=== PATIENT | male | born 1955 ===

== ENCOUNTER 2018-10-05 18:33 | Inpatient (IN) ==
[2018-10-05] MEDS ORDERED: Propofol 1000 mg/100 ml Inj 1,000 MG/100 ML BOTTLE ONE (18:39)
[2018-10-05] MEDS ORDERED: ceFAZolin 2 GM Premix Inj 2 GM/50 ML PIGGYBACK IV.SIG ONE (18:41)
[2018-10-05] MEDS ORDERED: Diphtheria/Tetanus/Pertussis Vaccine Inj 0.5 ML Syringe IM ONE (18:41)
[2018-10-05] MEDS ORDERED: Gentamicin/NS 80 mg Premix 100 ML IV.SIG ONE (18:41)
[2018-10-05 18:59] LABS: Baso # (Auto) 0.1 th/mm3 (0.0-0.2); Eos # (Auto) 0.3 th/mm3 (0.0-0.4); Eos % (Auto) 3.2 % (0.0-4.0); Hematocrit 34.2 % (39.0-51.0); Hemoglobin 11.5 gm/dL (13.0-17.0); Lymph % (Auto) 23.6 % (9.0-44.0); Mean Corpuscular HGB Conc 33.6 % (32.0-36.0); Mean Corpuscular Hemoglobin 32.2 pg (27.0-34.0); Mean Corpuscular Volume 95.8 fL (80.0-100.0); Mono # (Auto) 0.8 th/mm3 (0.0-0.9); Mono % (Auto) 9.6 % (0.0-8.0); Neut # (Auto) 5.4 th/mm3 (1.8-7.7); Neut % (Auto) 62.6 % (16.0-70.0); Platelet Count 298 th/mm3 (150-450); Red Blood Count 3.57 mil/mm3 (4.50-5.90); Red Cell Distribution Width 15.2 % (11.6-17.2); White Blood Count 8.7 th/mm3 (4.0-11.0)
[2018-10-05 19:09] LABS: Activated Partial Thrombo Time 28.7 sec (23.4-31.7); Prothrombin Time 9.8 sec (9.8-11.6)
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
[2018-10-05] MEDS ORDERED: Naloxone Inj 0.4 MG/ML Vial IV.PUSH PRN (19:39)
[2018-10-05] MEDS ORDERED: Bisacodyl 10 MG Supp RECTAL PRN (19:39)
[2018-10-05] MEDS ORDERED: Post-op Orders (for Pharmacy) OTHER ONE (19:39)
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
[2018-10-05] MEDS ORDERED: Propofol 1000 mg/100 ml Inj 1,000 MG/100 ML BOTTLE IV.CONT PRN (19:41)
[2018-10-05] MEDS ORDERED: fentaNYL 10 mcg/mL Premix Drip 2,500 MCG/250 ML BAG IV.SIG PRN (19:41)
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
[2018-10-05] MEDS: Senna/Docusate Sodium 8.6/50 MG Tablet PO SCH (20:11)
[2018-10-05] MEDS: Sod Chloride 0.9% Inj 1,000 ML IV.CONT SCH (20:11)
[2018-10-05] MEDS: Propofol 1000 mg/100 ml Inj 1,000 MG/100 ML BOTTLE IV.CONT PRN (21:04)
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
[2018-10-05 22:09] LABS: ABG Base Excess -9.7 mmol/L (-2-2); ABG PCO2 42 mmHg (38-42); ABG PO2 153 mmHg (61-120)
--- NOTE | 2018-10-05 22:31 | XR ---
EXAM DATE: 10/05/2018 10:13 PM EST AGE/SEX: 89 years / Male INDICATIONS: Confirm ET tube placement. CLINICAL DATA: This is the patient's subsequent encounter. Patient reports that signs and symptoms h ave been present for 1 day and indicates a pain score of Nonresponsive. MEDICAL/SURGICAL HISTORY: Non-responsive. Non-responsive. COMPARISON: C, CHEST 1V SINGLE AP, 10/05/2018. . FINDINGS: Endotracheal tube tip in proximal right mainstem bronchus. NG coiled in stomach. Left basilar airspac e disease with small left effusion. No pneumothorax. Right lung relatively clear. CONCLUSION: Endotracheal tube tip in right mainstem bronchus. This should be withdrawn about 4 cm Electronically signed by: Grzegorz Ring MD 10/05/2018 10:30 PM EST
[2018-10-05] MEDS ORDERED: Potassium Chlor 20 mEq Premix 20 MEQ/100 ML PIGGYBACK IV.SIG PRN ×2 (23:17)
[2018-10-05] MEDS ORDERED: Potassium Chlor 40 mEq Premix 40 MEQ/100 ML PIGGYBACK IV.SIG PRN ×2 (23:17)
[2018-10-05] MEDS ORDERED: Potassium Phosphate 500 MG Soluble Tablet PO PRN ×2 (23:17)
[2018-10-05] MEDS ORDERED: Potassium Chloride 25 MEQ Effervescent Tablet PO PRN (23:17)
[2018-10-05] MEDS ORDERED: Magnesium Sulfate Inj 4 GM in Sodium Chlor 0.9% Inj 92 ML IV.SIG PRN (23:17)
[2018-10-05] MEDS ORDERED: Magnesium Oxide 400 MG Tablet PO PRN (23:17)
[2018-10-05] MEDS ORDERED: Sodium Phosphate Inj 30 MMOL in Sodium Chlor 0.9% Inj 250 ML IV.SIG PRN (23:17)
[2018-10-05] MEDS ORDERED: Magnesium Sulfate Inj 2 GM in Sodium Chlor 0.9% Inj 96 ML IV.SIG PRN (23:17)
[2018-10-05] MEDS ORDERED: Potassium Phosphate Inj 30 MMOL in Sodium Chlor 0.9% Inj 250 ML IV.SIG PRN (23:17)
--- NOTE | 2018-10-05 23:19 | CT ---
EXAM DATE: 10/05/2018 10:51 PM EST AGE/SEX: 89 years / Male INDICATIONS: Evaluate popliteal artery occulsion. CLINICAL DATA: This is the patient's initial encounter. Patient reports that signs and symptoms have been present for 1 day and indicates a pain score of Nonresponsive. MEDICAL/SURGICAL HISTORY: Non-responsive. Non-responsive. RADIATION DOSE: 21.67 CTDI (mGy) COMPARISON: No prior exams available for comparison. TECHNIQUE: Multiple contiguous axial images were acquired using a multirow detector CT scanner after the intravenous administration of 60 ml Omnipaque 350 (iohexol) nonionic water-soluble contrast as a single exam dose. Multiplanar reconstruction was performed in the sagittal and coronal planes. Usi ng automated exposure control and adjustment of the mA and/or kV according to patient size, radiation dose was kept as low as reasonably achievable to obtain optimal diagnostic quality images. DICOM fo rmat image data is available electronically for review and comparison. FINDINGS: There is a markedly comminuted fracture of the tibial plateau involving the medial and lateral condyl es as well as the intercondylar region. The fracture extends into the proximal metaphysis. 2 mm step in the lateral condyle articular cortex. There is mild impaction at the level of the proximal metaphy sis. Markedly comminuted fracture of the distal femur is noted involving the metaphysis as well as the lat eral condyle and intercondylar notch. Approximately 4 cm posterior displacement of the distal fractur e fragments. Fracture involves the articular cortex of the lateral condyle. The patella is interposed between the proximal and distal femoral fracture fragments. Nondisplaced proximal fibular shaft fracture also noted. Diffuse atherosclerotic disease there is prominent calcified plaque and moderate grade stenosis of th e distal superficial femoral artery approximately 15 cm proximal to the knee. There is very high-grad e stenosis of the popliteal artery with a narrow string of contrast over a 1.4 cm long segment. The r emaining popliteal artery is attenuated but patent. The proximal anterior tibial artery is patent. Se kim diffuse atherosclerotic disease of the PT trunk is noted with high-grade stenosis distally over an 8 mm segment at its bifurcation. The proximal posterior tibial artery and peroneal artery are pat ent. CONCLUSION: 1. Comminuted fractures of the distal femur and proximal tibia. Fracture of the proximal fibular sha ft also noted. 2. Prominent atherosclerotic disease disease of the distal femoral artery, popliteal artery, and pro ximal calf arteries. There is focal very high-grade stenosis of the popliteal artery at the level of the knee. This finding is age-indeterminate and could be related to chronic atherosclerotic disease o r recent trauma. Age-indeterminate moderate grade stenosis of the distal superficial femoral artery a nd high-grade stenosis of the PT trunk at its bifurcation also noted. Electronically signed by: Ti Villa MD 10/05/2018 11:18 PM EST
[2018-10-05] MEDS: Pantoprazole Inj 40 MG Vial IV.PUSH SCH (23:57)
[2018-10-05] MEDS: ceFAZolin 1 GM Premix Inj 1 GM/50 ML FROZ.PIGGY IV.SIG SCH (23:57)
[2018-10-06] MEDS: Oral Hygiene Kit OROPHARYNG SCH ×4 (00:17→17:15)
--- NOTE | 2018-10-06 00:33 | XR ---
EXAM DATE: 10/06/2018 12:14 AM EST AGE/SEX: 89 years / Male INDICATIONS: Retraction of the E-T tube from 27 cm to 24 cm. CLINICAL DATA: This is the patient's subsequent encounter. Patient reports that signs and symptoms h ave been present for 1 day and indicates a pain score of Nonresponsive. MEDICAL/SURGICAL HISTORY: None. None. [place] [facility] [place]/05/2018. . FINDINGS: Single AP view the chest. Endotracheal tube remains in place. The tip is now 2 cm above the yael. N asogastric tube is unchanged. Patchy opacity in the left lung base is decreased. CONCLUSION: 1. Endotracheal tube tip now 2 cm above the yael. 2. Patchy atelectasis at the left lung base is decreased. Electronically signed by: Ti Villa MD 10/06/2018 12:32 AM EST
[2018-10-06] MEDS: Sod Chloride 0.9% Inj 1,000 ML IV.CONT SCH ×5 (01:30→20:56)
[2018-10-06] MEDS: Propofol 1000 mg/100 ml Inj 1,000 MG/100 ML BOTTLE IV.CONT PRN ×4 (01:59→20:55)
[2018-10-06] MEDS ORDERED: ceFAZolin 1 GM Premix Inj 1 GM/50 ML FROZ.PIGGY IV.SIG SCH (02:00)
[2018-10-06 03:42] LABS: Baso % (Auto) 0.3 % (0.0-2.0); Eos # (Auto) 0.1 th/mm3 (0.0-0.4); Eos % (Auto) 0.7 % (0.0-4.0); Hematocrit 23.2 % (39.0-51.0); Hemoglobin 8.1 gm/dL (13.0-17.0); Lymph % (Auto) 13.2 % (9.0-44.0); Mean Corpuscular HGB Conc 34.7 % (32.0-36.0); Mean Corpuscular Hemoglobin 33.1 pg (27.0-34.0); Mean Corpuscular Volume 95.3 fL (80.0-100.0); Mono # (Auto) 1.1 th/mm3 (0.0-0.9); Neut # (Auto) 5.4 th/mm3 (1.8-7.7); Neut % (Auto) 70.8 % (16.0-70.0); Platelet Count 222 th/mm3 (150-450); Red Blood Count 2.44 mil/mm3 (4.50-5.90); Red Cell Distribution Width 14.9 % (11.6-17.2); White Blood Count 7.6 th/mm3 (4.0-11.0)
[2018-10-06 04:03] LABS: Calcium 6.8 mg/dL (8.5-10.1); Carbon Dioxide 18.3 meq/L (21.0-32.0); Potassium 4.7 meq/L (3.5-5.1)
--- NOTE | 2018-10-06 04:10 | XR ---
EXAM DATE: 10/06/2018 4:04 AM EST AGE/SEX: 89 years / Male INDICATIONS: Respiratory distress. CLINICAL DATA: This is the patient's subsequent encounter. Patient reports that signs and symptoms h ave been present for 2 days and indicates a pain score of Nonresponsive. MEDICAL/SURGICAL HISTORY: . Unobtainable. . Unobtainable. COMPARISON: C, CHEST 1V SINGLE AP, 10/05/2018. . FINDINGS: Single AP view the chest. Endotracheal tube and nasogastric tube remain in place. Patchy bilateral pu lmonary opacity unchanged. No evidence of pleural effusion or pneumothorax. CONCLUSION: No significant interval change. Electronically signed by: Ti Villa MD 10/06/2018 4:09 AM EST
[2018-10-06] MEDS: ceFAZolin 1 GM Premix Inj 1 GM/50 ML FROZ.PIGGY IV.SIG SCH ×2 (04:17→14:00)
[2018-10-06 05:04] LABS: Calcium-Albumin Corrected 7.6 mg/dL (8.5-10.1); Total Protein 5.6 g/dL (6.4-8.2)
[2018-10-06 06:55] LABS: ABG Base Excess -5.8 mmol/L (-2-2); ABG PCO2 35 mmHg (38-42); ABG PO2 168 mmHg (61-120)
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
[2018-10-06] MEDS ORDERED: ceFAZolin 2 GM Premix Inj 2 GM/50 ML PIGGYBACK IV.SIG ONE (08:02)
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
[2018-10-06] MEDS: Chlorhexidine 0.12% Oral Kit 15 ML UDC OROPHARYNG SCH ×2 (08:39→20:45)
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
[2018-10-06] MEDS ORDERED: Gentamicin/NS 80 mg Premix 100 ML IV.SIG SCH (10:30)
--- NOTE | 2018-10-06 10:54 | CT ---
EXAM DATE: 10/06/2018 10:48 AM EST AGE/SEX: 62 years / Male INDICATIONS: Follow up subdural hematoma. CLINICAL DATA: This is the patient's subsequent encounter. Patient reports that signs and symptoms h ave been present for 2 days and indicates a pain score of Nonresponsive. MEDICAL/SURGICAL HISTORY: Non-responsive. Non-responsive. RADIATION DOSE: 64.63 CTDI (mGy) COMPARISON: [facility] – [place], [place] HEAD W/O CONTRAST, 10/05/2018. . TECHNIQUE: CT of the head without contrast. Using automated exposure control and adjustment of the mA and/or kV according to patient size, radiation dose was kept as low as reasonably achievable to ob tain optimal diagnostic quality images. DICOM format image data is available electronically for revi ew and comparison. FINDINGS: Small amount of parafalcine blood remains, slowly decreasing in size. Trace subarachnoid blood is obs cured by persistent intravascular contrast. There is no significant parenchymal hemorrhage. Ventricular size is appropriate Posterior fossa appears normal Marked generalized superficial swelling is evident. Sinus disease is present in both maxillary sinuse s. I don't see a definite skull fracture. CONCLUSION: 1. Stable to slightly improved. Significant intravascular contrast remains from previous contrasted exam. . Electronically signed by: Eligio Miller MD 10/06/2018 10:53 AM EST
[2018-10-06] MEDS: fentaNYL 10 mcg/mL Premix Drip 2,500 MCG/250 ML BAG IV.SIG PRN (11:20)
--- NOTE | 2018-10-06 11:25 | CT ---
EXAM DATE: 10/06/2018 11:03 AM EST AGE/SEX: 62 years / Male INDICATIONS: Post op knee surgery. CLINICAL DATA: This is the patient's subsequent encounter. Patient reports that signs and symptoms h ave been present for 2 days and indicates a pain score of Nonresponsive. MEDICAL/SURGICAL HISTORY: Non-responsive. Non-responsive. RADIATION DOSE: 18.31 CTDI (mGy) [place] [facility] [place]05/[place]. . TECHNIQUE: Multiple contiguous axial images were acquired using a multirow detector CT scanner witho ut contrast. Multiplanar reconstruction was performed in the sagittal and coronal planes. Using aut omated exposure control and adjustment of the mA and/or kV according to patient size, radiation dose was kept as low as reasonably achievable to obtain optimal diagnostic quality images. DICOM format i mage data is available electronically for review and comparison. FINDINGS: Again seen is the markedly comminuted fractures of the tibial plateau involves both the medial and la teral articular surfaces of the plateau as well as the lateral femoral condyle. Significant comminution is present about the distal femur. Alignment across the femoral articular surfaces reasonably anatomic. Alignment across the medial plateau is reasonably anatomic. In spite of the severe comminution across the lateral plateau alignment is reasonably anatomic. There are several small apparent intra-articular bone fragments evident in the intercondylar notch. The patella is intact Moderate intra-articular air and fluid remain. CONCLUSION: 1. Severely comminuted fracture about the knee as described above, Electronically signed by: Eligio Miller MD 10/06/2018 11:23 AM EST
--- NOTE | 2018-10-06 12:08 | MR ---
EXAM DATE: 10/06/2018 11:55 AM EST AGE/SEX: 62 years / Male INDICATIONS: . T10-T11 fracture CLINICAL DATA: This is the patient's initial encounter. Patient reports that signs and symptoms have been present for 2 days and indicates a pain score of Nonresponsive. MEDICAL/SURGICAL HISTORY: Hypertension. Renal insufficiency. . Right hip surgery. COMPARISON: [facility] – [place], [place] CHEST W & W/O CONTRAST, 10/05/2018. . TECHNIQUE: Multiplanar, multisequence MRI of the thoracic spine was performed. FINDINGS: Vertebrae: Normal vertebral body height. Homogeneous marrow signal. There is widening of the disc s pace at T11-T12 with some fluid in the disc space. In spite of this there is no increased signal in t he interspinous ligament. Signal intensity in the thoracic cord at this level is normal. This is susp icious for a chance type fracture without the other components. Alignment: Normal. Cord: Normal position and configuration. T1-T2: The thecal sac has a normal diameter. No evidence of disc bulge or protrusion. T2-T3: The thecal sac has a normal diameter. No evidence of disc bulge or protrusion. T3-T4: The thecal sac has a normal diameter. No evidence of disc bulge or protrusion. T4-T5: The thecal sac has a normal diameter. No evidence of disc bulge or protrusion. T5-T6: The thecal sac has a normal diameter. No evidence of disc bulge or protrusion. T6-T7: The thecal sac has a normal diameter. No evidence of disc bulge or protrusion. T7-T8: The thecal sac has a normal diameter. No evidence of disc bulge or protrusion. T8-T9: The thecal sac has a normal diameter. No evidence of disc bulge or protrusion. T9-T10: The thecal sac has a normal diameter. No evidence of disc bulge or protrusion. T10-T11: The thecal sac has a normal diameter. No evidence of disc bulge or protrusion. T11-T12: Abnormal T11-T12 disc space without evidence for ligamentous disruption cord hematoma or im pingement. This is suspicious for a Chance type injury T12-L1: The thecal sac has a normal diameter. No evidence of disc bulge or protrusion. CONCLUSION: 1. Abnormal T11-T12 as described above. 2. Thoracic cord is intact. There is no evidence for hematoma or contusion. There is no evidence of posterior ligamentous disruption. Electronically signed by: Eligio Miller MD 10/06/2018 12:06 PM EST
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
--- NOTE | 2018-10-06 12:16 | ECG ---
Date Performed: 10/06/2018 Time Performed: 05:48:12 PTAGE: 89 years EKG: Sinus rhythm . Normal ECG NO PREVIOUS TRACING DOCTOR: Mumtaz Curtis Interpretating Date/Time 10/06/2018 12:10:51
[2018-10-06 13:21] LABS: ABG Base Excess -6.3 mmol/L (-2-2); ABG PCO2 40 mmHg (38-42); ABG PO2 154 mmHg (61-120)
[2018-10-06] MEDS: Senna/Docusate Sodium 8.6/50 MG Tablet PO SCH ×2 (13:27→23:15)
--- NOTE | 2018-10-06 14:22 | XR ---
EXAM DATE: 10/06/2018 2:06 PM EST AGE/SEX: 62 years / Male INDICATIONS: Closed reduction external fixation left knee. CLINICAL DATA: This is the patient's initial encounter. Patient reports that signs and symptoms have been present for 1 day and indicates a pain score of Nonresponsive. MEDICAL/SURGICAL HISTORY: Non-responsive. Non-responsive. COMPARISON: [facility], TIBIA FIBULA LEFT 2V, 10/05/2018. . FINDINGS: Reasonable alignment across the femoral condyle and tibial plateau on the AP and lateral fluoroscopic spot films. Significant comminution is evident both the distal femur and proximal tibia. CONCLUSION: Reasonable alignment as above Electronically signed by: Eligio Miller MD 10/06/2018 2:21 PM EST
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
--- NOTE | 2018-10-06 18:44 | P.PNNS ---
Subjective Interval history: Pt intubated and sedated on Fentanyl and Diprivan drips. When sedation held by RN he striker out hands and moves toes on the right. LLE is in an external fixator and no movement in left foot seen but his sedation was lightened by RN. He has facial edema and not able to open eyes as they are swollen shut. <Juancarlos Stanford - Last Filed: 10/06/18 18:29> Physical Exam Vital signs: Vital Signs 10/05/18 19:08 10/05/18 19:09 10/05/18 19:33 Temperature Pulse Rate Respiratory Rate Blood Pressure 147/87 H Pulse Oximetry 99 99 63 L 10/05/18 19:34 10/05/18 19:46 10/05/18 20:00 Temperature 98.2 F 96.4 F L Pulse Rate 79 76 Respiratory Rate 30 H 28 H Blood Pressure 155/82 H 149/92 H Pulse Oximetry 94 L 100 10/05/18 20:01 10/05/18 20:31 10/05/18 20:46 Temperature 96.3 F L 96.1 F L Pulse Rate 77 74 73 Respiratory Rate 28 H 16 16 Blood Pressure 149/74 H 113/61 111/65 Pulse Oximetry 100 100 100 10/05/18 21:00 10/05/18 21:01 10/05/18 21:16 Temperature 96.4 F L 96.4 F L 96.3 F L Pulse Rate 72 72 74 Respiratory Rate 16 16 16 Blood Pressure 114/67 114/69 Pulse Oximetry 100 100 100 10/05/18 21:26 10/05/18 21:31 10/05/18 21:46 Temperature 96.3 F L 96.3 F L Pulse Rate 72 70 Respiratory Rate 16 16 16 Blood Pressure 103/63 103/60 Pulse Oximetry 100 100 10/05/18 22:00 10/05/18 22:01 10/05/18 22:16 Temperature 96.3 F L 96.3 F L Pulse Rate 73 73 72 Respiratory Rate 16 16 16 Blood Pressure 108/57 L 95/57 L Pulse Oximetry 100 99 99 10/05/18 22:31 10/05/18 23:00 10/05/18 23:16 Temperature 96.3 F L 96.3 F L Pulse Rate 72 75 73 Respiratory Rate 16 15 Blood Pressure 102/56 L 116/66 99/57 L Pulse Oximetry 100 100 100 10/05/18 23:30 10/05/18 23:46 10/06/18 00:00 Temperature 96.3 F L 96.4 F L 96.4 F L Pulse Rate 73 72 73 Respiratory Rate 23 16 17 Blood Pressure 103/61 107/64 Pulse Oximetry 100 100 100 10/06/18 00:01 10/06/18 00:10 10/06/18 00:16 Temperature 96.4 F L 96.6 F L Pulse Rate 72 74 Respiratory Rate 21 16 16 Blood Pressure 112/69 112/67 Pulse Oximetry 100 100 100 10/06/18 00:30 10/06/18 00:46 10/06/18 01:00 Temperature 96.8 F L 97.0 F L 97.2 F L Pulse Rate 75 76 77 Respiratory Rate 16 17 Blood Pressure 110/68 110/70 120/68 Pulse Oximetry 100 100 100 10/06/18 01:01 10/06/18 01:16 10/06/18 01:30 Temperature 97.2 F L 97.3 F L 97.5 F L Pulse Rate 77 77 77 Respiratory Rate 48 H 61 H 64 H Blood Pressure 108/68 115/70 120/68 Pulse Oximetry 100 100 100 10/06/18 01:46 10/06/18 02:00 10/06/18 02:01 Temperature 97.5 F L 97.5 F L 97.5 F L Pulse Rate 78 79 79 Respiratory Rate 56 H 65 H 57 H Blood Pressure 121/73 121/77 Pulse Oximetry 100 100 100 10/06/18 02:30 10/06/18 03:00 10/06/18 03:17 Temperature 97.7 F 97.9 F Pulse Rate 79 80 80 Respiratory Rate 62 H 76 H 16 Blood Pressure 119/72 124/81 Pulse Oximetry 100 100 100 10/06/18 03:30 10/06/18 04:00 10/06/18 08:00 Temperature 98.1 F 98.1 F 99.1 F Pulse Rate 79 79 82 Respiratory Rate 72 H 56 H 66 H Blood Pressure 128/80 142/84 H 153/79 H Pulse Oximetry 100 100 100 10/06/18 08:30 10/06/18 08:55 10/06/18 08:58 Temperature 99.1 F Pulse Rate 83 82 Respiratory Rate 67 H 16 16 Blood Pressure 146/78 H Pulse Oximetry 100 100 10/06/18 09:00 10/06/18 09:45 10/06/18 10:09 Temperature 99.3 F 98.8 F Pulse Rate 81 81 Respiratory Rate 57 H 16 Blood Pressure 148/72 H 146/67 H Pulse Oximetry 100 100 10/06/18 11:55 10/06/18 12:00 10/06/18 12:27 Temperature 98.1 F Pulse Rate 82 Respiratory Rate 16 16 Blood Pressure 147/71 H Pulse Oximetry 100 99 100 10/06/18 14:06 10/06/18 14:24 10/06/18 14:58 Temperature 98.8 F 98.8 F Pulse Rate 79 79 Respiratory Rate 16 16 16 Blood Pressure 143/64 H 143/64 H Pulse Oximetry 100 10/06/18 14:59 10/06/18 16:00 10/06/18 17:00 Temperature 99.0 F 99.3 F Pulse Rate 80 80 85 Respiratory Rate 16 16 16 Blood Pressure 147/69 H 168/77 H Pulse Oximetry 100 100 Intake & Output 10/05/18 10/06/18 10/06/18 18:59 06:59 18:59 Intake Total 2575 / 2575 2004 Output Total 875 / 875 30 / 30 Balance 1700 / 1700 1974 Weight 98.1 kg Intake: IV 2555 / 2555 1205 / 1205 Diprivan 1000 mg/100 ml Inj 1, 200 / 200 100 / 100 000 mg In 100 ml @ 5 MCG/KG/MIN 2.805 mls/hr IV.CONT TITRATE PRN Rx#:[id number] NS Inj 1,000 ML @ 200 mls/hr IV 1999 / 1999 1000 / 1000 .CONT .Q5H [facility] Rx#:[id number] Gentamicin/NS 80 mg Premix 100 100 / 100 ML @ 0 mls/hr IV.SIG .STK-MED ONE Rx#:[id number] Ancef 1 GM Premix Inj 1 gm In 100 / 100 50 ml @ 100 mls/hr IV.SIG Q8H [facility] Rx#:[id number] Ancef 2 GM Premix Inj 2 gm In 50 / 50 50 ml @ 0 mls/hr IV.SIG .STK- MED ONE Rx#:[id number] Keppra Inj 500 MG In NS Inj 100 105 / 105 105 / 105 ML @ 400 mls/hr IV.SIG Q12H [facility] Rx#:[id number] Water Bolus Amount 20 / 20 Anesthesia Amount 800 / 800 Intake (Blood Product) Amt 0 / 0 Rbc As-3 Leukoreduced Unit 0 / 0 [id number] Rbc As-3 Leukoreduced Unit 0 / 0 [id number] Output: Estimated Blood Loss 30 / 30 Urine Amount (Catheter) 550 / 550 Indwelling Temp Sensing 550 / 550 Catheter Gastric Drainage 325 / 325 Orogastric Tube 325 / 325 Other: # Bowel Movements 0 Weight On Admission 93.5 kg - Constitutional Comments: Pt is sedated and intubated. - Routine HEENT Exam Head: Absent: atraumatic (Pt with facial trauma and forehead is bandaged. He has bilateral periorbital edema.) Eye: Present: PERRL (Pupils 2mm bilaterally, reactive bilaterally.), periorbital swelling (bilaterally.). Absent: conjunctival icterus ENT: Absent: oropharynx clear (Intubated.) - Routine Neck Exam Present: trachea midline - Routine Respiratory Exam Present: patient mechanically ventilated (PRVC A/C rate 16. Peep 8. FiO2 45%.) , CTA bilaterally. Absent: respiratory distress, rhonchi, wheezes - Routine Cardiovascular Exam Present: RRR, S1, S2. Absent: murmur - Routine Abdominal Exam Present: soft, normoactive bowel sounds. Absent: distended, firm - Routine Extremities Exam Comments: External fixator to LLE. - Routine Skin Exam Absent: cyanosis, erythema Comments: Laceration forehead with bandage in place. LLE external fixator in place with oozing at pin sites. - Routine Neurological Exam Absent: alert (Sedated on Diprivan and Fentanyl drips.), moving all extremities (When sedation held pt striker out bilateral hands and moves right foot. LLE with external fixator in place and not seen moving per RN. ) Pupils 2mm bilaterally reactive bilaterally. Pt follows simple commands when sedation held for RN. - Detailed Neurological Exam: Coma Scale Eye Opening: None Verbal Response: None Motor Response: Obey commands Storm Coma Scale Total: 8 - Routine Psychiatric Exam Present: unable to assess - Urinary Catheter Management Indwelling Temp Sensing Catheter Cath placed during this visit: yes Reason for continuing: Hourly intake/output Insertion date: 10/05/18 Insertion time: 20:00 <Juancarlos Stanford - Last Filed: 10/06/18 18:29> Vital signs: Vital Signs 10/05/18 20:31 10/05/18 20:46 10/05/18 21:00 Temperature 96.1 F L 96.4 F L Pulse Rate 74 73 72 Respiratory Rate 16 16 16 Blood Pressure 113/61 111/65 Pulse Oximetry 100 100 100 10/05/18 21:01 10/05/18 21:16 10/05/18 21:26 Temperature 96.4 F L 96.3 F L Pulse Rate 72 74 Respiratory Rate 16 16 16 Blood Pressure 114/67 114/69 Pulse Oximetry 100 100 10/05/18 21:31 10/05/18 21:46 10/05/18 22:00 Temperature 96.3 F L 96.3 F L 96.3 F L Pulse Rate 72 70 73 Respiratory Rate 16 16 16 Blood Pressure 103/63 103/60 Pulse Oximetry 100 100 100 10/05/18 22:01 10/05/18 22:16 10/05/18 22:31 Temperature 96.3 F L Pulse Rate 73 72 72 Respiratory Rate 16 16 Blood Pressure 108/57 L 95/57 L 102/56 L Pulse Oximetry 99 99 100 10/05/18 23:00 10/05/18 23:16 10/05/18 23:30 Temperature 96.3 F L 96.3 F L 96.3 F L Pulse Rate 75 73 73 Respiratory Rate 16 15 23 Blood Pressure 116/66 99/57 L 103/61 Pulse Oximetry 100 100 100 10/05/18 23:46 10/06/18 00:00 10/06/18 00:01 Temperature 96.4 F L 96.4 F L 96.4 F L Pulse Rate 72 73 72 Respiratory Rate 16 17 21 Blood Pressure 107/64 112/69 Pulse Oximetry 100 100 100 10/06/18 00:10 10/06/18 00:16 10/06/18 00:30 Temperature 96.6 F L 96.8 F L Pulse Rate 74 75 Respiratory Rate 16 16 16 Blood Pressure 112/67 110/68 Pulse Oximetry 100 100 100 10/06/18 00:46 10/06/18 01:00 10/06/18 01:01 Temperature 97.0 F L 97.2 F L 97.2 F L Pulse Rate 76 77 77 Respiratory Rate 17 48 H Blood Pressure 110/70 120/68 108/68 Pulse Oximetry 100 100 100 10/06/18 01:16 10/06/18 01:30 10/06/18 01:46 Temperature 97.3 F L 97.5 F L 97.5 F L Pulse Rate 77 77 78 Respiratory Rate 61 H 64 H 56 H Blood Pressure 115/70 120/68 121/73 Pulse Oximetry 100 100 100 10/06/18 02:00 10/06/18 02:01 10/06/18 02:30 Temperature 97.5 F L 97.5 F L 97.7 F Pulse Rate 79 79 79 Respiratory Rate 65 H 57 H 62 H Blood Pressure 121/77 119/72 Pulse Oximetry 100 100 100 10/06/18 03:00 10/06/18 03:17 10/06/18 03:30 Temperature 97.9 F 98.1 F Pulse Rate 80 80 79 Respiratory Rate 76 H 16 72 H Blood Pressure 124/81 128/80 Pulse Oximetry 100 100 100 10/06/18 04:00 10/06/18 08:00 10/06/18 08:30 Temperature 98.1 F 99.1 F 99.1 F Pulse Rate 79 82 83 Respiratory Rate 56 H 66 H 67 H Blood Pressure 142/84 H 153/79 H 146/78 H Pulse Oximetry 100 100 100 10/06/18 08:55 10/06/18 08:58 10/06/18 09:00 Temperature 99.3 F Pulse Rate 82 81 Respiratory Rate 16 16 57 H Blood Pressure 148/72 H Pulse Oximetry 100 100 10/06/18 09:45 10/06/18 10:09 10/06/18 11:55 Temperature 98.8 F Pulse Rate 81 Respiratory Rate 16 Blood Pressure 146/67 H Pulse Oximetry 100 100 10/06/18 12:00 10/06/18 12:27 10/06/18 14:06 Temperature 98.1 F 98.8 F Pulse Rate 82 79 Respiratory Rate 16 16 16 Blood Pressure 147/71 H 143/64 H Pulse Oximetry 99 100 10/06/18 14:24 10/06/18 14:58 10/06/18 14:59 Temperature 98.8 F Pulse Rate 79 80 Respiratory Rate 16 16 16 Blood Pressure 143/64 H Pulse Oximetry 100 10/06/18 16:00 10/06/18 17:00 Temperature 99.0 F 99.3 F Pulse Rate 80 85 Respiratory Rate 16 16 Blood Pressure 147/69 H 168/77 H Pulse Oximetry 100 100 Intake & Output 10/06/18 10/06/18 10/07/18 06:59 18:59 06:59 Intake Total 2575 / 2575 2004 Output Total 875 / 875 855 / 855 Balance 1700 / 1700 1150 / 1150 Weight 98.1 kg Intake: IV 2555 / 2555 1205 / 1205 Diprivan 1000 mg/100 ml Inj 1, 200 / 200 100 / 100 000 mg In 100 ml @ 5 MCG/KG/MIN 2.805 mls/hr IV.CONT TITRATE PRN Rx#:[id number] NS Inj 1,000 ML @ 200 mls/hr IV 2000 / 1999 1000 / 1000 .CONT .Q5H [facility] Rx#:[id number] Gentamicin/NS 80 mg Premix 100 100 / 100 ML @ 0 mls/hr IV.SIG .STK-MED ONE Rx#:[id number] Ancef 1 GM Premix Inj 1 gm In 100 / 100 50 ml @ 100 mls/hr IV.SIG Q8H [facility] Rx#:[id number] Ancef 2 GM Premix Inj 2 gm In 50 / 50 50 ml @ 0 mls/hr IV.SIG .STK- [facility] Rx#:[id number] Keppra Inj 500 MG In NS Inj 100 105 / 105 105 / 105 ML @ 400 mls/hr IV.SIG Q12H [facility] Rx#:[id number] Water Bolus Amount 20 / 20 Anesthesia Amount 800 / 800 Intake (Blood Product) Amt 0 / 0 Rbc As-3 Leukoreduced Unit 0 / 0 [id number] Rbc As-3 Leukoreduced Unit 0 / 0 [id number] Output: Estimated Blood Loss 30 / 30 Urine Amount (Catheter) 550 / 550 775 / 775 Indwelling Temp Sensing 550 / 550 775 / 775 Catheter Gastric Drainage 325 / 325 50 / 50 Orogastric Tube 325 / 325 50 / 50 Other: # Bowel Movements 0 Weight On Admission 93.5 kg - Urinary Catheter Management Indwelling Temp Sensing Catheter Cath placed during this visit: no <Janes Arceo - Last Filed: 10/07/18 11:55> Assessment and Plan - Assessment (1) CHI (closed head injury) Code(s): S09.90XA - Unspecified injury of head, initial encounter Status: Acute Qualifiers: Encounter type: initial encounter Qualified Code(s): S09.90XA - Unspecified injury of head, initial encounter (2) Acute subdural hematoma Code(s): S06.5X9A - Traumatic subdural hemorrhage with loss of consciousness of unspecified duration, initial encounter Status: Acute (3) Open fracture Code(s): T14.8XXA - Other injury of unspecified body region, initial encounter Status: Acute (4) Respiratory failure after trauma Code(s): J96.90 - Respiratory failure, unspecified, unspecified whether with hypoxia or hypercapnia Status: Acute (5) Mild major neurocognitive disorder as late effect of traumatic brain injury without behavioral disturbance Code(s): S06.9X9S - Unspecified intracranial injury with loss of consciousness of unspecified duration, sequela; F02.80 - Dementia in other diseases classified elsewhere without behavioral disturbance Status: Acute - Plan Small parafalcine SDH improving on Follow up CT. Avulsion fracture of superior endplates of T10 and T11 with disruption of the anterior annulus and widening of the anterior disc space between T10 and T11. This is an unstable fracture. plan formulated with Dr. Arceo: Pts thoracic fracture is unstable and will need stabilization later this week if medically stable. Continue to keep hob less than 15 degrees. Log roll precautions. Custom TLSO brace. Continue with critical care. <Juancarlos Stanford - Last Filed: 10/06/18 18:29> - Attending Attestation The exam, history, and the medical decision-making described in the above note were completed with the assistance of the mid-level provider. I reviewed and agree with the findings presented. I attest that I had a [id number] encounter with the patient on the same day, and personally performed and documented my assessment and findings in the medical record. Discussed with nursing staff. <Janes Arceo - Last Filed: 10/07/18 11:55>
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
[2018-10-06] MEDS ORDERED: Lidocaine 1%/Epinephrine 1:100,000 Inj 30 ML Vial ONE (18:51)
[2018-10-06 20:42] LABS: Calcium 6.5 mg/dL (8.5-10.1); Carbon Dioxide 16.3 meq/L (21.0-32.0); Potassium 4.8 meq/L (3.5-5.1); Total Protein 5.3 g/dL (6.4-8.2)
--- NOTE | 2018-10-06 20:48 | MG ---
cc: Delmar Gutierrez MD EEG NUMBER: [id number] DESCRIPTION: Sharply contoured frontal theta occurring ____ low amplitude theta with delta activity 20-50 microvolts. Limited driving with photic stimulation. EEG variability reactivity noted. INTERPRETATION: [id number] encephalopathy. Clinical correlation. MD MARGO Arauz/bree/gertrude , 08:00 PM , 08:05 PM
[2018-10-06 21:01] LABS: Activated Partial Thrombo Time 28.1 sec (23.4-31.7); Prothrombin Time 10.3 sec (9.8-11.6)
[2018-10-06 21:23] LABS: Hematocrit 26.8 % (39.0-51.0); Hemoglobin 9.3 gm/dL (13.0-17.0); Mean Corpuscular HGB Conc 34.8 % (32.0-36.0); Mean Corpuscular Hemoglobin 31.2 pg (27.0-34.0); Mean Corpuscular Volume 89.8 fL (80.0-100.0); Mean Platelet Volume 7.3 fL (7.0-11.0); Platelet Count 179 th/mm3 (150-450); Red Blood Count 2.98 mil/mm3 (4.50-5.90); Red Cell Distribution Width 19.8 % (11.6-17.2); White Blood Count 8.1 th/mm3 (4.0-11.0)
[2018-10-07] MEDS: Pantoprazole Inj 40 MG Vial IV.PUSH SCH ×2 (00:10→23:09)
[2018-10-07] MEDS: Oral Hygiene Kit OROPHARYNG SCH ×5 (00:11→23:10)
[2018-10-07] MEDS: Sod Chloride 0.9% Inj 1,000 ML IV.CONT SCH ×3 (02:07→15:38)
--- NOTE | 2018-10-07 04:15 | XR ---
EXAM DATE: 10/07/2018 4:05 AM EST AGE/SEX: 62 years / Male INDICATIONS: Respiratory distress. CLINICAL DATA: This is the patient's subsequent encounter. Patient reports that signs and symptoms h ave been present for 2 days and indicates a pain score of Nonresponsive. MEDICAL/SURGICAL HISTORY: Hypertension. None. COMPARISON: [facility] [place], CHEST 1V SINGLE AP, 10/06/2018. . FINDINGS: A single AP supine portable view the chest was obtained and again demonstrates an endotracheal tube i n place with the tip approximately 1 cm above the yael. The nasogastric tube remains in place. Hazy opacity is noted at the left lung base which is increased from the prior study with mild air broncho grams. There is slight blunting and opacity in the left costophrenic angle. The right lung is clear. CONCLUSION: 1. Abnormal opacity at the left lung base which appears more consolidative and is of concern for pos sible pneumonia. 2. Apparent mild blunting of left costophrenic angle which could indicate a small effusion. Electronically signed by: Marco Chavez MD 10/07/2018 4:13 AM EST
[2018-10-07] MEDS: ceFAZolin 1 GM Premix Inj 1 GM/50 ML FROZ.PIGGY IV.SIG SCH ×2 (04:39→13:59)
[2018-10-07] MEDS: fentaNYL 10 mcg/mL Premix Drip 2,500 MCG/250 ML BAG IV.SIG PRN ×2 (04:46→23:08)
[2018-10-07 06:10] LABS: ABG Base Excess -9.3 mmol/L (-2-2); ABG PCO2 34 mmHg (38-42); ABG PO2 125 mmHg (61-120)
[2018-10-07] MEDS: Propofol 1000 mg/100 ml Inj 1,000 MG/100 ML BOTTLE IV.CONT PRN (06:44)
--- NOTE | 2018-10-07 07:09 | P.PNOP ---
Subjective Interval history: POD 1 s/p exfix left knee intubated/sedated Physical Exam Vital signs: Vital Signs 10/06/18 08:00 10/06/18 08:30 10/06/18 08:55 Temperature 99.1 F 99.1 F Pulse Rate 82 83 Respiratory Rate 66 H 67 H 16 Blood Pressure 153/79 H 146/78 H Pulse Oximetry 100 100 100 10/06/18 08:58 10/06/18 09:00 10/06/18 09:45 Temperature 99.3 F Pulse Rate 82 81 Respiratory Rate 16 57 H Blood Pressure 148/72 H Pulse Oximetry 100 100 10/06/18 10:09 10/06/18 11:55 10/06/18 12:00 Temperature 98.8 F 98.1 F Pulse Rate 81 82 Respiratory Rate 16 16 Blood Pressure 146/67 H 147/71 H Pulse Oximetry 100 99 10/06/18 12:27 10/06/18 14:06 10/06/18 14:24 Temperature 98.8 F 98.8 F Pulse Rate 79 79 Respiratory Rate 16 16 16 Blood Pressure 143/64 H 143/64 H Pulse Oximetry 100 10/06/18 14:58 10/06/18 14:59 10/06/18 16:00 Temperature 99.0 F Pulse Rate 80 80 Respiratory Rate 16 16 16 Blood Pressure 147/69 H Pulse Oximetry 100 100 10/06/18 17:00 10/06/18 18:00 10/06/18 19:00 Temperature 99.3 F 99.3 F 99.5 F Pulse Rate 85 83 86 Respiratory Rate 16 16 16 Blood Pressure 168/77 H 164/77 H 173/81 H Pulse Oximetry 100 100 100 10/06/18 20:00 10/06/18 21:00 10/06/18 21:33 Temperature 99.5 F 99.3 F Pulse Rate 86 88 Respiratory Rate 16 16 16 Blood Pressure 166/75 H Pulse Oximetry 100 100 100 10/06/18 21:35 10/06/18 22:00 10/06/18 23:00 Temperature 99.1 F 99.0 F Pulse Rate 87 85 85 Respiratory Rate 16 16 16 Blood Pressure 153/71 H 149/72 H Pulse Oximetry 100 100 10/07/18 00:00 10/07/18 01:00 10/07/18 02:00 Temperature 99.0 F 98.8 F 98.6 F Pulse Rate 84 84 85 Respiratory Rate 16 16 13 Blood Pressure 151/72 H 169/74 H 170/74 H Pulse Oximetry 100 100 100 10/07/18 03:00 10/07/18 04:00 10/07/18 04:11 Temperature 98.4 F 98.4 F Pulse Rate 84 90 Respiratory Rate 11 L 16 16 Blood Pressure 163/70 H 166/81 H Pulse Oximetry 100 100 100 10/07/18 04:12 10/07/18 05:00 10/07/18 05:16 Temperature 98.4 F Pulse Rate 89 88 Respiratory Rate 16 16 16 Blood Pressure 185/83 H Pulse Oximetry 100 10/07/18 05:23 10/07/18 06:00 Temperature 98.2 F 98.1 F Pulse Rate 92 H 88 Respiratory Rate 16 16 Blood Pressure 176/82 H 162/79 H Pulse Oximetry 100 100 Intake & Output 10/06/18 10/07/18 10/07/18 18:59 06:59 18:59 Intake Total 2004 3605 / 3605 Output Total 855 / 855 1200 / 1200 Balance 1150 / 1150 2405 / 2405 Weight 98.6 kg Intake: IV 1205 / 1205 3605 / 3605 Diprivan 1000 mg/100 ml Inj 1, 100 / 100 200 / 200 000 mg In 100 ml @ 5 MCG/KG/MIN 2.805 mls/hr IV.CONT TITRATE PRN Rx#:[id number] NS Inj 1,000 ML @ 200 mls/hr IV 1000 / 1000 3000 / 3000 .CONT .Q5H [facility] Rx#:[id number] Ancef 1 GM Premix Inj 1 gm In 50 / 50 50 ml @ 100 mls/hr IV.SIG Q12H [facility] Rx#:[id number] fentaNYL 10 mcg/mL Premix Drip 250 / 250 2,500 mcg In 250 ml @ 50 MCG/HR 5 mls/hr IV.SIG TITRATE PRN Rx #:[id number] Keppra Inj 500 MG In NS Inj 100 105 / 105 105 / 105 ML @ 400 mls/hr IV.SIG Q12H [facility] Rx#:[id number] Anesthesia Amount 800 / 800 Intake (Blood Product) Amt 0 / 0 Rbc As-3 Leukoreduced Unit 0 / 0 [id number] Rbc As-3 Leukoreduced Unit 0 / 0 [id number] Output: Estimated Blood Loss 30 / 30 Urine Amount (Catheter) 775 / 775 1100 / 1100 Indwelling Temp Sensing 775 / 775 1100 / 1100 Catheter Gastric Drainage 50 / 50 100 / 100 Orogastric Tube 50 / 50 100 / 100 Other: # Bowel Movements 0 Narrative: LLE: dressings clean and dry. intact. pin sites clean. +pulses distally - Urinary Catheter Management Indwelling Temp Sensing Catheter Cath placed during this visit: yes Reason for continuing: Hourly intake/output Insertion date: 10/05/18 Insertion time: 20:00 Results - Labs CBC & Chem 7: 10/06/18 21:14 10/06/18 19:45 Laboratory Results - last 24 hr 10/06/18 10/06/18 10/06/18 09:08 13:09 13:38 WBC RBC Hgb Hct MCV MCH MCHC RDW Plt Count MPV PT INR APTT Puncture Site Right radial Patient Temperature 98.6 O2 Saturation 96 ABG pH 7.30 L ABG pCO2 40 ABG pO2 154 H ABG HCO3 19 L ABG O2 Content 11.4 L ABG Base Excess -6.3 L ABG Methemoglobin 1.5 [place] Test Present Hemoglobin 8.2 L Carboxyhemoglobin 1.4 O2 Delivery Device Ventilator Vent Setting See comments Inspired O2 Critical Value No Sodium Potassium Chloride Carbon Dioxide Anion Gap BUN Creatinine Estimated GFR POC Glucose Random Glucose Calcium Prot Corrected Calcium Total Bilirubin AST ALT Alkaline Phosphatase Total Protein Albumin MTS Gel Crossmatch See Detail See Detail 10/06/18 10/06/18 10/06/18 19:45 19:45 21:14 WBC 8.1 RBC 2.98 L Hgb 9.3 L Hct 26.8 L MCV 89.8 D MCH 31.2 MCHC 34.8 RDW 19.8 H D Plt Count 179 MPV 7.3 PT 10.3 INR 1.0 APTT 28.1 Puncture Site Patient Temperature O2 Saturation ABG pH ABG pCO2 ABG pO2 ABG HCO3 ABG O2 Content ABG Base Excess ABG Methemoglobin Austin Test Hemoglobin Carboxyhemoglobin O2 Delivery Device Vent Setting Inspired O2 Critical Value Sodium 141 Potassium 4.8 Chloride 111 H Carbon Dioxide 16.3 L Anion Gap 14 BUN 46 H Creatinine 3.50 H Estimated GFR 18 L POC Glucose Random Glucose 96 Calcium 6.5 L* Prot Corrected Calcium 7.4 L* Total Bilirubin 0.4 AST 76 H ALT 25 Alkaline Phosphatase 63 Total Protein 5.3 L Albumin 2.0 L MTS Gel Crossmatch 10/06/18 10/07/18 22:03 06:03 WBC RBC Hgb Hct MCV MCH MCHC RDW Plt Count MPV PT INR APTT Puncture Site Right radial Patient Temperature 98.6 O2 Saturation 96 ABG pH 7.29 L* ABG pCO2 34 L ABG pO2 125 H ABG HCO3 16 L* ABG O2 Content 11.1 L ABG Base Excess -9.3 L ABG Methemoglobin 1.4 [place] Test + Hemoglobin 8.0 L Carboxyhemoglobin 1.2 O2 Delivery Device Ventilator Vent Setting Prvc/ac 16 vt 650 Inspired O2 45 Critical Value Yes Sodium Potassium Chloride Carbon Dioxide Anion Gap BUN Creatinine Estimated GFR POC Glucose 176 H Random Glucose Calcium Prot Corrected Calcium Total Bilirubin AST ALT Alkaline Phosphatase Total Protein Albumin MTS Gel Crossmatch - Imaging Impressions Knee CT 10/06/18 00:00 CONCLUSION: 1. Severely comminuted fracture about the knee as described above, Knee X-Ray 10/06/18 00:00 CONCLUSION: Reasonable alignment as above Thoracic Spine MRI 10/06/18 00:00 CONCLUSION: 1. Abnormal T11-T12 as described above. 2. Thoracic cord is intact. There is no evidence for hematoma or contusion. There is no evidence of posterior ligamentous disruption. Head CT 10/06/18 08:00 CONCLUSION: 1. Stable to slightly improved. Significant intravascular contrast remains from previous contrasted exam. . Chest X-Ray 10/07/18 06:00 CONCLUSION: 1. Abnormal opacity at the left lung base which appears more consolidative and is of concern for possible pneumonia. 2. Apparent mild blunting of left costophrenic angle which could indicate a small effusion. Assessment and Plan - Assessment and Plan 1) Left Open Distal Femur and Proximal Tibia Fxs s/p Exfix - POD 1 -NWB -pin care BID -will need definitive treatment once patient stabilized. -fractures are well aligned currently in exfix and are stable. ok to wait til next week if need be. -would suggest neurosurg manage unstable spine fxs prior to fixation of knee. -will re-eval for ORIF once spine is stable
[2018-10-07] MEDS: Chlorhexidine 0.12% Oral Kit 15 ML UDC OROPHARYNG SCH ×2 (08:00→20:03)
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
[2018-10-07 08:30] LABS: Baso # (Auto) 0.1 th/mm3 (0.0-0.2); Baso % (Auto) 0.7 % (0.0-2.0); Eos # (Auto) 0.1 th/mm3 (0.0-0.4); Eos % (Auto) 1.9 % (0.0-4.0); Hematocrit 23.4 % (39.0-51.0); Lymph # (Auto) 0.9 th/mm3 (1.0-4.8); Lymph % (Auto) 10.7 % (9.0-44.0); Mean Corpuscular HGB Conc 34.2 % (32.0-36.0); Mean Corpuscular Hemoglobin 31.3 pg (27.0-34.0); Mean Corpuscular Volume 91.6 fL (80.0-100.0); Mean Platelet Volume 7.6 fL (7.0-11.0); Mono # (Auto) 1.3 th/mm3 (0.0-0.9); Neut # (Auto) 5.5 th/mm3 (1.8-7.7); Neut % (Auto) 69.7 % (16.0-70.0); Platelet Count 161 th/mm3 (150-450); Red Blood Count 2.55 mil/mm3 (4.50-5.90); Red Cell Distribution Width 19.5 % (11.6-17.2); White Blood Count 7.9 th/mm3 (4.0-11.0)
[2018-10-07 08:40] LABS: Albumin 1.8 g/dL (3.4-5.0); Calcium 6.5 mg/dL (8.5-10.1); Carbon Dioxide 16.6 meq/L (21.0-32.0); Potassium 4.3 meq/L (3.5-5.1); Total Protein 5.1 g/dL (6.4-8.2)
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
[2018-10-07] MEDS: Enoxaparin Inj 30 MG/0.3 ML Syringe SQ SCH ×2 (10:08→20:00)
[2018-10-07] MEDS: Senna/Docusate Sodium 8.6/50 MG Tablet PO SCH ×2 (10:09→23:07)
--- NOTE | 2018-10-07 10:28 | P.PNNS ---
Subjective Interval history: Pt sedation held for exam. He opens left eye, both are swollen but he cannot open right and even difficult to manually open. Pupils were dilated this am by ophthalmology. He moves all 4 extremities including some movement in left foot. Left external fixator remains in place. <Juancarlos Stanford - Last Filed: 10/08/18 08:54> Physical Exam Vital signs: Vital Signs 10/06/18 11:55 10/06/18 12:00 10/06/18 12:27 Temperature 98.1 F Pulse Rate 82 Respiratory Rate 16 16 Blood Pressure 147/71 H Pulse Oximetry 100 99 100 10/06/18 14:06 10/06/18 14:24 10/06/18 14:58 Temperature 98.8 F 98.8 F Pulse Rate 79 79 Respiratory Rate 16 16 16 Blood Pressure 143/64 H 143/64 H Pulse Oximetry 100 10/06/18 14:59 10/06/18 16:00 10/06/18 17:00 Temperature 99.0 F 99.3 F Pulse Rate 80 80 85 Respiratory Rate 16 16 16 Blood Pressure 147/69 H 168/77 H Pulse Oximetry 100 100 10/06/18 18:00 10/06/18 19:00 10/06/18 20:00 Temperature 99.3 F 99.5 F 99.5 F Pulse Rate 83 86 86 Respiratory Rate 16 16 16 Blood Pressure 164/77 H 173/81 H Pulse Oximetry 100 100 100 10/06/18 21:00 10/06/18 21:33 10/06/18 21:35 Temperature 99.3 F Pulse Rate 88 87 Respiratory Rate 16 16 16 Blood Pressure 166/75 H Pulse Oximetry 100 100 10/06/18 22:00 10/06/18 23:00 10/07/18 00:00 Temperature 99.1 F 99.0 F 99.0 F Pulse Rate 85 85 84 Respiratory Rate 16 16 16 Blood Pressure 153/71 H 149/72 H 151/72 H Pulse Oximetry 100 100 100 10/07/18 01:00 10/07/18 02:00 10/07/18 03:00 Temperature 98.8 F 98.6 F 98.4 F Pulse Rate 84 85 84 Respiratory Rate 16 13 11 L Blood Pressure 169/74 H 170/74 H 163/70 H Pulse Oximetry 100 100 100 10/07/18 04:00 10/07/18 04:11 10/07/18 04:12 Temperature 98.4 F Pulse Rate 90 89 Respiratory Rate 16 16 16 Blood Pressure 166/81 H Pulse Oximetry 100 100 10/07/18 05:00 10/07/18 05:16 10/07/18 05:23 Temperature 98.4 F 98.2 F Pulse Rate 88 92 H Respiratory Rate 16 16 16 Blood Pressure 185/83 H 176/82 H Pulse Oximetry 100 100 10/07/18 06:00 10/07/18 07:00 10/07/18 08:00 Temperature 98.1 F 98.1 F 97.9 F Pulse Rate 88 88 95 H Respiratory Rate 16 9 L 16 Blood Pressure 162/79 H 172/79 H 191/89 H Pulse Oximetry 100 100 100 10/07/18 08:02 10/07/18 08:28 10/07/18 08:39 Temperature 97.9 F Pulse Rate 95 H 89 Respiratory Rate 16 16 16 Blood Pressure 172/84 H Pulse Oximetry 100 100 10/07/18 09:00 10/07/18 10:00 10/07/18 10:34 Temperature 98.1 F 97.9 F Pulse Rate 90 90 Respiratory Rate 16 16 Blood Pressure 162/78 H 170/82 H Pulse Oximetry 100 100 100 Intake & Output 10/06/18 10/07/18 10/07/18 18:59 06:59 18:59 Intake Total 2004 3605 / 3605 155 / 155 Output Total 855 / 855 1200 / 1200 Balance 1150 / 1150 2405 / 2405 155 / 155 Weight 98.6 kg Intake: IV 1205 / 1205 3605 / 3605 155 / 155 Diprivan 1000 mg/100 ml Inj 1, 100 / 100 200 / 200 000 mg In 100 ml @ 5 MCG/KG/MIN 2.805 mls/hr IV.CONT TITRATE PRN Rx#:[id number] NS Inj 1,000 ML @ 200 mls/hr IV 1000 / 1000 3000 / 3000 .CONT .Q5H [facility] Rx#:[id number] Ancef 1 GM Premix Inj 1 gm In 50 / 50 50 ml @ 100 mls/hr IV.SIG Q12H [facility] Rx#:[id number] fentaNYL 10 mcg/mL Premix Drip 250 / 250 2,500 mcg In 250 ml @ 50 MCG/HR 5 mls/hr IV.SIG TITRATE PRN Rx #:[id number] Keppra Inj 500 MG In NS Inj 100 105 / 105 105 / 105 105 / 105 ML @ 400 mls/hr IV.SIG Q12H [facility] Rx#:[id number] Anesthesia Amount 800 / 800 Intake (Blood Product) Amt 0 / 0 Rbc As-3 Leukoreduced Unit 0 / 0 [id number] Rbc As-3 Leukoreduced Unit 0 / 0 [id number] Output: Estimated Blood Loss 30 / 30 Urine Amount (Catheter) 775 / 775 1100 / 1100 Indwelling Temp Sensing 775 / 775 1100 / 1100 Catheter Gastric Drainage 50 / 50 100 / 100 Orogastric Tube 50 / 50 100 / 100 Other: # Bowel Movements 0 - Urinary Catheter Management Indwelling Temp Sensing Catheter Cath placed during this visit: no <Janes Arceo - Last Filed: 10/07/18 12:31> Vital signs: Vital Signs 10/06/18 11:55 10/06/18 12:00 10/06/18 12:27 Temperature 98.1 F Pulse Rate 82 Respiratory Rate 16 16 Blood Pressure 147/71 H Pulse Oximetry 100 99 100 10/06/18 14:06 10/06/18 14:24 10/06/18 14:58 Temperature 98.8 F 98.8 F Pulse Rate 79 79 Respiratory Rate 16 16 16 Blood Pressure 143/64 H 143/64 H Pulse Oximetry 100 10/06/18 14:59 10/06/18 16:00 10/06/18 17:00 Temperature 99.0 F 99.3 F Pulse Rate 80 80 85 Respiratory Rate 16 16 16 Blood Pressure 147/69 H 168/77 H Pulse Oximetry 100 100 10/06/18 18:00 10/06/18 19:00 10/06/18 20:00 Temperature 99.3 F 99.5 F 99.5 F Pulse Rate 83 86 86 Respiratory Rate 16 16 16 Blood Pressure 164/77 H 173/81 H Pulse Oximetry 100 100 100 10/06/18 21:00 10/06/18 21:33 10/06/18 21:35 Temperature 99.3 F Pulse Rate 88 87 Respiratory Rate 16 16 16 Blood Pressure 166/75 H Pulse Oximetry 100 100 10/06/18 22:00 10/06/18 23:00 10/07/18 00:00 Temperature 99.1 F 99.0 F 99.0 F Pulse Rate 85 85 84 Respiratory Rate 16 16 16 Blood Pressure 153/71 H 149/72 H 151/72 H Pulse Oximetry 100 100 100 10/07/18 01:00 10/07/18 02:00 10/07/18 03:00 Temperature 98.8 F 98.6 F 98.4 F Pulse Rate 84 85 84 Respiratory Rate 16 13 11 L Blood Pressure 169/74 H 170/74 H 163/70 H Pulse Oximetry 100 100 100 10/07/18 04:00 10/07/18 04:11 10/07/18 04:12 Temperature 98.4 F Pulse Rate 90 89 Respiratory Rate 16 16 16 Blood Pressure 166/81 H Pulse Oximetry 100 100 10/07/18 05:00 10/07/18 05:16 10/07/18 05:23 Temperature 98.4 F 98.2 F Pulse Rate 88 92 H Respiratory Rate 16 16 16 Blood Pressure 185/83 H 176/82 H Pulse Oximetry 100 100 10/07/18 06:00 10/07/18 07:00 10/07/18 08:00 Temperature 98.1 F 98.1 F 97.9 F Pulse Rate 88 88 95 H Respiratory Rate 16 9 L 16 Blood Pressure 162/79 H 172/79 H 191/89 H Pulse Oximetry 100 100 100 10/07/18 08:02 10/07/18 08:28 10/07/18 08:39 Temperature 97.9 F Pulse Rate 95 H 89 Respiratory Rate 16 16 16 Blood Pressure 172/84 H Pulse Oximetry 100 100 10/07/18 09:00 10/07/18 10:00 Temperature 98.1 F 97.9 F Pulse Rate 90 90 Respiratory Rate 16 16 Blood Pressure 162/78 H 170/82 H Pulse Oximetry 100 100 Intake & Output 10/06/18 10/07/18 10/07/18 18:59 06:59 18:59 Intake Total 2004 3605 / 3605 155 / 155 Output Total 855 / 855 1200 / 1200 Balance 1150 / 1150 2405 / 2405 155 / 155 Weight 98.6 kg Intake: IV 1205 / 1205 3605 / 3605 155 / 155 Diprivan 1000 mg/100 ml Inj 1, 100 / 100 200 / 200 000 mg In 100 ml @ 5 MCG/KG/MIN 2.805 mls/hr IV.CONT TITRATE PRN Rx#:[id number] NS Inj 1,000 ML @ 200 mls/hr IV 1000 / 1000 3000 / 3000 .CONT .Q5H [facility] Rx#:[id number] Ancef 1 GM Premix Inj 1 gm In 50 / 50 50 ml @ 100 mls/hr IV.SIG Q12H [facility] Rx#:[id number] fentaNYL 10 mcg/mL Premix Drip 250 / 250 2,500 mcg In 250 ml @ 50 MCG/HR 5 mls/hr IV.SIG TITRATE PRN Rx #:[id number] Keppra Inj 500 MG In NS Inj 100 105 / 105 105 / 105 105 / 105 ML @ 400 mls/hr IV.SIG Q12H [facility] Rx#:[id number] Anesthesia Amount 800 / 800 Intake (Blood Product) Amt 0 / 0 Rbc As-3 Leukoreduced Unit 0 / 0 [id number] Rbc As-3 Leukoreduced Unit 0 / 0 [id number] Output: Estimated Blood Loss 30 / 30 Urine Amount (Catheter) 775 / 775 1100 / 1100 Indwelling Temp Sensing 775 / 775 1100 / 1100 Catheter Gastric Drainage 50 / 50 100 / 100 Orogastric Tube 50 / 50 100 / 100 Other: # Bowel Movements 0 - Constitutional no acute distress, obese - Routine HEENT Exam Head: Absent: atraumatic (head bandaged from his forehead injury.) Eye: Present: PERRL (Pupils currently dilated 7mm bilaterally by ophthalmology.) , periorbital swelling - Routine Respiratory Exam Present: CTA bilaterally. Absent: respiratory distress, rhonchi, wheezes - Routine Cardiovascular Exam Present: RRR, S1, S2. Absent: murmur - Routine Abdominal Exam Present: soft. Absent: normoactive bowel sounds (Diminished bs.), distended - Routine Extremities Exam Comments: LLE external fixator in place. - Routine Skin Exam Absent: cyanosis, erythema Comments: Head bandaged. LLE external fixator in place with some oozing at pin sites. - Routine Neurological Exam Present: moving all extremities (He is moving all extremities and I saw some movement in his left leg although is less than right given his injury and external fixator is in palce.). Absent: alert (Pt sedated but when held he opens his left eye, right eye swollen shut. His eyes were dilated this morning by ophthalmology.) - Detailed Neurological Exam: Coma Scale Eye Opening: To sound Verbal Response: None Motor Response: Obey commands (some limited command following.) Storm Coma Scale Total: 10 - Routine Psychiatric Exam Present: unable to assess (Pt sedated and intubated.) - Urinary Catheter Management Indwelling Temp Sensing Catheter Cath placed during this visit: yes Reason for continuing: Hourly intake/output Insertion date: 10/05/18 Insertion time: 20:00 <Juancarlos Stanford - Last Filed: 10/08/18 08:54> Assessment and Plan - Attending Attestation The exam, history, and the medical decision-making described in the above note were completed with the assistance of the mid-level provider. I reviewed and agree with the findings presented. I attest that I had a [id number] encounter with the patient on the same day, and personally performed and documented my assessment and findings in the medical record. Improving from the traumatic brain injury with stable follow-up CT scan of the head. On CPAP trial and tolerating well so far. Hypertension regulation keep systolic blood pressure less than 160. Will plan thoracic spine stabilization for distraction injury later this week. Discussed with nursing staff. <Janes Arceo - Last Filed: 10/07/18 12:31> - Assessment (1) CHI (closed head injury) Code(s): S09.90XA - Unspecified injury of head, initial encounter Status: Acute Qualifiers: Encounter type: initial encounter Qualified Code(s): S09.90XA - Unspecified injury of head, initial encounter (2) Acute subdural hematoma Code(s): S06.5X9A - Traumatic subdural hemorrhage with loss of consciousness of unspecified duration, initial encounter Status: Acute (3) Open fracture Code(s): T14.8XXA - Other injury of unspecified body region, initial encounter Status: Acute (4) Respiratory failure after trauma Code(s): J96.90 - Respiratory failure, unspecified, unspecified whether with hypoxia or hypercapnia Status: Acute (5) Mild major neurocognitive disorder as late effect of traumatic brain injury without behavioral disturbance Code(s): S06.9X9S - Unspecified intracranial injury with loss of consciousness of unspecified duration, sequela; F02.80 - Dementia in other diseases classified elsewhere without behavioral disturbance Status: Acute - Plan Chest X-Ray 10/05/18 00:00 CONCLUSION: Endotracheal tube tip in right mainstem bronchus. This should be withdrawn about 4 cm Tibia/Fibula X-Ray 10/05/18 00:00 CONCLUSION: Comminuted fractures proximal tibia and fibula. Distal tibia and fibula. Intact. Chest X-Ray 10/05/18 18:34 CONCLUSION: Endotracheal tube and nasogastric tube in good position. Bilateral rib fractures without pneumothorax. Basilar atelectasis. There is some widening of the superior mediastinum. See chest CT report. Pelvis X-Ray 10/05/18 18:34 CONCLUSION: No acute fracture. Abdomen/Pelvis CT 10/05/18 18:42 CONCLUSION: 1. Avulsion endplate fractures of T10 and T11 as above with widening of the anterior interspace likely from disruption of the annulus fibrosis. Consider MRI for further evaluation of disc injury. 2. No solid visceral injury identified. 3. Left eighth and right seventh rib fractures laterally with several healing lower right anterior rib fractures. Cervical Spine CT 10/05/18 18:42 CONCLUSION: 1. Moderate degenerative disc disease. No acute fracture or spondylolisthesis. Chest CT 10/05/18 18:42 CONCLUSION: 1. Avulsion fracture superior endplates of T10 and T11 as above with disruption of the anterior annulus fibrosis and widening of the anterior disc space between T10 and T11. 2. Fractures of the lower left and right ribs as above without pneumothorax. Dependent atelectasis in both lungs. 3. No evidence for aortic transection or dissection. 4. Mild coronary calcifications. Face CT 10/05/18 18:42 CONCLUSION: 1. Nondisplaced fracture of the right superior orbital wall, left medial orbital wall and left maxillary sinus with hemorrhage in the left maxillary sinus and ethmoids. Globes intact. Also nasal bone fracture. Patient intubated. Head CT 10/05/18 18:42 CONCLUSION: 1. Small anterior interhemispheric subdural hematoma without mass effect or shift. Trace subarachnoid hemorrhage anteriorly. No calvarial fracture identified. Femur X-Ray 10/05/18 18:43 CONCLUSION: Comminuted distal femur fracture with displacement. Knee CT 10/05/18 21:26 CONCLUSION: 1. Comminuted fractures of the distal femur and proximal tibia. Fracture of the proximal fibular shaft also noted. 2. Prominent atherosclerotic disease disease of the distal femoral artery, popliteal artery, and proximal calf arteries. There is focal very high-grade stenosis of the popliteal artery at the level of the knee. This finding is age- indeterminate and could be related to chronic atherosclerotic disease or recent trauma. Age-indeterminate moderate grade stenosis of the distal superficial femoral artery and high-grade stenosis of the PT trunk at its bifurcation also noted. Chest X-Ray 10/05/18 23:31 CONCLUSION: 1. Endotracheal tube tip now 2 cm above the yael. 2. Patchy atelectasis at the left lung base is decreased. Knee CT 10/06/18 00:00 CONCLUSION: 1. Severely comminuted fracture about the knee as described above, Knee X-Ray 10/06/18 00:00 CONCLUSION: Reasonable alignment as above Thoracic Spine MRI 10/06/18 00:00 CONCLUSION: 1. Abnormal T11-T12 as described above. 2. Thoracic cord is intact. There is no evidence for hematoma or contusion. There is no evidence of posterior ligamentous disruption. Chest X-Ray 10/06/18 06:00 CONCLUSION: No significant interval change. Head CT 10/06/18 08:00 CONCLUSION: 1. Stable to slightly improved. Significant intravascular contrast remains from previous contrasted exam. Head CT as above; small parafalcine SDH. Neurologically patient is unchanged he is intubated ventilated and sedated on propofol and fentanyl Facial lacerations repaired by Dr. Allen Patient underwent last night left leg runoff to assess popliteal artery and distal flow considering the proximal comminuted tibial fracture which is essentially behaves like a knee dislocation. He underwent successful ex-fix placement to the left femur and tibia with reduction of the comminuted segments MRI of the thoracic spine shows distraction of the T10-11 level however no disruption of the ligaments. Dr. Arceo has recommended spinal log roll precautions and hob not higher than 15 degrees. He states he will need stabilization procedure given his injury. <Juancarlos Stanford - Last Filed: 10/08/18 08:54>
[2018-10-07 10:32] LABS: CKMB Percent 0.3 % (0.0-4.0); Creatine Kinase MB 6.5 ng/mL (0.5-3.6)
[2018-10-07] MEDS ORDERED: Labetalol HCl Inj 20 MG/4 ML Vial IV.PUSH PRN (12:30)
[2018-10-07] MEDS: Labetalol HCl Inj 100 MG/20 ML Vial IV.PUSH PRN ×3 (12:43→17:56)
--- NOTE | 2018-10-07 12:50 | ECG ---
Date Performed: 10/06/2018 Time Performed: 08:50:16 PTAGE: 62 years EKG: Sinus rhythm . Poor R wave progression - probable normal variant Since the previous tracing, no significant change noted Borderline ECG PREVIOUS TRACING : 10/06/2018 05.48 DOCTOR: Marilu Blue Interpretating Date/Time 10/07/2018 12:47:33
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
[2018-10-08] MEDS: ceFAZolin 1 GM Premix Inj 1 GM/50 ML FROZ.PIGGY IV.SIG SCH ×2 (01:22→14:24)
[2018-10-08] MEDS: Labetalol HCl Inj 100 MG/20 ML Vial IV.PUSH PRN ×3 (01:43→20:17)
[2018-10-08] MEDS: Oral Hygiene Kit OROPHARYNG SCH ×3 (04:26→17:13)
[2018-10-08 04:29] LABS: Baso % (Auto) 0.5 % (0.0-2.0); Eos # (Auto) 0.1 th/mm3 (0.0-0.4); Eos % (Auto) 0.8 % (0.0-4.0); Hematocrit 21.4 % (39.0-51.0); Hemoglobin 7.5 gm/dL (13.0-17.0); Lymph # (Auto) 0.7 th/mm3 (1.0-4.8); Lymph % (Auto) 8.5 % (9.0-44.0); Mean Corpuscular HGB Conc 34.8 % (32.0-36.0); Mean Corpuscular Hemoglobin 31.3 pg (27.0-34.0); Mean Corpuscular Volume 90.1 fL (80.0-100.0); Mean Platelet Volume 7.6 fL (7.0-11.0); Mono # (Auto) 1.3 th/mm3 (0.0-0.9); Mono % (Auto) 16.2 % (0.0-8.0); Neut # (Auto) 5.7 th/mm3 (1.8-7.7); Platelet Count 162 th/mm3 (150-450); Red Blood Count 2.38 mil/mm3 (4.50-5.90); Red Cell Distribution Width 18.8 % (11.6-17.2); White Blood Count 7.7 th/mm3 (4.0-11.0)
--- NOTE | 2018-10-08 04:43 | XR ---
EXAM DATE: 10/08/2018 3:59 AM EST AGE/SEX: 62 years / Male INDICATIONS: Shortness of breath. CLINICAL DATA: This is the patient's subsequent encounter. Patient reports that signs and symptoms h ave been present for 3 days and indicates a pain score of Nonresponsive. MEDICAL/SURGICAL HISTORY: Hypertension. None. COMPAR[place]: [facility] [place] 1V SINGLE AP[place] 10/07/2018. . FINDINGS: A single AP portable supine view of the chest was obtained and again demonstrates the endotracheal tu be in place with tip just above the level of the yael. The nasogastric tube remains in place. The h eart size is at the upper limits of normal. The previously noted abnormal opacity left lung base is n ot significantly changed. There is mild patchy opacity now noted at the right lung base. Left costoph renic angle appears mildly blunted. There are multiple overlying electrocardiogram leads now noted. T he bony thorax is intact. CONCLUSION: 1. Abnormal opacity remains at the left lung base without significant change. 2. Mild patchy opacity is now noted at the right lung base which may represent atelectasis. Electronically signed by: Marco Chavez MD 10/08/2018 4:41 AM EST
[2018-10-08 05:05] LABS: Albumin 1.8 g/dL (3.4-5.0); Calcium 6.9 mg/dL (8.5-10.1); Carbon Dioxide 18.6 meq/L (21.0-32.0); Potassium 4.1 meq/L (3.5-5.1); Total Protein 5.6 g/dL (6.4-8.2)
[2018-10-08 05:56] LABS: ABG Base Excess -7.7 mmol/L (-2-2); ABG PCO2 40 mmHg (38-42); ABG PO2 90 mmHg (61-120)
[2018-10-08] MEDS: Sod Chloride 0.9% Inj 1,000 ML IV.CONT SCH ×4 (06:33→17:13)
[2018-10-08] MEDS: Enoxaparin Inj 30 MG/0.3 ML Syringe SQ SCH ×2 (08:43→20:18)
[2018-10-08] MEDS: Chlorhexidine 0.12% Oral Kit 15 ML UDC OROPHARYNG SCH ×2 (08:44→20:18)
[2018-10-08] MEDS: Senna/Docusate Sodium 8.6/50 MG Tablet PO SCH (08:45)
[2018-10-08] MEDS ORDERED: Sodium Chlor 0.9% Inj 250 ML IV.SIG SCH (10:00)
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
[2018-10-08] MEDS: fentaNYL 10 mcg/mL Premix Drip 2,500 MCG/250 ML BAG IV.SIG PRN (17:14)
--- NOTE | 2018-10-08 17:24 | P.PNNS ---
Subjective Interval history: Pt seen and examined this morning. He is sedated on Fentanyl drip but opens eyes to voice. When sedation held for too long he gets agitated and tries to pull out lines. He is intubated. He moves all 4 extremities but LLE less given his injury and external fixator is in place. He follows some simple commands but not consistently. <Juancarlos Stanford - Last Filed: 10/08/18 17:10> Physical Exam Vital signs: Vital Signs 10/07/18 18:00 10/07/18 19:00 10/07/18 19:21 Temperature 97.9 F 98.1 F Pulse Rate 95 H 89 Respiratory Rate 9 L 17 16 Blood Pressure 131/65 154/74 H Pulse Oximetry 98 100 100 10/07/18 20:00 10/07/18 21:00 10/07/18 21:57 Temperature 98.2 F 98.2 F Pulse Rate 90 91 H 94 H Respiratory Rate 16 18 16 Blood Pressure 162/78 H 163/74 H Pulse Oximetry 100 100 10/07/18 22:00 10/07/18 23:00 10/08/18 00:00 Temperature 98.2 F 98.1 F 98.1 F Pulse Rate 93 H 93 H 91 H Respiratory Rate 16 17 18 Blood Pressure 155/71 H 160/70 H 174/77 H Pulse Oximetry 100 100 100 10/08/18 00:49 10/08/18 01:00 10/08/18 01:40 Temperature 97.9 F Pulse Rate 93 H Respiratory Rate 18 16 Blood Pressure 172/78 H 185/80 H Pulse Oximetry 98 99 10/08/18 01:50 10/08/18 02:00 10/08/18 03:00 Temperature 98.2 F 98.4 F Pulse Rate 87 88 Respiratory Rate 16 16 Blood Pressure 148/91 H 136/69 168/72 H Pulse Oximetry 98 98 10/08/18 03:08 10/08/18 04:00 10/08/18 04:06 Temperature 98.2 F 99.1 F Pulse Rate 88 88 Respiratory Rate 16 16 16 Blood Pressure 149/72 H 162/70 H Pulse Oximetry 99 98 98 10/08/18 05:00 10/08/18 06:00 10/08/18 06:02 Temperature 99.1 F 98.2 F Pulse Rate 87 105 H Respiratory Rate 16 26 H Blood Pressure 142/65 H 143/64 H 172/77 H Pulse Oximetry 99 97 10/08/18 07:00 10/08/18 08:00 10/08/18 08:52 Temperature 98.1 F 97.9 F 97.7 F Pulse Rate 86 85 96 H Respiratory Rate 16 16 16 Blood Pressure 168/77 H 162/94 H 177/87 H Pulse Oximetry 100 100 99 10/08/18 09:00 10/08/18 09:17 10/08/18 10:00 Temperature 97.7 F 97.7 F Pulse Rate 94 H 88 Respiratory Rate 16 8 L 8 L Blood Pressure 177/87 H 164/76 H Pulse Oximetry 98 97 98 10/08/18 11:00 10/08/18 11:50 10/08/18 12:00 Temperature 97.2 F L 97.0 F L Pulse Rate 89 94 H Respiratory Rate 8 L 8 L Blood Pressure 163/75 H 172/80 H Pulse Oximetry 96 96 94 L 10/08/18 13:00 10/08/18 13:08 10/08/18 14:00 Temperature 97.3 F L 97.3 F L 97.5 F L Pulse Rate 97 H 96 H 98 H Respiratory Rate 8 L 9 L 10 L Blood Pressure 131/63 136/63 Pulse Oximetry 94 L 95 97 10/08/18 14:01 10/08/18 14:03 10/08/18 15:00 Temperature 97.5 F L 97.5 F L 97.7 F Pulse Rate 98 H 98 H 110 H Respiratory Rate 10 L 8 L 14 Blood Pressure 136/63 136/63 139/65 Pulse Oximetry 96 97 93 L 10/08/18 16:00 10/08/18 16:26 Temperature 98.1 F Pulse Rate 100 H 103 H Respiratory Rate 9 L 9 L Blood Pressure 140/65 Pulse Oximetry 96 98 Intake & Output 10/07/18 10/08/18 10/08/18 18:59 06:59 18:59 Intake Total 1230 / 1230 1405 / 1405 1355 / 1355 Output Total 2450 / 2450 1575 / 1575 Balance -1220 / -1220 -170 / -170 1355 / 1355 Weight 96.5 kg Intake: IV 1230 / 1230 1405 / 1405 1105 / 1105 Diprivan 1000 mg/100 ml Inj 1, 25 / 25 0 / 0 000 mg In 100 ml @ 5 MCG/KG/MIN 2.805 mls/hr IV.CONT TITRATE PRN Rx#:[id number] NS Inj 1,000 ML @ 40 mls/hr IV. 1000 / 1000 1000 / 1000 1000 / 1000 CONT .Q24H [facility] Rx#:[id number] Ancef 1 GM Premix Inj 1 gm In 50 / 50 50 / 50 50 ml @ 100 mls/hr IV.SIG Q12H [facility] Rx#:[id number] fentaNYL 10 mcg/mL Premix Drip 250 / 250 2,500 mcg In 250 ml @ 50 MCG/HR 5 mls/hr IV.SIG TITRATE PRN Rx #:[id number] Keppra Inj 500 MG In NS Inj 100 105 / 105 105 / 105 105 / 105 ML @ 400 mls/hr IV.SIG Q12H [facility] Rx#:[id number] Other 250 / 250 Rbc As-3 Leukoreduced Unit 250 / 250 [id number] Intake (Blood Product) Amt 0 / 0 Rbc As-3 Leukoreduced Unit 0 / 0 [id number] Rbc As-3 Leukoreduced Unit 0 / 0 [id number] Output: Urine Amount (Catheter) 2350 / 2350 1375 / 1375 Indwelling Temp Sensing 2350 / 2350 1375 / 1375 Catheter Gastric Drainage 100 / 100 200 / 200 Orogastric Tube 100 / 100 200 / 200 Other: # Bowel Movements 0 - Constitutional no acute distress (Pt sedated and intubated. When sedation held he gets agitated.), obese - Routine HEENT Exam Head: Absent: atraumatic (Pts head bandaged.) Eye: Present: PERRL (Pupils 3mm bilaterally. ), periorbital swelling (Some improvement today. He is now able to open right eye on his own but bilateral periorbital edema remains.) ENT: Absent: oropharynx clear (ET intubated.) - Routine Respiratory Exam Present: patient mechanically ventilated, CTA bilaterally. Absent: respiratory distress, rhonchi, wheezes - Routine Cardiovascular Exam Present: RRR, S1, S2. Absent: murmur - Routine Abdominal Exam Present: soft, normoactive bowel sounds. Absent: distended, firm - Routine Extremities Exam Comments: LLE with external fixator and bandaged. - Routine Skin Exam Absent: cyanosis, erythema Comments: LLE in external fixator and bandaged. - Routine Neurological Exam Present: moving all extremities (Moves all 4 extremities, left lower extremity less movement given his injury and external fixator in place.). Absent: alert ( Pt sedated on Fentanyl drip.) Pt follows commands intermittently. He opens both eyes to voice. Pupils 3mm bilaterally reactive bilaterally. - Routine Psychiatric Exam Present: unable to assess - Urinary Catheter Management Indwelling Temp Sensing Catheter Cath placed during this visit: yes Reason for continuing: Hourly intake/output Insertion date: 10/05/18 Insertion time: 20:00 <Juancarlos Stanford - Last Filed: 10/08/18 17:10> Vital signs: Vital Signs 10/08/18 08:52 10/08/18 09:00 10/08/18 09:17 Temperature 97.7 F 97.7 F Pulse Rate 96 H 94 H Respiratory Rate 16 16 8 L Blood Pressure 177/87 H 177/87 H Pulse Oximetry 99 98 97 10/08/18 10:00 10/08/18 11:00 10/08/18 11:50 Temperature 97.7 F 97.2 F L Pulse Rate 88 89 Respiratory Rate 8 L 8 L Blood Pressure 164/76 H 163/75 H Pulse Oximetry 98 96 96 10/08/18 12:00 10/08/18 13:00 10/08/18 13:08 Temperature 97.0 F L 97.3 F L 97.3 F L Pulse Rate 94 H 97 H 96 H Respiratory Rate 8 L 8 L 9 L Blood Pressure 172/80 H 131/63 Pulse Oximetry 94 L 94 L 95 10/08/18 14:00 10/08/18 14:01 10/08/18 14:03 Temperature 97.5 F L 97.5 F L 97.5 F L Pulse Rate 98 H 98 H 98 H Respiratory Rate 10 L 10 L 8 L Blood Pressure 136/63 136/63 136/63 Pulse Oximetry 97 96 97 10/08/18 15:00 10/08/18 16:00 10/08/18 16:26 Temperature 97.7 F 98.1 F Pulse Rate 110 H 100 H 103 H Respiratory Rate 14 9 L 9 L Blood Pressure 139/65 140/65 Pulse Oximetry 93 L 96 98 11/14/18 17:00 10/08/18 18:00 10/08/18 19:00 Temperature 98.2 F 98.1 F 98.2 F Pulse Rate 103 H 104 H 103 H Respiratory Rate 11 L 12 11 L Blood Pressure 126/60 Pulse Oximetry 93 L 93 L 93 L 10/08/18 19:07 10/08/18 19:55 10/08/18 20:00 Temperature 98.4 F 98.6 F Pulse Rate 103 H 116 H 108 H Respiratory Rate 12 23 16 Blood Pressure 186/91 H 215/98 H Pulse Oximetry 92 L 96 94 L 10/08/18 20:03 10/08/18 20:10 10/08/18 20:22 Temperature 98.4 F Pulse Rate 101 H 91 H Respiratory Rate 16 17 17 Blood Pressure 159/79 H Pulse Oximetry 94 L 95 10/08/18 20:30 10/08/18 21:00 10/08/18 21:30 Temperature 98.4 F 98.6 F 98.6 F Pulse Rate 84 85 81 Respiratory Rate 16 17 16 Blood Pressure 153/80 H 169/76 H 146/70 H Pulse Oximetry 92 L 93 L 93 L 10/08/18 22:00 10/08/18 22:30 10/08/18 23:00 Temperature 98.6 F 98.6 F Pulse Rate 82 82 82 Respiratory Rate 16 16 16 Blood Pressure 144/70 H 146/73 H 161/72 H Pulse Oximetry 96 95 95 10/08/18 23:30 10/09/18 00:00 10/09/18 00:30 Temperature 98.4 F 98.2 F Pulse Rate 82 87 81 Respiratory Rate 16 16 16 Blood Pressure 160/76 H 157/74 H 144/64 H Pulse Oximetry 97 94 L 97 10/09/18 01:00 10/09/18 01:07 10/09/18 01:30 Temperature 98.2 F Pulse Rate 87 85 Respiratory Rate 16 16 16 Blood Pressure 162/69 H 150/68 H Pulse Oximetry 95 96 98 10/09/18 02:00 10/09/18 02:30 10/09/18 03:00 Temperature 98.1 F 98.1 F Pulse Rate 69 84 99 H Respiratory Rate 16 16 28 H Blood Pressure 156/69 H 163/72 H 179/80 H Pulse Oximetry 98 97 94 L 10/09/18 03:10 10/09/18 03:30 10/09/18 03:46 Temperature 98.2 F Pulse Rate 93 H Respiratory Rate 16 16 16 Blood Pressure 177/81 H Pulse Oximetry 95 97 10/09/18 03:48 10/09/18 04:00 10/09/18 04:23 Temperature 98.1 F Pulse Rate 85 83 85 Respiratory Rate 17 16 16 Blood Pressure 160/78 H Pulse Oximetry 97 96 10/09/18 04:30 10/09/18 05:00 10/09/18 05:24 Temperature 97.7 F 97.7 F Pulse Rate 81 82 82 Respiratory Rate 16 16 16 Blood Pressure 161/82 H 171/84 H 176/85 H Pulse Oximetry 97 97 97 10/09/18 05:30 10/09/18 06:00 10/09/18 06:30 Temperature 97.9 F 98.1 F Pulse Rate 81 68 81 Respiratory Rate 16 16 16 Blood Pressure 153/72 H 167/80 H 174/81 H Pulse Oximetry 96 94 L 95 10/09/18 07:58 10/09/18 08:04 Temperature Pulse Rate 91 H Respiratory Rate 17 13 Blood Pressure Pulse Oximetry 97 Intake & Output 10/08/18 10/09/18 10/09/18 18:59 06:59 18:59 Intake Total 2705 / 2705 405 / 405 Output Total 900 / 900 700 / 700 Balance 1805 / 1805 -295 / -295 Weight 97.1 kg Intake: IV 2405 / 2405 405 / 405 NS Inj 1,000 ML @ 40 mls/hr IV. 1999 CONT .Q24H [facility] Rx#:[id number] Ancef 1 GM Premix Inj 1 gm In 50 / 50 50 / 50 50 ml @ 100 mls/hr IV.SIG Q12H [facility] Rx#:[id number] fentaNYL 10 mcg/mL Premix Drip 250 / 250 250 / 250 2,500 mcg In 250 ml @ 50 MCG/HR 5 mls/hr IV.SIG TITRATE PRN Rx #:[id number] Keppra Inj 500 MG In NS Inj 100 105 / 105 105 / 105 ML @ 400 mls/hr IV.SIG Q12H [facility] Rx#:[id number] Other 300 / 300 Rbc As-3 Leukoreduced Unit 250 / 250 [id number] Rbc As-3 Leukoreduced Unit 50 / 50 [id number] Intake (Blood Product) Amt 0 / 0 Rbc As-3 Leukoreduced Unit 0 / 0 [id number] Rbc As-3 Leukoreduced Unit 0 / 0 [id number] Output: Urine Amount (Catheter) 750 / 750 600 / 600 Indwelling Temp Sensing 750 / 750 600 / 600 Catheter Gastric Drainage 150 / 150 100 / 100 Orogastric Tube 150 / 150 100 / 100 Other: # Bowel Movements 0 - Urinary Catheter Management Indwelling Temp Sensing Catheter Cath placed during this visit: no <Janes Arceo - Last Filed: 10/09/18 08:41> Assessment and Plan - Assessment (1) CHI (closed head injury) Code(s): S09.90XA - Unspecified injury of head, initial encounter Status: Acute Qualifiers: Encounter type: initial encounter Qualified Code(s): S09.90XA - Unspecified injury of head, initial encounter (2) Acute subdural hematoma Code(s): S06.5X9A - Traumatic subdural hemorrhage with loss of consciousness of unspecified duration, initial encounter Status: Acute (3) Open fracture Code(s): T14.8XXA - Other injury of unspecified body region, initial encounter Status: Acute (4) Respiratory failure after trauma Code(s): J96.90 - Respiratory failure, unspecified, unspecified whether with hypoxia or hypercapnia Status: Acute (5) Mild major neurocognitive disorder as late effect of traumatic brain injury without behavioral disturbance Code(s): S06.9X9S - Unspecified intracranial injury with loss of consciousness of unspecified duration, sequela; F02.80 - Dementia in other diseases classified elsewhere without behavioral disturbance Status: Acute - Plan Chest X-Ray 10/05/18 00:00 CONCLUSION: Endotracheal tube tip in right mainstem bronchus. This should be withdrawn about 4 cm Tibia/Fibula X-Ray 10/05/18 00:00 CONCLUSION: Comminuted fractures proximal tibia and fibula. Distal tibia and fibula. Intact. Chest X-Ray 10/05/18 18:34 CONCLUSION: Endotracheal tube and nasogastric tube in good position. Bilateral rib fractures without pneumothorax. Basilar atelectasis. There is some widening of the superior mediastinum. See chest CT report. Pelvis X-Ray 10/05/18 18:34 CONCLUSION: No acute fracture. Abdomen/Pelvis CT 10/05/18 18:42 CONCLUSION: 1. Avulsion endplate fractures of T10 and T11 as above with widening of the anterior interspace likely from disruption of the annulus fibrosis. Consider MRI for further evaluation of disc injury. 2. No solid visceral injury identified. 3. Left eighth and right seventh rib fractures laterally with several healing lower right anterior rib fractures. Cervical Spine CT 10/05/18 18:42 CONCLUSION: 1. Moderate degenerative disc disease. No acute fracture or spondylolisthesis. Chest CT 10/05/18 18:42 CONCLUSION: 1. Avulsion fracture superior endplates of T10 and T11 as above with disruption of the anterior annulus fibrosis and widening of the anterior disc space between T10 and T11. 2. Fractures of the lower left and right ribs as above without pneumothorax. Dependent atelectasis in both lungs. 3. No evidence for aortic transection or dissection. 4. Mild coronary calcifications. Face CT 10/05/18 18:42 CONCLUSION: 1. Nondisplaced fracture of the right superior orbital wall, left medial orbital wall and left maxillary sinus with hemorrhage in the left maxillary sinus and ethmoids. Globes intact. Also nasal bone fracture. Patient intubated. Head CT 10/05/18 18:42 CONCLUSION: 1. Small anterior interhemispheric subdural hematoma without mass effect or shift. Trace subarachnoid hemorrhage anteriorly. No calvarial fracture identified. Femur X-Ray 10/05/18 18:43 CONCLUSION: Comminuted distal femur fracture with displacement. Knee CT 10/05/18 21:26 CONCLUSION: 1. Comminuted fractures of the distal femur and proximal tibia. Fracture of the proximal fibular shaft also noted. 2. Prominent atherosclerotic disease disease of the distal femoral artery, popliteal artery, and proximal calf arteries. There is focal very high-grade stenosis of the popliteal artery at the level of the knee. This finding is age- indeterminate and could be related to chronic atherosclerotic disease or recent trauma. Age-indeterminate moderate grade stenosis of the distal superficial femoral artery and high-grade stenosis of the PT trunk at its bifurcation also noted. Chest X-Ray 10/05/18 23:31 CONCLUSION: 1. Endotracheal tube tip now 2 cm above the yael. 2. Patchy atelectasis at the left lung base is decreased. Knee CT 10/06/18 00:00 CONCLUSION: 1. Severely comminuted fracture about the knee as described above, Knee X-Ray 10/06/18 00:00 CONCLUSION: Reasonable alignment as above Thoracic Spine MRI 10/06/18 00:00 CONCLUSION: 1. Abnormal T11-T12 as described above. 2. Thoracic cord is intact. There is no evidence for hematoma or contusion. There is no evidence of posterior ligamentous disruption. Chest X-Ray 10/06/18 06:00 CONCLUSION: No significant interval change. Head CT 10/06/18 08:00 CONCLUSION: 1. Stable to slightly improved. Significant intravascular contrast remains from previous contrasted exam. 62 y/o M Head CT as above; small parafalcine SDH. Neurologically patient is unchanged he is intubated ventilated and sedated on fentanyl drip. Facial lacerations repaired by Dr. Allen Patient underwent left leg runoff to assess popliteal artery and distal flow considering the proximal comminuted tibial fracture which is essentially behaves like a knee dislocation. He underwent successful ex-fix placement to the left femur and tibia with reduction of the comminuted segments MRI of the thoracic spine shows distraction of the T10-11 level however no disruption of the ligaments. Dr. Arceo has recommended spinal log roll precautions and hob not higher than 15 degrees. He states he will need stabilization procedure given his injury, he is tentatively scheduled for Saturday. <Juancarlos Stanford - Last Filed: 10/08/18 17:10> - Attending Attestation The exam, history, and the medical decision-making described in the above note were completed with the assistance of the mid-level provider. I reviewed and agree with the findings presented. I attest that I had a trxy-cy-sved encounter with the patient on the same day, and personally performed and documented my assessment and findings in the medical record. PRBC transfusion for anemia. Plan thoracic spine ORIF saturday. Discussed with nursing staff. <Janes Arceo - Last Filed: 10/09/18 08:41>
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
[2018-10-09] MEDS: Senna/Docusate Sodium 8.6/50 MG Tablet PO SCH ×3 (00:15→20:47)
[2018-10-09] MEDS: Pantoprazole Inj 40 MG Vial IV.PUSH SCH (00:35)
[2018-10-09] MEDS: Oral Hygiene Kit OROPHARYNG SCH ×4 (00:36→16:32)
[2018-10-09] MEDS: ceFAZolin 1 GM Premix Inj 1 GM/50 ML FROZ.PIGGY IV.SIG SCH ×3 (02:18→20:49)
[2018-10-09] MEDS: fentaNYL 10 mcg/mL Premix Drip 2,500 MCG/250 ML BAG IV.SIG PRN ×2 (02:37→13:29)
[2018-10-09 04:32] LABS: Baso # (Auto) 0.1 th/mm3 (0.0-0.2); Baso % (Auto) 0.6 % (0.0-2.0); Eos # (Auto) 0.1 th/mm3 (0.0-0.4); Eos % (Auto) 0.8 % (0.0-4.0); Hematocrit 29.6 % (39.0-51.0); Hemoglobin 10.2 gm/dL (13.0-17.0); Lymph # (Auto) 0.8 th/mm3 (1.0-4.8); Lymph % (Auto) 7.8 % (9.0-44.0); Mean Corpuscular HGB Conc 34.3 % (32.0-36.0); Mean Corpuscular Volume 90.4 fL (80.0-100.0); Mean Platelet Volume 7.7 fL (7.0-11.0); Mono # (Auto) 1.4 th/mm3 (0.0-0.9); Mono % (Auto) 12.4 % (0.0-8.0); Neut # (Auto) 8.6 th/mm3 (1.8-7.7); Neut % (Auto) 78.4 % (16.0-70.0); Platelet Count 211 th/mm3 (150-450); Red Blood Count 3.28 mil/mm3 (4.50-5.90); Red Cell Distribution Width 18.1 % (11.6-17.2); White Blood Count 10.9 th/mm3 (4.0-11.0)
[2018-10-09 05:21] LABS: Calcium 7.9 mg/dL (8.5-10.1); Carbon Dioxide 21.2 meq/L (21.0-32.0); Potassium 4.4 meq/L (3.5-5.1)
[2018-10-09] MEDS: Labetalol HCl Inj 100 MG/20 ML Vial IV.PUSH PRN ×3 (05:27→20:50)
[2018-10-09 05:40] LABS: CKMB Percent 0.7 % (0.0-4.0); Creatine Kinase MB 7.7 ng/mL (0.5-3.6)
--- NOTE | 2018-10-09 07:34 | P.PNOP ---
Subjective Interval history: s/p reduction with external fixator left distal femur and proximal tibia fxs intubated. patient agitated and moving around bed. scheduled for back surgery saturday Physical Exam Vital signs: Vital Signs 10/08/18 08:00 10/08/18 08:52 10/08/18 09:00 Temperature 97.9 F 97.7 F 97.7 F Pulse Rate 85 96 H 94 H Respiratory Rate 16 16 16 Blood Pressure 162/94 H 177/87 H 177/87 H Pulse Oximetry 100 99 98 10/08/18 09:17 10/08/18 10:00 10/08/18 11:00 Temperature 97.7 F 97.2 F L Pulse Rate 88 89 Respiratory Rate 8 L 8 L 8 L Blood Pressure 164/76 H 163/75 H Pulse Oximetry 97 98 96 10/08/18 11:50 10/08/18 12:00 10/08/18 13:00 Temperature 97.0 F L 97.3 F L Pulse Rate 94 H 97 H Respiratory Rate 8 L 8 L Blood Pressure 172/80 H Pulse Oximetry 96 94 L 94 L 10/08/18 13:08 10/08/18 14:00 10/08/18 14:01 Temperature 97.3 F L 97.5 F L 97.5 F L Pulse Rate 96 H 98 H 98 H Respiratory Rate 9 L 10 L 10 L Blood Pressure 131/63 136/63 136/63 Pulse Oximetry 95 97 96 10/08/18 14:03 10/08/18 15:00 10/08/18 16:00 Temperature 97.5 F L 97.7 F 98.1 F Pulse Rate 98 H 110 H 100 H Respiratory Rate 8 L 14 9 L Blood Pressure 136/63 139/65 140/65 Pulse Oximetry 97 93 L 96 10/08/18 16:26 10/08/18 17:00 10/08/18 18:00 Temperature 98.2 F 98.1 F Pulse Rate 103 H 103 H 104 H Respiratory Rate 9 L 11 L 12 Blood Pressure 126/60 Pulse Oximetry 98 93 L 93 L 10/08/18 19:00 10/08/18 19:07 10/08/18 19:55 Temperature 98.2 F 98.4 F Pulse Rate 103 H 103 H 116 H Respiratory Rate 11 L 12 23 Blood Pressure 186/91 H 215/98 H Pulse Oximetry 93 L 92 L 96 10/08/18 20:00 10/08/18 20:03 10/08/18 20:10 Temperature 98.6 F Pulse Rate 108 H 101 H Respiratory Rate 16 16 17 Blood Pressure Pulse Oximetry 94 L 94 L 10/08/18 20:22 10/08/18 20:30 10/08/18 21:00 Temperature 98.4 F 98.4 F 98.6 F Pulse Rate 91 H 84 85 Respiratory Rate 17 16 17 Blood Pressure 159/79 H 153/80 H 169/76 H Pulse Oximetry 95 92 L 93 L 10/08/18 21:30 10/08/18 22:00 10/08/18 22:30 Temperature 98.6 F 98.6 F 98.6 F Pulse Rate 81 82 82 Respiratory Rate 16 16 16 Blood Pressure 146/70 H 144/70 H 146/73 H Pulse Oximetry 93 L 96 95 10/08/18 23:00 10/08/18 23:30 10/09/18 00:00 Temperature 98.4 F Pulse Rate 82 82 87 Respiratory Rate 16 16 16 Blood Pressure 161/72 H 160/76 H 157/74 H Pulse Oximetry 95 97 94 L 10/09/18 00:30 10/09/18 01:00 10/09/18 01:07 Temperature 98.2 F 98.2 F Pulse Rate 81 87 Respiratory Rate 16 16 16 Blood Pressure 144/64 H 162/69 H Pulse Oximetry 97 95 96 10/09/18 01:30 10/09/18 02:00 10/09/18 02:30 Temperature 98.1 F Pulse Rate 85 69 84 Respiratory Rate 16 16 16 Blood Pressure 150/68 H 156/69 H 163/72 H Pulse Oximetry 98 98 97 10/09/18 03:00 10/09/18 03:10 10/09/18 03:30 Temperature 98.1 F 98.2 F Pulse Rate 99 H 93 H Respiratory Rate 28 H 16 16 Blood Pressure 179/80 H 177/81 H Pulse Oximetry 94 L 95 10/09/18 03:46 10/09/18 03:48 10/09/18 04:00 Temperature 98.1 F Pulse Rate 85 83 Respiratory Rate 16 17 16 Blood Pressure Pulse Oximetry 97 97 10/09/18 04:23 10/09/18 04:30 10/09/18 05:00 Temperature 97.7 F Pulse Rate 85 81 82 Respiratory Rate 16 16 16 Blood Pressure 160/78 H 161/82 H 171/84 H Pulse Oximetry 96 97 97 10/09/18 05:24 10/09/18 05:30 10/09/18 06:00 Temperature 97.7 F 97.9 F Pulse Rate 82 81 68 Respiratory Rate 16 16 16 Blood Pressure 176/85 H 153/72 H 167/80 H Pulse Oximetry 97 96 94 L 10/09/18 06:30 Temperature 98.1 F Pulse Rate 81 Respiratory Rate 16 Blood Pressure 174/81 H Pulse Oximetry 95 Intake & Output 10/08/18 10/09/18 10/09/18 18:59 06:59 18:59 Intake Total 2705 / 2705 405 / 405 Output Total 900 / 900 700 / 700 Balance 1805 / 1805 -295 / -295 Weight 97.1 kg Intake: IV 2405 / 2405 405 / 405 NS Inj 1,000 ML @ 40 mls/hr IV. 1999 CONT .Q24H [facility] Rx#:[id number] Ancef 1 GM Premix Inj 1 gm In 50 / 50 50 / 50 50 ml @ 100 mls/hr IV.SIG Q12H [facility] Rx#:[id number] fentaNYL 10 mcg/mL Premix Drip 250 / 250 250 / 250 2,500 mcg In 250 ml @ 50 MCG/HR 5 mls/hr IV.SIG TITRATE PRN Rx #:[id number] Keppra Inj 500 MG In NS Inj 100 105 / 105 105 / 105 ML @ 400 mls/hr IV.SIG Q12H [facility] Rx#:[id number] Other 300 / 300 Rbc As-3 Leukoreduced Unit 250 / 250 [id number] Rbc As-3 Leukoreduced Unit 50 / 50 [id number] Intake (Blood Product) Amt 0 / 0 Rbc As-3 Leukoreduced Unit 0 / 0 [id number] Rbc As-3 Leukoreduced Unit 0 / 0 [id number] Output: Urine Amount (Catheter) 750 / 750 600 / 600 Indwelling Temp Sensing 750 / 750 600 / 600 Catheter Gastric Drainage 150 / 150 100 / 100 Orogastric Tube 150 / 150 100 / 100 Other: # Bowel Movements 0 Narrative: LLE: +exfix. pin sites clean .compartments soft. exfix bar resting against anterior knee - Urinary Catheter Management Indwelling Temp Sensing Catheter Cath placed during this visit: yes Reason for continuing: Hourly intake/output Insertion date: 10/05/18 Insertion time: 20:00 Results - Labs CBC & Chem 7: 10/09/18 03:36 10/09/18 03:36 Laboratory Results - last 24 hr 10/06/18 10/06/18 10/08/18 09:08 13:38 09:15 WBC RBC Hgb Hct MCV MCH MCHC RDW Plt Count MPV Neut % (Auto) Lymph % (Auto) [place] % (Auto) Eos % (Auto) Baso % (Auto) Neut # (Auto) Lymph # (Auto) [place] # (Auto) Eos # (Auto) Baso # (Auto) WBC Differential Differential Comment Sodium Potassium Chloride Carbon Dioxide Anion Gap BUN Creatinine Estimated GFR Random Glucose Calcium Total Creatine Kinase CK-MB (CK-2) CK-MB (CK-2) % Blood Type A Positive Antibody Screen Negative MTS Gel Crossmatch See Detail See Detail See Detail 10/09/18 10/09/18 03:36 03:36 WBC 10.9 RBC 3.28 L Hgb 10.2 L D Hct 29.6 L MCV 90.4 MCH 31.0 MCHC 34.3 RDW 18.1 H Plt Count 211 D MPV 7.7 Neut % (Auto) 78.4 H Lymph % (Auto) 7.8 L [place] % (Auto) 12.4 H Eos % (Auto) 0.8 Baso % (Auto) 0.6 Neut # (Auto) 8.6 H Lymph # (Auto) 0.8 L [place] # (Auto) 1.4 H Eos # (Auto) 0.1 Baso # (Auto) 0.1 WBC Differential . Differential Comment Auto diff final Sodium 148 H Potassium 4.4 Chloride 118 H Carbon Dioxide 21.2 Anion Gap 9 BUN 31 H Creatinine 3.20 H Estimated GFR 20 L Random Glucose 102 Calcium 7.9 L D Total Creatine Kinase 1112 H CK-MB (CK-2) 7.7 H CK-MB (CK-2) % 0.7 Blood Type Antibody Screen MTS Gel Crossmatch Assessment and Plan - Assessment and Plan 1) Left Open Distal Femur and Proximal Tibia Fxs s/p Exfix -NWB -pin care BID -will need definitive treatment once patient stabilized. -exfix adjusted at bedside to raise bar off of knee -will plan for definitive surgery next week once spine is stabilized.
[2018-10-09] MEDS: Enoxaparin Inj 30 MG/0.3 ML Syringe SQ SCH (08:30)
[2018-10-09] MEDS: Chlorhexidine 0.12% Oral Kit 15 ML UDC OROPHARYNG SCH ×2 (08:30→20:48)
--- NOTE | 2018-10-09 08:57 | P.PNNS ---
Subjective Interval history: Pt sedated on Fentanyl drip. His Fentanyl drip has been increased to 250mcg for agitation since yesterday. Less alert than yesterday given the increase in Fentanyl. He opens his eyes to voice. <Juancarlos Stanford - Last Filed: 10/09/18 08:48> Physical Exam Vital signs: Vital Signs 10/08/18 08:52 10/08/18 09:00 10/08/18 09:17 Temperature 97.7 F 97.7 F Pulse Rate 96 H 94 H Respiratory Rate 16 16 8 L Blood Pressure 177/87 H 177/87 H Pulse Oximetry 99 98 97 10/08/18 10:00 10/08/18 11:00 10/08/18 11:50 Temperature 97.7 F 97.2 F L Pulse Rate 88 89 Respiratory Rate 8 L 8 L Blood Pressure 164/76 H 163/75 H Pulse Oximetry 98 96 96 10/08/18 12:00 10/08/18 13:00 10/08/18 13:08 Temperature 97.0 F L 97.3 F L 97.3 F L Pulse Rate 94 H 97 H 96 H Respiratory Rate 8 L 8 L 9 L Blood Pressure 172/80 H 131/63 Pulse Oximetry 94 L 94 L 95 10/08/18 14:00 10/08/18 14:01 10/08/18 14:03 Temperature 97.5 F L 97.5 F L 97.5 F L Pulse Rate 98 H 98 H 98 H Respiratory Rate 10 L 10 L 8 L Blood Pressure 136/63 136/63 136/63 Pulse Oximetry 97 96 97 10/08/18 15:00 10/08/18 16:00 10/08/18 16:26 Temperature 97.7 F 98.1 F Pulse Rate 110 H 100 H 103 H Respiratory Rate 14 9 L 9 L Blood Pressure 139/65 140/65 Pulse Oximetry 93 L 96 98 10/08/18 17:00 10/08/18 18:00 10/08/18 19:00 Temperature 98.2 F 98.1 F 98.2 F Pulse Rate 103 H 104 H 103 H Respiratory Rate 11 L 12 11 L Blood Pressure 126/60 Pulse Oximetry 93 L 93 L 93 L 10/08/18 19:07 10/08/18 19:55 10/08/18 20:00 Temperature 98.4 F 98.6 F Pulse Rate 103 H 116 H 108 H Respiratory Rate 12 23 16 Blood Pressure 186/91 H 215/98 H Pulse Oximetry 92 L 96 94 L 10/08/18 20:03 10/08/18 20:10 10/08/18 20:22 Temperature 98.4 F Pulse Rate 101 H 91 H Respiratory Rate 16 17 17 Blood Pressure 159/79 H Pulse Oximetry 94 L 95 10/08/18 20:30 10/08/18 21:00 10/08/18 21:30 Temperature 98.4 F 98.6 F 98.6 F Pulse Rate 84 85 81 Respiratory Rate 16 17 16 Blood Pressure 153/80 H 169/76 H 146/70 H Pulse Oximetry 92 L 93 L 93 L 10/08/18 22:00 10/08/18 22:30 10/08/18 23:00 Temperature 98.6 F 98.6 F Pulse Rate 82 82 82 Respiratory Rate 16 16 16 Blood Pressure 144/70 H 146/73 H 161/72 H Pulse Oximetry 96 95 95 10/08/18 23:30 10/09/18 00:00 10/09/18 00:30 Temperature 98.4 F 98.2 F Pulse Rate 82 87 81 Respiratory Rate 16 16 16 Blood Pressure 160/76 H 157/74 H 144/64 H Pulse Oximetry 97 94 L 97 10/09/18 01:00 10/09/18 01:07 10/09/18 01:30 Temperature 98.2 F Pulse Rate 87 85 Respiratory Rate 16 16 16 Blood Pressure 162/69 H 150/68 H Pulse Oximetry 95 96 98 10/09/18 02:00 10/09/18 02:30 10/09/18 03:00 Temperature 98.1 F 98.1 F Pulse Rate 69 84 99 H Respiratory Rate 16 16 28 H Blood Pressure 156/69 H 163/72 H 179/80 H Pulse Oximetry 98 97 94 L 10/09/18 03:10 10/09/18 03:30 10/09/18 03:46 Temperature 98.2 F Pulse Rate 93 H Respiratory Rate 16 16 16 Blood Pressure 177/81 H Pulse Oximetry 95 97 10/09/18 03:48 10/09/18 04:00 10/09/18 04:23 Temperature 98.1 F Pulse Rate 85 83 85 Respiratory Rate 17 16 16 Blood Pressure 160/78 H Pulse Oximetry 97 96 10/09/18 04:30 10/09/18 05:00 10/09/18 05:24 Temperature 97.7 F 97.7 F Pulse Rate 81 82 82 Respiratory Rate 16 16 16 Blood Pressure 161/82 H 171/84 H 176/85 H Pulse Oximetry 97 97 97 10/09/18 05:30 10/09/18 06:00 10/09/18 06:30 Temperature 97.9 F 98.1 F Pulse Rate 81 68 81 Respiratory Rate 16 16 16 Blood Pressure 153/72 H 167/80 H 174/81 H Pulse Oximetry 96 94 L 95 10/09/18 07:58 10/09/18 08:04 Temperature Pulse Rate 91 H Respiratory Rate 17 13 Blood Pressure Pulse Oximetry 97 Intake & Output 10/08/18 10/09/18 10/09/18 18:59 06:59 18:59 Intake Total 2705 / 2705 405 / 405 Output Total 900 / 900 700 / 700 Balance 1805 / 1805 -295 / -295 Weight 97.1 kg Intake: IV 2405 / 2405 405 / 405 NS Inj 1,000 ML @ 40 mls/hr IV. 1999 CONT .Q24H [facility] Rx#:[id number] Ancef 1 GM Premix Inj 1 gm In 50 / 50 50 / 50 50 ml @ 100 mls/hr IV.SIG Q12H [facility] Rx#:[id number] fentaNYL 10 mcg/mL Premix Drip 250 / 250 250 / 250 2,500 mcg In 250 ml @ 50 MCG/HR 5 mls/hr IV.SIG TITRATE PRN Rx #:[id number] Keppra Inj 500 MG In NS Inj 100 105 / 105 105 / 105 ML @ 400 mls/hr IV.SIG Q12H [facility] Rx#:[id number] Other 300 / 300 Rbc As-3 Leukoreduced Unit 250 / 250 [id number] Rbc As-3 Leukoreduced Unit 50 / 50 [id number] Intake (Blood Product) Amt 0 / 0 Rbc As-3 Leukoreduced Unit 0 / 0 [id number] Rbc As-3 Leukoreduced Unit 0 / 0 [id number] Output: Urine Amount (Catheter) 750 / 750 600 / 600 Indwelling Temp Sensing 750 / 750 600 / 600 Catheter Gastric Drainage 150 / 150 100 / 100 Orogastric Tube 150 / 150 100 / 100 Other: # Bowel Movements 0 - Constitutional no acute distress Comments: Sedated on Fentanyl drip. - Routine HEENT Exam Head: Absent: atraumatic (Forehead abrasion and laceration with suture in place. ) Eye: Present: PERRL (Pupils 3mm bilaterally reactive bilaterally.), periorbital swelling ENT: Absent: oropharynx clear (ET intubated.) - Routine Respiratory Exam Present: patient mechanically ventilated (PRVC A/C rate 16. Peep 5. FiO2 35%.) , CTA bilaterally. Absent: respiratory distress, rhonchi, wheezes - Routine Cardiovascular Exam Present: RRR, S1, S2. Absent: murmur - Routine Abdominal Exam Present: soft, normoactive bowel sounds. Absent: tenderness, distended - Routine Skin Exam Absent: cyanosis, erythema Comments: Left lower extremity with external fixator in place. Bandage in place. - Routine Neurological Exam Present: altered mental status (Sedated on Fentanyl drip.). Absent: alert ( Sedated on Fentanyl drip.) Pt sedated on Fentanyl drip but opens eyes to voice. Pupils 3mm bilaterally reactive bilaterally. - Detailed Neurological Exam: Coma Scale Eye Opening: Spontaneous - Routine Psychiatric Exam Present: unable to assess. Absent: normal affect - Urinary Catheter Management Indwelling Temp Sensing Catheter Cath placed during this visit: yes Reason for continuing: Hourly intake/output Insertion date: 10/05/18 Insertion time: 20:00 <Juancarlos Stanford - Last Filed: 10/09/18 08:48> Vital signs: Vital Signs 10/08/18 17:00 10/08/18 18:00 10/08/18 19:00 Temperature 98.2 F 98.1 F 98.2 F Pulse Rate 103 H 104 H 103 H Respiratory Rate 11 L 12 11 L Blood Pressure 126/60 Pulse Oximetry 93 L 93 L 93 L 10/08/18 19:07 10/08/18 19:55 10/08/18 20:00 Temperature 98.4 F 98.6 F Pulse Rate 103 H 116 H 108 H Respiratory Rate 12 23 16 Blood Pressure 186/91 H 215/98 H Pulse Oximetry 92 L 96 94 L 10/08/18 20:03 10/08/18 20:10 10/08/18 20:22 Temperature 98.4 F Pulse Rate 101 H 91 H Respiratory Rate 16 17 17 Blood Pressure 159/79 H Pulse Oximetry 94 L 95 10/08/18 20:30 10/08/18 21:00 10/08/18 21:30 Temperature 98.4 F 98.6 F 98.6 F Pulse Rate 84 85 81 Respiratory Rate 16 17 16 Blood Pressure 153/80 H 169/76 H 146/70 H Pulse Oximetry 92 L 93 L 93 L 10/08/18 22:00 10/08/18 22:30 10/08/18 23:00 Temperature 98.6 F 98.6 F Pulse Rate 82 82 82 Respiratory Rate 16 16 16 Blood Pressure 144/70 H 146/73 H 161/72 H Pulse Oximetry 96 95 95 10/08/18 23:30 10/09/18 00:00 10/09/18 00:30 Temperature 98.4 F 98.2 F Pulse Rate 82 87 81 Respiratory Rate 16 16 16 Blood Pressure 160/76 H 157/74 H 144/64 H Pulse Oximetry 97 94 L 97 10/09/18 01:00 10/09/18 01:07 10/09/18 01:30 Temperature 98.2 F Pulse Rate 87 85 Respiratory Rate 16 16 16 Blood Pressure 162/69 H 150/68 H Pulse Oximetry 95 96 98 10/09/18 02:00 10/09/18 02:30 10/09/18 03:00 Temperature 98.1 F 98.1 F Pulse Rate 69 84 99 H Respiratory Rate 16 16 28 H Blood Pressure 156/69 H 163/72 H 179/80 H Pulse Oximetry 98 97 94 L 10/09/18 03:10 10/09/18 03:30 10/09/18 03:46 Temperature 98.2 F Pulse Rate 93 H Respiratory Rate 16 16 16 Blood Pressure 177/81 H Pulse Oximetry 95 97 10/09/18 03:48 10/09/18 04:00 10/09/18 04:23 Temperature 98.1 F Pulse Rate 85 83 85 Respiratory Rate 17 16 16 Blood Pressure 160/78 H Pulse Oximetry 97 96 10/09/18 04:30 10/09/18 05:00 10/09/18 05:24 Temperature 97.7 F 97.7 F Pulse Rate 81 82 82 Respiratory Rate 16 16 16 Blood Pressure 161/82 H 171/84 H 176/85 H Pulse Oximetry 97 97 97 10/09/18 05:30 10/09/18 06:00 10/09/18 06:30 Temperature 97.9 F 98.1 F Pulse Rate 81 68 81 Respiratory Rate 16 16 16 Blood Pressure 153/72 H 167/80 H 174/81 H Pulse Oximetry 96 94 L 95 10/09/18 07:58 10/09/18 08:04 10/09/18 11:45 Temperature Pulse Rate 91 H Respiratory Rate 17 13 16 Blood Pressure Pulse Oximetry 97 98 10/09/18 15:54 Temperature Pulse Rate 67 Respiratory Rate 16 Blood Pressure Pulse Oximetry 100 Intake & Output 10/08/18 10/09/18 10/09/18 18:59 06:59 18:59 Intake Total 2705 / 2705 405 / 405 450 / 450 Output Total 900 / 900 700 / 700 Balance 1805 / 1805 -295 / -295 450 / 450 Weight 97.1 kg Intake: IV 2405 / 2405 405 / 405 450 / 450 Diprivan 1000 mg/100 ml Inj 1, 200 / 200 000 mg In 100 ml @ 5 MCG/KG/MIN 2.805 mls/hr IV.CONT TITRATE PRN Rx#:[id number] NS Inj 1,000 ML @ 40 mls/hr IV. 1999 CONT .Q24H [facility] Rx#:[id number] Ancef 1 GM Premix Inj 1 gm In 50 / 50 50 / 50 50 ml @ 100 mls/hr IV.SIG Q12H [facility] Rx#:[id number] fentaNYL 10 mcg/mL Premix Drip 250 / 250 250 / 250 250 / 250 2,500 mcg In 250 ml @ 50 MCG/HR 5 mls/hr IV.SIG TITRATE PRN Rx #:[id number] Keppra Inj 500 MG In NS Inj 100 105 / 105 105 / 105 ML @ 400 mls/hr IV.SIG Q12H [facility] Rx#:[id number] Other 300 / 300 Rbc As-3 Leukoreduced Unit 250 / 250 [id number] Rbc As-3 Leukoreduced Unit 50 / 50 [id number] Intake (Blood Product) Amt 0 / 0 Rbc As-3 Leukoreduced Unit 0 / 0 [id number] Rbc As-3 Leukoreduced Unit 0 / 0 [id number] Output: Urine Amount (Catheter) 750 / 750 600 / 600 Indwelling Temp Sensing 750 / 750 600 / 600 Catheter Gastric Drainage 150 / 150 100 / 100 Orogastric Tube 150 / 150 100 / 100 Other: # Bowel Movements 0 - Urinary Catheter Management Indwelling Temp Sensing Catheter Cath placed during this visit: no <Janes Arceo - Last Filed: 10/09/18 16:38> Assessment and Plan - Assessment (1) CHI (closed head injury) Code(s): S09.90XA - Unspecified injury of head, initial encounter Status: Acute Qualifiers: Encounter type: initial encounter Qualified Code(s): S09.90XA - Unspecified injury of head, initial encounter (2) Acute subdural hematoma Code(s): S06.5X9A - Traumatic subdural hemorrhage with loss of consciousness of unspecified duration, initial encounter Status: Acute (3) Open fracture Code(s): T14.8XXA - Other injury of unspecified body region, initial encounter Status: Acute (4) Respiratory failure after trauma Code(s): J96.90 - Respiratory failure, unspecified, unspecified whether with hypoxia or hypercapnia Status: Acute (5) Mild major neurocognitive disorder as late effect of traumatic brain injury without behavioral disturbance Code(s): S06.9X9S - Unspecified intracranial injury with loss of consciousness of unspecified duration, sequela; F02.80 - Dementia in other diseases classified elsewhere without behavioral disturbance Status: Acute - Plan Chest X-Ray 10/05/18 00:00 CONCLUSION: Endotracheal tube tip in right mainstem bronchus. This should be withdrawn about 4 cm Tibia/Fibula X-Ray 10/05/18 00:00 CONCLUSION: Comminuted fractures proximal tibia and fibula. Distal tibia and fibula. Intact. Chest X-Ray 10/05/18 18:34 CONCLUSION: Endotracheal tube and nasogastric tube in good position. Bilateral rib fractures without pneumothorax. Basilar atelectasis. There is some widening of the superior mediastinum. See chest CT report. Pelvis X-Ray 10/05/18 18:34 CONCLUSION: No acute fracture. Abdomen/Pelvis CT 10/05/18 18:42 CONCLUSION: 1. Avulsion endplate fractures of T10 and T11 as above with widening of the anterior interspace likely from disruption of the annulus fibrosis. Consider MRI for further evaluation of disc injury. 2. No solid visceral injury identified. 3. Left eighth and right seventh rib fractures laterally with several healing lower right anterior rib fractures. Cervical Spine CT 10/05/18 18:42 CONCLUSION: 1. Moderate degenerative disc disease. No acute fracture or spondylolisthesis. Chest CT 10/05/18 18:42 CONCLUSION: 1. Avulsion fracture superior endplates of T10 and T11 as above with disruption of the anterior annulus fibrosis and widening of the anterior disc space between T10 and T11. 2. Fractures of the lower left and right ribs as above without pneumothorax. Dependent atelectasis in both lungs. 3. No evidence for aortic transection or dissection. 4. Mild coronary calcifications. Face CT 10/05/18 18:42 CONCLUSION: 1. Nondisplaced fracture of the right superior orbital wall, left medial orbital wall and left maxillary sinus with hemorrhage in the left maxillary sinus and ethmoids. Globes intact. Also nasal bone fracture. Patient intubated. Head CT 10/05/18 18:42 CONCLUSION: 1. Small anterior interhemispheric subdural hematoma without mass effect or shift. Trace subarachnoid hemorrhage anteriorly. No calvarial fracture identified. Femur X-Ray 10/05/18 18:43 CONCLUSION: Comminuted distal femur fracture with displacement. Knee CT 10/05/18 21:26 CONCLUSION: 1. Comminuted fractures of the distal femur and proximal tibia. Fracture of the proximal fibular shaft also noted. 2. Prominent atherosclerotic disease disease of the distal femoral artery, popliteal artery, and proximal calf arteries. There is focal very high-grade stenosis of the popliteal artery at the level of the knee. This finding is age- indeterminate and could be related to chronic atherosclerotic disease or recent trauma. Age-indeterminate moderate grade stenosis of the distal superficial femoral artery and high-grade stenosis of the PT trunk at its bifurcation also noted. Chest X-Ray 10/05/18 23:31 CONCLUSION: 1. Endotracheal tube tip now 2 cm above the yael. 2. Patchy atelectasis at the left lung base is decreased. Knee CT 10/06/18 00:00 CONCLUSION: 1. Severely comminuted fracture about the knee as described above, Knee X-Ray 10/06/18 00:00 CONCLUSION: Reasonable alignment as above Thoracic Spine MRI 10/06/18 00:00 CONCLUSION: 1. Abnormal T11-T12 as described above. 2. Thoracic cord is intact. There is no evidence for hematoma or contusion. There is no evidence of posterior ligamentous disruption. Chest X-Ray 10/06/18 06:00 CONCLUSION: No significant interval change. Head CT 10/06/18 08:00 CONCLUSION: 1. Stable to slightly improved. Significant intravascular contrast remains from previous contrasted exam. 62 y/o M Head CT as above; small parafalcine SDH. Neurologically patient is unchanged he is intubated ventilated and sedated on fentanyl drip. Facial lacerations repaired by Dr. Allen Patient underwent left leg runoff to assess popliteal artery and distal flow considering the proximal comminuted tibial fracture which is essentially behaves like a knee dislocation. He underwent successful ex-fix placement to the left femur and tibia with reduction of the comminuted segments MRI of the thoracic spine shows distraction of the T10-11 level however no disruption of the ligaments. Dr. Arceo has recommended spinal log roll precautions and hob not higher than 15 degrees. He states he will need stabilization procedure given his injury, he is tentatively scheduled for Saturday. <Juancarlos Stanford - Last Filed: 10/09/18 08:48> - Attending Attestation The exam, history, and the medical decision-making described in the above note were completed with the assistance of the mid-level provider. I reviewed and agree with the findings presented. I attest that I had a [id number] encounter with the patient on the same day, and personally performed and documented my assessment and findings in the medical record. Discussed at length with the patient's daughter and updated her on his condition. He has an unstable T10-11 vertebral distraction injury and he recommended T9-12 posterolateral fusion with pedicle screw fixation. The procedure along the risks and benefits involved discussed as well as the option of nonsurgical management. She has discussed this with her mother and is requesting that we proceed with surgery and gives verbal informed consent. Plan on thoracic spine stabilization surgery tomorrow. Discussed with nursing staff. <Janes Arceo - Last Filed: 10/09/18 16:38>
[2018-10-09] MEDS: Propofol 1000 mg/100 ml Inj 1,000 MG/100 ML BOTTLE IV.CONT PRN ×4 (09:31→19:00)
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
[2018-10-09] MEDS ORDERED: Sodium Chloride 0.9% 2 ML Flush PRN IV.FLUSH (13:32)
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
[2018-10-09] MEDS ORDERED: ceFAZolin Inj 2,000 MG in Sodium Chlor 0.9% Inj 80 ML IV.SIG SCH (17:00)
[2018-10-09] MEDS: Sod Chloride 0.9% Inj 1,000 ML IV.CONT SCH (19:01)
[2018-10-10] MEDS: Pantoprazole Inj 40 MG Vial IV.PUSH SCH ×2 (01:45→23:41)
[2018-10-10] MEDS: Oral Hygiene Kit OROPHARYNG SCH (01:45)
[2018-10-10] MEDS: Propofol 1000 mg/100 ml Inj 1,000 MG/100 ML BOTTLE IV.CONT PRN ×5 (01:45→21:23)
[2018-10-10] MEDS: fentaNYL 10 mcg/mL Premix Drip 2,500 MCG/250 ML BAG IV.SIG PRN ×2 (02:25→15:55)
[2018-10-10 04:31] LABS: Baso # (Auto) 0.1 th/mm3 (0.0-0.2); Baso % (Auto) 0.9 % (0.0-2.0); Eos # (Auto) 0.3 th/mm3 (0.0-0.4); Hematocrit 23.9 % (39.0-51.0); Hemoglobin 8.2 gm/dL (13.0-17.0); Lymph # (Auto) 0.9 th/mm3 (1.0-4.8); Lymph % (Auto) 13.5 % (9.0-44.0); Mean Corpuscular HGB Conc 34.5 % (32.0-36.0); Mean Corpuscular Hemoglobin 31.5 pg (27.0-34.0); Mean Corpuscular Volume 91.2 fL (80.0-100.0); Mean Platelet Volume 7.3 fL (7.0-11.0); Mono # (Auto) 0.8 th/mm3 (0.0-0.9); Mono % (Auto) 12.5 % (0.0-8.0); Neut # (Auto) 4.5 th/mm3 (1.8-7.7); Neut % (Auto) 69.1 % (16.0-70.0); Platelet Count 190 th/mm3 (150-450); Red Blood Count 2.62 mil/mm3 (4.50-5.90); Red Cell Distribution Width 18.5 % (11.6-17.2); White Blood Count 6.6 th/mm3 (4.0-11.0)
[2018-10-10 04:53] LABS: Calcium 7.5 mg/dL (8.5-10.1); Carbon Dioxide 17.4 meq/L (21.0-32.0); Potassium 3.7 meq/L (3.5-5.1)
[2018-10-10 05:23] LABS: ABG Base Excess -5.5 mmol/L (-2-2); ABG PCO2 27 mmHg (38-42); ABG PO2 68 mmHg (61-120)
[2018-10-10] MEDS ORDERED: Propofol Inj 500 MG/50 ML Vial ONE ×2 (06:50→12:01)
[2018-10-10] MEDS ORDERED: Gelatin Size 100 Topical Foam ONE (06:51)
[2018-10-10] MEDS ORDERED: Thrombin Topical Soln 5,000 UNIT Vial TOPICAL ONE (06:51)
[2018-10-10] MEDS ORDERED: Bupivacaine/Epinephrine PF Inj 0.5% 30 ML Vial ONE (06:51)
[2018-10-10] MEDS ORDERED: Artificial Tears Opth Oint 3.5 GM Tube ONE (07:19)
[2018-10-10 08:04] LABS: Calcium-Albumin Corrected 8.3 mg/dL (8.5-10.1); Total Protein 5.6 g/dL (6.4-8.2)
[2018-10-10] MEDS: ceFAZolin 1 GM Premix Inj 1 GM/50 ML FROZ.PIGGY IV.SIG SCH ×2 (09:00→21:23)
[2018-10-10] MEDS ORDERED: Clindamycin Inj 600 MG/4 ML Vial ONE (09:08)
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
[2018-10-10 10:28] LABS: ABG Base Excess -7.9 mmol/L (-2-2); ABG PCO2 38 mmHg (38-42); ABG PO2 123 mmHG (61-120)
[2018-10-10 10:37] LABS: Hematocrit 27.4 % (39.0-51.0); Hemoglobin 9.8 gm/dL (13.0-17.0); Mean Corpuscular HGB Conc 35.7 % (32.0-36.0); Mean Corpuscular Hemoglobin 31.9 pg (27.0-34.0); Mean Corpuscular Volume 89.4 fL (80.0-100.0); Mean Platelet Volume 7.3 fL (7.0-11.0); Platelet Count 168 th/mm3 (150-450); Red Blood Count 3.07 mil/mm3 (4.50-5.90); Red Cell Distribution Width 17.2 % (11.6-17.2); White Blood Count 6.5 th/mm3 (4.0-11.0)
[2018-10-10 11:43] LABS: ABG Base Excess -4.6 mmol/L (-2-2); ABG PCO2 32 mmHg (38-42); ABG PO2 106 mmHG (61-120)
[2018-10-10 12:27] LABS: Baso # (Auto) 0.1 th/mm3 (0.0-0.2); Baso % (Auto) 0.9 % (0.0-2.0); Eos # (Auto) 0.3 th/mm3 (0.0-0.4); Eos % (Auto) 5.3 % (0.0-4.0); Hematocrit 26.4 % (39.0-51.0); Hemoglobin 9.8 gm/dL (13.0-17.0); Lymph # (Auto) 0.7 th/mm3 (1.0-4.8); Lymph % (Auto) 11.1 % (9.0-44.0); Mean Corpuscular Hemoglobin 32.8 pg (27.0-34.0); Mean Corpuscular Volume 88.2 fL (80.0-100.0); Mono # (Auto) 0.9 th/mm3 (0.0-0.9); Mono % (Auto) 13.6 % (0.0-8.0); Neut # (Auto) 4.4 th/mm3 (1.8-7.7); Neut % (Auto) 69.1 % (16.0-70.0); Platelet Count 187 th/mm3 (150-450); Red Blood Count 2.99 mil/mm3 (4.50-5.90); Red Cell Distribution Width 17.6 % (11.6-17.2); White Blood Count 6.4 th/mm3 (4.0-11.0)
[2018-10-10 12:35] LABS: Mean Corpuscular HGB Conc 37.2 % (32.0-36.0)
--- NOTE | 2018-10-10 13:28 | P.OP ---
- Preoperative Diagnosis (1) Dislocation of T10-T11 thoracic vertebra Comment: Trauma Alert [id number] (2) Thoracic spine instability Date of procedure: 10/10/18 Procedure: Posterior T9, T10, T11, and T12 autograft fusion; T9-12 pedicle screw fixation; left iliac crest autograft harvest Anesthesia: LANDYA Surgeon: Janes Arceo MD [employer]ender Warm Up: Yolie Lau Estimated blood loss (mL): 200 Operation and Findings: The procedure along with the risks and benefits involved were discussed with the patients and daughter including the option of nonsurgical management. They requested that we proceed with surgery and informed consent was obtained. Following initiation of a general endotracheal anesthesia patient a Mehta catheter placed on the sequential compression devices and was log rolled on a Robbie table on chest rolls in the prone position and all pressure points adequately padded. The posterior thoracic lumbar and left iliac crest area was then shaved and prepped with alcohol along with ChloraPrep and sterilely draped with Ioban along with the usual sterile draping. Intraoperative fluoroscopy was used for level confirmation an incision in the midline made extending from that T9 to the T12 levels after infiltrating the skin with 0.5% Marcaine with epinephrine solution. The incision was extended down through the fascia and then using the subperiosteal plane the muscle attachments spinous processes and lamina along with the facets were detached from the T19 to T12 levels bilaterally. Self-retaining retractor was used for exposure and the facet displaying and ligamentous disruption at the T10-11 level was noted. Subsequently pedicle screw fixation was undertaken using [place] spine screws with the entry point ejection of the transverse process and facet at the T9, T10 , T11 and T12 levels bilaterally. AP and lateral fluoroscopy guidance was used to and subsequently tap and screw placement bilaterally extending from T9 to the T12 levels which were then connected with the rods and locked in place with caps. I then decorticated the posterior lateral remnants of the laminae and facet lumbar transverse processes on the left side extending from T9-12 levels with a drill bit for posterolateral fusion. Incision overlying the left iliac crest was then and made after infiltrating the skin with 0.5% Marcaine with epinephrine physician extending down through the fascia and the musculature of the crest were detached. Cortical and cancellous bone harvested using gouges and hemostasis achieved with Gelfoam and thrombin. The fascia was then closed with 2-0 Vicryl interrupted sutures and then 3-0 Vicryl subcuticular sutures also placed in an interrupted fashion and final skin closure was with mrakus. The iliac crest autograft bone along with the local autograft bone from the laminectomy and partial corpectomy as well as demineralized bone matrix was then packed overlying the decorticated the posterior lateral elements extending from the T9-12 levels. The area was copiously irrigated with vancomycin solution. AP and lateral fluoroscopy confirmed good placement of the construct as well as catholic of the spinal alignment. The muscle and fascia was then approximated using 2-0 Vicryl interrupted stitches and 3-0 Vicryl subcuticular interrupted stitches were also placed with final skin closure using markus. Sterile dressings were then applied and he was then log roll supine position and extubated and taken recovery room. There were no intraoperative complications and all sponge and needle count was correct at the end the procedure. Estimated blood loss about 200 cc. Intraoperative neurologic monitoring was also undertaken which remained stable throughout the surgery.
--- NOTE | 2018-10-10 14:38 | ECG ---
Date Performed: 10/10/2018 Time Performed: 00:59:22 PTAGE: 62 years EKG: Sinus rhythm Normal ECG Since the PREVIOUS TRACING , no significant change noted PREVIOUS TRACING DOCTOR: Michaelle Sánchez Interpretating Date/Time 10/10/2018 14:29:59
[2018-10-10] MEDS: Labetalol HCl Inj 100 MG/20 ML Vial IV.PUSH PRN ×3 (15:49→21:47)
[2018-10-10 16:14] LABS: Hematocrit 27.7 % (39.0-51.0); Mean Corpuscular Hemoglobin 32.1 pg (27.0-34.0); Mean Corpuscular Volume 88.7 fL (80.0-100.0); Mean Platelet Volume 7.3 fL (7.0-11.0); Platelet Count 180 th/mm3 (150-450); Red Blood Count 3.13 mil/mm3 (4.50-5.90); White Blood Count 7.4 th/mm3 (4.0-11.0)
[2018-10-10 16:18] LABS: Mean Corpuscular HGB Conc 36.2 % (32.0-36.0)
--- NOTE | 2018-10-10 16:23 | XR ---
EXAM DATE: 10/10/2018 3:39 PM EST AGE/SEX: 62 years / Male INDICATIONS: Fusion T9 to T12 with screws and rods placement. CLINICAL DATA: This is the patient's subsequent encounter. Patient reports that signs and symptoms h ave been present for 1 week and indicates a pain score of Nonresponsive. MEDICAL/SURGICAL HISTORY: Non-responsive. Non-responsive. COMPARISON: No prior exams available for comparison. FINDINGS: Transpedicular fixation from treatment T9-T12 anatomic alignment. CONCLUSION: Anatomic alignment. Electronically signed by: Eligio Miller MD 10/10/2018 4:22 PM EST
--- NOTE | 2018-10-10 16:24 | XR ---
EXAM DATE: 10/10/2018 4:15 PM EST AGE/SEX: 62 years / Male INDICATIONS: Central line placement. CLINICAL DATA: This is the patient's initial encounter. Patient reports that signs and symptoms have been present for 1 day and indicates a pain score of Nonresponsive. MEDICAL/SURGICAL HISTORY: Hypertension. None. COMPARISON: [facility] [place], CHEST 1V SINGLE AP, 10/08/2018. . FINDINGS: A single AP view of the chest demonstrates interval placement of a right IJ central venous catheter w ith distal tip projecting over the right atrium. No appreciable pneumothorax. Endotracheal tube remai ns in place with distal tip approximately 3.5 cm above the yael. Nasoenteric tube remains in place. Persistent hazy opacification of the right lung. Interval increased opacification of both lung bases , likely a combination of pleural fluid and airspace disease, left greater than right. Grossly stable cardiomediastinal silhouette. Postoperative hardware of the thoracolumbar spine. CONCLUSION: 1. New right IJ central venous catheter with distal tip projecting over the right atrium. No appreci able pneumothorax. 2. Increased bibasilar opacification, likely a combination of pleural fluid and airspace disease, le ft greater than right. 3. Endotracheal tube and nasoenteric tube remain in place. Electronically signed by: Bria Nichole MD 10/10/2018 4:23 PM EST
[2018-10-10 16:45] LABS: Calcium 7.1 mg/dL (8.5-10.1); Carbon Dioxide 22.7 meq/L (21.0-32.0); Magnesium 1.9 mg/dL (1.5-2.5); Potassium 4.2 meq/L (3.5-5.1)
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
[2018-10-10 17:00] LABS: Calcium-Albumin Corrected 8.1 mg/dL (8.5-10.1); Total Protein 5.3 g/dL (6.4-8.2)
[2018-10-10] MEDS: Senna/Docusate Sodium 8.6/50 MG Tablet PO SCH (21:22)
[2018-10-10] MEDS: Sodium Chloride 0.9% 2 ML Flush BID IV.FLUSH SCH ×2 (21:24→22:21)
[2018-10-10] MEDS: Chlorhexidine 0.12% Oral Kit 15 ML UDC OROPHARYNG SCH (22:21)
[2018-10-11] MEDS: Oral Hygiene Kit OROPHARYNG SCH ×4 (00:53→17:56)
[2018-10-11] MEDS: fentaNYL 10 mcg/mL Premix Drip 2,500 MCG/250 ML BAG IV.SIG PRN ×2 (01:18→14:22)
[2018-10-11] MEDS: Labetalol HCl Inj 100 MG/20 ML Vial IV.PUSH PRN ×4 (02:26→20:52)
--- NOTE | 2018-10-11 03:58 | XR ---
EXAM DATE: 10/11/2018 3:30 AM EST AGE/SEX: 62 years / Male INDICATIONS: Respiratory disease. CLINICAL DATA: This is the patient's subsequent encounter. Patient reports that signs and symptoms h ave been present for 4 - 6 days and indicates a pain score of Nonresponsive. MEDICAL/SURGICAL HISTORY: Hypertension. None. COMPARISON: [facility], CHEST 1V SINGLE AP, 10/10/2018. . FINDINGS: Single AP view the chest demonstrates the endotracheal tube and nasogastric are both in good position . The right IJ Vas-Cath in good position. Mild perihilar vascular congestion. Small left pleural effu brian CONCLUSION: Tubes and catheters in good position. Mild atelectasis in the lung bases Electronically signed by: Vinicio King MD 10/11/2018 3:56 AM EST
[2018-10-11 04:27] LABS: Baso % (Auto) 0.7 % (0.0-2.0); Eos # (Auto) 0.3 th/mm3 (0.0-0.4); Eos % (Auto) 4.1 % (0.0-4.0); Hematocrit 26.8 % (39.0-51.0); Hemoglobin 9.1 gm/dL (13.0-17.0); Lymph # (Auto) 0.6 th/mm3 (1.0-4.8); Lymph % (Auto) 8.7 % (9.0-44.0); Mean Corpuscular Hemoglobin 30.4 pg (27.0-34.0); Mean Corpuscular Volume 89.1 fL (80.0-100.0); Mono # (Auto) 1.1 th/mm3 (0.0-0.9); Mono % (Auto) 14.6 % (0.0-8.0); Neut # (Auto) 5.3 th/mm3 (1.8-7.7); Neut % (Auto) 71.9 % (16.0-70.0); Platelet Count 180 th/mm3 (150-450); Red Blood Count 3.01 mil/mm3 (4.50-5.90); Red Cell Distribution Width 18.4 % (11.6-17.2); White Blood Count 7.3 th/mm3 (4.0-11.0)
[2018-10-11 05:07] LABS: Potassium 3.9 meq/L (3.5-5.1)
[2018-10-11 05:20] LABS: Calcium-Albumin Corrected 7.9 mg/dL (8.5-10.1); Total Protein 5.3 g/dL (6.4-8.2)
[2018-10-11 05:25] LABS: CKMB Percent 0.8 % (0.0-4.0); Creatine Kinase MB 3.6 ng/mL (0.5-3.6)
[2018-10-11 05:47] LABS: ABG Base Excess -9.2 mmol/L (-2-2); ABG PCO2 26 mmHg (38-42); ABG PO2 117 mmHg (61-120)
[2018-10-11] MEDS: Propofol 1000 mg/100 ml Inj 1,000 MG/100 ML BOTTLE IV.CONT PRN ×2 (06:04→19:09)
[2018-10-11] MEDS: Chlorhexidine 0.12% Oral Kit 15 ML UDC OROPHARYNG SCH ×3 (08:00→20:30)
[2018-10-11] MEDS: Senna/Docusate Sodium 8.6/50 MG Tablet PO SCH ×2 (08:37→20:29)
[2018-10-11] MEDS: ceFAZolin 1 GM Premix Inj 1 GM/50 ML FROZ.PIGGY IV.SIG SCH ×2 (08:41→20:30)
[2018-10-11] MEDS: Sodium Chloride 0.9% 2 ML Flush BID IV.FLUSH SCH ×2 (08:42→20:29)
[2018-10-11 12:02] LABS: ABG PCO2 35 mmHg (38-42); ABG PO2 76 mmHg (61-120)
[2018-10-11] MEDS: Enoxaparin Inj 30 MG/0.3 ML Syringe SQ SCH (20:28)
[2018-10-11] MEDS: Artificial Tears Opth Drops 15 ML Bottle EACH EYE SCH ×2 (20:30→22:16)
[2018-10-12] MEDS: Pantoprazole Inj 40 MG Vial IV.PUSH SCH ×2 (00:07→22:52)
[2018-10-12] MEDS: Oral Hygiene Kit OROPHARYNG SCH ×6 (00:07→19:52)
[2018-10-12] MEDS: Propofol 1000 mg/100 ml Inj 1,000 MG/100 ML BOTTLE IV.CONT PRN ×4 (00:46→17:25)
[2018-10-12] MEDS: fentaNYL 10 mcg/mL Premix Drip 2,500 MCG/250 ML BAG IV.SIG PRN ×2 (00:47→15:22)
[2018-10-12] MEDS: Labetalol HCl Inj 100 MG/20 ML Vial IV.PUSH PRN ×2 (01:53→05:06)
[2018-10-12 03:55] LABS: Baso % (Auto) 0.5 % (0.0-2.0); Eos # (Auto) 0.2 th/mm3 (0.0-0.4); Eos % (Auto) 2.8 % (0.0-4.0); Hematocrit 27.7 % (39.0-51.0); Hemoglobin 9.4 gm/dL (13.0-17.0); Lymph # (Auto) 0.6 th/mm3 (1.0-4.8); Lymph % (Auto) 6.9 % (9.0-44.0); Mean Corpuscular HGB Conc 33.8 % (32.0-36.0); Mean Corpuscular Hemoglobin 30.6 pg (27.0-34.0); Mean Corpuscular Volume 90.5 fL (80.0-100.0); Mean Platelet Volume 7.1 fL (7.0-11.0); Mono # (Auto) 1.3 th/mm3 (0.0-0.9); Mono % (Auto) 14.3 % (0.0-8.0); Neut # (Auto) 6.7 th/mm3 (1.8-7.7); Neut % (Auto) 75.5 % (16.0-70.0); Platelet Count 187 th/mm3 (150-450); Red Blood Count 3.06 mil/mm3 (4.50-5.90); Red Cell Distribution Width 18.5 % (11.6-17.2); White Blood Count 8.9 th/mm3 (4.0-11.0)
[2018-10-12 04:35] LABS: Albumin 1.4 g/dL (3.4-5.0); Anion Gap 10 meq/L (5-15); Aspartate Aminotransferase 29 U/L (15-37); Blood Urea Nitrogen 28 mg/dL (7-18); Calcium 7.5 mg/dL (8.5-10.1); Carbon Dioxide 21.7 meq/L (21.0-32.0); Chloride 117 meq/L (98-107); Glomerular Filtration Rate 22 mL/min (>89); Glucose,Random 147 mg/dL (74-106); Potassium 4.3 meq/L (3.5-5.1); Sodium 149 meq/L (136-145)
[2018-10-12 04:38] LABS: Alkaline Phosphatase 122 U/L (45-117); Total Protein 5.9 g/dL (6.4-8.2)
[2018-10-12 06:13] LABS: ABG Base Excess -5.1 mmol/L (-2-2); ABG PCO2 32 mmHg (38-42); ABG PO2 94 mmHg (61-120)
--- NOTE | 2018-10-12 06:34 | XR ---
EXAM DATE: 10/12/2018 5:57 AM EST AGE/SEX: 62 years / Male INDICATIONS: Shortness of breath, follow up trauma. CLINICAL DATA: This is the patient's subsequent encounter. Patient reports that signs and symptoms h ave been present for 1 week and indicates a pain score of Nonresponsive. MEDICAL/SURGICAL HISTORY: None. Fusion, thoracic. Ex fix left femur/tibia. COMPARISON: [facility] [place], CHEST 1V SINGLE AP, 10/11/2018. . FINDINGS: Single view the chest demonstrates the ET tube, nasogastric tube are both in good position. There is persistent perihilar vascular congestion with moderate-sized bilateral pleural effusions. I don't see any defined pneumothorax. Aorta remains quite tortuous. There is been previous lumbar thoracic fixat ion. CONCLUSION: Persistent pulmonary vascular consolidation with pleural effusions. Small lung volumes. ET tube in ex cellent position Electronically signed by: Vinicio King MD 10/12/2018 6:33 AM EST
[2018-10-12] MEDS: Artificial Tears Opth Drops 15 ML Bottle EACH EYE SCH ×5 (07:10→21:46)
[2018-10-12] MEDS: Sodium Chloride 0.9% 2 ML Flush BID IV.FLUSH SCH ×3 (08:51→20:28)
[2018-10-12] MEDS: Enoxaparin Inj 30 MG/0.3 ML Syringe SQ SCH ×2 (08:51→20:27)
[2018-10-12] MEDS: Senna/Docusate Sodium 8.6/50 MG Tablet PO SCH ×3 (08:51→20:28)
[2018-10-12] MEDS: Chlorhexidine 0.12% Oral Kit 15 ML UDC OROPHARYNG SCH ×2 (08:53→20:28)
--- NOTE | 2018-10-12 10:54 | P.PNNS ---
Subjective Interval history: Not as alert. Opens eyes, but has not followed commands since ORIF. Moves upper extremities weakly. Gets very agitated when sedation lightened. Physical Exam Vital signs: Vital Signs 10/11/18 11:00 10/11/18 12:00 10/11/18 13:00 Temperature 99.1 F 99.1 F 99.0 F Pulse Rate 80 89 82 Respiratory Rate 16 16 16 Blood Pressure 154/78 H 140/73 145/70 H Pulse Oximetry 97 96 95 10/11/18 14:00 10/11/18 15:00 10/11/18 15:58 Temperature 98.8 F 98.8 F Pulse Rate 79 77 Respiratory Rate 16 16 16 Blood Pressure 156/73 H 144/71 H Pulse Oximetry 97 96 97 10/11/18 16:00 10/11/18 17:00 10/11/18 18:00 Temperature 99.0 F 99.0 F 99.0 F Pulse Rate 80 88 80 Respiratory Rate 16 16 15 Blood Pressure 174/81 H 173/80 H 175/77 H Pulse Oximetry 97 93 L 96 10/11/18 18:30 10/11/18 19:00 10/11/18 19:25 Temperature 99.0 F 98.8 F 99.0 F Pulse Rate 80 85 103 H Respiratory Rate 16 18 22 Blood Pressure 161/78 H 191/86 H Pulse Oximetry 96 95 97 10/11/18 19:30 18 19:32 10/11/18 20:00 Temperature 99.1 F 99.1 F 99.3 F Pulse Rate 83 82 82 Respiratory Rate 16 16 16 Blood Pressure 157/72 H 174/77 H Pulse Oximetry 95 95 96 10/11/18 20:30 10/11/18 21:00 10/11/18 21:30 Temperature 99.1 F 99.1 F 99.1 F Pulse Rate 79 80 84 Respiratory Rate 16 17 16 Blood Pressure 166/74 H Pulse Oximetry 96 96 95 10/11/18 22:00 10/11/18 22:30 10/11/18 23:00 Temperature 99.1 F 99.0 F 99.0 F Pulse Rate 89 84 90 Respiratory Rate 16 16 16 Blood Pressure 177/82 H 179/81 H Pulse Oximetry 94 L 95 93 L 10/11/18 23:30 10/12/18 00:00 10/12/18 00:30 Temperature 99.1 F 99.0 F 98.8 F Pulse Rate 79 77 82 Respiratory Rate 16 16 16 Blood Pressure 156/73 H Pulse Oximetry 97 97 97 10/12/18 01:00 10/12/18 01:24 10/12/18 01:30 Temperature 99.0 F 99.1 F Pulse Rate 84 82 Respiratory Rate 16 16 16 Blood Pressure 151/72 H Pulse Oximetry 96 99 97 10/12/18 02:00 10/12/18 02:30 10/12/18 03:00 Temperature 99.0 F 98.8 F 98.6 F Pulse Rate 81 79 78 Respiratory Rate 16 16 16 Blood Pressure 146/87 H 157/75 H Pulse Oximetry 98 98 98 10/12/18 03:30 10/12/18 04:00 10/12/18 04:30 Temperature 98.6 F 98.8 F 99.3 F Pulse Rate 85 79 76 Respiratory Rate 16 16 16 Blood Pressure 182/79 H Pulse Oximetry 97 97 96 10/12/18 04:34 10/12/18 05:00 10/12/18 05:30 Temperature 99.0 F 98.8 F Pulse Rate 74 75 Respiratory Rate 16 16 16 Blood Pressure 135/63 Pulse Oximetry 97 97 97 10/12/18 05:37 10/12/18 06:00 10/12/18 06:55 Temperature 98.6 F 98.6 F 98.8 F Pulse Rate 75 77 78 Respiratory Rate 16 16 16 Blood Pressure 134/60 Pulse Oximetry 97 97 98 10/12/18 07:00 10/12/18 07:37 10/12/18 07:58 Temperature 99.0 F 99.3 F Pulse Rate 77 77 Respiratory Rate 16 16 17 Blood Pressure 164/70 H Pulse Oximetry 98 97 98 10/12/18 08:00 10/12/18 08:37 10/12/18 09:00 Temperature 99.3 F 99.5 F 99.5 F Pulse Rate 77 78 79 Respiratory Rate 16 16 16 Blood Pressure 144/66 H 144/66 H 153/72 H Pulse Oximetry 98 97 97 10/12/18 09:37 Temperature 99.5 F Pulse Rate 77 Respiratory Rate 16 Blood Pressure 153/72 H Pulse Oximetry 97 Intake & Output 10/11/18 10/12/18 10/12/18 18:59 06:59 18:59 Intake Total 565 / 565 978 / 978 105 / 105 Output Total 550 / 550 525 / 525 Balance 15 / 15 453 / 453 105 / 105 Weight 105.9 kg Intake: IV 505 / 505 605 / 605 105 / 105 Diprivan 1000 mg/100 ml Inj 1, 100 / 100 200 / 200 000 mg In 100 ml @ 5 MCG/KG/MIN 2.913 mls/hr IV.CONT TITRATE PRN Rx#:[id number] Ancef 1 GM Premix Inj 1 gm In 50 / 50 50 / 50 50 ml @ 100 mls/hr IV.SIG Q12H [facility] Rx#:[id number] fentaNYL 10 mcg/mL Premix Drip 250 / 250 250 / 250 2,500 mcg In 250 ml @ 50 MCG/HR 5 mls/hr IV.SIG TITRATE PRN Rx #:[id number] Keppra Inj 500 MG In NS Inj 100 105 / 105 105 / 105 105 / 105 ML @ 400 mls/hr IV.SIG Q12H [facility] Rx#:[id number] Oral 60 / 60 Tube Feeding 313 / 313 Tube Irrigant 60 / 60 Output: Urine Amount (Catheter) 550 / 550 525 / 525 Indwelling Temp Sensing 550 / 550 525 / 525 Catheter Other: # Bowel Movements 0 Narrative: Intubated, Sedated Perrl, opens eyes, seems agitated when sedation lightened Dressing c/d/i thoracic and iliac crest harvest left exfix in place lower extremity Moves uppers slightly, not lowers, hard to hold sedation long enough - Urinary Catheter Management Indwelling Temp Sensing Catheter Cath placed during this visit: yes Reason for continuing: Hourly intake/output Insertion date: 10/05/18 Insertion time: 20:00 Assessment and Plan - Plan Chest X-Ray 10/05/18 00:00 CONCLUSION: Endotracheal tube tip in right mainstem bronchus. This should be withdrawn about 4 cm Tibia/Fibula X-Ray 10/05/18 00:00 CONCLUSION: Comminuted fractures proximal tibia and fibula. Distal tibia and fibula. Intact. Chest X-Ray 10/05/18 18:34 CONCLUSION: Endotracheal tube and nasogastric tube in good position. Bilateral rib fractures without pneumothorax. Basilar atelectasis. There is some widening of the superior mediastinum. See chest CT report. Pelvis X-Ray 10/05/18 18:34 CONCLUSION: No acute fracture. Abdomen/Pelvis CT 10/05/18 18:42 CONCLUSION: 1. Avulsion endplate fractures of T10 and T11 as above with widening of the anterior interspace likely from disruption of the annulus fibrosis. Consider MRI for further evaluation of disc injury. 2. No solid visceral injury identified. 3. Left eighth and right seventh rib fractures laterally with several healing lower right anterior rib fractures. Cervical Spine CT 10/05/18 18:42 CONCLUSION: 1. Moderate degenerative disc disease. No acute fracture or spondylolisthesis. Chest CT 10/05/18 18:42 CONCLUSION: 1. Avulsion fracture superior endplates of T10 and T11 as above with disruption of the anterior annulus fibrosis and widening of the anterior disc space between T10 and T11. 2. Fractures of the lower left and right ribs as above without pneumothorax. Dependent atelectasis in both lungs. 3. No evidence for aortic transection or dissection. 4. Mild coronary calcifications. Face CT 10/05/18 18:42 CONCLUSION: 1. Nondisplaced fracture of the right superior orbital wall, left medial orbital wall and left maxillary sinus with hemorrhage in the left maxillary sinus and ethmoids. Globes intact. Also nasal bone fracture. Patient intubated. Head CT 10/05/18 18:42 CONCLUSION: 1. Small anterior interhemispheric subdural hematoma without mass effect or shift. Trace subarachnoid hemorrhage anteriorly. No calvarial fracture identified. Femur X-Ray 10/05/18 18:43 CONCLUSION: Comminuted distal femur fracture with displacement. Knee CT 10/05/18 21:26 CONCLUSION: 1. Comminuted fractures of the distal femur and proximal tibia. Fracture of the proximal fibular shaft also noted. 2. Prominent atherosclerotic disease disease of the distal femoral artery, popliteal artery, and proximal calf arteries. There is focal very high-grade stenosis of the popliteal artery at the level of the knee. This finding is age- indeterminate and could be related to chronic atherosclerotic disease or recent trauma. Age-indeterminate moderate grade stenosis of the distal superficial femoral artery and high-grade stenosis of the PT trunk at its bifurcation also noted. Chest X-Ray 10/05/18 23:31 CONCLUSION: 1. Endotracheal tube tip now 2 cm above the yael. 2. Patchy atelectasis at the left lung base is decreased. Knee CT 10/06/18 00:00 CONCLUSION: 1. Severely comminuted fracture about the knee as described above, Knee X-Ray 10/06/18 00:00 CONCLUSION: Reasonable alignment as above Thoracic Spine MRI 10/06/18 00:00 CONCLUSION: 1. Abnormal T11-T12 as described above. 2. Thoracic cord is intact. There is no evidence for hematoma or contusion. There is no evidence of posterior ligamentous disruption. Chest X-Ray 10/06/18 06:00 CONCLUSION: No significant interval change. Head CT 10/06/18 08:00 CONCLUSION: 1. Stable to slightly improved. Significant intravascular contrast remains from previous contrasted exam. 62 y/o M Head CT as above; small parafalcine SDH. Neurologically patient is unchanged he is intubated ventilated and sedated on fentanyl drip. Facial lacerations repaired by Dr. Allen Patient underwent left leg runoff to assess popliteal artery and distal flow considering the proximal comminuted tibial fracture which is essentially behaves like a knee dislocation. He underwent successful ex-fix placement to the left femur and tibia with reduction of the comminuted segments MRI of the thoracic spine shows distraction of the T10-11 level however no disruption of the ligaments. Dr. Arceo has recommended spinal log roll precautions and hob not higher than 15 degrees. He states he will need stabilization procedure given his injury, he is tentatively scheduled for Saturday. 10/12/[address] and chest to evaluate slow progression in neuro exam. Dressing c/d/i--- march d/c spinal precautions given the fusion
[2018-10-12] MEDS: Metoprolol Inj 5 MG/5 ML Vial IV.PUSH SCH ×3 (10:57→21:46)
--- NOTE | 2018-10-12 18:45 | CT ---
EXAM DATE: 10/12/2018 6:37 PM EST AGE/SEX: 62 years / Male INDICATIONS: Follow up hemorrhage. CLINICAL DATA: This is the patient's subsequent encounter. Patient reports that signs and symptoms h ave been present for 4 - 6 days and indicates a pain score of Nonresponsive. MEDICAL/SURGICAL HISTORY: Non-responsive. Non-responsive. RADIATION DOSE: 64.12 CTDI (mGy) COMPARISON: [facility] – [place], [place], CT HEAD W/O CONTRAST, 10/06/2018. [facility] – [place], [place], CT HEAD W/O CONTRAST, 10/05/2018. . TECHNIQUE: CT of the head without contrast. Using automated exposure control and adjustment of the mA and/or kV according to patient size, radiation dose was kept as low as reasonably achievable to ob tain optimal diagnostic quality images. DICOM format image data is available electronically for revi ew and comparison. FINDINGS: Cerebrum: The ventricles are normal for age. There is some mild layering hyperdensity in the left o ccipital horn, similar to 10/06/2018.. No evidence of midline shift, mass lesion, hemorrhage or acute infarction. Mild prominence of hygromas fluid about the right frontal and parietal region. No eviden ce of acute blood products. Previously noted parafalcine blood has resolved.. Posterior Fossa: The cerebellum and brainstem are intact. The 4th ventricle is midline. The cerebe llopontine angle is unremarkable. Extracranial: Opacified ethmoid, sphenoid, left maxillary sinuses and fluid layering in the frontal sinuses. Previously noted scalp swelling has resolved. Skull: The calvaria is intact. No evidence of skull fracture. CONCLUSION: 1. There is residual intraventricular blood layering in the occipital horn. 2. Interval resolution of parafalcine blood. 3. No new areas of hemorrhage seen. 4. Pansinus disease. . Electronically signed by: Yan Quijano MD 10/12/2018 6:44 PM EST
--- NOTE | 2018-10-12 19:00 | CT ---
EXAM DATE: 10/12/2018 6:50 PM EST AGE/SEX: 62 years / Male INDICATIONS: Evaluate pleural effusions. CLINICAL DATA: This is the patient's initial encounter. Patient reports that signs and symptoms have been present for 1 day and indicates a pain score of Nonresponsive. MEDICAL/SURGICAL HISTORY: Non-responsive. Non-responsive. RADIATION DOSE: 20.01 CTDI (mGy) COMPARISON: [facility] – [place] CHEST W/WO IV CON, 10/05/2018. . TECHNIQUE: Multiple contiguous axial images were obtained through the chest without contrast. Image s were obtained in suspended respiration using multiple row detector helical technique. Using automa martita exposure control and adjustment of the mA and/or kV according to patient size, radiation dose was kept as low as reasonably achievable to obtain optimal diagnostic quality images. DICOM format imag e data is available electronically for review and comparison. FINDINGS: Lungs: Bibasilar alveolar consolidations are also noted consistent with atelectasis and/or pneumonia . Clinical correlation is recommended. Minimal focal patchiness is noted within the anterior medial a spect of the right upper lobe also. No pulmonary nodule or mass is noted. No pulmonary edema is noted . Mediastinum: There is good visualization of the great vessels of the middle mediastinum. No evidenc e of mediastinal or hilar adenopathy/mass. The heart is enlarged. Coronary artery calcifications are noted. Endotracheal tube is noted in good position above the yael. Nasogastric tube has its tip in the expected region of the distal stomach. Pleurae: There are small to moderate-sized bilateral pleural effusions. Axillae: Unremarkable. Bony Structures: Degenerative changes are noted throughout the thoracolumbar spine. Bilateral rib fr actures are stable. Miscellaneous: The examination was extended to include the upper abdomen, and both adrenal glands ar e normal in size and configuration. High density material is noted within the gallbladder. CONCLUSION: 1. Small to moderate-sized bilateral pleural effusions. 2. Bibasilar alveolar consolidations are also noted consistent with atelectasis and/or pneumonia. Cl inical correlation is recommended. Minimal focal patchiness is noted within the anterior medial aspec t of the right upper lobe also. 3. Cardiomegaly and coronary artery calcifications. 4. Degenerative changes throughout the thoracolumbar spine. 5. High density material is noted within the gallbladder consistent with probable vicarious excretio n of contrast. Electronically signed by: Teodoro Khan MD 10/12/2018 6:58 PM EST
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
[2018-10-12] MEDS: Sod Chloride 0.9% Inj 1,000 ML IV.CONT SCH ×3 (19:51→19:52)
[2018-10-13] MEDS: Propofol 1000 mg/100 ml Inj 1,000 MG/100 ML BOTTLE IV.CONT PRN ×5 (00:18→18:27)
[2018-10-13] MEDS: Oral Hygiene Kit OROPHARYNG SCH ×4 (00:48→15:49)
[2018-10-13] MEDS: Artificial Tears Opth Drops 15 ML Bottle EACH EYE SCH ×5 (03:07→18:02)
[2018-10-13] MEDS: Metoprolol Inj 5 MG/5 ML Vial IV.PUSH SCH ×4 (03:08→21:03)
[2018-10-13 04:02] LABS: Baso # (Auto) 0.1 th/mm3 (0.0-0.2); Baso % (Auto) 0.8 % (0.0-2.0); Eos # (Auto) 0.2 th/mm3 (0.0-0.4); Eos % (Auto) 2.3 % (0.0-4.0); Hemoglobin 8.8 gm/dL (13.0-17.0); Lymph # (Auto) 0.4 th/mm3 (1.0-4.8); Lymph % (Auto) 4.1 % (9.0-44.0); Mean Corpuscular HGB Conc 35.2 % (32.0-36.0); Mean Corpuscular Hemoglobin 31.8 pg (27.0-34.0); Mean Corpuscular Volume 90.3 fL (80.0-100.0); Mean Platelet Volume 7.5 fL (7.0-11.0); Mono # (Auto) 0.9 th/mm3 (0.0-0.9); Mono % (Auto) 9.2 % (0.0-8.0); Neut # (Auto) 8.2 th/mm3 (1.8-7.7); Neut % (Auto) 83.6 % (16.0-70.0); Platelet Count 199 th/mm3 (150-450); Red Blood Count 2.77 mil/mm3 (4.50-5.90); Red Cell Distribution Width 18.3 % (11.6-17.2); White Blood Count 9.8 th/mm3 (4.0-11.0)
[2018-10-13 04:39] LABS: Albumin 1.4 g/dL (3.4-5.0); Alkaline Phosphatase 101 U/L (45-117); Anion Gap 10 meq/L (5-15); Aspartate Aminotransferase 22 U/L (15-37); Blood Urea Nitrogen 34 mg/dL (7-18); Calcium 7.3 mg/dL (8.5-10.1); Carbon Dioxide 20.7 meq/L (21.0-32.0); Chloride 119 meq/L (98-107); Glomerular Filtration Rate 22 mL/min (>89); Glucose,Random 148 mg/dL (74-106); Potassium 4.3 meq/L (3.5-5.1); Sodium 150 meq/L (136-145); Total Protein 5.8 g/dL (6.4-8.2)
--- NOTE | 2018-10-13 04:50 | XR ---
EXAM DATE: 10/13/2018 4:30 AM EST AGE/SEX: 62 years / Male INDICATIONS: Respiratory distress. CLINICAL DATA: This is the patient's subsequent encounter. Patient reports that signs and symptoms h ave been present for 1 week and indicates a pain score of Nonresponsive. MEDICAL/SURGICAL HISTORY: None. Fusion, thoracic. Ex fix femur/tibia. Vas Cath. COMPARISON: [facility], CHEST 1V SINGLE AP, 10/12/2018. . FINDINGS: Single AP view the chest. Endotracheal tube and nasogastric tube remain in place. Surgical hardware i s again seen in the lower thoracic region. There is persistent mild pulmonary vascular congestion. Ca rdiomediastinal silhouette unchanged. Possible small bilateral pleural effusions. CONCLUSION: Persistent bilateral pulmonary vascular congestion and likely small bilateral pleural effusions. Electronically signed by: Ti Villa MD 10/13/2018 4:49 AM EST
[2018-10-13 06:20] LABS: ABG Base Excess -4.6 mmol/L (-2-2); ABG PCO2 33 mmHg (38-42); ABG PO2 117 mmHg (61-120)
--- NOTE | 2018-10-13 07:06 | P.PNOP ---
Subjective Interval history: Intubated. Stable Physical Exam Vital signs: Vital Signs 10/12/18 07:37 10/12/18 07:58 10/12/18 08:00 Temperature 99.3 F 99.3 F Pulse Rate 77 77 Respiratory Rate 16 17 16 Blood Pressure 164/70 H 144/66 H Pulse Oximetry 97 98 98 10/12/18 08:37 10/12/18 09:00 10/12/18 09:37 Temperature 99.5 F 99.5 F 99.5 F Pulse Rate 78 79 77 Respiratory Rate 16 16 16 Blood Pressure 144/66 H 153/72 H 153/72 H Pulse Oximetry 97 97 97 10/12/18 10:00 10/12/18 10:37 10/12/18 10:55 Temperature 99.5 F 99.7 F H 99.7 F H Pulse Rate 77 79 78 Respiratory Rate 16 16 16 Blood Pressure 145/66 H 145/66 H Pulse Oximetry 97 98 98 10/12/18 11:00 10/12/18 11:26 10/12/18 11:30 Temperature 99.7 F H 99.9 F H Pulse Rate 87 80 Respiratory Rate 15 16 16 Blood Pressure Pulse Oximetry 98 97 97 10/12/18 11:37 10/12/18 12:00 10/12/18 12:37 Temperature 99.9 F H 100.0 F H 99.9 F H Pulse Rate 80 79 77 Respiratory Rate 16 6 L 12 Blood Pressure 135/64 135/64 164/74 H Pulse Oximetry 97 97 98 10/12/18 13:00 10/12/18 13:37 10/12/18 14:00 Temperature 99.9 F H 100.0 F H 100.0 F H Pulse Rate 78 81 80 Respiratory Rate 16 9 L 5 L Blood Pressure 164/74 H 145/68 H 145/68 H Pulse Oximetry 98 98 97 10/12/18 14:37 10/12/18 15:00 10/12/18 15:37 Temperature 100.0 F H 100.2 F H 100.2 F H Pulse Rate 80 80 80 Respiratory Rate 16 16 16 Blood Pressure 175/84 H 175/84 H 153/72 H Pulse Oximetry 96 97 97 10/12/18 16:00 10/12/18 16:37 10/12/18 17:00 Temperature 100.2 F H 100.2 F H 100.4 F H Pulse Rate 83 83 83 Respiratory Rate 16 16 16 Blood Pressure 153/72 H 153/72 H 153/72 H Pulse Oximetry 98 95 96 10/12/18 17:37 10/12/18 18:00 10/12/18 18:33 Temperature 100.4 F H 100.4 F H Pulse Rate 82 81 93 H Respiratory Rate 16 16 13 Blood Pressure 168/74 H 168/74 H 200/92 H Pulse Oximetry 97 96 10/12/18 18:37 10/12/18 19:00 10/12/18 19:06 Temperature Pulse Rate 85 89 Respiratory Rate 16 16 Blood Pressure 166/74 H Pulse Oximetry 100 100 10/12/18 20:00 10/12/18 20:16 10/12/18 20:37 Temperature 101.4 F H Pulse Rate 86 92 H Respiratory Rate 32 H 16 16 Blood Pressure 163/76 H Pulse Oximetry 98 98 97 10/12/18 21:00 10/12/18 22:00 10/12/18 22:37 Temperature Pulse Rate 90 85 85 Respiratory Rate 16 16 16 Blood Pressure 161/73 H Pulse Oximetry 98 98 99 10/12/18 23:00 10/12/18 23:38 10/13/18 00:00 Temperature 101.3 F H Pulse Rate 85 92 H Respiratory Rate 16 16 16 Blood Pressure Pulse Oximetry 100 100 100 10/13/18 01:00 10/13/18 02:00 10/13/18 02:37 Temperature Pulse Rate 88 96 H 93 H Respiratory Rate 16 15 16 Blood Pressure 135/63 Pulse Oximetry 100 97 99 10/13/18 03:00 10/13/18 03:28 10/13/18 03:59 Temperature 101.4 F H Pulse Rate 91 H Respiratory Rate 16 25 H Blood Pressure Pulse Oximetry 99 96 10/13/18 04:00 10/13/18 05:00 10/13/18 06:00 Temperature Pulse Rate 90 86 89 Respiratory Rate 16 16 16 Blood Pressure Pulse Oximetry 100 100 100 Intake & Output 10/12/18 10/13/18 10/13/18 18:59 06:59 18:59 Intake Total 555 / 555 1464 / 1464 Output Total 450 / 450 550 / 550 Balance 105 / 105 914 / 914 Weight 106.3 kg Intake: IV 555 / 555 305 / 305 Diprivan 1000 mg/100 ml Inj 1, 200 / 200 200 / 200 000 mg In 100 ml @ 5 MCG/KG/MIN 2.913 mls/hr IV.CONT TITRATE PRN Rx#:[id number] fentaNYL 10 mcg/mL Premix Drip 250 / 250 2,500 mcg In 250 ml @ 50 MCG/HR 5 mls/hr IV.SIG TITRATE PRN Rx #:[id number] Keppra Inj 500 MG In NS Inj 100 105 / 105 105 / 105 ML @ 400 mls/hr IV.SIG Q12H [facility] Rx#:[id number] Tube Feeding 1099 / 1099 Tube Irrigant 60 / 60 Output: Stool 0 / 0 Urine Amount (Catheter) 450 / 450 550 / 550 Indwelling Temp Sensing 450 / 450 550 / 550 Catheter Narrative: Left lower extremity: External fixation in place spanning distal femur and tibial plateau fractures. Open laceration is continuing to heal with mild darkening along the apex of the laceration. Intact distal pulses and good capillary refill - Urinary Catheter Management Indwelling Temp Sensing Catheter Cath placed during this visit: yes Reason for continuing: Hourly intake/output Insertion date: 10/05/18 Insertion time: 20:00 Results - Labs CBC & Chem 7: 10/13/18 03:20 10/13/18 03:20 Laboratory Results - last 24 hr 10/13/18 10/13/18 10/13/18 03:20 03:20 06:12 WBC 9.8 RBC 2.77 L Hgb 8.8 L Hct 25.0 L MCV 90.3 MCH 31.8 MCHC 35.2 RDW 18.3 H Plt Count 199 MPV 7.5 Neut % (Auto) 83.6 H Lymph % (Auto) 4.1 L [place] % (Auto) 9.2 H Eos % (Auto) 2.3 Baso % (Auto) 0.8 Neut # (Auto) 8.2 H Lymph # (Auto) 0.4 L [place] # (Auto) 0.9 Eos # (Auto) 0.2 Baso # (Auto) 0.1 WBC Differential . Differential Comment Auto diff final Puncture Site Art line Patient Temperature 98.6 O2 Saturation 96 ABG pH 7.39 ABG pCO2 33 L ABG pO2 117 ABG HCO3 20 L ABG O2 Content 12.5 ABG Base Excess -4.6 L ABG Methemoglobin 1.2 Hemoglobin 9.1 L Carboxyhemoglobin 1.3 O2 Delivery Device Vent Vent Setting Prvc/ac Inspired O2 50 Critical Value No Sodium 150 H Potassium 4.3 Chloride 119 H Carbon Dioxide 20.7 L Anion Gap 10 BUN 34 H Creatinine 2.92 H Estimated GFR 22 L Random Glucose 148 H Calcium 7.3 L* Prot Corrected Calcium 8.0 L Total Bilirubin 0.4 AST 22 ALT Less than 6 L Alkaline Phosphatase 101 Total Protein 5.8 L Albumin 1.4 L - Imaging Impressions Head CT 10/12/18 00:00 CONCLUSION: 1. There is residual intraventricular blood layering in the occipital horn. 2. Interval resolution of parafalcine blood. 3. No new areas of hemorrhage seen. 4. Pansinus disease. . Chest CT 10/12/18 09:35 CONCLUSION: 1. Small to moderate-sized bilateral pleural effusions. 2. Bibasilar alveolar consolidations are also noted consistent with atelectasis and/or pneumonia. Clinical correlation is recommended. Minimal focal patchiness is noted within the anterior medial aspect of the right upper lobe also. 3. Cardiomegaly and coronary artery calcifications. 4. Degenerative changes throughout the thoracolumbar spine. 5. High density material is noted within the gallbladder consistent with probable vicarious excretion of contrast. Chest X-Ray 10/13/18 06:00 CONCLUSION: Persistent bilateral pulmonary vascular congestion and likely small bilateral pleural effusions. Assessment and Plan - Assessment and Plan 1) Left Open Distal Femur and Proximal Tibia Fxs s/p Exfix -NWB -pin care BID -N.p.o. after midnight Hold Lovenox Plan for surgery tomorrow with Dr. Navarro appropriate reduction internal fixation of left distal femur and tibial plateau with allograft bone graft
[2018-10-13] MEDS ORDERED: Bisacodyl 10 MG Supp RECTAL ONE (08:00)
[2018-10-13] MEDS ORDERED: Vancomycin Consult Pharmacy 1 EACH OTHER SCH (09:30)
[2018-10-13] MEDS ORDERED: Vancomycin Inj 1,000 MG in Sodium Chlor 0.9% Inj 250 ML IV.SIG SCH (10:00)
--- NOTE | 2018-10-13 10:19 | P.PNNS ---
Subjective Interval history: Pt intubated and sedated on Diprivan and Fentanyl drips. When sedation decreased RN states blood pressure increases. <Juancarlos Stanford - Last Filed: 10/13/18 10:07> Physical Exam Vital signs: Vital Signs 10/12/18 10:37 10/12/18 10:55 10/12/18 11:00 Temperature 99.7 F H 99.7 F H 99.7 F H Pulse Rate 79 78 87 Respiratory Rate 16 16 15 Blood Pressure 145/66 H Pulse Oximetry 98 98 98 10/12/18 11:26 10/12/18 11:30 10/12/18 11:37 Temperature 99.9 F H 99.9 F H Pulse Rate 80 80 Respiratory Rate 16 16 16 Blood Pressure 135/64 Pulse Oximetry 97 97 97 10/12/18 12:00 10/12/18 12:37 10/12/18 13:00 Temperature 100.0 F H 99.9 F H 99.9 F H Pulse Rate 79 77 78 Respiratory Rate 6 L 12 16 Blood Pressure 135/64 164/74 H 164/74 H Pulse Oximetry 97 98 98 10/12/18 13:37 10/12/18 14:00 10/12/18 14:37 Temperature 100.0 F H 100.0 F H 100.0 F H Pulse Rate 81 80 80 Respiratory Rate 9 L 5 L 16 Blood Pressure 145/68 H 145/68 H 175/84 H Pulse Oximetry 98 97 96 10/12/18 15:00 10/12/18 15:37 10/12/18 16:00 Temperature 100.2 F H 100.2 F H 100.2 F H Pulse Rate 80 80 83 Respiratory Rate 16 16 16 Blood Pressure 175/84 H 153/72 H 153/72 H Pulse Oximetry 97 97 98 10/12/18 16:37 10/12/18 17:00 10/12/18 17:37 Temperature 100.2 F H 100.4 F H 100.4 F H Pulse Rate 83 83 82 Respiratory Rate 16 16 16 Blood Pressure 153/72 H 153/72 H 168/74 H Pulse Oximetry 95 96 97 10/12/18 18:00 10/12/18 18:33 10/12/18 18:37 Temperature 100.4 F H Pulse Rate 81 93 H 85 Respiratory Rate 16 13 16 Blood Pressure 168/74 H 200/92 H 166/74 H Pulse Oximetry 96 100 10/12/18 19:00 10/12/18 19:06 10/12/18 20:00 Temperature 101.4 F H Pulse Rate 89 86 Respiratory Rate 16 32 H Blood Pressure Pulse Oximetry 100 98 10/12/18 20:16 10/12/18 20:37 10/12/18 21:00 Temperature Pulse Rate 92 H 90 Respiratory Rate 16 16 16 Blood Pressure 163/76 H Pulse Oximetry 98 97 98 10/12/18 22:00 10/12/18 22:37 10/12/18 23:00 Temperature Pulse Rate 85 85 85 Respiratory Rate 16 16 16 Blood Pressure 161/73 H Pulse Oximetry 98 99 100 10/12/18 23:38 10/13/18 00:00 10/13/18 01:00 Temperature 101.3 F H Pulse Rate 92 H 88 Respiratory Rate 16 16 16 Blood Pressure Pulse Oximetry 100 100 100 10/13/18 02:00 10/13/18 02:37 10/13/18 03:00 Temperature Pulse Rate 96 H 93 H 91 H Respiratory Rate 15 16 16 Blood Pressure 135/63 Pulse Oximetry 97 99 99 10/13/18 03:28 10/13/18 03:59 10/13/18 04:00 Temperature 101.4 F H Pulse Rate 90 Respiratory Rate 25 H 16 Blood Pressure Pulse Oximetry 96 100 10/13/18 05:00 10/13/18 06:00 10/13/18 06:37 Temperature Pulse Rate 86 89 87 Respiratory Rate 16 16 16 Blood Pressure 119/61 Pulse Oximetry 100 100 100 10/13/18 07:00 10/13/18 08:00 Temperature 100.7 F H Pulse Rate 90 93 H Respiratory Rate 16 16 Blood Pressure Pulse Oximetry 100 99 Intake & Output 10/12/18 10/13/18 10/13/18 18:59 06:59 18:59 Intake Total 555 / 555 1464 / 1464 Output Total 450 / 450 550 / 550 Balance 105 / 105 914 / 914 Weight 106.3 kg Intake: IV 555 / 555 305 / 305 Diprivan 1000 mg/100 ml Inj 1, 200 / 200 200 / 200 000 mg In 100 ml @ 5 MCG/KG/MIN 2.913 mls/hr IV.CONT TITRATE PRN Rx#:[id number] fentaNYL 10 mcg/mL Premix Drip 250 / 250 2,500 mcg In 250 ml @ 50 MCG/HR 5 mls/hr IV.SIG TITRATE PRN Rx #:[id number] Keppra Inj 500 MG In NS Inj 100 105 / 105 105 / 105 ML @ 400 mls/hr IV.SIG Q12H [facility] Rx#:[id number] Tube Feeding 1099 / 1099 Tube Irrigant 60 / 60 Output: Stool 0 / 0 Urine Amount (Catheter) 450 / 450 550 / 550 Indwelling Temp Sensing 450 / 450 550 / 550 Catheter - Constitutional no acute distress (Pt sedated and intubated. When sedation decreased or held pts blood pressure increases.), average body habitus - Routine HEENT Exam Head: Absent: atraumatic (Laceration right superior eyebrow and left medial eyebrow laceration.) Eye: Present: PERRL (Pupils 3mm bilaterally reactive bilaterally.). Absent: conjunctival icterus ENT: Absent: oropharynx clear (ET tube in place.) - Routine Neck Exam Present: trachea midline - Routine Respiratory Exam Present: patient mechanically ventilated (PRVC A/C rate 16. RR 8.), CTA bilaterally. Absent: respiratory distress, rhonchi, wheezes - Routine Cardiovascular Exam Present: RRR, S1, S2. Absent: murmur - Routine Abdominal Exam Present: soft, distended (mild distention.). Absent: normoactive bowel sounds, firm Comments: TFs 55 ml/hr. - Routine Extremities Exam Absent: cyanosis Comments: LLE with external fixator in place. - Routine Skin Exam Absent: cyanosis, erythema Comments: RN last night log rolled pt and changed bandage. Reported clean and dry. No signs of infection or complication. Abrasion right side of face. Laceration above right eyebrow clean and dry with sutures in place. Laceration medial to left eyebrow with sutures in place, clean and dry. - Routine Neurological Exam Present: moving all extremities (Limited LLE secondary to left external fixator. ). Absent: alert (Sedated on Diprivan and Fentanyl drips. When sedative drips held or decreased his blood pressure increases. Not opening eyes. Pupils 3mm bialterally reactive bilaterally.) - Routine Psychiatric Exam Present: unable to assess - Urinary Catheter Management Indwelling Temp Sensing Catheter Cath placed during this visit: yes Reason for continuing: Hourly intake/output Insertion date: 10/05/18 Insertion time: 20:00 <Juancarlos Stanford - Last Filed: 10/13/18 10:07> Vital signs: Vital Signs 10/12/18 17:37 10/12/18 18:00 10/12/18 18:33 Temperature 100.4 F H 100.4 F H Pulse Rate 82 81 93 H Respiratory Rate 16 16 13 Blood Pressure 168/74 H 168/74 H 200/92 H Pulse Oximetry 97 96 10/12/18 18:37 10/12/18 19:00 10/12/18 19:06 Temperature Pulse Rate 85 89 Respiratory Rate 16 16 Blood Pressure 166/74 H Pulse Oximetry 100 100 10/12/18 20:00 10/12/18 20:16 10/12/18 20:37 Temperature 101.4 F H Pulse Rate 86 92 H Respiratory Rate 32 H 16 16 Blood Pressure 163/76 H Pulse Oximetry 98 98 97 10/12/18 21:00 10/12/18 22:00 10/12/18 22:37 Temperature Pulse Rate 90 85 85 Respiratory Rate 16 16 16 Blood Pressure 161/73 H Pulse Oximetry 98 98 99 10/12/18 23:00 10/12/18 23:38 10/13/18 00:00 Temperature 101.3 F H Pulse Rate 85 92 H Respiratory Rate 16 16 16 Blood Pressure Pulse Oximetry 100 100 100 10/13/18 01:00 10/13/18 02:00 10/13/18 02:37 Temperature Pulse Rate 88 96 H 93 H Respiratory Rate 16 15 16 Blood Pressure 135/63 Pulse Oximetry 100 97 99 10/13/18 03:00 10/13/18 03:28 10/13/18 03:59 Temperature 101.4 F H Pulse Rate 91 H Respiratory Rate 16 25 H Blood Pressure Pulse Oximetry 99 96 10/13/18 04:00 10/13/18 05:00 10/13/18 06:00 Temperature Pulse Rate 90 86 89 Respiratory Rate 16 16 16 Blood Pressure Pulse Oximetry 100 100 100 10/13/18 06:37 10/13/18 07:00 10/13/18 08:00 Temperature 100.7 F H Pulse Rate 87 90 93 H Respiratory Rate 16 16 16 Blood Pressure 119/61 Pulse Oximetry 100 100 99 10/13/18 09:00 10/13/18 10:00 10/13/18 10:37 Temperature Pulse Rate 90 100 H 98 H Respiratory Rate 23 16 16 Blood Pressure 159/74 H Pulse Oximetry 95 100 100 10/13/18 11:00 10/13/18 12:00 10/13/18 12:15 Temperature 100.0 F H Pulse Rate 104 H 103 H Respiratory Rate 18 16 16 Blood Pressure Pulse Oximetry 98 96 95 10/13/18 13:00 10/13/18 14:00 10/13/18 14:37 Temperature Pulse Rate 100 H 95 H 93 H Respiratory Rate 16 16 16 Blood Pressure 132/62 Pulse Oximetry 96 97 97 10/13/18 15:00 10/13/18 15:22 10/13/18 16:00 Temperature 100.7 F H Pulse Rate 93 H 89 85 Respiratory Rate 16 16 16 Blood Pressure 115/57 L Pulse Oximetry 97 96 98 Intake & Output 10/12/18 10/13/18 10/13/18 18:59 06:59 18:59 Intake Total 555 / 555 1464 / 1464 655 / 655 Output Total 450 / 450 550 / 550 Balance 105 / 105 914 / 914 655 / 655 Weight 106.3 kg Intake: IV 555 / 555 305 / 305 655 / 655 Diprivan 1000 mg/100 ml Inj 1, 200 / 200 200 / 200 200 / 200 000 mg In 100 ml @ 5 MCG/KG/MIN 2.913 mls/hr IV.CONT TITRATE PRN Rx#:[id number] Maxipime Inj 2,000 MG In NS Inj 100 / 100 100 ML @ 200 mls/hr IV.SIG Q8H [facility] Rx#:[id number] fentaNYL 10 mcg/mL Premix Drip 250 / 250 250 / 250 2,500 mcg In 250 ml @ 50 MCG/HR 5 mls/hr IV.SIG TITRATE PRN Rx #:[id number] Keppra Inj 500 MG In NS Inj 100 105 / 105 105 / 105 105 / 105 ML @ 400 mls/hr IV.SIG Q12H [facility] Rx#:[id number] Tube Feeding 1099 / 1099 Tube Irrigant 60 / 60 Output: Stool 0 / 0 Urine Amount (Catheter) 450 / 450 550 / 550 Indwelling Temp Sensing 450 / 450 550 / 550 Catheter - Urinary Catheter Management Indwelling Temp Sensing Catheter Cath placed during this visit: no <Janes Arceo - Last Filed: 10/13/18 17:25> Assessment and Plan - Assessment (1) CHI (closed head injury) Code(s): S09.90XA - Unspecified injury of head, initial encounter Status: Acute Qualifiers: Encounter type: initial encounter Qualified Code(s): S09.90XA - Unspecified injury of head, initial encounter (2) Acute subdural hematoma Code(s): S06.5X9A - Traumatic subdural hemorrhage with loss of consciousness of unspecified duration, initial encounter Status: Acute (3) Open fracture Code(s): T14.8XXA - Other injury of unspecified body region, initial encounter Status: Acute (4) Respiratory failure after trauma Code(s): J96.90 - Respiratory failure, unspecified, unspecified whether with hypoxia or hypercapnia Status: Acute (5) Mild major neurocognitive disorder as late effect of traumatic brain injury without behavioral disturbance Code(s): S06.9X9S - Unspecified intracranial injury with loss of consciousness of unspecified duration, sequela; F02.80 - Dementia in other diseases classified elsewhere without behavioral disturbance Status: Acute - Plan Chest X-Ray 10/05/18 00:00 CONCLUSION: Endotracheal tube tip in right mainstem bronchus. This should be withdrawn about 4 cm Tibia/Fibula X-Ray 10/05/18 00:00 CONCLUSION: Comminuted fractures proximal tibia and fibula. Distal tibia and fibula. Intact. Chest X-Ray 10/05/18 18:34 CONCLUSION: Endotracheal tube and nasogastric tube in good position. Bilateral rib fractures without pneumothorax. Basilar atelectasis. There is some widening of the superior mediastinum. See chest CT report. Pelvis X-Ray 10/05/18 18:34 CONCLUSION: No acute fracture. Abdomen/Pelvis CT 10/05/18 18:42 CONCLUSION: 1. Avulsion endplate fractures of T10 and T11 as above with widening of the anterior interspace likely from disruption of the annulus fibrosis. Consider MRI for further evaluation of disc injury. 2. No solid visceral injury identified. 3. Left eighth and right seventh rib fractures laterally with several healing lower right anterior rib fractures. Cervical Spine CT 10/05/18 18:42 CONCLUSION: 1. Moderate degenerative disc disease. No acute fracture or spondylolisthesis. Chest CT 10/05/18 18:42 CONCLUSION: 1. Avulsion fracture superior endplates of T10 and T11 as above with disruption of the anterior annulus fibrosis and widening of the anterior disc space between T10 and T11. 2. Fractures of the lower left and right ribs as above without pneumothorax. Dependent atelectasis in both lungs. 3. No evidence for aortic transection or dissection. 4. Mild coronary calcifications. Face CT 10/05/18 18:42 CONCLUSION: 1. Nondisplaced fracture of the right superior orbital wall, left medial orbital wall and left maxillary sinus with hemorrhage in the left maxillary sinus and ethmoids. Globes intact. Also nasal bone fracture. Patient intubated. Head CT 10/05/18 18:42 CONCLUSION: 1. Small anterior interhemispheric subdural hematoma without mass effect or shift. Trace subarachnoid hemorrhage anteriorly. No calvarial fracture identified. Femur X-Ray 10/05/18 18:43 CONCLUSION: Comminuted distal femur fracture with displacement. Knee CT 10/05/18 21:26 CONCLUSION: 1. Comminuted fractures of the distal femur and proximal tibia. Fracture of the proximal fibular shaft also noted. 2. Prominent atherosclerotic disease disease of the distal femoral artery, popliteal artery, and proximal calf arteries. There is focal very high-grade stenosis of the popliteal artery at the level of the knee. This finding is age- indeterminate and could be related to chronic atherosclerotic disease or recent trauma. Age-indeterminate moderate grade stenosis of the distal superficial femoral artery and high-grade stenosis of the PT trunk at its bifurcation also noted. Chest X-Ray 10/05/18 23:31 CONCLUSION: 1. Endotracheal tube tip now 2 cm above the yael. 2. Patchy atelectasis at the left lung base is decreased. Knee CT 10/06/18 00:00 CONCLUSION: 1. Severely comminuted fracture about the knee as described above, Knee X-Ray 10/06/18 00:00 CONCLUSION: Reasonable alignment as above Thoracic Spine MRI 10/06/18 00:00 CONCLUSION: 1. Abnormal T11-T12 as described above. 2. Thoracic cord is intact. There is no evidence for hematoma or contusion. There is no evidence of posterior ligamentous disruption. Chest X-Ray 10/06/18 06:00 CONCLUSION: No significant interval change. Head CT 10/06/18 08:00 CONCLUSION: 1. Stable to slightly improved. Significant intravascular contrast remains from previous contrasted exam. 62 y/o M Head CT as above; small parafalcine SDH. Neurologically patient is unchanged he is intubated ventilated and sedated on fentanyl drip. Facial lacerations repaired by Dr. Allen Patient underwent left leg runoff to assess popliteal artery and distal flow considering the proximal comminuted tibial fracture which is essentially behaves like a knee dislocation. He underwent successful ex-fix placement to the left femur and tibia with reduction of the comminuted segments MRI of the thoracic spine shows distraction of the T10-11 level however no disruption of the ligaments. Dr. Arceo has recommended spinal log roll precautions and hob not higher than 15 degrees. He underwent Posterior T9, T10, T11, and T12 autograft fusion; T9-12 pedicle screw fixation; left iliac crest autograft harvest on 10/10/18. Continue with current care. Pain control. log roll with TLSO brace. <Juancarlos Stanford - Last Filed: 10/13/18 10:07> - Attending Attestation The exam, history, and the medical decision-making described in the above note were completed with the assistance of the mid-level provider. I reviewed and agree with the findings presented. I attest that I had a [id number] encounter with the patient on the same day, and personally performed and documented my assessment and findings in the medical record. <Janes Arceo - Last Filed: 10/13/18 17:25>
[2018-10-13] MEDS: Sodium Chloride 0.9% 2 ML Flush BID IV.FLUSH SCH ×2 (10:35→21:04)
[2018-10-13] MEDS: Senna/Docusate Sodium 8.6/50 MG Tablet PO SCH ×2 (10:35→21:04)
[2018-10-13] MEDS: Chlorhexidine 0.12% Oral Kit 15 ML UDC OROPHARYNG SCH ×2 (10:36→21:04)
[2018-10-13] MEDS: fentaNYL 10 mcg/mL Premix Drip 2,500 MCG/250 ML BAG IV.SIG PRN (10:39)
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
[2018-10-13] MEDS ORDERED: Vancomycin Inj 2,000 MG in Sodium Chlor 0.9% Inj 500 ML IV.SIG ONE (12:00)
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
[2018-10-13] MEDS: Sod Chloride 0.9% Inj 1,000 ML IV.CONT SCH (18:01)
[2018-10-14] MEDS: Oral Hygiene Kit OROPHARYNG SCH ×4 (00:23→17:49)
[2018-10-14] MEDS: Artificial Tears Opth Drops 15 ML Bottle EACH EYE SCH ×7 (00:42→21:47)
[2018-10-14] MEDS: Pantoprazole Inj 40 MG Vial IV.PUSH SCH ×2 (00:42→23:22)
[2018-10-14] MEDS: Propofol 1000 mg/100 ml Inj 1,000 MG/100 ML BOTTLE IV.CONT PRN ×4 (00:43→20:05)
[2018-10-14] MEDS: Sod Chloride 0.9% Inj 1,000 ML IV.CONT SCH ×2 (01:04→19:38)
[2018-10-14] MEDS: Metoprolol Inj 5 MG/5 ML Vial IV.PUSH SCH ×3 (04:02→20:15)
[2018-10-14 05:15] LABS: ABG Base Excess -6.4 mmol/L (-2-2); ABG PCO2 38 mmHg (38-42); ABG PO2 95 mmHg (61-120)
--- NOTE | 2018-10-14 05:26 | XR ---
EXAM DATE: 10/14/2018 5:01 AM EST AGE/SEX: 62 years / Male INDICATIONS: Respiratory distress. CLINICAL DATA: This is the patient's subsequent encounter. Patient reports that signs and symptoms h ave been present for 4 - 6 days and indicates a pain score of Nonresponsive. MEDICAL/SURGICAL HISTORY: None. . Fusion, thoracic. Ex fix femur/tibia. Vas Cath. COMPARISON: [facility], CHEST 1V SINGLE AP, 10/13/2018. . FINDINGS: Single AP view the chest. Endotracheal tube, nasogastric tube remain in place. Persistent bilateral p ulmonary vasculature prominence and hazy opacity in the lungs. Likely small bilateral pleural effusio ns. No significant interval change. CONCLUSION: No significant interval change. Electronically signed by: Ti Villa MD 10/14/2018 5:25 AM EST
[2018-10-14 05:32] LABS: Baso % (Auto) 0.4 % (0.0-2.0); Eos # (Auto) 0.3 th/mm3 (0.0-0.4); Eos % (Auto) 3.7 % (0.0-4.0); Hematocrit 25.8 % (39.0-51.0); Hemoglobin 8.7 gm/dL (13.0-17.0); Lymph # (Auto) 0.4 th/mm3 (1.0-4.8); Lymph % (Auto) 5.7 % (9.0-44.0); Mean Corpuscular HGB Conc 33.7 % (32.0-36.0); Mean Corpuscular Hemoglobin 31.1 pg (27.0-34.0); Mean Corpuscular Volume 92.4 fL (80.0-100.0); Mean Platelet Volume 7.2 fL (7.0-11.0); Mono # (Auto) 0.8 th/mm3 (0.0-0.9); Mono % (Auto) 11.3 % (0.0-8.0); Neut # (Auto) 5.5 th/mm3 (1.8-7.7); Neut % (Auto) 78.9 % (16.0-70.0); Platelet Count 210 th/mm3 (150-450); Red Blood Count 2.79 mil/mm3 (4.50-5.90); Red Cell Distribution Width 18.2 % (11.6-17.2)
[2018-10-14] MEDS: fentaNYL 10 mcg/mL Premix Drip 2,500 MCG/250 ML BAG IV.SIG PRN ×2 (05:38→23:10)
[2018-10-14 05:58] LABS: Albumin 1.3 g/dL (3.4-5.0); Anion Gap 9 meq/L (5-15); Aspartate Aminotransferase 22 U/L (15-37); Blood Urea Nitrogen 41 mg/dL (7-18); Calcium 7.7 mg/dL (8.5-10.1); Carbon Dioxide 20.3 meq/L (21.0-32.0); Chloride 119 meq/L (98-107); Glomerular Filtration Rate 20 mL/min (>89); Glucose,Random 120 mg/dL (74-106); Potassium 4.5 meq/L (3.5-5.1); Sodium 148 meq/L (136-145)
[2018-10-14 06:00] LABS: Alkaline Phosphatase 98 U/L (45-117); Total Protein 6.1 g/dL (6.4-8.2); Vancomycin,Random 25.8 Comment
--- NOTE | 2018-10-14 06:47 | P.PNOP ---
Subjective Interval history: s/p left knee exfix intubated. sedated. no changes Physical Exam Vital signs: Vital Signs 10/13/18 07:00 10/13/18 08:00 10/13/18 09:00 Temperature 100.7 F H Pulse Rate 90 93 H 90 Respiratory Rate 16 16 23 Blood Pressure Pulse Oximetry 100 99 95 10/13/18 10:00 10/13/18 10:37 10/13/18 11:00 Temperature Pulse Rate 100 H 98 H 104 H Respiratory Rate 16 16 18 Blood Pressure 159/74 H Pulse Oximetry 100 100 98 10/13/18 12:00 10/13/18 12:15 10/13/18 13:00 Temperature 100.0 F H Pulse Rate 103 H 100 H Respiratory Rate 16 16 16 Blood Pressure Pulse Oximetry 96 95 96 10/13/18 14:00 10/13/18 14:37 10/13/18 15:00 Temperature Pulse Rate 95 H 93 H 93 H Respiratory Rate 16 16 16 Blood Pressure 132/62 Pulse Oximetry 97 97 97 10/13/18 15:22 10/13/18 16:00 10/13/18 16:26 Temperature 100.7 F H Pulse Rate 89 85 86 Respiratory Rate 16 16 16 Blood Pressure 115/57 L 113/56 L Pulse Oximetry 96 98 90 L 10/13/18 17:00 10/13/18 17:34 10/13/18 18:00 Temperature Pulse Rate 87 80 Respiratory Rate 16 16 16 Blood Pressure Pulse Oximetry 98 98 98 10/13/18 18:37 10/13/18 19:00 10/13/18 20:00 Temperature 100 F H Pulse Rate 87 82 82 Respiratory Rate 16 16 16 Blood Pressure 144/68 H Pulse Oximetry 100 100 100 10/13/18 21:00 10/13/18 21:19 10/13/18 22:00 Temperature Pulse Rate 89 91 H Respiratory Rate 17 16 19 Blood Pressure Pulse Oximetry 100 98 100 10/13/18 23:00 10/14/18 00:00 10/14/18 01:00 Temperature 100.2 F H Pulse Rate 91 H 92 H 85 Respiratory Rate 16 16 16 Blood Pressure Pulse Oximetry 100 100 99 10/14/18 01:14 10/14/18 02:00 10/14/18 04:00 Temperature Pulse Rate 82 Respiratory Rate 16 16 18 Blood Pressure Pulse Oximetry 100 100 99 Intake & Output 10/13/18 10/13/18 10/14/18 06:59 18:59 06:59 Intake Total 1464 / 1464 1926 / 1926 1650 / 1650 Output Total 550 / 550 500 / 500 Balance 914 / 914 1426 / 1426 1650 / 1650 Weight 106.3 kg Intake: IV 305 / 305 1275 / 1275 1650 / 1650 Diprivan 1000 mg/100 ml Inj 1, 200 / 200 300 / 300 200 / 200 000 mg In 100 ml @ 5 MCG/KG/MIN 2.913 mls/hr IV.CONT TITRATE PRN Rx#:[id number] NS Inj 1,000 ML @ 40 mls/hr IV. 1000 / 1000 CONT .Q24H [facility] Rx#:[id number] Maxipime Inj 2,000 MG In NS Inj 100 / 100 200 / 200 100 ML @ 200 mls/hr IV.SIG Q8H [facility] Rx#:[id number] Vancomycin Inj 2,000 MG In NS 520 / 520 Inj 500 ML @ 250 mls/hr IV.SIG ONCE ONE Rx#:[id number] fentaNYL 10 mcg/mL Premix Drip 250 / 250 250 / 250 2,500 mcg In 250 ml @ 50 MCG/HR 5 mls/hr IV.SIG TITRATE PRN Rx #:[id number] Keppra Inj 500 MG In NS Inj 100 105 / 105 105 / 105 ML @ 400 mls/hr IV.SIG Q12H [facility] Rx#:[id number] Tube Feeding 1099 / 1099 651 / 651 Tube Irrigant 60 / 60 Output: Stool 0 / 0 Urine Amount (Catheter) 550 / 550 500 / 500 Indwelling Temp Sensing 550 / 550 500 / 500 Catheter Other: Date of Last Bowel Movement 10/13/18 10/14/18 # Bowel Movements 1 Narrative: LLE: +exfix. 1+ swelling. pin sites clean - Urinary Catheter Management Indwelling Temp Sensing Catheter Cath placed during this visit: yes Reason for continuing: Hourly intake/output Insertion date: 10/05/18 Insertion time: 20:00 Results - Labs CBC & Chem 7: 10/14/18 04:30 10/14/18 04:30 Laboratory Results - last 24 hr 10/14/18 10/14/18 10/14/18 04:30 04:30 05:10 WBC 7.0 RBC 2.79 L Hgb 8.7 L Hct 25.8 L MCV 92.4 MCH 31.1 MCHC 33.7 RDW 18.2 H Plt Count 210 MPV 7.2 Neut % (Auto) 78.9 H Lymph % (Auto) 5.7 L [place] % (Auto) 11.3 H Eos % (Auto) 3.7 Baso % (Auto) 0.4 Neut # (Auto) 5.5 Lymph # (Auto) 0.4 L [place] # (Auto) 0.8 Eos # (Auto) 0.3 Baso # (Auto) 0.0 WBC Differential . Differential Comment Auto diff final Puncture Site al Patient Temperature 98.6 O2 Saturation 95 ABG pH 7.31 L ABG pCO2 38 ABG pO2 95 ABG HCO3 19 L ABG O2 Content 12.4 ABG Base Excess -6.4 L ABG Methemoglobin 1.4 [place] Test + Hemoglobin 9.2 L Carboxyhemoglobin 1.2 O2 Delivery Device Ventilator Vent Setting Prvc/ac Inspired O2 55 Critical Value No Sodium 148 H Potassium 4.5 Chloride 119 H Carbon Dioxide 20.3 L Anion Gap 9 BUN 41 H Creatinine 3.16 H Estimated GFR 20 L Random Glucose 120 H Calcium 7.7 L Total Bilirubin 0.6 AST 22 ALT Less than 6 L Alkaline Phosphatase 98 Total Protein 6.1 L Albumin 1.3 L Random Vancomycin 25.8 - Imaging Impressions Chest X-Ray 10/14/18 06:00 CONCLUSION: No significant interval change. Assessment and Plan - Assessment and Plan 1) Left Open Distal Femur and Proximal Tibia Fxs s/p Exfix -NWB -pin care BID -surgery today with DR Navarro
--- NOTE | 2018-10-14 08:21 | P.PNNPSY ---
- Progress Notes/Response to Treatment Contents of Sessions: Adjustment, Level of consciousness Time with Patient: 30 minutes Premorbid Psychological Status: Premorbid Cognitive, Emotional and Behavioral Status: Stable. 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 The patient has no known prior psychiatric difficulties, as described above. Substance abuse history is unknown. Behavioral Reactions of Patient and Family/Support System: Stable. The patient s family is experiencing ongoing issues of adjustment given the nature of the injury, and this aspect of recovery will require ongoing monitoring. Emotional/Behavioral Status of Patient and Family/Support System: Stable. Pertinent issues, if appropriate to this patients clinical care, are described in detail above. Maximizing Acute Care Outcome: It is recommended that the patient be monitored for emergent behavioral impulsivity as the medical condition evolves. This patients neuropathological challenges may limit rehabilitation potential going forward, and these challenges will require specialized therapeutic skills to maximize outcome. Additionally, the patients family is experiencing ongoing issues of adjustment given the traumatic nature of the injury, and they may benefit from ongoing psychological assistance. At this point in the recovery process, the patient does not have cognitive capacity as the patient is unable to understand a situation and its likely consequences, nor is the patient able to manipulate information rationally. He was sedated and intubated, and as such capacity was unable to be determined. Cognitive capacity will be assessed throughout the recovery process. Anticipated Problems: Ongoing areas of concern will include behavioral impulsivity, lack of insight and judgment, which is expected to improve with time and treatment. Treatment Plan: This clinician will continue to follow with you throughout the course of this patients critical care treatment, and I will be available to meet with the patients family/support system to facilitate their understanding and the ongoing care of their family member. The goals of neuropsychological intervention shall be both educational and supportive to the family/support system as is deemed clinically appropriate. [place] COG Scale: Level II Disinhibition Score: 14.00 Aggression Score: 14.00 Lability Score: 14.00 Agitated Behavior Total Score: 14 Impression: 62 year old male s/p complicated mild [place] [facility] [place] Progress Note Narrative: PTD 9. The patient is neurobehaviorally unchanged. He withdraws but does not follow. No agitation/restlessness, with ABS of 14 (14,14,14). He remains Rancho II. I will follow. - Diagnosis (1) Mild major neurocognitive disorder as late effect of traumatic brain injury without behavioral disturbance Status: Acute
[2018-10-14] MEDS: Chlorhexidine 0.12% Oral Kit 15 ML UDC OROPHARYNG SCH ×2 (08:40→20:15)
[2018-10-14] MEDS: Sodium Chloride 0.9% 2 ML Flush BID IV.FLUSH SCH ×2 (08:45→20:44)
[2018-10-14] MEDS: Senna/Docusate Sodium 8.6/50 MG Tablet PO SCH ×2 (08:45→20:44)
--- NOTE | 2018-10-14 09:49 | P.PNNS ---
Subjective Interval history: Pt sedated on Diprivan and Fentanyl drips. Not following commands. Not opening eyes. <SachinmalgorzataiftikharJuancarlos - Last Filed: 10/14/18 09:33> Physical Exam Vital signs: Vital Signs 10/13/18 10:00 10/13/18 10:37 10/13/18 11:00 Temperature Pulse Rate 100 H 98 H 104 H Respiratory Rate 16 16 18 Blood Pressure 159/74 H Pulse Oximetry 100 100 98 10/13/18 12:00 10/13/18 12:15 10/13/18 13:00 Temperature 100.0 F H Pulse Rate 103 H 100 H Respiratory Rate 16 16 16 Blood Pressure Pulse Oximetry 96 95 96 10/13/18 14:00 10/13/18 14:37 10/13/18 15:00 Temperature Pulse Rate 95 H 93 H 93 H Respiratory Rate 16 16 16 Blood Pressure 132/62 Pulse Oximetry 97 97 97 10/13/18 15:22 10/13/18 16:00 10/13/18 16:26 Temperature 100.7 F H Pulse Rate 89 85 86 Respiratory Rate 16 16 16 Blood Pressure 115/57 L 113/56 L Pulse Oximetry 96 98 90 L 10/13/18 17:00 10/13/18 17:34 10/13/18 18:00 Temperature Pulse Rate 87 80 Respiratory Rate 16 16 16 Blood Pressure Pulse Oximetry 98 98 98 10/13/18 18:37 10/13/18 19:00 10/13/18 20:00 Temperature 100 F H Pulse Rate 87 82 82 Respiratory Rate 16 16 16 Blood Pressure 144/68 H Pulse Oximetry 100 100 100 10/13/18 21:00 10/13/18 21:19 10/13/18 22:00 Temperature Pulse Rate 89 91 H Respiratory Rate 17 16 19 Blood Pressure Pulse Oximetry 100 98 100 10/13/18 23:00 10/14/18 00:00 10/14/18 01:00 Temperature 100.2 F H Pulse Rate 91 H 92 H 85 Respiratory Rate 16 16 16 Blood Pressure Pulse Oximetry 100 100 99 10/14/18 01:14 10/14/18 02:00 10/14/18 03:00 Temperature Pulse Rate 82 82 Respiratory Rate 16 16 16 Blood Pressure Pulse Oximetry 100 100 100 10/14/18 04:00 10/14/18 05:00 10/14/18 06:00 Temperature 100.1 F H Pulse Rate 80 99 H 97 H Respiratory Rate 16 22 17 Blood Pressure Pulse Oximetry 100 99 100 10/14/18 08:00 Temperature Pulse Rate Respiratory Rate 17 Blood Pressure Pulse Oximetry 98 Intake & Output 10/13/18 10/14/18 10/14/18 18:59 06:59 18:59 Intake Total 1926 / 1926 2000 / 2000 100 / 100 Output Total 500 / 500 650 / 650 Balance 1426 / 1426 1351 / 1351 100 / 100 Weight 106.7 kg Intake: IV 1275 / 1275 1650 / 1650 100 / 100 Diprivan 1000 mg/100 ml Inj 1, 300 / 300 200 / 200 100 / 100 000 mg In 100 ml @ 5 MCG/KG/MIN 2.913 mls/hr IV.CONT TITRATE PRN Rx#:[id number] NS Inj 1,000 ML @ 40 mls/hr IV. 1000 / 1000 CONT .Q24H [facility] Rx#:[id number] Maxipime Inj 2,000 MG In NS Inj 100 / 100 200 / 200 100 ML @ 200 mls/hr IV.SIG Q8H [facility] Rx#:[id number] Vancomycin Inj 2,000 MG In NS 520 / 520 Inj 500 ML @ 250 mls/hr IV.SIG ONCE ONE Rx#:[id number] fentaNYL 10 mcg/mL Premix Drip 250 / 250 250 / 250 2,500 mcg In 250 ml @ 50 MCG/HR 5 mls/hr IV.SIG TITRATE PRN Rx #:[id number] Keppra Inj 500 MG In NS Inj 100 105 / 105 ML @ 400 mls/hr IV.SIG Q12H [facility] Rx#:[id number] Tube Feeding 651 / 651 251 / 251 Water Bolus Amount 100 / 100 Output: Stool 0 / 0 Urine Amount (Catheter) 500 / 500 650 / 650 Indwelling Temp Sensing 500 / 500 650 / 650 Catheter Other: Date of Last Bowel Movement 10/13/18 10/14/18 # Bowel Movements 1 # Incontinent Bowel Movements 2 - Constitutional no acute distress (Pt sedated on Diprivan and Fentanyl drips.) - Routine HEENT Exam Head: Present: normocephalic Eye: Present: PERRL (Pupils 3mm bilaterally.). Absent: conjunctival icterus ENT: Absent: oropharynx clear (ET intubated) - Routine Neck Exam Present: trachea midline - Routine Respiratory Exam Present: patient mechanically ventilated (PRVC A/C rate 16. RR 8. FiO2 45%.), CTA bilaterally. Absent: respiratory distress, rhonchi, wheezes - Routine Cardiovascular Exam Present: RRR, S1, S2. Absent: murmur - Routine Abdominal Exam Present: soft, normoactive bowel sounds. Absent: distended, firm - Routine Skin Exam Absent: cyanosis, erythema Comments: Laceration right superior eyebrow, left medial eyebrow, abrasions above right eyebrow, right lateral face, and left forehead all clean and dry. LLE external fixator in place. - Routine Neurological Exam Absent: alert (Pt sedated on Diprivan and Fentanyl drips. ) Pt sedated on Fentanyl and Diprivan drips. Pupils 3mm bilaterally. Not following commands. When sedation held reportedly withdraws all 4 extremities. LLE with external fixator in place. - Routine Psychiatric Exam Present: unable to assess - Urinary Catheter Management Indwelling Temp Sensing Catheter Cath placed during this visit: yes Reason for continuing: Hourly intake/output Insertion date: 10/05/18 Insertion time: 20:00 <Juancarlos Stanford - Last Filed: 10/14/18 09:33> Vital signs: Vital Signs 10/13/18 13:00 10/13/18 14:00 10/13/18 14:37 Temperature Pulse Rate 100 H 95 H 93 H Respiratory Rate 16 16 16 Blood Pressure 132/62 Pulse Oximetry 96 97 97 10/13/18 15:00 10/13/18 15:22 10/13/18 16:00 Temperature 100.7 F H Pulse Rate 93 H 89 85 Respiratory Rate 16 16 16 Blood Pressure 115/57 L Pulse Oximetry 97 96 98 10/13/18 16:26 10/13/18 17:00 10/13/18 17:34 Temperature Pulse Rate 86 87 Respiratory Rate 16 16 16 Blood Pressure 113/56 L Pulse Oximetry 90 L 98 98 10/13/18 18:00 10/13/18 18:37 10/13/18 19:00 Temperature Pulse Rate 80 87 82 Respiratory Rate 16 16 16 Blood Pressure 144/68 H Pulse Oximetry 98 100 100 10/13/18 20:00 10/13/18 21:00 10/13/18 21:19 Temperature 100 F H Pulse Rate 82 89 Respiratory Rate 16 17 16 Blood Pressure Pulse Oximetry 100 100 98 10/13/18 22:00 10/13/18 23:00 10/14/18 00:00 Temperature 100.2 F H Pulse Rate 91 H 91 H 92 H Respiratory Rate 19 16 16 Blood Pressure Pulse Oximetry 100 100 100 10/14/18 01:00 10/14/18 01:14 10/14/18 02:00 Temperature Pulse Rate 85 82 Respiratory Rate 16 16 16 Blood Pressure Pulse Oximetry 99 100 100 10/14/18 03:00 10/14/18 04:00 10/14/18 05:00 Temperature 100.1 F H Pulse Rate 82 80 99 H Respiratory Rate 16 16 22 Blood Pressure Pulse Oximetry 100 100 99 10/14/18 06:00 10/14/18 07:00 10/14/18 08:00 Temperature 99.8 F H Pulse Rate 97 H 86 81 Respiratory Rate 17 16 16 Blood Pressure Pulse Oximetry 100 97 98 10/14/18 09:00 10/14/18 10:00 Temperature Pulse Rate 76 72 Respiratory Rate 16 16 Blood Pressure Pulse Oximetry 98 99 Intake & Output 10/13/18 10/14/18 10/14/18 18:59 06:59 18:59 Intake Total 1926 / 1926 2000 / 2000 100 / 100 Output Total 500 / 500 650 / 650 Balance 1426 / 1426 1351 / 1351 100 / 100 Weight 106.7 kg Intake: IV 1275 / 1275 1650 / 1650 100 / 100 Diprivan 1000 mg/100 ml Inj 1, 300 / 300 200 / 200 100 / 100 000 mg In 100 ml @ 5 MCG/KG/MIN 2.913 mls/hr IV.CONT TITRATE PRN Rx#:[id number] NS Inj 1,000 ML @ 40 mls/hr IV. 1000 / 1000 CONT .Q24H [facility] Rx#:[id number] Maxipime Inj 2,000 MG In NS Inj 100 / 100 200 / 200 100 ML @ 200 mls/hr IV.SIG Q8H [facility] Rx#:[id number] Vancomycin Inj 2,000 MG In NS 520 / 520 Inj 500 ML @ 250 mls/hr IV.SIG ONCE ONE Rx#:[id number] fentaNYL 10 mcg/mL Premix Drip 250 / 250 250 / 250 2,500 mcg In 250 ml @ 50 MCG/HR 5 mls/hr IV.SIG TITRATE PRN Rx #:[id number] Keppra Inj 500 MG In NS Inj 100 105 / 105 ML @ 400 mls/hr IV.SIG Q12H [facility] Rx#:[id number] Tube Feeding 651 / 651 251 / 251 Water Bolus Amount 100 / 100 Output: Stool 0 / 0 Urine Amount (Catheter) 500 / 500 650 / 650 Indwelling Temp Sensing 500 / 500 650 / 650 Catheter Other: Date of Last Bowel Movement 10/13/18 10/14/18 10/14/18 # Bowel Movements 1 # Incontinent Bowel Movements 2 - Urinary Catheter Management Indwelling Temp Sensing Catheter Cath placed during this visit: no <Janes Arceo - Last Filed: 10/14/18 12:25> Assessment and Plan - Assessment (1) CHI (closed head injury) Code(s): S09.90XA - Unspecified injury of head, initial encounter Status: Acute Qualifiers: Encounter type: initial encounter Qualified Code(s): S09.90XA - Unspecified injury of head, initial encounter (2) Acute subdural hematoma Code(s): S06.5X9A - Traumatic subdural hemorrhage with loss of consciousness of unspecified duration, initial encounter Status: Acute (3) Open fracture Code(s): T14.8XXA - Other injury of unspecified body region, initial encounter Status: Acute (4) Respiratory failure after trauma Code(s): J96.90 - Respiratory failure, unspecified, unspecified whether with hypoxia or hypercapnia Status: Acute (5) Mild major neurocognitive disorder as late effect of traumatic brain injury without behavioral disturbance Code(s): S06.9X9S - Unspecified intracranial injury with loss of consciousness of unspecified duration, sequela; F02.80 - Dementia in other diseases classified elsewhere without behavioral disturbance Status: Acute - Plan Chest X-Ray 10/05/18 00:00 CONCLUSION: Endotracheal tube tip in right mainstem bronchus. This should be withdrawn about 4 cm Tibia/Fibula X-Ray 10/05/18 00:00 CONCLUSION: Comminuted fractures proximal tibia and fibula. Distal tibia and fibula. Intact. Chest X-Ray 10/05/18 18:34 CONCLUSION: Endotracheal tube and nasogastric tube in good position. Bilateral rib fractures without pneumothorax. Basilar atelectasis. There is some widening of the superior mediastinum. See chest CT report. Pelvis X-Ray 10/05/18 18:34 CONCLUSION: No acute fracture. Abdomen/Pelvis CT 10/05/18 18:42 CONCLUSION: 1. Avulsion endplate fractures of T10 and T11 as above with widening of the anterior interspace likely from disruption of the annulus fibrosis. Consider MRI for further evaluation of disc injury. 2. No solid visceral injury identified. 3. Left eighth and right seventh rib fractures laterally with several healing lower right anterior rib fractures. Cervical Spine CT 10/05/18 18:42 CONCLUSION: 1. Moderate degenerative disc disease. No acute fracture or spondylolisthesis. Chest CT 10/05/18 18:42 CONCLUSION: 1. Avulsion fracture superior endplates of T10 and T11 as above with disruption of the anterior annulus fibrosis and widening of the anterior disc space between T10 and T11. 2. Fractures of the lower left and right ribs as above without pneumothorax. Dependent atelectasis in both lungs. 3. No evidence for aortic transection or dissection. 4. Mild coronary calcifications. Face CT 10/05/18 18:42 CONCLUSION: 1. Nondisplaced fracture of the right superior orbital wall, left medial orbital wall and left maxillary sinus with hemorrhage in the left maxillary sinus and ethmoids. Globes intact. Also nasal bone fracture. Patient intubated. Head CT 10/05/18 18:42 CONCLUSION: 1. Small anterior interhemispheric subdural hematoma without mass effect or shift. Trace subarachnoid hemorrhage anteriorly. No calvarial fracture identified. Femur X-Ray 10/05/18 18:43 CONCLUSION: Comminuted distal femur fracture with displacement. Knee CT 10/05/18 21:26 CONCLUSION: 1. Comminuted fractures of the distal femur and proximal tibia. Fracture of the proximal fibular shaft also noted. 2. Prominent atherosclerotic disease disease of the distal femoral artery, popliteal artery, and proximal calf arteries. There is focal very high-grade stenosis of the popliteal artery at the level of the knee. This finding is age- indeterminate and could be related to chronic atherosclerotic disease or recent trauma. Age-indeterminate moderate grade stenosis of the distal superficial femoral artery and high-grade stenosis of the PT trunk at its bifurcation also noted. Chest X-Ray 10/05/18 23:31 CONCLUSION: 1. Endotracheal tube tip now 2 cm above the yael. 2. Patchy atelectasis at the left lung base is decreased. Knee CT 10/06/18 00:00 CONCLUSION: 1. Severely comminuted fracture about the knee as described above, Knee X-Ray 10/06/18 00:00 CONCLUSION: Reasonable alignment as above Thoracic Spine MRI 10/06/18 00:00 CONCLUSION: 1. Abnormal T11-T12 as described above. 2. Thoracic cord is intact. There is no evidence for hematoma or contusion. There is no evidence of posterior ligamentous disruption. Chest X-Ray 10/06/18 06:00 CONCLUSION: No significant interval change. Head CT 10/06/18 08:00 CONCLUSION: 1. Stable to slightly improved. Significant intravascular contrast remains from previous contrasted exam. 62 y/o M Head CT as above; small parafalcine SDH. Neurologically patient is unchanged he is intubated ventilated and sedated on fentanyl and Diprivan drip. Facial lacerations repaired by Dr. Allen Patient underwent left leg runoff to assess popliteal artery and distal flow considering the proximal comminuted tibial fracture which is essentially behaves like a knee dislocation. He underwent successful ex-fix placement to the left femur and tibia with reduction of the comminuted segments MRI of the thoracic spine shows distraction of the T10-11 level however no disruption of the ligaments. Dr. Arceo has recommended spinal log roll precautions and hob not higher than 15 degrees. He underwent Posterior T9, T10, T11, and T12 autograft fusion; T9-12 pedicle screw fixation; left iliac crest autograft harvest on 10/10/18. Continue with current care. Pain control. log roll with TLSO brace. Wean sedation and vent as tolerated. <Juancarlos Stanford - Last Filed: 10/14/18 09:33> - Attending Attestation The exam, history, and the medical decision-making described in the above note were completed with the assistance of the mid-level provider. I reviewed and agree with the findings presented. I attest that I had a [id number] encounter with the patient on the same day, and personally performed and documented my assessment and findings in the medical record. <Janes Arceo - Last Filed: 10/14/18 12:25>
[2018-10-14] MEDS ORDERED: ceFAZolin 1 GM Premix Inj 2 GM/100 ML FROZ.PIGGY IV.SIG ONE (09:54)
[2018-10-14] MEDS ORDERED: ceFAZolin Inj 500 MG Vial ONE (12:36)
[2018-10-14 12:56] LABS: Hematocrit 22.2 % (39.0-51.0); Hemoglobin 7.2 gm/dL (13.0-17.0)
[2018-10-14] MEDS ORDERED: Post-op Orders (for Pharmacy) OTHER STA (13:05)
[2018-10-14 13:09] LABS: ABG Base Excess -7.8 mmol/L (-2-2); ABG PCO2 39 mmHg (38-42); ABG PO2 75 mmHG (61-120)
--- NOTE | 2018-10-14 13:13 | P.OP ---
- Preoperative Diagnosis (1) Open supracondylar fracture of left femur (2) Closed bicondylar fracture of left tibial plateau Date of procedure: 10/14/18 Anesthesia: GETA Surgeon: Minh Jorgensen MD Policy Loan Calculator: DERICK Singh PA-C The surgical procedure was assisted by my physician assistant center director. My P.A. presence was necessary throughout this case for the manipulation and positioning of the surgical extremity. My P.A. was assisting me throughout the duration of this procedure. The skill set of a physician assistant center director was medically necessary to complete this procedure. During the surgical case the ophthalmic surgical assistant was working at the back table and the physician assistant center director was directly assisting me. Operation and Findings: Implants used: Plan of activity: Nonweightbearing, passive range of motion of knee Implants used ITS distal femur plate, Biomet proximal tibia plate Plan of activity nonweightbearing left leg, passive range of motion 0-45 degrees left knee Details of procedure: Informed consent was obtained, operative site was marked. Patient was brought to the OR, placed on OR table, and given IV sedation with GETA. IV antibiotics were administered. Timeout procedure was performed. Procedure began with a removal of the portion of the external fixator. Clamps and bars were loosened. Clamps and bars were removed. Pins were left in place at this time. The operative leg was prepped with alcohol, followed with Hibiclens, draped in usual sterile fashion. The procedure began with a 8-inch incision over the lateral aspect of the distal femur and knee. Subcutaneous tissue was dissected with Bovie. Iliotibial band was split in line with fibers. At this point the fracture was visualized. Traction was applied. A distractor was placed across the fractures using the external fixator pins. Fracture was manipulated. The fracture reduced into excellent alignment. The medial and lateral femoral condyles were manipulated. They were reduced into excellent alignment. There was a small trochlear piece as well. K wires were used to hold this piece in reduced position. The distal femoral condyles were now reduced to the femoral shaft. There was some bone loss at fracture site from the open nature of the injury. Steinmann pins were used to hold provisional fixation. At this point attention was turned to plate placement. A lateral condylar plate was selected and attached to the insertion handle jig. The plate was placed underneath the vastus lateralis. Steinmann pins were used to hold the plate to bone. Multiplanar fluoroscopy confirmed appropriate placement of plate. Multiple 4.5 cortical screws were now placed in percutaneous fashion through the plate. The plate was compressed to bone. Multiple locking screws were now placed in the distal segment of the distal femur. Additional screws were placed into the femoral shaft. All screws were predrilled and premeasured for appropriate length. 2 Arthrex bioabsorbable pins were used to pin the trochlear articular fragment in place. Final fluoroscopy revealed excellent alignment of fracture with well-placed hardware. Wound was thoroughly irrigated. Next attention was turned towards the tibial plateau. The incision was extended distally. Subcutaneous tissue was treated with Bovie. Iliotibial band was split in line with fibers. A sub-meniscal arthrotomy was created and the lateral articular surface was visualized. There was significant comminution and depression of the articular surface. A window was made in the metaphyseal region and bone tamps used to elevate the articular surface. Articular surface reduced into excellent alignment. The medial and lateral tibial plateau fracture fragments were manipulated and reduced to each other. K -wires were used for provisional fixation. At this point cancellous bone graft was packed under the articular surface using a bone tamp. The tibial shaft was now reduced to the tibial plateau fragments. Fluoroscopy revealed excellent alignment of fracture. A proximal tibial plate was selected. The plate was provisionally held with K-wires. 3.5 cortical screws were used compress plate to bone distally, and a periarticular clamp was used to compress the medial and lateral tibial plateau fracture fragments together. Multiple locking screws were now placed proximally. Additional screws were placed in the shaft. K-wires were removed. Final fluoroscopy showed excellent alignment of fracture with well-placed hardware. The incision was thoroughly irrigated. Arthrotomy and iliotibial band closed with #1 Vicryl,. Subcutaneous tissues closed with 3-0 Vicryl and skin was closed with markus. Sterile dressings were applied. The external fixator pins were now removed. Sterile dressings were applied. Patient was transferred back to intensive care in critical condition.
[2018-10-14] MEDS ORDERED: Vancomycin Inj 1 GM/200 ML PIGGYBACK IV.SIG SCH (14:00)
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
[2018-10-14] MEDS: Calcium/Vitamin D 250/125 MG Tablet PO SCH (17:49)
[2018-10-14] MEDS ORDERED: ceFAZolin 2 GM Premix Inj 2 GM/50 ML PIGGYBACK IV.SIG SCH (19:00)
[2018-10-14] MEDS: Heparin - SQ 10,000 UNITS/ML Vial SQ SCH (20:43)
[2018-10-14] MEDS ORDERED: Enoxaparin Inj 30 MG/0.3 ML Syringe SQ SCH (21:00)
[2018-10-15] MEDS: Oral Hygiene Kit OROPHARYNG SCH ×4 (00:30→16:00)
[2018-10-15] MEDS: Artificial Tears Opth Drops 15 ML Bottle EACH EYE SCH ×6 (01:29→21:09)
[2018-10-15] MEDS: Metoprolol Inj 5 MG/5 ML Vial IV.PUSH SCH ×4 (01:29→19:45)
[2018-10-15] MEDS: Propofol 1000 mg/100 ml Inj 1,000 MG/100 ML BOTTLE IV.CONT PRN ×4 (02:45→18:05)
[2018-10-15 05:10] LABS: Baso # (Auto) 0.1 th/mm3 (0.0-0.2); Baso % (Auto) 0.8 % (0.0-2.0); Eos # (Auto) 0.1 th/mm3 (0.0-0.4); Eos % (Auto) 1.9 % (0.0-4.0); Hematocrit 26.8 % (39.0-51.0); Hemoglobin 9.3 gm/dL (13.0-17.0); Lymph # (Auto) 0.5 th/mm3 (1.0-4.8); Lymph % (Auto) 7.1 % (9.0-44.0); Mean Corpuscular HGB Conc 34.6 % (32.0-36.0); Mean Corpuscular Hemoglobin 31.1 pg (27.0-34.0); Mean Corpuscular Volume 89.8 fL (80.0-100.0); Mean Platelet Volume 7.5 fL (7.0-11.0); Mono # (Auto) 1.2 th/mm3 (0.0-0.9); Neut # (Auto) 5.2 th/mm3 (1.8-7.7); Neut % (Auto) 73.2 % (16.0-70.0); Platelet Count 199 th/mm3 (150-450); Red Blood Count 2.98 mil/mm3 (4.50-5.90); Red Cell Distribution Width 18.3 % (11.6-17.2)
[2018-10-15 05:44] LABS: Calcium 7.3 mg/dL (8.5-10.1); Carbon Dioxide 17.5 meq/L (21.0-32.0); Potassium 4.8 meq/L (3.5-5.1)
[2018-10-15 06:02] LABS: Calcium-Albumin Corrected 8.2 mg/dL (8.5-10.1); Total Protein 5.5 g/dL (6.4-8.2)
--- NOTE | 2018-10-15 06:58 | P.PNOP ---
Subjective Interval history: POD 1 s/p ORIF left distal femur and left tibial plateau intubated/sedated Physical Exam Vital signs: Vital Signs 10/14/18 07:00 10/14/18 08:00 10/14/18 09:00 Temperature 99.8 F H Pulse Rate 86 81 76 Respiratory Rate 16 16 16 Blood Pressure Pulse Oximetry 97 98 98 10/14/18 10:00 10/14/18 10:15 10/14/18 10:30 Temperature Pulse Rate 72 73 74 Respiratory Rate 16 16 Blood Pressure Pulse Oximetry 99 100 100 10/14/18 10:45 10/14/18 11:00 10/14/18 11:15 Temperature Pulse Rate 77 78 73 Respiratory Rate Blood Pressure Pulse Oximetry 98 97 95 10/14/18 11:30 10/14/18 11:45 10/14/18 12:00 Temperature 97.0 F L 97.0 F L 96.8 F L Pulse Rate 74 72 75 Respiratory Rate Blood Pressure Pulse Oximetry 95 95 93 L 10/14/18 12:15 10/14/18 12:30 10/14/18 12:45 Temperature 96.6 F L 96.4 F L 96.3 F L Pulse Rate 73 72 73 Respiratory Rate Blood Pressure Pulse Oximetry 94 L 94 L 94 L 10/14/18 13:00 10/14/18 13:15 10/14/18 13:30 Temperature 96.1 F L Pulse Rate 73 73 68 Respiratory Rate 16 Blood Pressure Pulse Oximetry 94 L 99 95 10/14/18 13:36 10/14/18 13:45 10/14/18 14:00 Temperature Pulse Rate 68 67 66 Respiratory Rate 16 17 16 Blood Pressure 127/64 Pulse Oximetry 94 L 10/14/18 14:11 10/14/18 14:15 10/14/18 14:30 Temperature 97.7 F Pulse Rate 66 66 61 Respiratory Rate 16 16 16 Blood Pressure 174/85 H 172/85 H 155/81 H Pulse Oximetry 96 95 95 10/14/18 14:45 10/14/18 15:00 10/14/18 15:15 Temperature Pulse Rate 62 64 66 Respiratory Rate 16 16 16 Blood Pressure 160/87 H 158/83 H 168/90 H Pulse Oximetry 96 96 96 10/14/18 15:30 10/14/18 15:45 10/14/18 16:00 Temperature 98.8 F Pulse Rate 68 70 73 Respiratory Rate 16 16 16 Blood Pressure 159/83 H 161/86 H 158/83 H Pulse Oximetry 97 97 97 10/14/18 16:15 10/14/18 16:30 10/14/18 16:40 Temperature Pulse Rate 75 79 Respiratory Rate 16 16 16 Blood Pressure 153/77 H 153/80 H Pulse Oximetry 97 97 97 10/14/18 16:45 10/14/18 17:00 10/14/18 17:15 Temperature Pulse Rate 81 86 84 Respiratory Rate 18 19 17 Blood Pressure 160/92 H 167/88 H 166/77 H Pulse Oximetry 97 96 97 10/14/18 17:30 10/14/18 17:45 10/14/18 18:00 Temperature Pulse Rate 87 82 86 Respiratory Rate 19 16 17 Blood Pressure 168/80 H 149/72 H Pulse Oximetry 97 97 98 10/14/18 18:15 10/14/18 18:30 10/14/18 19:00 Temperature Pulse Rate 83 85 85 Respiratory Rate 16 16 16 Blood Pressure 144/71 H 141/77 H Pulse Oximetry 98 98 99 10/14/18 19:20 10/14/18 20:00 10/14/18 20:11 Temperature 99.4 F Pulse Rate 81 86 Respiratory Rate 16 16 16 Blood Pressure 161/80 H Pulse Oximetry 100 100 100 10/14/18 21:00 10/14/18 21:41 10/14/18 22:00 Temperature Pulse Rate 78 78 81 Respiratory Rate 16 16 16 Blood Pressure 146/76 H 158/76 H 159/76 H Pulse Oximetry 100 100 100 10/14/18 22:23 10/14/18 22:25 10/14/18 23:00 Temperature 99.6 F Pulse Rate 83 84 Respiratory Rate 16 16 16 Blood Pressure 176/83 H Pulse Oximetry 100 100 100 10/14/18 23:05 10/14/18 23:32 10/15/18 00:00 Temperature 99.5 F 99.6 F Pulse Rate 81 91 H 91 H Respiratory Rate 16 20 20 Blood Pressure 157/74 H 163/81 H Pulse Oximetry 100 98 96 10/15/18 01:00 10/15/18 01:15 10/15/18 02:00 Temperature Pulse Rate 89 82 Respiratory Rate 16 16 16 Blood Pressure 160/77 H 142/71 H Pulse Oximetry 97 97 96 10/15/18 03:00 10/15/18 03:56 10/15/18 04:00 Temperature 98.8 F Pulse Rate 82 77 Respiratory Rate 16 16 16 Blood Pressure 127/67 120/58 L Pulse Oximetry 97 97 97 10/15/18 05:00 10/15/18 06:00 Temperature Pulse Rate 73 73 Respiratory Rate 16 16 Blood Pressure 115/55 L 119/60 Pulse Oximetry 97 97 Intake & Output 10/14/18 10/14/18 10/15/18 06:59 18:59 06:59 Intake Total 2000 / 2000 900 / 900 2250 / 2250 Output Total 650 / 650 2150 / 2150 750 / 750 Balance 1351 / 1351 -1250 / -1250 1500 / 1500 Weight 106.7 kg 106.2 kg Intake: IV 1650 / 1650 100 / 100 650 / 650 Diprivan 1000 mg/100 ml Inj 1, 200 / 200 100 / 100 300 / 300 000 mg In 100 ml @ 5 MCG/KG/MIN 2.913 mls/hr IV.CONT TITRATE PRN Rx#:[id number] NS Inj 1,000 ML @ 40 mls/hr IV. 1000 / 1000 CONT .Q24H PENDING SALE TO [facility] Rx#:[id number] Maxipime Inj 2,000 MG In NS Inj 200 / 200 100 / 100 100 ML @ 200 mls/hr IV.SIG Q24H PENDING SALE TO [facility] Rx#:[id number] fentaNYL 10 mcg/mL Premix Drip 250 / 250 250 / 250 2,500 mcg In 250 ml @ 50 MCG/HR 5 mls/hr IV.SIG TITRATE PRN Rx #:[id number] Tube Feeding 251 / 251 Water Bolus Amount 100 / 100 Anesthesia Amount 800 / 800 Intake (Blood Product) Amt 800 / 800 Rbc As-3 Leukoreduced Unit 400 / 400 [id number] Rbc As-3 Leukoreduced Unit 400 / 400 [id number] Autotransfusion Amount 800 / 800 Output: Blood Draw 400 / 400 Urine 300 / 300 Stool 0 / 0 Urine Amount (Catheter) 650 / 650 1450 / 1450 750 / 750 Indwelling Temp Sensing 650 / 650 1450 / 1450 750 / 750 Catheter Other: Date of Last Bowel Movement 10/14/18 10/14/18 10/14/18 # Bowel Movements 0 # Incontinent Bowel Movements 2 Narrative: LLE: dressings clean and dry. slight bloody drainage. +CKS. good cap refill. compartments soft - Urinary Catheter Management Indwelling Temp Sensing Catheter Cath placed during this visit: yes Reason for continuing: Hourly intake/output Insertion date: 10/05/18 Insertion time: 20:00 Results - Labs CBC & Chem 7: 10/15/18 04:15 10/15/18 04:15 Laboratory Results - last 24 hr 10/10/18 10/14/18 10/14/18 07:27 12:15 12:35 WBC RBC Hgb 7.2 L Hct 22.2 L MCV MCH MCHC RDW Plt Count MPV Prelim Diff (Auto) Neut % (Auto) Lymph % (Auto) [place] % (Auto) Eos % (Auto) Baso % (Auto) Neut # (Auto) Lymph # (Auto) [place] # (Auto) Eos # (Auto) Baso # (Auto) Differential Comment Puncture Site Drawn in or Patient Temperature 98.6 O2 Saturation 90 ABG pH 7.28 L* ABG pCO2 39 ABG pO2 75 ABG HCO3 18 L ABG O2 Content 16.6 ABG Base Excess -7.8 L ABG Methemoglobin 1.8 Hemoglobin 13.1 Carboxyhemoglobin 1.4 O2 Delivery Device Or Vent Setting Or Critical Value Yes Sodium Potassium Chloride Carbon Dioxide Anion Gap BUN Creatinine Estimated GFR Random Glucose Calcium Prot Corrected Calcium Total Protein Blood Type Antibody Screen MTS Gel Crossmatch See Detail 10/14/18 10/15/18 10/15/18 18:20 04:15 04:15 WBC 7.0 RBC 2.98 L Hgb 9.3 L D Hct 26.8 L MCV 89.8 MCH 31.1 MCHC 34.6 RDW 18.3 H Plt Count 199 MPV 7.5 Prelim Diff (Auto) Slide review pending Neut % (Auto) 73.2 H Lymph % (Auto) 7.1 L [place] % (Auto) 17.0 H Eos % (Auto) 1.9 Baso % (Auto) 0.8 Neut # (Auto) 5.2 Lymph # (Auto) 0.5 L [place] # (Auto) 1.2 H Eos # (Auto) 0.1 Baso # (Auto) 0.1 Differential Comment . Puncture Site Patient Temperature O2 Saturation ABG pH ABG pCO2 ABG pO2 ABG HCO3 ABG O2 Content ABG Base Excess ABG Methemoglobin Hemoglobin Carboxyhemoglobin O2 Delivery Device Vent Setting Critical Value Sodium 149 H Potassium 4.8 Chloride 119 H Carbon Dioxide 17.5 L Anion Gap 13 BUN 49 H Creatinine 3.29 H Estimated GFR 19 L Random Glucose 125 H Calcium 7.3 L* Prot Corrected Calcium 8.2 L Total Protein 5.5 L D Blood Type A Positive Antibody Screen Negative MTS Gel Crossmatch See Detail Assessment and Plan - Assessment and Plan 1) Left Open Distal Femur and Proximal Tibia Fxs s/p removal of exfix with ORIF - POD 1 -NWB -knee brace except for PT -PROM 0-90deg -no active leg lifts or quad sets -daily dressing changes POD 2 -ortho surgeries complete at this time -DVT prophylaxis -f/u with Lu or VIRGILIO in 2 weeks
[2018-10-15 07:02] LABS: Lymphocytes 3 % (9-44); Monocytes 10 % (0-8); Myelocytes 1 % (0-0); Platelet Estimate Normal (Normal); Platelet Morphology Normal (Normal); Tallied Nucleated RBC 2 (0-0)
[2018-10-15] MEDS ORDERED: Dextrose 50% in Water 50 ML Vial IV.PUSH PRN (07:39)
[2018-10-15 08:02] LABS: ABG Base Excess -8.1 mmol/L (-2-2); ABG PCO2 31 mmHg (38-42); ABG PO2 132 mmHg (61-120)
--- NOTE | 2018-10-15 08:13 | P.PNNPSY ---
- Behavior Intact: Impulsive/agitated - Progress Notes/Response to Treatment Contents of Sessions: Adjustment, Level of consciousness Time with Patient: 30 minutes Premorbid Psychological Status: Premorbid Cognitive, Emotional and Behavioral Status: Stable. 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 The patient has no known prior psychiatric difficulties, as described above. Substance abuse history is unknown. Behavioral Reactions of Patient and Family/Support System: Stable. The patient s family is experiencing ongoing issues of adjustment given the nature of the injury, and this aspect of recovery will require ongoing monitoring. Emotional/Behavioral Status of Patient and Family/Support System: Stable. Pertinent issues, if appropriate to this patients clinical care, are described in detail above. Maximizing Acute Care Outcome: It is recommended that the patient be monitored for emergent behavioral impulsivity as the medical condition evolves. This patients neuropathological challenges may limit rehabilitation potential going forward, and these challenges will require specialized therapeutic skills to maximize outcome. Additionally, the patients family is experiencing ongoing issues of adjustment given the traumatic nature of the injury, and they may benefit from ongoing psychological assistance. At this point in the recovery process, the patient does not have cognitive capacity as the patient is unable to understand a situation and its likely consequences, nor is the patient able to manipulate information rationally. He was sedated and intubated, and as such capacity was unable to be determined. Cognitive capacity will be assessed throughout the recovery process. Anticipated Problems: Ongoing areas of concern will include behavioral impulsivity, lack of insight and judgment, which is expected to improve with time and treatment. Treatment Plan: This clinician will continue to follow with you throughout the course of this patients critical care treatment, and I will be available to meet with the patients family/support system to facilitate their understanding and the ongoing care of their family member. The goals of neuropsychological intervention shall be both educational and supportive to the family/support system as is deemed clinically appropriate. [place] COG Scale: Level II Disinhibition Score: 14.00 Aggression Score: 14.00 Lability Score: 14.00 Agitated Behavior Total Score: 14 Impression: 62 year old male s/p complicated mild TBI 2T [facility] [place] on 10/05/2018. Progress Note Narrative: PTD 10. The patient remains unchanged from a neurobehavioral standpoint. No agitation/restlessness. ABS = 14(14,14,14). He remains Ranch[place] II. I will follow. - Diagnosis (1) Mild major neurocognitive disorder as late effect of traumatic brain injury without behavioral disturbance Status: Acute
--- NOTE | 2018-10-15 08:33 | XR ---
EXAM DATE: 10/14/2018 8:21 AM EST AGE/SEX: 62 years / Male INDICATIONS: Open reduction internal fixation left distal femur and tibial plateau. CLINICAL DATA: This is the patient's initial encounter. Patient reports that signs and symptoms have been present for 1 day and indicates a pain score of Nonresponsive. MEDICAL/SURGICAL HISTORY: Non-responsive. Non-responsive. COMPARISON: [facility] [place], [place], [place] LIMITED LEFT 11/26V, 10/06/2018. . FINDINGS: Multiple C-arm spot views are centered over the distal femur and proximal tibia and are labeled left. These images reveal orthopedic plates involving the distal femoral metadiaphysis with multiple ancho ring screws as well as a proximal tibial orthopedic plate extending from the plateaus to the proximal diaphysis. Multiple anchoring screws noted as well. Good alignment seen involving the comminuted fra ctures involving the distal femur and proximal tibia. CONCLUSION: Limited images as detailed above. Electronically signed by: Yan Elizondo MD 10/15/2018 8:31 AM EST
[2018-10-15] MEDS: Senna/Docusate Sodium 8.6/50 MG Tablet PO SCH ×2 (08:43→21:06)
[2018-10-15] MEDS: Calcium/Vitamin D 250/125 MG Tablet PO SCH ×3 (08:43→18:08)
[2018-10-15] MEDS: Chlorhexidine 0.12% Oral Kit 15 ML UDC OROPHARYNG SCH ×2 (08:45→19:45)
[2018-10-15] MEDS: Heparin - SQ 10,000 UNITS/ML Vial SQ SCH ×2 (08:46→21:06)
[2018-10-15] MEDS: Sodium Chloride 0.9% 2 ML Flush BID IV.FLUSH SCH ×2 (08:47→21:05)
--- NOTE | 2018-10-15 09:51 | P.PNNS ---
Subjective Interval history: Pt sedated on Diprivan and Fentanyl drips. Not opening eyes. When sedation held blood pressure increases. <Juancarlos Stanford - Last Filed: 10/15/18 09:45> Physical Exam Vital signs: Vital Signs 10/14/18 10:00 10/14/18 10:15 10/14/18 10:30 Temperature Pulse Rate 72 73 74 Respiratory Rate 16 16 Blood Pressure Pulse Oximetry 99 100 100 10/14/18 10:45 10/14/18 11:00 10/14/18 11:15 Temperature Pulse Rate 77 78 73 Respiratory Rate Blood Pressure Pulse Oximetry 98 97 95 10/14/18 11:30 10/14/18 11:45 10/14/18 12:00 Temperature 97.0 F L 97.0 F L 96.8 F L Pulse Rate 74 72 75 Respiratory Rate Blood Pressure Pulse Oximetry 95 95 93 L 10/14/18 12:15 10/14/18 12:30 10/14/18 12:45 Temperature 96.6 F L 96.4 F L 96.3 F L Pulse Rate 73 72 73 Respiratory Rate Blood Pressure Pulse Oximetry 94 L 94 L 94 L 10/14/18 13:00 10/14/18 13:15 10/14/18 13:30 Temperature 96.1 F L Pulse Rate 73 73 68 Respiratory Rate 16 Blood Pressure Pulse Oximetry 94 L 99 95 10/14/18 13:36 10/14/18 13:45 10/14/18 14:00 Temperature Pulse Rate 68 67 66 Respiratory Rate 16 17 16 Blood Pressure 127/64 Pulse Oximetry 94 L 10/14/18 14:11 10/14/18 14:15 10/14/18 14:30 Temperature 97.7 F Pulse Rate 66 66 61 Respiratory Rate 16 16 16 Blood Pressure 174/85 H 172/85 H 155/81 H Pulse Oximetry 96 95 95 10/14/18 14:45 10/14/18 15:00 10/14/18 15:15 Temperature Pulse Rate 62 64 66 Respiratory Rate 16 16 16 Blood Pressure 160/87 H 158/83 H 168/90 H Pulse Oximetry 96 96 96 10/14/18 15:30 10/14/18 15:45 10/14/18 16:00 Temperature 98.8 F Pulse Rate 68 70 73 Respiratory Rate 16 16 16 Blood Pressure 159/83 H 161/86 H 158/83 H Pulse Oximetry 97 97 97 10/14/18 16:15 10/14/18 16:30 10/14/18 16:40 Temperature Pulse Rate 75 79 Respiratory Rate 16 16 16 Blood Pressure 153/77 H 153/80 H Pulse Oximetry 97 97 97 10/14/18 16:45 10/14/18 17:00 10/14/18 17:15 Temperature Pulse Rate 81 86 84 Respiratory Rate 18 19 17 Blood Pressure 160/92 H 167/88 H 166/77 H Pulse Oximetry 97 96 97 10/14/18 17:30 10/14/18 17:45 10/14/18 18:00 Temperature Pulse Rate 87 82 86 Respiratory Rate 19 16 17 Blood Pressure 168/80 H 149/72 H Pulse Oximetry 97 97 98 10/14/18 18:15 10/14/18 18:30 10/14/18 19:00 Temperature Pulse Rate 83 85 85 Respiratory Rate 16 16 16 Blood Pressure 144/71 H 141/77 H Pulse Oximetry 98 98 99 10/14/18 19:20 10/14/18 20:00 10/14/18 20:11 Temperature 99.4 F Pulse Rate 81 86 Respiratory Rate 16 16 16 Blood Pressure 161/80 H Pulse Oximetry 100 100 100 10/14/18 21:00 10/14/18 21:41 10/14/18 22:00 Temperature Pulse Rate 78 78 81 Respiratory Rate 16 16 16 Blood Pressure 146/76 H 158/76 H 159/76 H Pulse Oximetry 100 100 100 10/14/18 22:23 10/14/18 22:25 10/14/18 23:00 Temperature 99.6 F Pulse Rate 83 84 Respiratory Rate 16 16 16 Blood Pressure 176/83 H Pulse Oximetry 100 100 100 10/14/18 23:05 10/14/18 23:32 10/15/18 00:00 Temperature 99.5 F 99.6 F Pulse Rate 81 91 H 91 H Respiratory Rate 16 20 20 Blood Pressure 157/74 H 163/81 H Pulse Oximetry 100 98 96 10/15/18 01:00 10/15/18 01:15 10/15/18 02:00 Temperature Pulse Rate 89 82 Respiratory Rate 16 16 16 Blood Pressure 160/77 H 142/71 H Pulse Oximetry 97 97 96 10/15/18 03:00 10/15/18 03:56 10/15/18 04:00 Temperature 98.8 F Pulse Rate 82 77 Respiratory Rate 16 16 16 Blood Pressure 127/67 120/58 L Pulse Oximetry 97 97 97 10/15/18 05:00 10/15/18 06:00 Temperature Pulse Rate 73 73 Respiratory Rate 16 16 Blood Pressure 115/55 L 119/60 Pulse Oximetry 97 97 Intake & Output 10/14/18 10/15/18 10/15/18 18:59 06:59 18:59 Intake Total 900 / 900 2250 / 2250 Output Total 2150 / 2150 750 / 750 Balance -1250 / -1250 1500 / 1500 Weight 106.2 kg Intake: IV 100 / 100 650 / 650 Diprivan 1000 mg/100 ml Inj 1, 100 / 100 300 / 300 000 mg In 100 ml @ 5 MCG/KG/MIN 2.913 mls/hr IV.CONT TITRATE PRN Rx#:[id number] Maxipime Inj 2,000 MG In NS Inj 100 / 100 100 ML @ 200 mls/hr IV.SIG Q24H [facility] Rx#:[id number] fentaNYL 10 mcg/mL Premix Drip 250 / 250 2,500 mcg In 250 ml @ 50 MCG/HR 5 mls/hr IV.SIG TITRATE PRN Rx #:[id number] Anesthesia Amount 800 / 800 Intake (Blood Product) Amt 800 / 800 Rbc As-3 Leukoreduced Unit 400 / 400 [id number] Rbc As-3 Leukoreduced Unit 400 / 400 [id number] Autotransfusion Amount 800 / 800 Output: Blood Draw 400 / 400 Urine 300 / 300 Urine Amount (Catheter) 1450 / 1450 750 / 750 Indwelling Temp Sensing 1450 / 1450 750 / 750 Catheter Other: Date of Last Bowel Movement 10/14/18 10/14/18 # Bowel Movements 0 - Constitutional obese Comments: Sedated on Diprivan and Fentanyl drips and intubated. - Routine HEENT Exam Head: Absent: atraumatic (Abrasion above right eyebrow healing laceration. Laceration medial to left eyebrow clean and dry without signs of infection.) Eye: Present: PERRL (Pupils 3mm bilaterally.) ENT: Absent: oropharynx clear (ET intubated.) - Routine Respiratory Exam Present: patient mechanically ventilated, CTA bilaterally. Absent: respiratory distress, rhonchi, wheezes - Routine Cardiovascular Exam Present: RRR, S1, S2. Absent: murmur - Routine Abdominal Exam Present: soft, normoactive bowel sounds. Absent: distended, firm - Routine Extremities Exam Comments: Left lower extremity with external fixator in place. - Routine Skin Exam Absent: cyanosis, erythema - Routine Neurological Exam Absent: alert (Pt sedated on Diprivan and Fentanyl drips. Not opeing eyes. When sedation decreased blood pressure increases.) Pt sedated on Diprivan and Fentanyl drips. Not opening eyes. When sedation decreased or held blood pressure increases. Not following commands. Pupils 3mm bilaterally reactive bilaterally. - Routine Psychiatric Exam Present: unable to assess - Urinary Catheter Management Indwelling Temp Sensing Catheter Cath placed during this visit: yes Reason for continuing: Hourly intake/output Insertion date: 10/05/18 Insertion time: 20:00 <Juancarlos Stanford - Last Filed: 10/15/18 09:45> Vital signs: Vital Signs 10/15/18 12:00 10/15/18 13:00 10/15/18 14:00 Temperature 98.4 F Pulse Rate 73 67 64 Respiratory Rate 16 16 16 Blood Pressure 133/66 138/67 134/65 Pulse Oximetry 99 100 100 10/15/18 15:00 10/15/18 15:33 10/15/18 16:00 Temperature 98.8 F Pulse Rate 69 77 78 Respiratory Rate 16 16 16 Blood Pressure 149/70 H 140/66 134/63 Pulse Oximetry 100 100 98 10/15/18 17:00 10/15/18 18:00 10/15/18 19:00 Temperature Pulse Rate 84 77 80 Respiratory Rate 16 16 16 Blood Pressure 132/65 131/62 146/68 H Pulse Oximetry 100 95 98 10/15/18 20:00 10/15/18 21:00 10/15/18 21:15 Temperature 99.8 F H Pulse Rate 79 80 Respiratory Rate 16 16 23 Blood Pressure 139/65 144/67 H Pulse Oximetry 95 98 100 10/15/18 22:00 10/15/18 23:00 10/16/18 00:00 Temperature 99.2 F Pulse Rate 82 92 H 84 Respiratory Rate 16 38 H 17 Blood Pressure 146/70 H 166/79 H 157/74 H Pulse Oximetry 93 L 93 L 94 L 10/16/18 01:00 10/16/18 02:00 10/16/18 02:09 Temperature Pulse Rate 83 87 Respiratory Rate 16 17 18 Blood Pressure 153/70 H 177/82 H Pulse Oximetry 94 L 93 L 93 L 10/16/18 03:00 10/16/18 03:01 10/16/18 03:18 Temperature Pulse Rate 90 91 H 90 Respiratory Rate 23 17 17 Blood Pressure 163/75 H 195/78 H 190/84 H Pulse Oximetry 93 L 93 L 93 L 10/16/18 03:31 10/16/18 03:46 10/16/18 04:00 Temperature 99.6 F Pulse Rate 91 H 82 83 Respiratory Rate 16 16 16 Blood Pressure 189/83 H 163/75 H 170/77 H Pulse Oximetry 93 L 93 L 95 10/16/18 04:01 10/16/18 04:16 10/16/18 04:31 Temperature Pulse Rate 83 84 81 Respiratory Rate 16 16 16 Blood Pressure 170/77 H 166/77 H 156/70 H Pulse Oximetry 93 L 93 L 93 L 10/16/18 04:32 10/16/18 04:46 10/16/18 05:00 Temperature Pulse Rate 81 76 Respiratory Rate 16 16 16 Blood Pressure 152/71 H Pulse Oximetry 93 L 93 L 93 L 10/16/18 05:01 10/16/18 05:16 10/16/18 05:31 Temperature Pulse Rate 76 78 80 Respiratory Rate 16 16 16 Blood Pressure 146/66 H 169/77 H 175/81 H Pulse Oximetry 93 L 94 L 95 10/16/18 05:46 10/16/18 06:00 10/16/18 06:01 Temperature Pulse Rate 80 80 80 Respiratory Rate 16 16 16 Blood Pressure 177/82 H 171/80 H Pulse Oximetry 95 95 95 10/16/18 06:16 10/16/18 06:31 10/16/18 06:46 Temperature Pulse Rate 79 79 76 Respiratory Rate 16 16 16 Blood Pressure 166/74 H 166/78 H 161/71 H Pulse Oximetry 95 95 94 L 10/16/18 07:00 10/16/18 07:01 10/16/18 07:16 Temperature Pulse Rate 76 75 74 Respiratory Rate 16 16 16 Blood Pressure 160/75 H 160/75 H Pulse Oximetry 95 95 94 L 10/16/18 07:31 10/16/18 07:46 10/16/18 08:00 Temperature 98.8 F Pulse Rate 76 73 75 Respiratory Rate 16 16 16 Blood Pressure 168/79 H 159/73 H 166/78 H Pulse Oximetry 95 94 L 99 10/16/18 08:01 10/16/18 08:16 10/16/18 08:31 Temperature Pulse Rate 73 74 74 Respiratory Rate 16 16 16 Blood Pressure 166/78 H 162/73 H 179/82 H Pulse Oximetry 97 96 97 10/16/18 08:46 10/16/18 08:57 10/16/18 09:00 Temperature Pulse Rate 76 82 79 Respiratory Rate 16 29 H 19 Blood Pressure 185/80 H 191/79 H Pulse Oximetry 97 97 94 L 10/16/18 09:01 10/16/18 09:16 10/16/18 09:22 Temperature Pulse Rate 78 77 Respiratory Rate 20 11 L 18 Blood Pressure 179/80 H 147/69 H Pulse Oximetry 94 L 93 L 94 L 10/16/18 09:31 10/16/18 09:46 10/16/18 10:00 Temperature Pulse Rate 71 71 69 Respiratory Rate 16 16 16 Blood Pressure 135/63 129/65 132/66 Pulse Oximetry 93 L 93 L 94 L 10/16/18 10:01 Temperature Pulse Rate 68 Respiratory Rate 16 Blood Pressure 132/66 Pulse Oximetry 94 L Intake & Output 10/15/18 10/16/18 10/16/18 18:59 06:59 18:59 Intake Total 1489 / 1489 1012 / 1012 100 / 100 Output Total 1775 / 1775 860 / 860 Balance -286 / -286 152 / 152 100 / 100 Weight 108.6 kg Intake: IV 850 / 850 200 / 200 100 / 100 Diprivan 1000 mg/100 ml Inj 1, 200 / 200 100 / 100 100 / 100 000 mg In 100 ml @ 5 MCG/KG/MIN 2.913 mls/hr IV.CONT TITRATE PRN Rx#:[id number] NS Inj 1,000 ML @ 40 mls/hr IV. 400 / 400 CONT .Q24H [facility] Rx#:[id number] Maxipime Inj 2,000 MG In NS Inj 100 / 100 100 ML @ 200 mls/hr IV.SIG Q24H [facility] Rx#:[id number] fentaNYL 10 mcg/mL Premix Drip 250 / 250 2,500 mcg In 250 ml @ 50 MCG/HR 5 mls/hr IV.SIG TITRATE PRN Rx #:[id number] Tube Feeding 199 / 199 352 / 352 Tube Irrigant 40 / 40 Water Bolus Amount 400 / 400 460 / 460 Output: Urine Amount (Catheter) 1775 / 1775 860 / 860 Indwelling Temp Sensing 1775 / 1775 860 / 860 Catheter Other: Date of Last Bowel Movement 10/14/18 10/14/18 10/14/18 - Urinary Catheter Management Indwelling Temp Sensing Catheter Cath placed during this visit: no <Janes Arceo - Last Filed: 10/16/18 11:57> Assessment and Plan - Assessment (1) CHI (closed head injury) Code(s): S09.90XA - Unspecified injury of head, initial encounter Status: Acute Qualifiers: Encounter type: initial encounter Qualified Code(s): S09.90XA - Unspecified injury of head, initial encounter (2) Acute subdural hematoma Code(s): S06.5X9A - Traumatic subdural hemorrhage with loss of consciousness of unspecified duration, initial encounter Status: Acute (3) Open fracture Code(s): T14.8XXA - Other injury of unspecified body region, initial encounter Status: Acute (4) Respiratory failure after trauma Code(s): J96.90 - Respiratory failure, unspecified, unspecified whether with hypoxia or hypercapnia Status: Acute (5) Mild major neurocognitive disorder as late effect of traumatic brain injury without behavioral disturbance Code(s): S06.9X9S - Unspecified intracranial injury with loss of consciousness of unspecified duration, sequela; F02.80 - Dementia in other diseases classified elsewhere without behavioral disturbance Status: Acute - Plan Chest X-Ray 10/05/18 00:00 CONCLUSION: Endotracheal tube tip in right mainstem bronchus. This should be withdrawn about 4 cm Tibia/Fibula X-Ray 10/05/18 00:00 CONCLUSION: Comminuted fractures proximal tibia and fibula. Distal tibia and fibula. Intact. Chest X-Ray 10/05/18 18:34 CONCLUSION: Endotracheal tube and nasogastric tube in good position. Bilateral rib fractures without pneumothorax. Basilar atelectasis. There is some widening of the superior mediastinum. See chest CT report. Pelvis X-Ray 10/05/18 18:34 CONCLUSION: No acute fracture. Abdomen/Pelvis CT 10/05/18 18:42 CONCLUSION: 1. Avulsion endplate fractures of T10 and T11 as above with widening of the anterior interspace likely from disruption of the annulus fibrosis. Consider MRI for further evaluation of disc injury. 2. No solid visceral injury identified. 3. Left eighth and right seventh rib fractures laterally with several healing lower right anterior rib fractures. Cervical Spine CT 10/05/18 18:42 CONCLUSION: 1. Moderate degenerative disc disease. No acute fracture or spondylolisthesis. Chest CT 10/05/18 18:42 CONCLUSION: 1. Avulsion fracture superior endplates of T10 and T11 as above with disruption of the anterior annulus fibrosis and widening of the anterior disc space between T10 and T11. 2. Fractures of the lower left and right ribs as above without pneumothorax. Dependent atelectasis in both lungs. 3. No evidence for aortic transection or dissection. 4. Mild coronary calcifications. Face CT 10/05/18 18:42 CONCLUSION: 1. Nondisplaced fracture of the right superior orbital wall, left medial orbital wall and left maxillary sinus with hemorrhage in the left maxillary sinus and ethmoids. Globes intact. Also nasal bone fracture. Patient intubated. Head CT 10/05/18 18:42 CONCLUSION: 1. Small anterior interhemispheric subdural hematoma without mass effect or shift. Trace subarachnoid hemorrhage anteriorly. No calvarial fracture identified. Femur X-Ray 10/05/18 18:43 CONCLUSION: Comminuted distal femur fracture with displacement. Knee CT 10/05/18 21:26 CONCLUSION: 1. Comminuted fractures of the distal femur and proximal tibia. Fracture of the proximal fibular shaft also noted. 2. Prominent atherosclerotic disease disease of the distal femoral artery, popliteal artery, and proximal calf arteries. There is focal very high-grade stenosis of the popliteal artery at the level of the knee. This finding is age- indeterminate and could be related to chronic atherosclerotic disease or recent trauma. Age-indeterminate moderate grade stenosis of the distal superficial femoral artery and high-grade stenosis of the PT trunk at its bifurcation also noted. Chest X-Ray 10/05/18 23:31 CONCLUSION: 1. Endotracheal tube tip now 2 cm above the yael. 2. Patchy atelectasis at the left lung base is decreased. Knee CT 10/06/18 00:00 CONCLUSION: 1. Severely comminuted fracture about the knee as described above, Knee X-Ray 10/06/18 00:00 CONCLUSION: Reasonable alignment as above Thoracic Spine MRI 10/06/18 00:00 CONCLUSION: 1. Abnormal T11-T12 as described above. 2. Thoracic cord is intact. There is no evidence for hematoma or contusion. There is no evidence of posterior ligamentous disruption. Chest X-Ray 10/06/18 06:00 CONCLUSION: No significant interval change. Head CT 10/06/18 08:00 CONCLUSION: 1. Stable to slightly improved. Significant intravascular contrast remains from previous contrasted exam. 62 y/o M Head CT as above; small parafalcine SDH. Neurologically patient is unchanged he is intubated ventilated and sedated on fentanyl and Diprivan drip. Facial lacerations repaired by Dr. Allen Patient underwent left leg runoff to assess popliteal artery and distal flow considering the proximal comminuted tibial fracture which is essentially behaves like a knee dislocation. He underwent successful ex-fix placement to the left femur and tibia with reduction of the comminuted segments MRI of the thoracic spine shows distraction of the T10-11 level however no disruption of the ligaments. Dr. Arceo has recommended spinal log roll precautions and hob not higher than 15 degrees. He underwent Posterior T9, T10, T11, and T12 autograft fusion; T9-12 pedicle screw fixation; left iliac crest autograft harvest on 10/10/18. Continue with current care. Pain control. log roll with TLSO brace. Wean sedation and vent as tolerated. <Juancarlos Stanford - Last Filed: 10/15/18 09:45> - Attending Attestation The exam, history, and the medical decision-making described in the above note were completed with the assistance of the mid-level provider. I reviewed and agree with the findings presented. I attest that I had a [id number] encounter with the patient on the same day, and personally performed and documented my assessment and findings in the medical record. Does not tolerate sedation weaning with the agitation. Plan trach and PEG per trauma surgery to facilitate weaning of ventilator. Out of bed with TLSO brace. Discussed with nursing staff <Janes Arceo - Last Filed: 10/16/18 11:57>
--- NOTE | 2018-10-15 10:08 | P.CONGI ---
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 10/15/18 14:34>
[2018-10-15] MEDS: Insulin NovoLIN Regular Correctional Sugar Inj SQ SCH ×2 (11:53→18:17)
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
[2018-10-15] MEDS ORDERED: Enoxaparin Inj 30 MG/0.3 ML Syringe SQ SCH (12:00)
[2018-10-15 12:39] LABS: Hemoglobin A1c 5.5 % (4.3-6.0)
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
[2018-10-15] MEDS: Sod Chloride 0.9% Inj 1,000 ML IV.CONT SCH (18:16)
[2018-10-16] MEDS: Pantoprazole Inj 40 MG Vial IV.PUSH SCH ×2 (00:27→23:00)
[2018-10-16] MEDS: Insulin NovoLIN Regular Correctional Sugar Inj SQ SCH ×5 (00:28→23:02)
[2018-10-16] MEDS: Oral Hygiene Kit OROPHARYNG SCH ×5 (00:28→23:01)
[2018-10-16] MEDS: Metoprolol Inj 5 MG/5 ML Vial IV.PUSH SCH ×4 (01:31→20:13)
[2018-10-16] MEDS: Artificial Tears Opth Drops 15 ML Bottle EACH EYE SCH ×6 (01:32→21:07)
[2018-10-16] MEDS: Propofol 1000 mg/100 ml Inj 1,000 MG/100 ML BOTTLE IV.CONT PRN ×4 (03:40→23:53)
[2018-10-16 04:36] LABS: Baso % (Auto) 0.4 % (0.0-2.0); Eos # (Auto) 0.4 th/mm3 (0.0-0.4); Eos % (Auto) 4.8 % (0.0-4.0); Hematocrit 28.3 % (39.0-51.0); Hemoglobin 9.8 gm/dL (13.0-17.0); Lymph # (Auto) 0.6 th/mm3 (1.0-4.8); Lymph % (Auto) 7.5 % (9.0-44.0); Mean Corpuscular HGB Conc 34.6 % (32.0-36.0); Mean Corpuscular Volume 89.5 fL (80.0-100.0); Mean Platelet Volume 7.9 fL (7.0-11.0); Mono # (Auto) 1.5 th/mm3 (0.0-0.9); Mono % (Auto) 18.8 % (0.0-8.0); Neut # (Auto) 5.3 th/mm3 (1.8-7.7); Neut % (Auto) 68.5 % (16.0-70.0); Platelet Count 231 th/mm3 (150-450); Red Blood Count 3.16 mil/mm3 (4.50-5.90); Red Cell Distribution Width 18.3 % (11.6-17.2); White Blood Count 7.8 th/mm3 (4.0-11.0)
[2018-10-16 05:08] LABS: Calcium 7.3 mg/dL (8.5-10.1); Carbon Dioxide 17.2 meq/L (21.0-32.0); Potassium 4.4 meq/L (3.5-5.1)
[2018-10-16 05:24] LABS: Calcium-Albumin Corrected 7.8 mg/dL (8.5-10.1); Total Protein 6.1 g/dL (6.4-8.2)
--- NOTE | 2018-10-16 07:57 | P.PNNPSY ---
- Behavior Intact: Impulsive/agitated - Progress Notes/Response to Treatment Contents of Sessions: Adjustment, Level of consciousness Time with Patient: 30 minutes Premorbid Psychological Status: Premorbid Cognitive, Emotional and Behavioral Status: Stable. 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 The patient has no known prior psychiatric difficulties, as described above. Substance abuse history is unknown. Behavioral Reactions of Patient and Family/Support System: Stable. The patient s family is experiencing ongoing issues of adjustment given the nature of the injury, and this aspect of recovery will require ongoing monitoring. Emotional/Behavioral Status of Patient and Family/Support System: Stable. Pertinent issues, if appropriate to this patients clinical care, are described in detail above. Maximizing Acute Care Outcome: It is recommended that the patient be monitored for emergent behavioral impulsivity as the medical condition evolves. This patients neuropathological challenges may limit rehabilitation potential going forward, and these challenges will require specialized therapeutic skills to maximize outcome. Additionally, the patients family is experiencing ongoing issues of adjustment given the traumatic nature of the injury, and they may benefit from ongoing psychological assistance. At this point in the recovery process, the patient does not have cognitive capacity as the patient is unable to understand a situation and its likely consequences, nor is the patient able to manipulate information rationally. He was sedated and intubated, and as such capacity was unable to be determined. Cognitive capacity will be assessed throughout the recovery process. Anticipated Problems: Ongoing areas of concern will include behavioral impulsivity, lack of insight and judgment, which is expected to improve with time and treatment. Treatment Plan: This clinician will continue to follow with you throughout the course of this patients critical care treatment, and I will be available to meet with the patients family/support system to facilitate their understanding and the ongoing care of their family member. The goals of neuropsychological intervention shall be both educational and supportive to the family/support system as is deemed clinically appropriate. [place] COG Scale: Level II Disinhibition Score: 14.00 Aggression Score: 14.00 Lability Score: 14.00 Agitated Behavior Total Score: 14 Impression: 62 year old male s/p complicated mild TBI 2[place] [facility] [place]. Progress Note Narrative: PTD 11. The patient withdraws to pain, but does not follow. No agitation/ restlessness issues. ABS is 14 (14,14,14). He is Rancho II. He has renal challenges as well. I will follow. - Diagnosis (1) Mild major neurocognitive disorder as late effect of traumatic brain injury without behavioral disturbance Status: Acute
[2018-10-16 08:22] LABS: Dohle Bodies Present; Eosinophils 3 % (0-4); Lymphocytes 5 % (9-44); Metamyelocytes 2 % (0-1); Monocytes 14 % (0-8); Myelocytes 1 % (0-0); Platelet Estimate Normal (Normal); Platelet Morphology Normal (Normal)
[2018-10-16] MEDS: Calcium/Vitamin D 250/125 MG Tablet PO SCH ×4 (08:36→17:46)
[2018-10-16] MEDS: Senna/Docusate Sodium 8.6/50 MG Tablet PO SCH ×2 (08:36→20:12)
[2018-10-16] MEDS: Chlorhexidine 0.12% Oral Kit 15 ML UDC OROPHARYNG SCH ×2 (08:37→20:13)
[2018-10-16] MEDS: Sodium Chloride 0.9% 2 ML Flush BID IV.FLUSH SCH ×2 (08:37→20:14)
--- NOTE | 2018-10-16 08:44 | P.PNOP ---
Subjective Interval history: Patient intubated Physical Exam Vital signs: Vital Signs 10/15/18 09:00 10/15/18 10:00 10/15/18 11:00 Temperature Pulse Rate 68 61 66 Respiratory Rate 16 16 16 Blood Pressure 139/65 136/63 145/70 H Pulse Oximetry 98 99 100 10/15/18 12:00 10/15/18 13:00 10/15/18 14:00 Temperature 98.4 F Pulse Rate 73 67 64 Respiratory Rate 16 16 16 Blood Pressure 133/66 138/67 134/65 Pulse Oximetry 99 100 100 10/15/18 15:00 10/15/18 15:33 10/15/18 16:00 Temperature 98.8 F Pulse Rate 69 77 78 Respiratory Rate 16 16 16 Blood Pressure 149/70 H 140/66 134/63 Pulse Oximetry 100 100 98 10/15/18 17:00 10/15/18 18:00 10/15/18 19:00 Temperature Pulse Rate 84 77 80 Respiratory Rate 16 16 16 Blood Pressure 132/65 131/62 146/68 H Pulse Oximetry 100 95 98 10/15/18 20:00 10/15/18 21:00 10/15/18 21:15 Temperature 99.8 F H Pulse Rate 79 80 Respiratory Rate 16 16 23 Blood Pressure 139/65 144/67 H Pulse Oximetry 95 98 100 10/15/18 22:00 10/15/18 23:00 10/16/18 00:00 Temperature 99.2 F Pulse Rate 82 92 H 84 Respiratory Rate 16 38 H 17 Blood Pressure 146/70 H 166/79 H 157/74 H Pulse Oximetry 93 L 93 L 94 L 10/16/18 01:00 10/16/18 02:00 10/16/18 02:09 Temperature Pulse Rate 83 87 Respiratory Rate 16 17 18 Blood Pressure 153/70 H 177/82 H Pulse Oximetry 94 L 93 L 93 L 10/16/18 03:00 10/16/18 03:01 10/16/18 03:18 Temperature Pulse Rate 90 91 H 90 Respiratory Rate 23 17 17 Blood Pressure 163/75 H 195/78 H 190/84 H Pulse Oximetry 93 L 93 L 93 L 10/16/18 03:31 10/16/18 03:46 10/16/18 04:00 Temperature 99.6 F Pulse Rate 91 H 82 83 Respiratory Rate 16 16 16 Blood Pressure 189/83 H 163/75 H 170/77 H Pulse Oximetry 93 L 93 L 95 10/16/18 04:01 10/16/18 04:16 10/16/18 04:31 Temperature Pulse Rate 83 84 81 Respiratory Rate 16 16 16 Blood Pressure 170/77 H 166/77 H 156/70 H Pulse Oximetry 93 L 93 L 93 L 10/16/18 04:32 10/16/18 04:46 10/16/18 05:00 Temperature Pulse Rate 81 76 Respiratory Rate 16 16 16 Blood Pressure 152/71 H Pulse Oximetry 93 L 93 L 93 L 10/16/18 05:01 10/16/18 05:16 10/16/18 05:31 Temperature Pulse Rate 76 78 80 Respiratory Rate 16 16 16 Blood Pressure 146/66 H 169/77 H 175/81 H Pulse Oximetry 93 L 94 L 95 10/16/18 05:46 10/16/18 06:00 10/16/18 06:01 Temperature Pulse Rate 80 80 80 Respiratory Rate 16 16 16 Blood Pressure 177/82 H 171/80 H Pulse Oximetry 95 95 95 Intake & Output 10/15/18 10/16/18 10/16/18 18:59 06:59 18:59 Intake Total 1239 / 1239 1012 / 1012 100 / 100 Output Total 1775 / 1775 860 / 860 Balance -536 / -536 152 / 152 100 / 100 Weight 108.6 kg Intake: IV 600 / 600 200 / 200 100 / 100 Diprivan 1000 mg/100 ml Inj 1, 200 / 200 100 / 100 100 / 100 000 mg In 100 ml @ 5 MCG/KG/MIN 2.913 mls/hr IV.CONT TITRATE PRN Rx#:[id number] NS Inj 1,000 ML @ 40 mls/hr IV. 400 / 400 CONT .Q24H [facility] Rx#:[id number] Maxipime Inj 2,000 MG In NS Inj 100 / 100 100 ML @ 200 mls/hr IV.SIG Q24H [facility] Rx#:[id number] Tube Feeding 199 / 199 352 / 352 Tube Irrigant 40 / 40 Water Bolus Amount 400 / 400 460 / 460 Output: Urine Amount (Catheter) 1775 / 1775 860 / 860 Indwelling Temp Sensing 1775 / 1775 860 / 860 Catheter Other: Date of Last Bowel Movement 10/14/18 10/14/18 Narrative: Moderate swelling left leg. Unable to detect neuro exam. Patient is intubated. Dressings dry - Urinary Catheter Management Indwelling Temp Sensing Catheter Cath placed during this visit: yes Reason for continuing: Hourly intake/output Insertion date: 10/05/18 Insertion time: 20:00 Results - Labs CBC & Chem 7: 10/16/18 03:19 10/16/18 03:19 Laboratory Results - last 24 hr 10/15/18 10/15/18 10/15/18 04:15 11:26 17:32 WBC RBC Hgb Hct MCV MCH MCHC RDW Plt Count MPV Prelim Diff (Auto) Neut % (Auto) Lymph % (Auto) [place] % (Auto) Eos % (Auto) Baso % (Auto) Neut # (Auto) Lymph # (Auto) [place] # (Auto) Eos # (Auto) Baso # (Auto) WBC Differential Seg Neuts % (Manual) Band Neuts % (Manual) Lymphocytes % (Manual) Monocytes % (Manual) Eosinophils % (Manual) Metamyelocytes % (Man) Myelocytes % (Man) Abs Neuts (Manual) Differential Comment Dohle Bodies Platelet Estimate Platelet Morphology Sodium Potassium Chloride Carbon Dioxide Anion Gap BUN Creatinine Estimated GFR POC Glucose 83 122 H Random Glucose Hemoglobin A1c 5.5 Calcium Prot Corrected Calcium Total Protein Random Vancomycin 10/15/18 10/16/18 10/16/18 23:27 03:19 03:19 WBC 7.8 RBC 3.16 L Hgb 9.8 L Hct 28.3 L MCV 89.5 MCH 31.0 MCHC 34.6 RDW 18.3 H Plt Count 231 MPV 7.9 Prelim Diff (Auto) Slide review pending Neut % (Auto) 68.5 Lymph % (Auto) 7.5 L [place] % (Auto) 18.8 H Eos % (Auto) 4.8 H Baso % (Auto) 0.4 Neut # (Auto) 5.3 Lymph # (Auto) 0.6 L [place] # (Auto) 1.5 H Eos # (Auto) 0.4 Baso # (Auto) 0.0 WBC Differential Manual diff final Seg Neuts % (Manual) 74 H Band Neuts % (Manual) 1 Lymphocytes % (Manual) 5 L Monocytes % (Manual) 14 H Eosinophils % (Manual) 3 Metamyelocytes % (Man) 2 H Myelocytes % (Man) 1 H Abs Neuts (Manual) 6.1 Differential Comment . Dohle Bodies Present H Platelet Estimate Normal Platelet Morphology Normal Sodium 145 Potassium 4.4 Chloride 116 H Carbon Dioxide 17.2 L Anion Gap 12 BUN 57 H Creatinine 3.55 H Estimated GFR 18 L POC Glucose 131 H Random Glucose 124 H Hemoglobin A1c Calcium 7.3 L* Prot Corrected Calcium 7.8 L Total Protein 6.1 L D Random Vancomycin 26.0 10/16/18 06:05 WBC RBC Hgb Hct MCV MCH MCHC RDW Plt Count MPV Prelim Diff (Auto) Neut % (Auto) Lymph % (Auto) [place] % (Auto) Eos % (Auto) Baso % (Auto) Neut # (Auto) Lymph # (Auto) [place] # (Auto) Eos # (Auto) Baso # (Auto) WBC Differential Seg Neuts % (Manual) Band Neuts % (Manual) Lymphocytes % (Manual) Monocytes % (Manual) Eosinophils % (Manual) Metamyelocytes % (Man) Myelocytes % (Man) Abs Neuts (Manual) Differential Comment Dohle Bodies Platelet Estimate Platelet Morphology Sodium Potassium Chloride Carbon Dioxide Anion Gap BUN Creatinine Estimated GFR POC Glucose 105 Random Glucose Hemoglobin A1c Calcium Prot Corrected Calcium Total Protein Random Vancomycin Microbiology 10/14/18 20:50 Sputum - Endotracheal Gram Stain - Final 10/14/18 20:50 Sputum - Endotracheal Sputum Culture - Preliminary Immature growth - reincubate Assessment and Plan - Assessment and Plan 1) Left Open Distal Femur and Proximal Tibia Fxs Surgery: S/p removal of exfix with ORIF - POD 2 PLAN: -NWB -knee brace except for PT -PROM 0-90deg -no active leg lifts or quad sets -daily dressing changes, starting today -ortho surgeries complete at this time -DVT prophylaxis, per trauma team -f/u with Lu or [facility] in 2 weeks
[2018-10-16] MEDS: fentaNYL 10 mcg/mL Premix Drip 2,500 MCG/250 ML BAG IV.SIG PRN (08:51)
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
[2018-10-16] MEDS ORDERED: Midazolam Inj 5 MG/ML 1 ML Vial ONE ×2 (13:26→14:16)
[2018-10-16] MEDS ORDERED: fentaNYL Citrate Inj 100 MCG/2 ML Ampul IV.PUSH ONE (13:30)
[2018-10-16] MEDS ORDERED: Midazolam Inj 5 MG/ML 5 ML Vial IV.PUSH ONE (13:30)
--- NOTE | 2018-10-16 14:12 | P.PNNS ---
Subjective Interval history: Pt sedated on Fentanyl and Diprivan drips. Pupils 3mm bilaterally reactive bilaterally. Pt Not following commands. Physical Exam Vital signs: Vital Signs 10/15/18 15:00 10/15/18 15:33 10/15/18 16:00 Temperature 98.8 F Pulse Rate 69 77 78 Respiratory Rate 16 16 16 Blood Pressure 149/70 H 140/66 134/63 Pulse Oximetry 100 100 98 10/15/18 17:00 10/15/18 18:00 10/15/18 19:00 Temperature Pulse Rate 84 77 80 Respiratory Rate 16 16 16 Blood Pressure 132/65 131/62 146/68 H Pulse Oximetry 100 95 98 10/15/18 20:00 10/15/18 21:00 10/15/18 21:15 Temperature 99.8 F H Pulse Rate 79 80 Respiratory Rate 16 16 23 Blood Pressure 139/65 144/67 H Pulse Oximetry 95 98 100 10/15/18 22:00 10/15/18 23:00 10/16/18 00:00 Temperature 99.2 F Pulse Rate 82 92 H 84 Respiratory Rate 16 38 H 17 Blood Pressure 146/70 H 166/79 H 157/74 H Pulse Oximetry 93 L 93 L 94 L 10/16/18 01:00 10/16/18 02:00 10/16/18 02:09 Temperature Pulse Rate 83 87 Respiratory Rate 16 17 18 Blood Pressure 153/70 H 177/82 H Pulse Oximetry 94 L 93 L 93 L 10/16/18 03:00 10/16/18 03:01 10/16/18 03:18 Temperature Pulse Rate 90 91 H 90 Respiratory Rate 23 17 17 Blood Pressure 163/75 H 195/78 H 190/84 H Pulse Oximetry 93 L 93 L 93 L 10/16/18 03:31 10/16/18 03:46 10/16/18 04:00 Temperature 99.6 F Pulse Rate 91 H 82 83 Respiratory Rate 16 16 16 Blood Pressure 189/83 H 163/75 H 170/77 H Pulse Oximetry 93 L 93 L 95 10/16/18 04:01 10/16/18 04:16 10/16/18 04:31 Temperature Pulse Rate 83 84 81 Respiratory Rate 16 16 16 Blood Pressure 170/77 H 166/77 H 156/70 H Pulse Oximetry 93 L 93 L 93 L 10/16/18 04:32 10/16/18 04:46 10/16/18 05:00 Temperature Pulse Rate 81 76 Respiratory Rate 16 16 16 Blood Pressure 152/71 H Pulse Oximetry 93 L 93 L 93 L 10/16/18 05:01 10/16/18 05:16 10/16/18 05:31 Temperature Pulse Rate 76 78 80 Respiratory Rate 16 16 16 Blood Pressure 146/66 H 169/77 H 175/81 H Pulse Oximetry 93 L 94 L 95 10/16/18 05:46 10/16/18 06:00 10/16/18 06:01 Temperature Pulse Rate 80 80 80 Respiratory Rate 16 16 16 Blood Pressure 177/82 H 171/80 H Pulse Oximetry 95 95 95 10/16/18 06:16 10/16/18 06:31 10/16/18 06:46 Temperature Pulse Rate 79 79 76 Respiratory Rate 16 16 16 Blood Pressure 166/74 H 166/78 H 161/71 H Pulse Oximetry 95 95 94 L 10/16/18 07:00 10/16/18 07:01 10/16/18 07:16 Temperature Pulse Rate 76 75 74 Respiratory Rate 16 16 16 Blood Pressure 160/75 H 160/75 H Pulse Oximetry 95 95 94 L 10/16/18 07:31 10/16/18 07:46 10/16/18 08:00 Temperature 98.8 F Pulse Rate 76 73 75 Respiratory Rate 16 16 16 Blood Pressure 168/79 H 159/73 H 166/78 H Pulse Oximetry 95 94 L 99 10/16/18 08:01 10/16/18 08:16 10/16/18 08:31 Temperature Pulse Rate 73 74 74 Respiratory Rate 16 16 16 Blood Pressure 166/78 H 162/73 H 179/82 H Pulse Oximetry 97 96 97 10/16/18 08:46 10/16/18 08:57 10/16/18 09:00 Temperature Pulse Rate 76 82 79 Respiratory Rate 16 29 H 19 Blood Pressure 185/80 H 191/79 H Pulse Oximetry 97 97 94 L 10/16/18 09:01 10/16/18 09:16 10/16/18 09:22 Temperature Pulse Rate 78 77 Respiratory Rate 20 11 L 18 Blood Pressure 179/80 H 147/69 H Pulse Oximetry 94 L 93 L 94 L 10/16/18 09:31 10/16/18 09:46 10/16/18 10:00 Temperature Pulse Rate 71 71 69 Respiratory Rate 16 16 16 Blood Pressure 135/63 129/65 132/66 Pulse Oximetry 93 L 93 L 94 L 10/16/18 10:01 10/16/18 10:16 10/16/18 10:31 Temperature Pulse Rate 68 75 68 Respiratory Rate 16 23 16 Blood Pressure 132/66 150/90 H 138/65 Pulse Oximetry 94 L 97 10/16/18 10:46 10/16/18 11:00 10/16/18 11:01 Temperature Pulse Rate 67 67 75 Respiratory Rate 16 16 17 Blood Pressure 146/74 H 152/78 H Pulse Oximetry 99 100 99 10/16/18 11:16 10/16/18 11:31 10/16/18 11:46 Temperature Pulse Rate 65 64 62 Respiratory Rate 16 16 16 Blood Pressure 141/70 H 141/73 H 143/77 H Pulse Oximetry 100 100 100 10/16/18 12:00 10/16/18 12:01 10/16/18 12:16 Temperature 98.9 F Pulse Rate 61 61 61 Respiratory Rate 16 16 16 Blood Pressure 141/75 H 141/75 H 150/78 H Pulse Oximetry 100 100 100 Intake & Output 10/15/18 10/16/18 10/16/18 18:59 06:59 18:59 Intake Total 1489 / 1489 1012 / 1012 100 / 100 Output Total 1775 / 1775 860 / 860 Balance -286 / -286 152 / 152 100 / 100 Weight 108.6 kg Intake: IV 850 / 850 200 / 200 100 / 100 Diprivan 1000 mg/100 ml Inj 1, 200 / 200 100 / 100 100 / 100 000 mg In 100 ml @ 5 MCG/KG/MIN 2.913 mls/hr IV.CONT TITRATE PRN Rx#:[id number] NS Inj 1,000 ML @ 40 mls/hr IV. 400 / 400 CONT .Q24H [facility] Rx#:[id number] Maxipime Inj 2,000 MG In NS Inj 100 / 100 100 ML @ 200 mls/hr IV.SIG Q24H [facility] Rx#:[id number] fentaNYL 10 mcg/mL Premix Drip 250 / 250 2,500 mcg In 250 ml @ 50 MCG/HR 5 mls/hr IV.SIG TITRATE PRN Rx #:[id number] Tube Feeding 199 / 199 352 / 352 Tube Irrigant 40 / 40 Water Bolus Amount 400 / 400 460 / 460 Output: Urine Amount (Catheter) 1774 860 / 860 Indwelling Temp Sensing 1774 860 / 860 Catheter Other: Date of Last Bowel Movement 10/14/18 10/14/18 10/14/18 - Constitutional no acute distress (Sedated on Diprivan and Fentanyl drips.) - Routine HEENT Exam Head: Absent: atraumatic (Abrasion and laceration above right eyebrow. laceration left medial eyebrow. Both are clean and dry.) Eye: Present: PERRL (Pupils 3mm bilaterally reactive bilaterally. ). Absent: conjunctival icterus ENT: Absent: oropharynx clear (ET intubated.) - Routine Respiratory Exam Present: patient mechanically ventilated (PRVC A/C rate 16. FiO2 35%. PEEP 8.) , CTA bilaterally. Absent: rhonchi, wheezes - Routine Cardiovascular Exam Present: RRR, S1, S2. Absent: murmur - Routine Abdominal Exam Present: soft, normoactive bowel sounds. Absent: distended, firm - Routine Skin Exam Absent: cyanosis, erythema - Routine Neurological Exam Present: moving all extremities (Withdraws to pain. Pt sedated and sedation was increased last night.). Absent: alert (Pedated on Fentanyl and Diprivan drips.) - Routine Psychiatric Exam Present: unable to assess - Urinary Catheter Management Indwelling Temp Sensing Catheter Cath placed during this visit: yes Reason for continuing: Hourly intake/output Insertion date: 10/05/18 Insertion time: 20:00 Assessment and Plan - Assessment (1) CHI (closed head injury) Code(s): S09.90XA - Unspecified injury of head, initial encounter Status: Acute Qualifiers: Encounter type: initial encounter Qualified Code(s): S09.90XA - Unspecified injury of head, initial encounter (2) Acute subdural hematoma Code(s): S06.5X9A - Traumatic subdural hemorrhage with loss of consciousness of unspecified duration, initial encounter Status: Acute (3) Open fracture Code(s): T14.8XXA - Other injury of unspecified body region, initial encounter Status: Acute (4) Respiratory failure after trauma Code(s): J96.90 - Respiratory failure, unspecified, unspecified whether with hypoxia or hypercapnia Status: Acute (5) Mild major neurocognitive disorder as late effect of traumatic brain injury without behavioral disturbance Code(s): S06.9X9S - Unspecified intracranial injury with loss of consciousness of unspecified duration, sequela; F02.80 - Dementia in other diseases classified elsewhere without behavioral disturbance Status: Acute - Plan Chest X-Ray 10/05/18 00:00 CONCLUSION: Endotracheal tube tip in right mainstem bronchus. This should be withdrawn about 4 cm Tibia/Fibula X-Ray 10/05/18 00:00 CONCLUSION: Comminuted fractures proximal tibia and fibula. Distal tibia and fibula. Intact. Chest X-Ray 10/05/18 18:34 CONCLUSION: Endotracheal tube and nasogastric tube in good position. Bilateral rib fractures without pneumothorax. Basilar atelectasis. There is some widening of the superior mediastinum. See chest CT report. Pelvis X-Ray 10/05/18 18:34 CONCLUSION: No acute fracture. Abdomen/Pelvis CT 10/05/18 18:42 CONCLUSION: 1. Avulsion endplate fractures of T10 and T11 as above with widening of the anterior interspace likely from disruption of the annulus fibrosis. Consider MRI for further evaluation of disc injury. 2. No solid visceral injury identified. 3. Left eighth and right seventh rib fractures laterally with several healing lower right anterior rib fractures. Cervical Spine CT 10/05/18 18:42 CONCLUSION: 1. Moderate degenerative disc disease. No acute fracture or spondylolisthesis. Chest CT 10/05/18 18:42 CONCLUSION: 1. Avulsion fracture superior endplates of T10 and T11 as above with disruption of the anterior annulus fibrosis and widening of the anterior disc space between T10 and T11. 2. Fractures of the lower left and right ribs as above without pneumothorax. Dependent atelectasis in both lungs. 3. No evidence for aortic transection or dissection. 4. Mild coronary calcifications. Face CT 10/05/18 18:42 CONCLUSION: 1. Nondisplaced fracture of the right superior orbital wall, left medial orbital wall and left maxillary sinus with hemorrhage in the left maxillary sinus and ethmoids. Globes intact. Also nasal bone fracture. Patient intubated. Head CT 10/05/18 18:42 CONCLUSION: 1. Small anterior interhemispheric subdural hematoma without mass effect or shift. Trace subarachnoid hemorrhage anteriorly. No calvarial fracture identified. Femur X-Ray 10/05/18 18:43 CONCLUSION: Comminuted distal femur fracture with displacement. Knee CT 10/05/18 21:26 CONCLUSION: 1. Comminuted fractures of the distal femur and proximal tibia. Fracture of the proximal fibular shaft also noted. 2. Prominent atherosclerotic disease disease of the distal femoral artery, popliteal artery, and proximal calf arteries. There is focal very high-grade stenosis of the popliteal artery at the level of the knee. This finding is age- indeterminate and could be related to chronic atherosclerotic disease or recent trauma. Age-indeterminate moderate grade stenosis of the distal superficial femoral artery and high-grade stenosis of the PT trunk at its bifurcation also noted. Chest X-Ray 10/05/18 23:31 CONCLUSION: 1. Endotracheal tube tip now 2 cm above the yael. 2. Patchy atelectasis at the left lung base is decreased. Knee CT 10/06/18 00:00 CONCLUSION: 1. Severely comminuted fracture about the knee as described above, Knee X-Ray 10/06/18 00:00 CONCLUSION: Reasonable alignment as above Thoracic Spine MRI 10/06/18 00:00 CONCLUSION: 1. Abnormal T11-T12 as described above. 2. Thoracic cord is intact. There is no evidence for hematoma or contusion. There is no evidence of posterior ligamentous disruption. Chest X-Ray 10/06/18 06:00 CONCLUSION: No significant interval change. Head CT 10/06/18 08:00 CONCLUSION: 1. Stable to slightly improved. Significant intravascular contrast remains from previous contrasted exam. 62 y/o M Head CT as above; small parafalcine SDH. Neurologically patient is unchanged he is intubated ventilated and sedated on fentanyl and Diprivan drip. Facial lacerations repaired by Dr. Allen Patient underwent left leg runoff to assess popliteal artery and distal flow considering the proximal comminuted tibial fracture which is essentially behaves like a knee dislocation. He underwent successful ex-fix placement to the left femur and tibia with reduction of the comminuted segments MRI of the thoracic spine shows distraction of the T10-11 level however no disruption of the ligaments. Dr. Arceo has recommended spinal log roll precautions and hob not higher than 15 degrees. He underwent Posterior T9, T10, T11, and T12 autograft fusion; T9-12 pedicle screw fixation; left iliac crest autograft harvest on 10/10/18. Continue with current care. Pain control. log roll with TLSO brace. Wean sedation and vent as tolerated.
--- NOTE | 2018-10-16 14:46 | P.PCN ---
Date of procedure: 10/16/18 Pre-op diagnosis: Acute respiratory failure, polytrauma Post-op diagnosis: same Procedure: Procedure fiberoptic bronchoscopy for bronchoscopy guided percutaneous tracheostomy Operators: Dr. Alonso Lopez for fiberoptic bronchoscopy/ Dr. Duran for percutaneous tracheostomy Informed consent obtained from family and documented in chart Anesthesia used Versed/ fentanyl 200 g IV, Rocuronium IV for neuromuscular blockade per Dr. Duran Procedure: Patient was placed on 100% oxygen via ET tube/mechanical ventilator. After ensuring adequate sedation/analgesia/ neuromuscular blockade, fiberoptic bronchoscope was inserted via adapter on ET tube and advanced into the trachea upto the yael. Following this bronchoscope was withdrawn back to the tip of ET tube. After deflating cuff of ET tube it was withdrawn back to the 18 cm darryl. Subsequent steps of percutaneous tracheostomy were directly visualized on videomonitor via bronchoscopy including insertion of introducer catheter followed by guidewire and then insertion of tracheal dilator followed by insertion of tracheostomy tube following which bronchoscope was withdrawn out of the ET tube and was inserted down the percutaneous tracheostomy and correct placement was confirmed by visualizing tracheal rings following which bronchoscope was withdrawn. Inner cannula was placed by Dr. Duran and after inflating cuff, patient was connected to mechanical ventilation via tracheostomy tube. Bronchoscope was reinserted via ET tube and minimal amount of secretions were suctioned out from above cuff of tracheostomy tube following which bronchoscope and ET tube were withdrawn out. Patient tolerated the procedure well with no immediate complications noted.
--- NOTE | 2018-10-16 14:49 | P.OP ---
Preoperative Diagnosis: Multitrauma Postoperative Diagnosis: Multitrauma Date of procedure: 10/16/18 Procedure: Percutaneous dilational tracheostomy Anesthesia: other (Versed, propofol, rocuronium) Surgeon: Alicia Duran MD Operation and Findings: Patient's neck area was sterilely prepped and draped using the usual technique. Bronchoscopy was performed by the oyster picker. A vertical incision was performed at the level of the second and third tracheal ring. Local anesthesia with lidocaine and epinephrine was used. Careful blunt dissection was performed. Under guidance from the bronchoscope the trachea was penetrated and over the guidewire first small then the Blue Rhino was used to dilate the trachea. An 8 size tracheostomy tube was then inserted under direct vision. The intratracheal position was ascertained with bronchoscopy. There is also good end-tidal and good saturations. The tracheostomy was tube was secured with interrupted 2-0 Prolene on each edge. Patient tolerated procedure well
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
[2018-10-16] MEDS ORDERED: Midazolam Inj 5 MG/ML 1 ML Vial IV.PUSH ONE (15:00)
[2018-10-16] MEDS: Sod Chloride 0.9% Inj 1,000 ML IV.CONT SCH (17:46)
--- NOTE | 2018-10-16 20:22 | P.PNNP ---
Subjective Interval history: Patient seen in the afternoon, remain on the vent. and sedated. Physical Exam Vital signs: Vital Signs 10/15/18 21:00 10/15/18 21:15 10/15/18 22:00 Temperature Pulse Rate 80 82 Respiratory Rate 16 23 16 Blood Pressure 144/67 H 146/70 H Pulse Oximetry 98 100 93 L 10/15/18 23:00 10/16/18 00:00 10/16/18 01:00 Temperature 99.2 F Pulse Rate 92 H 84 83 Respiratory Rate 38 H 17 16 Blood Pressure 166/79 H 157/74 H 153/70 H Pulse Oximetry 93 L 94 L 94 L 10/16/18 02:00 10/16/18 02:09 10/16/18 03:00 Temperature Pulse Rate 87 90 Respiratory Rate 17 18 23 Blood Pressure 177/82 H 163/75 H Pulse Oximetry 93 L 93 L 93 L 10/16/18 03:01 10/16/18 03:18 10/16/18 03:31 Temperature Pulse Rate 91 H 90 91 H Respiratory Rate 17 17 16 Blood Pressure 195/78 H 190/84 H 189/83 H Pulse Oximetry 93 L 93 L 93 L 10/16/18 03:46 10/16/18 04:00 10/16/18 04:01 Temperature 99.6 F Pulse Rate 82 83 83 Respiratory Rate 16 16 16 Blood Pressure 163/75 H 170/77 H 170/77 H Pulse Oximetry 93 L 95 93 L 10/16/18 04:16 10/16/18 04:31 10/16/18 04:32 Temperature Pulse Rate 84 81 Respiratory Rate 16 16 16 Blood Pressure 166/77 H 156/70 H Pulse Oximetry 93 L 93 L 93 L 10/16/18 04:46 10/16/18 05:00 10/16/18 05:01 Temperature Pulse Rate 81 76 76 Respiratory Rate 16 16 16 Blood Pressure 152/71 H 146/66 H Pulse Oximetry 93 L 93 L 93 L 10/16/18 05:16 10/16/18 05:31 10/16/18 05:46 Temperature Pulse Rate 78 80 80 Respiratory Rate 16 16 16 Blood Pressure 169/77 H 175/81 H 177/82 H Pulse Oximetry 94 L 95 95 10/16/18 06:00 10/16/18 06:01 10/16/18 06:16 Temperature Pulse Rate 80 80 79 Respiratory Rate 16 16 16 Blood Pressure 171/80 H 166/74 H Pulse Oximetry 95 95 95 10/16/18 06:31 10/16/18 06:46 10/16/18 07:00 Temperature Pulse Rate 79 76 76 Respiratory Rate 16 16 16 Blood Pressure 166/78 H 161/71 H Pulse Oximetry 95 94 L 95 10/16/18 07:01 10/16/18 07:16 10/16/18 07:31 Temperature Pulse Rate 75 74 76 Respiratory Rate 16 16 16 Blood Pressure 160/75 H 160/75 H 168/79 H Pulse Oximetry 95 94 L 95 10/16/18 07:46 10/16/18 08:00 10/16/18 08:01 Temperature 98.8 F Pulse Rate 73 75 73 Respiratory Rate 16 16 16 Blood Pressure 159/73 H 166/78 H 166/78 H Pulse Oximetry 94 L 99 97 10/16/18 08:16 10/16/18 08:31 10/16/18 08:46 Temperature Pulse Rate 74 74 76 Respiratory Rate 16 16 16 Blood Pressure 162/73 H 179/82 H 185/80 H Pulse Oximetry 96 97 97 10/16/18 08:57 10/16/18 09:00 10/16/18 09:01 Temperature Pulse Rate 82 79 78 Respiratory Rate 29 H 19 20 Blood Pressure 191/79 H 179/80 H Pulse Oximetry 97 94 L 94 L 10/16/18 09:16 10/16/18 09:22 10/16/18 09:31 Temperature Pulse Rate 77 71 Respiratory Rate 11 L 18 16 Blood Pressure 147/69 H 135/63 Pulse Oximetry 93 L 94 L 93 L 10/16/18 09:46 10/16/18 10:00 10/16/18 10:01 Temperature Pulse Rate 71 69 68 Respiratory Rate 16 16 16 Blood Pressure 129/65 132/66 132/66 Pulse Oximetry 93 L 94 L 94 L 10/16/18 10:16 10/16/18 10:31 10/16/18 10:46 Temperature Pulse Rate 75 68 67 Respiratory Rate 23 16 16 Blood Pressure 150/90 H 138/65 146/74 H Pulse Oximetry 97 99 10/16/18 11:00 10/16/18 11:01 10/16/18 11:16 Temperature Pulse Rate 67 75 65 Respiratory Rate 16 17 16 Blood Pressure 152/78 H 141/70 H Pulse Oximetry 100 99 100 10/16/18 11:31 10/16/18 11:46 10/16/18 12:00 Temperature 98.9 F Pulse Rate 64 62 61 Respiratory Rate 16 16 16 Blood Pressure 141/73 H 143/77 H 141/75 H Pulse Oximetry 100 100 100 10/16/18 12:01 10/16/18 12:16 10/16/18 13:31 Temperature Pulse Rate 61 61 Respiratory Rate 16 16 Blood Pressure 141/75 H 150/78 H 150/75 H Pulse Oximetry 100 100 10/16/18 13:46 10/16/18 14:00 10/16/18 14:01 Temperature Pulse Rate 67 80 77 Respiratory Rate 16 22 16 Blood Pressure 170/81 H 154/82 H 148/71 H Pulse Oximetry 100 100 100 10/16/18 14:10 10/16/18 14:12 10/16/18 14:15 Temperature Pulse Rate 101 H 96 H 95 H Respiratory Rate 17 8 L 0 L Blood Pressure 199/100 H 184/88 H 173/80 H Pulse Oximetry 100 100 100 10/16/18 14:17 10/16/18 14:20 10/16/18 14:22 Temperature Pulse Rate 101 H 94 H 94 H Respiratory Rate 10 L 17 16 Blood Pressure 173/85 H 172/84 H 149/72 H Pulse Oximetry 99 98 97 10/16/18 14:25 10/16/18 14:27 10/16/18 14:30 Temperature Pulse Rate 97 H 92 H 90 Respiratory Rate 16 16 16 Blood Pressure 148/74 H 135/72 133/68 Pulse Oximetry 97 96 96 10/16/18 14:32 10/16/18 14:35 10/16/18 14:37 Temperature Pulse Rate 88 88 86 Respiratory Rate 16 16 16 Blood Pressure 130/65 128/67 135/73 Pulse Oximetry 96 98 100 10/16/18 14:40 10/16/18 14:42 10/16/18 14:45 Temperature Pulse Rate 84 83 83 Respiratory Rate 16 16 16 Blood Pressure 136/75 139/76 141/77 H Pulse Oximetry 100 100 100 10/16/18 14:47 10/16/18 14:50 10/16/18 14:52 Temperature Pulse Rate 83 81 81 Respiratory Rate 16 16 16 Blood Pressure 144/74 H 151/75 H 150/73 H Pulse Oximetry 100 100 100 10/16/18 14:55 10/16/18 14:57 10/16/18 15:00 Temperature Pulse Rate 80 80 80 Respiratory Rate 16 16 16 Blood Pressure 147/74 H 147/79 H 150/82 H Pulse Oximetry 100 100 100 10/16/18 15:02 10/16/18 15:30 10/16/18 16:00 Temperature 98.6 F Pulse Rate 80 79 79 Respiratory Rate 16 16 16 Blood Pressure 154/82 H 170/82 H 175/84 H Pulse Oximetry 100 97 100 10/16/18 16:30 10/16/18 16:41 10/16/18 16:47 Temperature Pulse Rate 77 77 Respiratory Rate 16 16 16 Blood Pressure 198/88 H 168/80 H Pulse Oximetry 100 100 100 10/16/18 17:00 10/16/18 17:30 10/16/18 18:00 Temperature Pulse Rate 81 77 75 Respiratory Rate 24 7 L 0 L Blood Pressure 183/81 H 170/79 H 186/84 H Pulse Oximetry 100 100 100 Intake & Output 10/16/18 10/16/18 10/17/18 06:59 18:59 06:59 Intake Total 1012 / 1012 1050 / 1050 Output Total 860 / 860 2400 / 2400 Balance 152 / 152 -1350 / -1350 Weight 108.6 kg Intake: IV 200 / 200 800 / 800 Diprivan 1000 mg/100 ml Inj 1, 100 / 100 200 / 200 000 mg In 100 ml @ 5 MCG/KG/MIN 2.913 mls/hr IV.CONT TITRATE PRN Rx#:[id number] NS Inj 1,000 ML @ 40 mls/hr IV. 600 / 600 CONT .Q24H [facility] Rx#:[id number] Maxipime Inj 2,000 MG In NS Inj 100 / 100 100 ML @ 200 mls/hr IV.SIG Q24H [facility] Rx#:[id number] Tube Feeding 352 / 352 Tube Irrigant 50 / 50 Water Bolus Amount 460 / 460 200 / 200 Output: Urine Amount (Catheter) 860 / 860 2400 / 2400 Indwelling Temp Sensing 860 / 860 2400 / 2400 Catheter Other: Date of Last Bowel Movement 10/14/18 10/16/18 # Bowel Movements 2 Narrative: Moderate swelling left leg. Unable to detect neuro exam. Patient is intubated. Dressings dry - Urinary Catheter Management Indwelling Temp Sensing Catheter Cath placed during this visit: yes Reason for continuing: Hourly intake/output Insertion date: 10/05/18 Insertion time: 20:00 Assessment and Plan - Assessment (1) Acute kidney injury Code(s): N17.9 - Acute kidney failure, unspecified Status: Acute Plan: Acute kidney injury with admission creatinine of 3.49 and then had some improvement down to 2.82 but now has gradually increasing at 3.29. Baseline creatinine is not available. May have underlying chronic kidney disease. Worsening renal indices could be related to diuresis Maintain strict I+O, Has indwelling Mehta catheter Has generalized edema continue lasix 40 mg daily Hypernatremia, on free H20 flushes HCO3 at 17.2, will add sodium bicarbonate if continues to decline Will follow urinary output and bmp. Creatinine increase slightly. Continue antibiotics. (2) Hypertension Code(s): I10 - Essential (primary) hypertension Status: Acute Plan: Well controlled will monitor.
[2018-10-17] MEDS: Metoprolol Inj 5 MG/5 ML Vial IV.PUSH SCH ×4 (01:01→19:44)
[2018-10-17] MEDS: Artificial Tears Opth Drops 15 ML Bottle EACH EYE SCH ×6 (01:02→21:51)
[2018-10-17 03:59] LABS: Baso % (Auto) 0.5 % (0.0-2.0); Eos # (Auto) 0.3 th/mm3 (0.0-0.4); Eos % (Auto) 4.4 % (0.0-4.0); Hemoglobin 9.4 gm/dL (13.0-17.0); Lymph # (Auto) 0.8 th/mm3 (1.0-4.8); Lymph % (Auto) 12.4 % (9.0-44.0); Mean Corpuscular Hemoglobin 31.4 pg (27.0-34.0); Mean Corpuscular Volume 89.6 fL (80.0-100.0); Mean Platelet Volume 7.9 fL (7.0-11.0); Mono # (Auto) 1.2 th/mm3 (0.0-0.9); Mono % (Auto) 17.3 % (0.0-8.0); Neut # (Auto) 4.4 th/mm3 (1.8-7.7); Neut % (Auto) 65.4 % (16.0-70.0); Platelet Count 245 th/mm3 (150-450); Red Blood Count 3.01 mil/mm3 (4.50-5.90); Red Cell Distribution Width 17.5 % (11.6-17.2); White Blood Count 6.7 th/mm3 (4.0-11.0)
[2018-10-17 04:25] LABS: Albumin 1.2 g/dL (3.4-5.0); Calcium 7.4 mg/dL (8.5-10.1); Carbon Dioxide 18.5 meq/L (21.0-32.0); Potassium 4.3 meq/L (3.5-5.1); Total Protein 5.8 g/dL (6.4-8.2)
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
[2018-10-17] MEDS: Oral Hygiene Kit OROPHARYNG SCH ×4 (04:58→23:38)
[2018-10-17 05:06] LABS: Platelet Estimate Normal (Normal); Platelet Morphology Normal (Normal)
[2018-10-17 05:21] LABS: ABG Base Excess -5.7 mmol/L (-2-2); ABG PCO2 31 mmHg (38-42); ABG PO2 91 mmHg (61-120)
[2018-10-17] MEDS: Insulin NovoLIN Regular Correctional Sugar Inj SQ SCH ×4 (05:39→23:52)
--- NOTE | 2018-10-17 08:09 | P.PNOP ---
Subjective Interval history: No complaints. Patient with trach. No orthopedic concerns, per nursing staff Physical Exam Vital signs: Vital Signs 10/16/18 08:16 10/16/18 08:31 10/16/18 08:46 Temperature Pulse Rate 74 74 76 Respiratory Rate 16 16 16 Blood Pressure 162/73 H 179/82 H 185/80 H Pulse Oximetry 96 97 97 10/16/18 08:57 10/16/18 09:00 10/16/18 09:01 Temperature Pulse Rate 82 79 78 Respiratory Rate 29 H 19 20 Blood Pressure 191/79 H 179/80 H Pulse Oximetry 97 94 L 94 L 10/16/18 09:16 10/16/18 09:22 10/16/18 09:31 Temperature Pulse Rate 77 71 Respiratory Rate 11 L 18 16 Blood Pressure 147/69 H 135/63 Pulse Oximetry 93 L 94 L 93 L 10/16/18 09:46 10/16/18 10:00 10/16/18 10:01 Temperature Pulse Rate 71 69 68 Respiratory Rate 16 16 16 Blood Pressure 129/65 132/66 132/66 Pulse Oximetry 93 L 94 L 94 L 10/16/18 10:16 10/16/18 10:31 10/16/18 10:46 Temperature Pulse Rate 75 68 67 Respiratory Rate 23 16 16 Blood Pressure 150/90 H 138/65 146/74 H Pulse Oximetry 97 99 10/16/18 11:00 10/16/18 11:01 10/16/18 11:16 Temperature Pulse Rate 67 75 65 Respiratory Rate 16 17 16 Blood Pressure 152/78 H 141/70 H Pulse Oximetry 100 99 100 10/16/18 11:31 10/16/18 11:46 10/16/18 12:00 Temperature 98.9 F Pulse Rate 64 62 61 Respiratory Rate 16 16 16 Blood Pressure 141/73 H 143/77 H 141/75 H Pulse Oximetry 100 100 100 10/16/18 12:01 10/16/18 12:16 10/16/18 13:31 Temperature Pulse Rate 61 61 Respiratory Rate 16 16 Blood Pressure 141/75 H 150/78 H 150/75 H Pulse Oximetry 100 100 10/16/18 13:46 10/16/18 14:00 10/16/18 14:01 Temperature Pulse Rate 67 80 77 Respiratory Rate 16 22 16 Blood Pressure 170/81 H 154/82 H 148/71 H Pulse Oximetry 100 100 100 10/16/18 14:10 10/16/18 14:12 10/16/18 14:15 Temperature Pulse Rate 101 H 96 H 95 H Respiratory Rate 17 8 L 0 L Blood Pressure 199/100 H 184/88 H 173/80 H Pulse Oximetry 100 100 100 10/16/18 14:17 10/16/18 14:20 10/16/18 14:22 Temperature Pulse Rate 101 H 94 H 94 H Respiratory Rate 10 L 17 16 Blood Pressure 173/85 H 172/84 H 149/72 H Pulse Oximetry 99 98 97 10/16/18 14:25 10/16/18 14:27 10/16/18 14:30 Temperature Pulse Rate 97 H 92 H 90 Respiratory Rate 16 16 16 Blood Pressure 148/74 H 135/72 133/68 Pulse Oximetry 97 96 96 10/16/18 14:32 10/16/18 14:35 10/16/18 14:37 Temperature Pulse Rate 88 88 86 Respiratory Rate 16 16 16 Blood Pressure 130/65 128/67 135/73 Pulse Oximetry 96 98 100 10/16/18 14:40 10/16/18 14:42 10/16/18 14:45 Temperature Pulse Rate 84 83 83 Respiratory Rate 16 16 16 Blood Pressure 136/75 139/76 141/77 H Pulse Oximetry 100 100 100 10/16/18 14:47 10/16/18 14:50 10/16/18 14:52 Temperature Pulse Rate 83 81 81 Respiratory Rate 16 16 16 Blood Pressure 144/74 H 151/75 H 150/73 H Pulse Oximetry 100 100 100 10/16/18 14:55 10/16/18 14:57 10/16/18 15:00 Temperature Pulse Rate 80 80 80 Respiratory Rate 16 16 16 Blood Pressure 147/74 H 147/79 H 150/82 H Pulse Oximetry 100 100 100 10/16/18 15:02 10/16/18 15:30 10/16/18 16:00 Temperature 98.6 F Pulse Rate 80 79 79 Respiratory Rate 16 16 16 Blood Pressure 154/82 H 170/82 H 175/84 H Pulse Oximetry 100 97 100 10/16/18 16:30 10/16/18 16:41 10/16/18 16:47 Temperature Pulse Rate 77 77 Respiratory Rate 16 16 16 Blood Pressure 198/88 H 168/80 H Pulse Oximetry 100 100 100 10/16/18 17:00 10/16/18 17:30 10/16/18 18:00 Temperature Pulse Rate 81 77 75 Respiratory Rate 24 7 L 0 L Blood Pressure 183/81 H 170/79 H 186/84 H Pulse Oximetry 100 100 100 10/16/18 18:18 10/16/18 18:30 10/16/18 19:00 Temperature Pulse Rate 73 77 78 Respiratory Rate 7 L 15 0 L Blood Pressure 178/82 H 178/84 H 178/80 H Pulse Oximetry 100 100 100 10/16/18 19:30 10/16/18 20:00 10/16/18 20:12 Temperature 99.4 F Pulse Rate 83 81 Respiratory Rate 5 L 16 16 Blood Pressure 175/82 H 176/77 H Pulse Oximetry 100 100 100 10/16/18 20:30 10/16/18 21:00 10/16/18 21:30 Temperature Pulse Rate 76 74 72 Respiratory Rate 16 16 16 Blood Pressure 171/75 H 175/81 H 162/77 H Pulse Oximetry 100 100 100 10/16/18 22:00 10/16/18 22:30 10/16/18 23:00 Temperature Pulse Rate 76 80 77 Respiratory Rate 16 16 16 Blood Pressure 168/77 H 161/77 H 162/74 H Pulse Oximetry 100 100 100 10/16/18 23:30 10/16/18 23:47 10/17/18 00:00 Temperature 99.6 F Pulse Rate 81 75 Respiratory Rate 16 16 16 Blood Pressure 157/75 H 151/71 H Pulse Oximetry 100 100 100 10/17/18 00:30 10/17/18 01:00 10/17/18 01:30 Temperature Pulse Rate 75 70 77 Respiratory Rate 16 16 16 Blood Pressure 154/75 H 162/77 H 148/74 H Pulse Oximetry 100 100 100 10/17/18 02:00 10/17/18 02:30 10/17/18 03:00 Temperature Pulse Rate 82 80 77 Respiratory Rate 16 16 16 Blood Pressure 154/76 H 155/77 H 160/78 H Pulse Oximetry 100 100 100 10/17/18 03:30 10/17/18 04:00 10/17/18 04:08 Temperature 99.3 F Pulse Rate 78 76 Respiratory Rate 16 16 16 Blood Pressure 160/80 H 168/81 H Pulse Oximetry 100 100 100 10/17/18 04:30 10/17/18 05:00 10/17/18 05:30 Temperature Pulse Rate 78 76 76 Respiratory Rate 16 16 16 Blood Pressure 175/81 H 176/81 H 175/82 H Pulse Oximetry 100 100 100 10/17/18 06:00 10/17/18 06:30 10/17/18 07:00 Temperature 98.9 F Pulse Rate 77 78 78 Respiratory Rate 16 16 16 Blood Pressure 188/84 H 175/82 H 189/86 H Pulse Oximetry 100 100 100 10/17/18 07:30 10/17/18 08:00 Temperature Pulse Rate 78 75 Respiratory Rate 16 16 Blood Pressure 186/84 H 164/79 H Pulse Oximetry 100 100 Intake & Output 10/16/18 10/17/18 10/17/18 18:59 06:59 18:59 Intake Total 1050 / 1050 1041 / 1041 Output Total 2400 / 2400 800 / 800 Balance -1350 / -1350 241 / 241 Weight 105.1 kg Intake: IV 800 / 800 200 / 200 Diprivan 1000 mg/100 ml Inj 1, 200 / 200 100 / 100 000 mg In 100 ml @ 5 MCG/KG/MIN 2.913 mls/hr IV.CONT TITRATE PRN Rx#:[id number] NS Inj 1,000 ML @ 40 mls/hr IV. 600 / 600 CONT .Q24H [facility] Rx#:[id number] Maxipime Inj 2,000 MG In NS Inj 100 / 100 100 ML @ 200 mls/hr IV.SIG Q24H [facility] Rx#:[id number] Tube Feeding 391 / 391 Tube Irrigant 50 / 50 50 / 50 Water Bolus Amount 200 / 200 400 / 400 Output: Urine Amount (Catheter) 2400 / 2400 800 / 800 Indwelling Temp Sensing 2400 / 2400 800 / 800 Catheter Other: Date of Last Bowel Movement 10/16/18 10/16/18 10/16/18 # Bowel Movements 2 0 Narrative: Dressing dry. Mild swelling. No significant drainage - Urinary Catheter Management Indwelling Temp Sensing Catheter Cath placed during this visit: yes Reason for continuing: Hourly intake/output Insertion date: 10/05/18 Insertion time: 20:00 Results - Labs CBC & Chem 7: 10/17/18 03:19 10/17/18 03:19 Laboratory Results - last 24 hr 10/16/18 10/16/18 10/16/18 03:19 10:59 17:38 WBC RBC Hgb Hct MCV MCH MCHC RDW Plt Count MPV Prelim Diff (Auto) Neut % (Auto) Lymph % (Auto) [place] % (Auto) Eos % (Auto) Baso % (Auto) Neut # (Auto) Lymph # (Auto) [place] # (Auto) Eos # (Auto) Baso # (Auto) WBC Differential Manual diff final Diff Scan Seg Neuts % (Manual) 74 H Band Neuts % (Manual) 1 Lymphocytes % (Manual) 5 L Monocytes % (Manual) 14 H Eosinophils % (Manual) 3 Metamyelocytes % (Man) 2 H Myelocytes % (Man) 1 H Abs Neuts (Manual) 6.1 Differential Comment Dohle Bodies Present H Platelet Estimate Normal Platelet Morphology Normal Puncture Site Patient Temperature O2 Saturation ABG pH ABG pCO2 ABG pO2 ABG HCO3 ABG O2 Content ABG Base Excess ABG Methemoglobin [place] Test Hemoglobin Carboxyhemoglobin O2 Delivery Device Vent Setting Inspired O2 Critical Value Sodium Potassium Chloride Carbon Dioxide Anion Gap BUN Creatinine Estimated GFR POC Glucose 107 87 Random Glucose Calcium Prot Corrected Calcium Total Bilirubin AST ALT Alkaline Phosphatase Total Protein Albumin 10/16/18 10/17/18 10/17/18 19:49 03:19 03:19 WBC 6.7 RBC 3.01 L Hgb 9.4 L Hct 27.0 L MCV 89.6 MCH 31.4 MCHC 35.0 RDW 17.5 H Plt Count 245 MPV 7.9 Prelim Diff (Auto) Slide review pending Neut % (Auto) 65.4 Lymph % (Auto) 12.4 [place] % (Auto) 17.3 H Eos % (Auto) 4.4 H Baso % (Auto) 0.5 Neut # (Auto) 4.4 Lymph # (Auto) 0.8 L [place] # (Auto) 1.2 H Eos # (Auto) 0.3 Baso # (Auto) 0.0 WBC Differential . Diff Scan Auto diff confirmed Seg Neuts % (Manual) Band Neuts % (Manual) Lymphocytes % (Manual) Monocytes % (Manual) Eosinophils % (Manual) Metamyelocytes % (Man) Myelocytes % (Man) Abs Neuts (Manual) Differential Comment . Dohle Bodies Platelet Estimate Normal Platelet Morphology Normal Puncture Site Patient Temperature O2 Saturation ABG pH ABG pCO2 ABG pO2 ABG HCO3 ABG O2 Content ABG Base Excess ABG Methemoglobin [place] Test Hemoglobin Carboxyhemoglobin O2 Delivery Device Vent Setting Inspired O2 Critical Value Sodium 147 H Potassium 4.3 Chloride 117 H Carbon Dioxide 18.5 L Anion Gap 12 BUN 67 H Creatinine 3.51 H Estimated GFR 18 L POC Glucose 125 H Random Glucose 132 H Calcium 7.4 L* Prot Corrected Calcium 8.1 L Total Bilirubin 0.6 AST 47 H ALT 10 L Alkaline Phosphatase 97 Total Protein 5.8 L Albumin 1.2 L 10/17/18 05:08 WBC RBC Hgb Hct MCV MCH MCHC RDW Plt Count MPV Prelim Diff (Auto) Neut % (Auto) Lymph % (Auto) [place] % (Auto) Eos % (Auto) Baso % (Auto) Neut # (Auto) Lymph # (Auto) [place] # (Auto) Eos # (Auto) Baso # (Auto) WBC Differential Diff Scan Seg Neuts % (Manual) Band Neuts % (Manual) Lymphocytes % (Manual) Monocytes % (Manual) Eosinophils % (Manual) Metamyelocytes % (Man) Myelocytes % (Man) Abs Neuts (Manual) Differential Comment Dohle Bodies Platelet Estimate Platelet Morphology Puncture Site Left radial Patient Temperature 98.6 O2 Saturation 95 ABG pH 7.38 ABG pCO2 31 L ABG pO2 91 ABG HCO3 18 L ABG O2 Content 12.4 ABG Base Excess -5.7 L ABG Methemoglobin 1.5 [place] Test Present Hemoglobin 9.2 L Carboxyhemoglobin 1.6 O2 Delivery Device Ventilator Vent Setting [id number] Inspired O2 35 Critical Value No Sodium Potassium Chloride Carbon Dioxide Anion Gap BUN Creatinine Estimated GFR POC Glucose Random Glucose Calcium Prot Corrected Calcium Total Bilirubin AST ALT Alkaline Phosphatase Total Protein Albumin Microbiology 10/14/18 20:50 Sputum - Endotracheal Gram Stain - Final 10/14/18 20:50 Sputum - Endotracheal Sputum Culture - Preliminary gram negative rods - Imaging Impressions Chest X-Ray 10/17/18 06:00 CONCLUSION: Tracheostomy placed. Stable to slight increase in basilar airspace disease. Assessment and Plan - Assessment and Plan 1) Left Open Distal Femur and Proximal Tibia Fxs Surgery: S/p removal of exfix with ORIF - POD 3 PLAN: -NWB -knee brace except for PT -PROM 0-90deg -no active leg lifts or quad sets -daily dressing changes -ortho surgeries complete at this time -DVT prophylaxis, per trauma team -f/u with [facility] or [facility] in 2 weeks
[2018-10-17] MEDS: Chlorhexidine 0.12% Oral Kit 15 ML UDC OROPHARYNG SCH ×2 (08:16→19:44)
[2018-10-17] MEDS: Senna/Docusate Sodium 8.6/50 MG Tablet PO SCH ×2 (09:57→20:39)
[2018-10-17] MEDS: Calcium/Vitamin D 250/125 MG Tablet PO SCH ×3 (09:57→17:27)
[2018-10-17] MEDS: Sodium Chloride 0.9% 2 ML Flush BID IV.FLUSH SCH ×2 (09:59→20:39)
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
[2018-10-17] MEDS: Sod Chloride 0.9% Inj 1,000 ML IV.CONT SCH (17:28)
--- NOTE | 2018-10-17 18:14 | GIPROC ---
[facility] [address] [facility]. [facility] [place], [id number] EGD PROCEDURE REPORT EXAM DATE: 10/17/2018 PATIENT NAME: Alok Ling MR #: [id number] BIRTHDATE: 1955 ATTENDING: Sreekanth Carr MD ORDER #: [id number] FIELD ARTILLERY BASIC: Magali Villa and Zion Ramos STATUS: inpatient INDICATIONS: The patient is a 62 yr old male here for an EGD due to PEG Replacement PROCEDURE PERFORMED: EGD w/ percutaneous gastrostomy tube placement MEDICATIONS: None and Per Anesthesia. TOPICAL ANESTHETIC: none CONSENT: The patient understands the risks and benefits of the procedure and understands that these risks include, but are not limited to: sedation, allergic reaction, infection, perforation and/or bleeding. Alternative means of evaluation and treatment include, among others: physical exam, x-rays, and/or surgical intervention. The patient elects to proceed with this endoscopic procedure. medical equipment was checked for proper function. Hand hygiene and appropriate measures for infection prevention was taken. After the risks, benefits and alternatives of the procedure were thoroughly explained, Informed consent was verified, confirmed and timeout was successfully executed by the treatment team. The patient was anesthetized with topical anesthesia and the Pentax EG-[id number] endoscope was introduced through the mouth and advanced to the second portion of the duodenum. Retroflexion was performed and was normal The gastroscope was then slowly withdrawn and removed. The endoscopy was otherwise normal. ADVERSE EVENTS: There were no complications. IMPRESSIONS: 1. Normal endoscopy otherwise 2. Retroflexion was performed and was normal 3. PEG tube placed successfully 22F 4.5CM depth RECOMMENDATIONS: PEG recomendations: 1- NPO for 6 hours except for meds 2- Flush PEG tube every 6 hours with water and after each PEG feeding 3- May resume regular diet in the morning 4- May use Ensure or Boost etc. for PEG tube feeding PATIENT CONDITION: stable DISPOSITION: Observation REPEAT EXAM: NONE Sreekanth Carr MD eSigned: Sreekanth Carr MD 10/17/2018 6:14 PM cc:
--- NOTE | 2018-10-17 19:09 | P.PNNP ---
Subjective Interval history: Patient remain intubated and sedated, BP has been elevated. Physical Exam Vital signs: Vital Signs 10/16/18 19:30 10/16/18 20:00 10/16/18 20:12 Temperature 99.4 F Pulse Rate 83 81 Respiratory Rate 5 L 16 16 Blood Pressure 175/82 H 176/77 H Pulse Oximetry 100 100 100 10/16/18 20:30 10/16/18 21:00 10/16/18 21:30 Temperature Pulse Rate 76 74 72 Respiratory Rate 16 16 16 Blood Pressure 171/75 H 175/81 H 162/77 H Pulse Oximetry 100 100 100 10/16/18 22:00 10/16/18 22:30 10/16/18 23:00 Temperature Pulse Rate 76 80 77 Respiratory Rate 16 16 16 Blood Pressure 168/77 H 161/77 H 162/74 H Pulse Oximetry 100 100 100 10/16/18 23:30 10/16/18 23:47 10/17/18 00:00 Temperature 99.6 F Pulse Rate 81 75 Respiratory Rate 16 16 16 Blood Pressure 157/75 H 151/71 H Pulse Oximetry 100 100 100 10/17/18 00:30 10/17/18 01:00 10/17/18 01:30 Temperature Pulse Rate 75 70 77 Respiratory Rate 16 16 16 Blood Pressure 154/75 H 162/77 H 148/74 H Pulse Oximetry 100 100 100 10/17/18 02:00 10/17/18 02:30 10/17/18 03:00 Temperature Pulse Rate 82 80 77 Respiratory Rate 16 16 16 Blood Pressure 154/76 H 155/77 H 160/78 H Pulse Oximetry 100 100 100 10/17/18 03:30 10/17/18 04:00 10/17/18 04:08 Temperature 99.3 F Pulse Rate 78 76 Respiratory Rate 16 16 16 Blood Pressure 160/80 H 168/81 H Pulse Oximetry 100 100 100 10/17/18 04:30 10/17/18 05:00 10/17/18 05:30 Temperature Pulse Rate 78 76 76 Respiratory Rate 16 16 16 Blood Pressure 175/81 H 176/81 H 175/82 H Pulse Oximetry 100 100 100 10/17/18 06:00 10/17/18 06:30 10/17/18 07:00 Temperature 98.9 F Pulse Rate 77 78 78 Respiratory Rate 16 16 16 Blood Pressure 188/84 H 175/82 H 189/86 H Pulse Oximetry 100 100 100 10/17/18 07:30 10/17/18 08:00 10/17/18 08:17 Temperature Pulse Rate 78 75 Respiratory Rate 16 16 16 Blood Pressure 186/84 H 164/79 H Pulse Oximetry 100 100 100 10/17/18 08:30 10/17/18 09:00 10/17/18 09:30 Temperature Pulse Rate 75 78 71 Respiratory Rate 16 16 16 Blood Pressure 171/80 H 179/83 H 175/83 H Pulse Oximetry 100 100 100 10/17/18 10:00 10/17/18 10:30 10/17/18 10:42 Temperature Pulse Rate 66 76 Respiratory Rate 16 16 16 Blood Pressure 158/76 H 182/86 H Pulse Oximetry 99 99 100 10/17/18 11:00 10/17/18 11:30 10/17/18 12:00 Temperature 98.2 F Pulse Rate 72 70 66 Respiratory Rate 16 16 16 Blood Pressure 169/79 H 183/88 H 190/88 H Pulse Oximetry 100 100 100 10/17/18 12:30 10/17/18 13:00 10/17/18 13:08 Temperature Pulse Rate 67 80 Respiratory Rate 16 16 16 Blood Pressure 179/85 H 192/90 H Pulse Oximetry 100 100 100 10/17/18 13:30 10/17/18 14:00 10/17/18 14:02 Temperature Pulse Rate 71 66 73 Respiratory Rate 16 16 14 Blood Pressure 191/89 H 201/96 H 207/97 H Pulse Oximetry 100 100 100 10/17/18 14:10 10/17/18 14:13 10/17/18 14:30 Temperature Pulse Rate 70 67 67 Respiratory Rate 5 L 14 16 Blood Pressure 200/85 H 194/94 H 191/91 H Pulse Oximetry 100 100 100 10/17/18 15:00 10/17/18 15:30 10/17/18 15:35 Temperature Pulse Rate 70 72 73 Respiratory Rate 16 15 16 Blood Pressure 195/90 H 215/94 H 200/98 H Pulse Oximetry 100 100 100 10/17/18 16:00 10/17/18 16:30 10/17/18 16:39 Temperature 98.2 F Pulse Rate 79 65 Respiratory Rate 20 16 16 Blood Pressure 209/94 H 194/90 H Pulse Oximetry 100 100 100 10/17/18 17:00 10/17/18 17:11 10/17/18 17:30 Temperature Pulse Rate 73 61 85 Respiratory Rate 16 16 18 Blood Pressure 205/95 H 187/80 H 212/102 H Pulse Oximetry 100 100 100 10/17/18 17:36 10/17/18 17:53 10/17/18 17:54 Temperature Pulse Rate 75 73 73 Respiratory Rate 16 16 16 Blood Pressure 195/90 H 191/88 H 183/87 H Pulse Oximetry 100 100 100 10/17/18 17:57 10/17/18 18:00 10/17/18 18:03 Temperature Pulse Rate 79 83 70 Respiratory Rate 16 9 L 26 H Blood Pressure 156/73 H 162/78 H 179/110 H Pulse Oximetry 100 99 98 10/17/18 18:05 10/17/18 18:06 10/17/18 18:08 Temperature Pulse Rate 70 74 76 Respiratory Rate 24 20 22 Blood Pressure 197/114 H 195/91 H 170/81 H Pulse Oximetry 99 96 99 10/17/18 18:09 10/17/18 18:12 10/17/18 18:15 Temperature Pulse Rate 74 69 65 Respiratory Rate 20 16 16 Blood Pressure 165/78 H 155/74 H 153/76 H Pulse Oximetry 98 95 95 10/17/18 18:18 Temperature Pulse Rate 62 Respiratory Rate 16 Blood Pressure 157/77 H Pulse Oximetry 95 Intake & Output 10/17/18 10/17/18 10/18/18 06:59 18:59 06:59 Intake Total 1041 / 1041 1000 / 1000 Output Total 800 / 800 2900 / 2900 Balance 241 / 241 -1900 / -1900 Weight 105.1 kg Intake: IV 200 / 200 1000 / 1000 Diprivan 1000 mg/100 ml Inj 1, 100 / 100 000 mg In 100 ml @ 5 MCG/KG/MIN 2.913 mls/hr IV.CONT TITRATE PRN Rx#:[id number] NS Inj 1,000 ML @ 40 mls/hr IV. 1000 / 1000 CONT .Q24H [facility] Rx#:[id number] Maxipime Inj 2,000 MG In NS Inj 100 / 100 100 ML @ 200 mls/hr IV.SIG Q24H [facility] Rx#:[id number] Tube Feeding 391 / 391 Tube Irrigant 50 / 50 Water Bolus Amount 400 / 400 Output: Urine Amount (Catheter) 800 / 800 2900 / 2900 Indwelling Temp Sensing 800 / 800 2900 / 2900 Catheter Other: Date of Last Bowel Movement 10/16/18 10/16/18 # Bowel Movements 0 Narrative: Patient remain intubated and sedated HEENT: SURI, Non icteric sclera, conjunctiva pale. Neck: Supple. Lungs: Bilateral basal rales and scattered wheezing. Adb: distended, BS present. Ext. Mild leg edema. - Urinary Catheter Management Indwelling Temp Sensing Catheter Cath placed during this visit: yes Reason for continuing: Hourly intake/output Insertion date: 10/05/18 Insertion time: 20:00 Assessment and Plan - Assessment (1) Acute kidney injury Code(s): N17.9 - Acute kidney failure, unspecified Status: Acute Plan: Acute kidney injury with admission creatinine of 3.49 and then had some improvement down to 2.82 but now has gradually increasing at 3.29. Baseline creatinine is not available. May have underlying chronic kidney disease. Worsening renal indices could be related to diuresis Maintain strict I+O, Has indwelling Mehta catheter Has generalized edema continue lasix 40 mg daily Hypernatremia, on free H20 flushes HCO3 at 17.2, will add sodium bicarbonate if continues to decline Will follow urinary output and bmp. Creatinine increase slightly. Continue antibiotics. Creatinine stable at 3.5. (2) Hypertension Code(s): I10 - Essential (primary) hypertension Status: Acute Plan: Well controlled will monitor.
[2018-10-17] MEDS: Heparin - SQ 10,000 UNITS/ML Vial SQ SCH (20:39)
[2018-10-17] MEDS: hydrALAZINE HCl Inj 20 MG/ML Vial IV.PUSH PRN (20:40)
[2018-10-17] MEDS: fentaNYL 10 mcg/mL Premix Drip 2,500 MCG/250 ML BAG IV.SIG PRN (22:32)
[2018-10-17] MEDS: Pantoprazole Inj 40 MG Vial IV.PUSH SCH (23:37)
[2018-10-18] MEDS: Metoprolol Inj 5 MG/5 ML Vial IV.PUSH SCH ×4 (01:06→22:02)
[2018-10-18] MEDS: Artificial Tears Opth Drops 15 ML Bottle EACH EYE SCH ×6 (01:07→22:24)
[2018-10-18] MEDS: Oral Hygiene Kit OROPHARYNG SCH ×3 (04:14→18:36)
[2018-10-18 05:19] LABS: Baso % (Auto) 0.5 % (0.0-2.0); Eos # (Auto) 0.2 th/mm3 (0.0-0.4); Hematocrit 27.4 % (39.0-51.0); Hemoglobin 9.2 gm/dL (13.0-17.0); Lymph # (Auto) 0.9 th/mm3 (1.0-4.8); Lymph % (Auto) 11.7 % (9.0-44.0); Mean Corpuscular HGB Conc 33.4 % (32.0-36.0); Mean Corpuscular Hemoglobin 30.8 pg (27.0-34.0); Mean Corpuscular Volume 92.4 fL (80.0-100.0); Mean Platelet Volume 8.1 fL (7.0-11.0); Mono # (Auto) 1.1 th/mm3 (0.0-0.9); Mono % (Auto) 14.1 % (0.0-8.0); Neut # (Auto) 5.8 th/mm3 (1.8-7.7); Neut % (Auto) 71.7 % (16.0-70.0); Platelet Count 244 th/mm3 (150-450); Red Blood Count 2.97 mil/mm3 (4.50-5.90); Red Cell Distribution Width 17.7 % (11.6-17.2); White Blood Count 8.1 th/mm3 (4.0-11.0)
[2018-10-18 05:26] LABS: Alanine Aminotransferase 9 U/L (12-78); Albumin 1.2 g/dL (3.4-5.0); Anion Gap 11 meq/L (5-15); Aspartate Aminotransferase 34 U/L (15-37); Blood Urea Nitrogen 69 mg/dL (7-18); Calcium 7.7 mg/dL (8.5-10.1); Carbon Dioxide 17.3 meq/L (21.0-32.0); Chloride 117 meq/L (98-107); Glomerular Filtration Rate 17 mL/min (>89); Glucose,Random 104 mg/dL (74-106); Potassium 4.3 meq/L (3.5-5.1); Sodium 145 meq/L (136-145)
[2018-10-18 05:29] LABS: Alkaline Phosphatase 91 U/L (45-117); Total Protein 5.9 g/dL (6.4-8.2)
[2018-10-18] MEDS: Insulin NovoLIN Regular Correctional Sugar Inj SQ SCH (05:37)
[2018-10-18 05:51] LABS: ABG Base Excess -6.1 mmol/L (-2-2); ABG PCO2 28 mmHg (38-42); ABG PO2 112 mmHg (61-120)
--- NOTE | 2018-10-18 06:17 | XR ---
EXAM DATE: 10/18/2018 5:14 AM EST AGE/SEX: 62 years / Male INDICATIONS: Shortness of breath, possible respiratory disease. CLINICAL DATA: This is the patient's subsequent encounter. Patient reports that signs and symptoms h ave been present for 2 weeks and indicates a pain score of Nonresponsive. MEDICAL/SURGICAL HISTORY: None. . Fusion, thoracic. Ex fix femur/tibia. Vas Cath. COMPARISON: [facility], CHEST 1V SINGLE AP, 10/17/2018. . FINDINGS: Tracheostomy in good position. Bilateral mostly basilar airspace disease and pleural effusions, sligh tly improved from October 17. No pneumothorax. Spinal fixation rods noted. CONCLUSION: Slight improvement in basilar airspace disease since October 17. Previous nasogastric tube has been removed. Electronically signed by: Grzegorz Ring MD 10/18/2018 6:15 AM EST
[2018-10-18] MEDS: Calcium/Vitamin D 250/125 MG Tablet PO SCH ×3 (08:12→17:01)
[2018-10-18] MEDS: Heparin - SQ 10,000 UNITS/ML Vial SQ SCH ×2 (08:12→22:04)
[2018-10-18] MEDS: Chlorhexidine 0.12% Oral Kit 15 ML UDC OROPHARYNG SCH ×2 (08:12→22:03)
[2018-10-18] MEDS: Sodium Chloride 0.9% 2 ML Flush BID IV.FLUSH SCH ×2 (08:12→22:06)
[2018-10-18] MEDS: Senna/Docusate Sodium 8.6/50 MG Tablet PO SCH ×2 (08:13→22:05)
[2018-10-18 08:18] LABS: Lymphocytes 10 % (9-44); Metamyelocytes 1 % (0-1); Monocytes 6 % (0-8); Myelocytes 3 % (0-0); Tallied Nucleated RBC 2 (0-0)
[2018-10-18 08:19] LABS: Platelet Estimate Normal (Normal); Platelet Morphology Normal (Normal)
[2018-10-18] MEDS ORDERED: Morphine Inj 4 MG/ML Vial IV.PUSH PRN (09:56)
--- NOTE | 2018-10-18 09:56 | P.PNOP ---
Subjective Interval history: s/p ORIF left distal femur and proximal tibia extubated. trached. stable Physical Exam Vital signs: Vital Signs 10/17/18 10:00 10/17/18 10:30 10/17/18 10:42 Temperature Pulse Rate 66 76 Respiratory Rate 16 16 16 Blood Pressure 158/76 H 182/86 H Pulse Oximetry 99 99 100 10/17/18 11:00 10/17/18 11:30 10/17/18 12:00 Temperature 98.2 F Pulse Rate 72 70 66 Respiratory Rate 16 16 16 Blood Pressure 169/79 H 183/88 H 190/88 H Pulse Oximetry 100 100 100 10/17/18 12:30 10/17/18 13:00 10/17/18 13:08 Temperature Pulse Rate 67 80 Respiratory Rate 16 16 16 Blood Pressure 179/85 H 192/90 H Pulse Oximetry 100 100 100 10/17/18 13:30 10/17/18 14:00 10/17/18 14:02 Temperature Pulse Rate 71 66 73 Respiratory Rate 16 16 14 Blood Pressure 191/89 H 201/96 H 207/97 H Pulse Oximetry 100 100 100 10/17/18 14:10 10/17/18 14:13 10/17/18 14:30 Temperature Pulse Rate 70 67 67 Respiratory Rate 5 L 14 16 Blood Pressure 200/85 H 194/94 H 191/91 H Pulse Oximetry 100 100 100 10/17/18 15:00 10/17/18 15:30 10/17/18 15:35 Temperature Pulse Rate 70 72 73 Respiratory Rate 16 15 16 Blood Pressure 195/90 H 215/94 H 200/98 H Pulse Oximetry 100 100 100 10/17/18 16:00 10/17/18 16:30 10/17/18 16:39 Temperature 98.2 F Pulse Rate 79 65 Respiratory Rate 20 16 16 Blood Pressure 209/94 H 194/90 H Pulse Oximetry 100 100 100 10/17/18 17:00 10/17/18 17:11 10/17/18 17:30 Temperature Pulse Rate 73 61 85 Respiratory Rate 16 16 18 Blood Pressure 205/95 H 187/80 H 212/102 H Pulse Oximetry 100 100 100 10/17/18 17:36 10/17/18 17:53 10/17/18 17:54 Temperature Pulse Rate 75 73 73 Respiratory Rate 16 16 16 Blood Pressure 195/90 H 191/88 H 183/87 H Pulse Oximetry 100 100 100 10/17/18 17:57 10/17/18 18:00 10/17/18 18:03 Temperature Pulse Rate 79 83 70 Respiratory Rate 16 9 L 26 H Blood Pressure 156/73 H 162/78 H 179/110 H Pulse Oximetry 100 99 98 10/17/18 18:05 10/17/18 18:06 10/17/18 18:08 Temperature Pulse Rate 70 74 76 Respiratory Rate 24 20 22 Blood Pressure 197/114 H 195/91 H 170/81 H Pulse Oximetry 99 96 99 10/17/18 18:09 10/17/18 18:12 10/17/18 18:15 Temperature Pulse Rate 74 69 65 Respiratory Rate 20 16 16 Blood Pressure 165/78 H 155/74 H 153/76 H Pulse Oximetry 98 95 95 10/17/18 18:18 10/17/18 19:00 10/17/18 19:15 Temperature Pulse Rate 62 66 74 Respiratory Rate 16 16 16 Blood Pressure 157/77 H 191/91 H 182/88 H Pulse Oximetry 95 98 98 10/17/18 19:30 10/17/18 19:45 10/17/18 20:00 Temperature 98.3 F Pulse Rate 74 79 70 Respiratory Rate 16 16 16 Blood Pressure 179/83 H 180/85 H 178/85 H Pulse Oximetry 98 98 99 10/17/18 20:18 10/17/18 20:31 10/17/18 21:00 Temperature Pulse Rate 75 87 Respiratory Rate 16 16 19 Blood Pressure 199/89 H 174/81 H Pulse Oximetry 98 99 98 10/17/18 21:31 10/17/18 22:00 10/17/18 22:31 Temperature Pulse Rate 93 H 94 H 98 H Respiratory Rate 19 18 17 Blood Pressure 176/82 H 166/79 H 163/82 H Pulse Oximetry 96 96 96 10/17/18 23:00 10/17/18 23:31 10/17/18 23:54 Temperature Pulse Rate 97 H 101 H Respiratory Rate 17 16 16 Blood Pressure 169/76 H 161/77 H Pulse Oximetry 97 95 96 10/18/18 00:00 10/18/18 00:31 10/18/18 01:00 Temperature 99.3 F 99.3 F 99.5 F Pulse Rate 100 H 93 H 95 H Respiratory Rate 15 16 16 Blood Pressure 157/74 H 148/71 H 151/72 H Pulse Oximetry 96 96 97 10/18/18 01:31 10/18/18 02:00 10/18/18 02:08 Temperature 99.5 F 99.5 F Pulse Rate 85 87 Respiratory Rate 16 16 16 Blood Pressure 138/67 144/69 H Pulse Oximetry 97 97 97 10/18/18 02:31 10/18/18 03:00 10/18/18 03:31 Temperature 99.3 F 99.3 F 99.3 F Pulse Rate 81 78 77 Respiratory Rate 16 16 16 Blood Pressure 143/68 H 128/61 130/64 Pulse Oximetry 98 98 98 10/18/18 04:00 10/18/18 04:08 10/18/18 04:31 Temperature 99.3 F 99.5 F Pulse Rate 86 86 Respiratory Rate 16 16 16 Blood Pressure 156/74 H 163/76 H Pulse Oximetry 98 98 98 10/18/18 05:00 10/18/18 05:31 10/18/18 06:00 Temperature 99.5 F 99.3 F 99.1 F Pulse Rate 80 75 81 Respiratory Rate 16 16 16 Blood Pressure 152/72 H 135/64 150/72 H Pulse Oximetry 97 98 98 10/18/18 06:31 10/18/18 09:41 Temperature 99.1 F Pulse Rate 72 Respiratory Rate 16 16 Blood Pressure 140/66 Pulse Oximetry 98 97 Intake & Output 10/17/18 10/18/18 10/18/18 18:59 06:59 18:59 Intake Total 1000 / 1000 850 / 850 Output Total 2900 / 2900 1350 / 1350 Balance -1900 / -1900 -500 / -500 Weight 105.5 kg Intake: IV 1000 / 1000 350 / 350 NS Inj 1,000 ML @ 40 mls/hr IV. 1000 / 1000 CONT .Q24H [facility] Rx#:[id number] Maxipime Inj 2,000 MG In NS Inj 100 / 100 100 ML @ 200 mls/hr IV.SIG Q24H [facility] Rx#:[id number] fentaNYL 10 mcg/mL Premix Drip 250 / 250 2,500 mcg In 250 ml @ 50 MCG/HR 5 mls/hr IV.SIG TITRATE PRN Rx #:[id number] Water Bolus Amount 500 / 500 Output: Urine Amount (Catheter) 2900 / 2900 1350 / 1350 Indwelling Temp Sensing 2900 / 2900 1350 / 1350 Catheter Other: Date of Last Bowel Movement 10/16/18 10/16/18 10/18/18 # Bowel Movements 1 Narrative: LLE: dressings clean and dry. intact. +CKS - Urinary Catheter Management Indwelling Temp Sensing Catheter Cath placed during this visit: yes Reason for continuing: Hourly intake/output Insertion date: 10/05/18 Insertion time: 20:00 Results - Labs CBC & Chem 7: 10/18/18 04:02 10/18/18 04:02 Laboratory Results - last 24 hr 10/17/18 10/17/18 10/18/18 12:44 23:48 04:02 WBC 8.1 RBC 2.97 L Hgb 9.2 L Hct 27.4 L MCV 92.4 MCH 30.8 MCHC 33.4 RDW 17.7 H Plt Count 244 MPV 8.1 Prelim Diff (Auto) Slide review pending Neut % (Auto) 71.7 H Lymph % (Auto) 11.7 Beadle % (Auto) 14.1 H Eos % (Auto) 2.0 Baso % (Auto) 0.5 Neut # (Auto) 5.8 Lymph # (Auto) 0.9 L Beadle # (Auto) 1.1 H Eos # (Auto) 0.2 Baso # (Auto) 0.0 WBC Differential Manual diff final Seg Neuts % (Manual) 80 H Lymphocytes % (Manual) 10 Monocytes % (Manual) 6 Metamyelocytes % (Man) 1 Myelocytes % (Man) 3 H Abs Neuts (Manual) 6.8 Nucleated RBCs/100 WBC 2 H Differential Comment . Platelet Estimate Normal Platelet Morphology Normal Puncture Site Patient Temperature O2 Saturation ABG pH ABG pCO2 ABG pO2 ABG HCO3 ABG O2 Content ABG Base Excess ABG Methemoglobin Austin Test Hemoglobin Carboxyhemoglobin O2 Delivery Device Vent Setting Inspired O2 Critical Value Sodium Potassium Chloride Carbon Dioxide Anion Gap BUN Creatinine Estimated GFR POC Glucose 109 113 H Random Glucose Calcium Total Bilirubin AST ALT Alkaline Phosphatase Total Protein Albumin Random Vancomycin 10/18/18 10/18/18 04:02 05:41 WBC RBC Hgb Hct MCV MCH MCHC RDW Plt Count MPV Prelim Diff (Auto) Neut % (Auto) Lymph % (Auto) Beadle % (Auto) Eos % (Auto) Baso % (Auto) Neut # (Auto) Lymph # (Auto) Beadle # (Auto) Eos # (Auto) Baso # (Auto) WBC Differential Seg Neuts % (Manual) Lymphocytes % (Manual) Monocytes % (Manual) Metamyelocytes % (Man) Myelocytes % (Man) Abs Neuts (Manual) Nucleated RBCs/100 WBC Differential Comment Platelet Estimate Platelet Morphology Puncture Site Left radial Patient Temperature 98.6 O2 Saturation 96 ABG pH 7.41 ABG pCO2 28 L ABG pO2 112 ABG HCO3 18 L ABG O2 Content 12.1 ABG Base Excess -6.1 L ABG Methemoglobin 1.4 Austin Test Present Hemoglobin 8.9 L Carboxyhemoglobin 1.5 O2 Delivery Device Vent Vent Setting Prvc/ac Inspired O2 35 Critical Value No Sodium 145 Potassium 4.3 Chloride 117 H Carbon Dioxide 17.3 L Anion Gap 11 BUN 69 H Creatinine 3.58 H Estimated GFR 17 L POC Glucose Random Glucose 104 Calcium 7.7 L Total Bilirubin 0.7 AST 34 ALT 9 L Alkaline Phosphatase 91 Total Protein 5.9 L Albumin 1.2 L Random Vancomycin 17.0 Microbiology 10/14/18 20:50 Sputum - Endotracheal Gram Stain - Final 10/14/18 20:50 Sputum - Endotracheal Sputum Culture - Preliminary gram negative rods - Imaging Impressions Chest X-Ray 10/18/18 06:00 CONCLUSION: Slight improvement in basilar airspace disease since October 17. Previous nasogastric tube has been removed. Assessment and Plan - Assessment and Plan 1) Left Open Distal Femur and Proximal Tibia Fxs Surgery: S/p removal of exfix with ORIF - POD 4 PLAN: -NWB -knee brace except for PT -PROM 0-90deg -no active leg lifts or quad sets -daily dressing changes -ortho surgeries complete at this time -DVT prophylaxis, per trauma team -f/u with Lu or VIRGILIO in 2 weeks
[2018-10-18] MEDS ORDERED: Sod Chloride 0.9% Inj 1,000 ML IV.CONT SCH (10:00)
[2018-10-18] MEDS: Carvedilol 12.5 MG Tablet PO SCH ×2 (10:48→22:04)
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
[2018-10-18] MEDS: Sodium Bicarbonate 8.4% Inj 50 MEQ in Sod Chloride 0.9% Inj 950 ML IV.CONT SCH (12:47)
[2018-10-18] MEDS: Gabapentin Liq 250 MG/5 ML UDC PO SCH ×2 (12:47→17:01)
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
[2018-10-18] MEDS ORDERED: Vancomycin Inj 1,500 MG in Sodium Chlor 0.9% Inj 500 ML IV.SIG ONE (16:00)
--- NOTE | 2018-10-18 16:48 | P.PNNP ---
Subjective Interval history: Patient opens eyes Physical Exam Vital signs: Vital Signs 10/17/18 17:00 10/17/18 17:11 10/17/18 17:30 Temperature Pulse Rate 73 61 85 Respiratory Rate 16 16 18 Blood Pressure 205/95 H 187/80 H 212/102 H Pulse Oximetry 100 100 100 10/17/18 17:36 10/17/18 17:53 10/17/18 17:54 Temperature Pulse Rate 75 73 73 Respiratory Rate 16 16 16 Blood Pressure 195/90 H 191/88 H 183/87 H Pulse Oximetry 100 100 100 10/17/18 17:57 10/17/18 18:00 10/17/18 18:03 Temperature Pulse Rate 79 83 70 Respiratory Rate 16 9 L 26 H Blood Pressure 156/73 H 162/78 H 179/110 H Pulse Oximetry 100 99 98 10/17/18 18:05 10/17/18 18:06 10/17/18 18:08 Temperature Pulse Rate 70 74 76 Respiratory Rate 24 20 22 Blood Pressure 197/114 H 195/91 H 170/81 H Pulse Oximetry 99 96 99 10/17/18 18:09 10/17/18 18:12 10/17/18 18:15 Temperature Pulse Rate 74 69 65 Respiratory Rate 20 16 16 Blood Pressure 165/78 H 155/74 H 153/76 H Pulse Oximetry 98 95 95 10/17/18 18:18 10/17/18 19:00 10/17/18 19:15 Temperature Pulse Rate 62 66 74 Respiratory Rate 16 16 16 Blood Pressure 157/77 H 191/91 H 182/88 H Pulse Oximetry 95 98 98 10/17/18 19:30 10/17/18 19:45 10/17/18 20:00 Temperature 98.3 F Pulse Rate 74 79 70 Respiratory Rate 16 16 16 Blood Pressure 179/83 H 180/85 H 178/85 H Pulse Oximetry 98 98 99 10/17/18 20:18 10/17/18 20:31 10/17/18 21:00 Temperature Pulse Rate 75 87 Respiratory Rate 16 16 19 Blood Pressure 199/89 H 174/81 H Pulse Oximetry 98 99 98 10/17/18 21:31 10/17/18 22:00 10/17/18 22:31 Temperature Pulse Rate 93 H 94 H 98 H Respiratory Rate 19 18 17 Blood Pressure 176/82 H 166/79 H 163/82 H Pulse Oximetry 96 96 96 10/17/18 23:00 10/17/18 23:31 10/17/18 23:54 Temperature Pulse Rate 97 H 101 H Respiratory Rate 17 16 16 Blood Pressure 169/76 H 161/77 H Pulse Oximetry 97 95 96 10/18/18 00:00 10/18/18 00:31 10/18/18 01:00 Temperature 99.3 F 99.3 F 99.5 F Pulse Rate 100 H 93 H 95 H Respiratory Rate 15 16 16 Blood Pressure 157/74 H 148/71 H 151/72 H Pulse Oximetry 96 96 97 10/18/18 01:31 10/18/18 02:00 10/18/18 02:08 Temperature 99.5 F 99.5 F Pulse Rate 85 87 Respiratory Rate 16 16 16 Blood Pressure 138/67 144/69 H Pulse Oximetry 97 97 97 10/18/18 02:31 10/18/18 03:00 10/18/18 03:31 Temperature 99.3 F 99.3 F 99.3 F Pulse Rate 81 78 77 Respiratory Rate 16 16 16 Blood Pressure 143/68 H 128/61 130/64 Pulse Oximetry 98 98 98 10/18/18 04:00 10/18/18 04:08 10/18/18 04:31 Temperature 99.3 F 99.5 F Pulse Rate 86 86 Respiratory Rate 16 16 16 Blood Pressure 156/74 H 163/76 H Pulse Oximetry 98 98 98 10/18/18 05:00 10/18/18 05:31 10/18/18 06:00 Temperature 99.5 F 99.3 F 99.1 F Pulse Rate 80 75 81 Respiratory Rate 16 16 16 Blood Pressure 152/72 H 135/64 150/72 H Pulse Oximetry 97 98 98 10/18/18 06:31 10/18/18 07:00 10/18/18 07:01 Temperature 99.1 F 99.1 F 99.1 F Pulse Rate 72 80 76 Respiratory Rate 16 16 16 Blood Pressure 140/66 164/75 H Pulse Oximetry 98 98 98 10/18/18 07:31 10/18/18 08:00 10/18/18 08:01 Temperature 99.1 F 99.1 F 99.1 F Pulse Rate 69 82 82 Respiratory Rate 16 16 16 Blood Pressure 147/67 H 179/81 H Pulse Oximetry 98 98 98 10/18/18 08:31 10/18/18 09:00 10/18/18 09:01 Temperature 99.1 F 99.1 F 99.1 F Pulse Rate 82 79 82 Respiratory Rate 16 16 16 Blood Pressure 179/83 H 171/78 H Pulse Oximetry 98 98 98 10/18/18 09:31 10/18/18 09:41 10/18/18 10:00 Temperature 99.3 F 99.3 F Pulse Rate 78 92 H Respiratory Rate 16 16 29 H Blood Pressure 170/78 H Pulse Oximetry 97 97 97 10/18/18 10:01 10/18/18 10:31 10/18/18 11:00 Temperature 99.3 F 99.1 F 99.0 F Pulse Rate 89 91 H 90 Respiratory Rate 29 H 7 L 8 L Blood Pressure 160/75 H 154/71 H Pulse Oximetry 97 93 L 96 10/18/18 11:01 10/18/18 11:31 10/18/18 12:00 Temperature 99.0 F 99.0 F 99.1 F Pulse Rate 89 99 H 102 H Respiratory Rate 8 L 11 L 17 Blood Pressure 164/74 H 173/81 H Pulse Oximetry 96 96 96 10/18/18 12:01 10/18/18 12:31 10/18/18 13:00 Temperature 99.1 F 99.1 F 99.1 F Pulse Rate 102 H 100 H 100 H Respiratory Rate 14 19 10 L Blood Pressure 157/75 H 153/72 H Pulse Oximetry 96 95 95 10/18/18 13:01 10/18/18 13:31 10/18/18 13:38 Temperature 99.1 F 99.1 F Pulse Rate 100 H 95 H Respiratory Rate 17 12 Blood Pressure 167/79 H 130/60 Pulse Oximetry 95 95 95 10/18/18 14:00 10/18/18 14:01 Temperature 99.1 F 99.1 F Pulse Rate 96 H 96 H Respiratory Rate 22 30 H Blood Pressure 144/67 H Pulse Oximetry 95 95 Intake & Output 10/17/18 10/18/18 10/18/18 18:59 06:59 18:59 Intake Total 1000 / 1000 850 / 850 Output Total 2900 / 2900 1350 / 1350 Balance -1900 / -1900 -500 / -500 Weight 105.5 kg Intake: IV 1000 / 1000 350 / 350 NS Inj 1,000 ML @ 40 mls/hr IV. 1000 / 1000 CONT .Q24H [facility] Rx#:[id number] Maxipime Inj 2,000 MG In NS Inj 100 / 100 100 ML @ 200 mls/hr IV.SIG Q24H [facility] Rx#:[id number] fentaNYL 10 mcg/mL Premix Drip 250 / 250 2,500 mcg In 250 ml @ 50 MCG/HR 5 mls/hr IV.SIG TITRATE PRN Rx #:[id number] Water Bolus Amount 500 / 500 Output: Urine Amount (Catheter) 2900 / 2900 1350 / 1350 Indwelling Temp Sensing 2900 / 2900 1350 / 1350 Catheter Other: Date of Last Bowel Movement 10/16/18 10/16/18 10/18/18 # Bowel Movements 1 Narrative: GENERAL: Well-nourished, well-developed patient. SKIN: Warm and dry. HEAD: Normocephalic. EYES: No scleral icterus. No injection or drainage. NECK: Supple, status post trach. CARDIOVASCULAR: Regular rate and rhythm without murmurs, gallops, or rubs. RESPIRATORY: Breath sounds equal bilaterally. No accessory muscle use. GASTROINTESTINAL: Abdomen soft, non-tender, nondistended. EXTREMITIES: As above NEUROLOGICAL: Within the right. - Urinary Catheter Management Indwelling Temp Sensing Catheter Cath placed during this visit: yes Reason for continuing: Hourly intake/output Insertion date: 10/05/18 Insertion time: 20:00 Assessment and Plan - Assessment (1) Acute kidney injury Code(s): N17.9 - Acute kidney failure, unspecified Status: Acute Plan: Acute kidney injury with admission creatinine of 3.49 and then had some improvement down to 2.82 but now has gradually increasing at 3.29. Baseline creatinine is not available. May have underlying chronic kidney disease. Worsening renal indices could be related to diuresis Maintain strict I+O, Has indwelling Mehta catheter Has generalized edema good urine output with water flushes IV fluid with sodium bicarbonate at 42 cc an hour Will follow urinary output and bmp. Creatinine increase slightly. Continue antibiotics. Creatinine stable at 3.58. (2) Hypertension Code(s): I10 - Essential (primary) hypertension Status: Acute Plan: Well controlled will monitor.
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
[2018-10-18] MEDS: levoFLOXacin 250 MG Tablet PO SCH (18:35)
[2018-10-19] MEDS: Pantoprazole Inj 40 MG Vial IV.PUSH SCH ×2 (00:07→23:50)
[2018-10-19] MEDS: Oral Hygiene Kit OROPHARYNG SCH ×5 (00:08→23:50)
[2018-10-19] MEDS: Metoprolol Inj 5 MG/5 ML Vial IV.PUSH SCH ×4 (02:04→20:45)
[2018-10-19] MEDS: Artificial Tears Opth Drops 15 ML Bottle EACH EYE SCH ×6 (02:05→23:47)
[2018-10-19 05:31] LABS: ABG Base Excess -6.1 mmol/L (-2-2); ABG PCO2 33 mmHg (38-42); ABG PO2 117 mmHg (61-120)
[2018-10-19 05:40] LABS: Hematocrit 26.6 % (39.0-51.0); Hemoglobin 9.2 gm/dL (13.0-17.0); Mean Corpuscular HGB Conc 34.4 % (32.0-36.0); Mean Corpuscular Hemoglobin 31.3 pg (27.0-34.0); Mean Platelet Volume 7.6 fL (7.0-11.0); Platelet Count 313 th/mm3 (150-450); Red Blood Count 2.93 mil/mm3 (4.50-5.90); Red Cell Distribution Width 17.4 % (11.6-17.2); White Blood Count 10.1 th/mm3 (4.0-11.0)
[2018-10-19 06:00] LABS: Calcium 7.8 mg/dL (8.5-10.1); Carbon Dioxide 19.1 meq/L (21.0-32.0); Potassium 4.1 meq/L (3.5-5.1)
[2018-10-19 06:02] LABS: Vancomycin,Random 32.2 Comment
[2018-10-19] MEDS: Sodium Bicarbonate 8.4% Inj 50 MEQ in Sod Chloride 0.9% Inj 950 ML IV.CONT SCH ×2 (10:18→13:27)
[2018-10-19] MEDS: Calcium/Vitamin D 250/125 MG Tablet PO SCH ×3 (10:19→17:43)
[2018-10-19] MEDS: Heparin - SQ 10,000 UNITS/ML Vial SQ SCH ×2 (10:19→20:46)
[2018-10-19] MEDS: Carvedilol 12.5 MG Tablet PO SCH ×2 (10:19→20:46)
[2018-10-19] MEDS: Chlorhexidine 0.12% Oral Kit 15 ML UDC OROPHARYNG SCH ×2 (10:20→20:46)
[2018-10-19] MEDS: Sodium Chloride 0.9% 2 ML Flush BID IV.FLUSH SCH ×2 (10:22→20:47)
[2018-10-19] MEDS: Senna/Docusate Sodium 8.6/50 MG Tablet PO SCH ×2 (10:22→20:47)
[2018-10-19] MEDS: Gabapentin Liq 250 MG/5 ML UDC PO SCH ×3 (10:26→17:42)
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
--- NOTE | 2018-10-19 14:10 | P.PNNP ---
Subjective Interval history: Patient is stable status post trach Physical Exam Vital signs: Vital Signs 10/18/18 14:31 10/18/18 15:00 10/18/18 15:01 Temperature 99.1 F 99.1 F 99.1 F Pulse Rate 95 H 94 H 92 H Respiratory Rate 27 H 27 H 27 H Blood Pressure 137/69 136/64 Pulse Oximetry 96 95 95 10/18/18 15:31 10/18/18 16:00 10/18/18 16:01 Temperature 99.0 F 98.8 F 98.8 F Pulse Rate 91 H 89 89 Respiratory Rate 4 L 0 L 0 L Blood Pressure 139/66 142/68 H Pulse Oximetry 96 97 97 10/18/18 16:31 10/18/18 17:00 10/18/18 17:01 Temperature 98.8 F 98.4 F 98.4 F Pulse Rate 89 85 84 Respiratory Rate 1 L 29 H 29 H Blood Pressure 142/78 H 130/62 Pulse Oximetry 97 96 96 10/18/18 17:31 10/18/18 18:00 10/18/18 18:01 Temperature 98.2 F 98.1 F 98.1 F Pulse Rate 86 83 80 Respiratory Rate 29 H 48 H 38 H Blood Pressure 126/63 129/62 Pulse Oximetry 95 97 97 10/18/18 19:00 10/18/18 19:01 10/18/18 19:31 Temperature 97.9 F 97.9 F 97.9 F Pulse Rate 80 76 79 Respiratory Rate 32 H 24 27 H Blood Pressure 127/61 131/64 Pulse Oximetry 97 97 99 10/18/18 19:37 10/18/18 20:00 10/18/18 20:01 Temperature 97.9 F 97.9 F Pulse Rate 72 70 Respiratory Rate 21 30 H 24 Blood Pressure 132/63 Pulse Oximetry 98 97 97 10/18/18 20:31 10/18/18 21:00 10/18/18 21:01 Temperature 97.9 F 97.9 F 97.9 F Pulse Rate 80 78 77 Respiratory Rate 23 26 H 32 H Blood Pressure 159/72 H 145/67 H Pulse Oximetry 99 99 99 10/18/18 21:31 10/18/18 22:00 10/18/18 22:01 Temperature 98.1 F 98.1 F 98.1 F Pulse Rate 81 79 78 Respiratory Rate 26 H 24 31 H Blood Pressure 143/68 H 160/74 H Pulse Oximetry 99 100 100 10/18/18 22:31 10/18/18 23:00 10/18/18 23:01 Temperature 98.1 F 98.2 F 98.2 F Pulse Rate 74 74 72 Respiratory Rate 23 22 21 Blood Pressure 159/72 H 144/68 H Pulse Oximetry 100 100 100 10/18/18 23:23 10/18/18 23:31 10/19/18 00:00 Temperature 98.4 F 98.4 F Pulse Rate 79 69 Respiratory Rate 23 22 20 Blood Pressure 157/70 H Pulse Oximetry 100 100 100 10/19/18 00:01 10/19/18 00:31 10/19/18 01:00 Temperature 99.0 F 98.2 F 98.2 F Pulse Rate 69 83 80 Respiratory Rate 20 21 23 Blood Pressure 133/63 152/71 H Pulse Oximetry 100 100 100 10/19/18 01:01 10/19/18 01:31 10/19/18 02:00 Temperature 98.2 F 98.1 F 98.1 F Pulse Rate 81 82 79 Respiratory Rate 24 28 H 25 H Blood Pressure 163/74 H 156/72 H 164/77 H Pulse Oximetry 99 97 98 10/19/18 02:01 10/19/18 02:31 10/19/18 03:00 Temperature 97.9 F 98.1 F 98.1 F Pulse Rate 80 75 83 Respiratory Rate 26 H 21 20 Blood Pressure 164/77 H 153/72 H 167/80 H Pulse Oximetry 98 98 99 10/19/18 03:01 10/19/18 03:31 10/19/18 03:35 Temperature 98.1 F 98.1 F Pulse Rate 80 81 Respiratory Rate 18 22 27 H Blood Pressure 167/80 H 167/78 H Pulse Oximetry 99 99 99 10/19/18 04:00 10/19/18 04:01 10/19/18 04:31 Temperature 98.1 F 98.1 F 98.1 F Pulse Rate 80 83 79 Respiratory Rate 21 21 22 Blood Pressure 166/79 H 162/76 H Pulse Oximetry 99 99 10/19/18 05:00 10/19/18 05:01 10/19/18 05:31 Temperature 97.9 F 97.9 F 97.9 F Pulse Rate 78 77 78 Respiratory Rate 23 22 21 Blood Pressure 174/79 H 172/81 H Pulse Oximetry 100 100 99 10/19/18 06:00 10/19/18 06:01 10/19/18 06:31 Temperature 97.9 F 97.9 F 97.7 F Pulse Rate 77 78 79 Respiratory Rate 21 22 21 Blood Pressure 177/83 H 168/79 H Pulse Oximetry 99 99 99 10/19/18 07:00 10/19/18 07:01 10/19/18 07:31 Temperature 97.7 F 97.7 F 97.7 F Pulse Rate 77 77 78 Respiratory Rate 22 22 21 Blood Pressure 168/77 H 174/79 H Pulse Oximetry 99 99 100 10/19/18 08:00 10/19/18 08:01 10/19/18 08:27 Temperature 97.5 F L 97.5 F L 97.7 F Pulse Rate 79 78 80 Respiratory Rate 22 25 H 25 H Blood Pressure 197/87 H 177/83 H Pulse Oximetry 100 100 10/19/18 08:31 10/19/18 09:00 10/19/18 09:38 Temperature 97.7 F Pulse Rate 76 80 Respiratory Rate 21 28 H 24 Blood Pressure 172/83 H Pulse Oximetry 100 10/19/18 10:00 10/19/18 10:01 10/19/18 10:31 Temperature Pulse Rate 84 86 83 Respiratory Rate 30 H 30 H 31 H Blood Pressure 188/83 H 190/86 H Pulse Oximetry 98 98 99 10/19/18 11:00 10/19/18 12:42 Temperature Pulse Rate 75 Respiratory Rate 20 22 Blood Pressure Pulse Oximetry 98 99 Intake & Output 10/18/18 10/19/18 10/19/18 18:59 06:59 18:59 Intake Total 866 / 866 1064 / 1064 1000 / 1000 Output Total 900 / 900 1300 / 1300 Balance -34 / -34 -236 / -236 1000 / 1000 Weight 103.5 kg Intake: IV 1000 / 1000 Sodium Bicarbonate 8.4% Inj 50 1000 / 1000 MEQ In NS Inj 950 ML @ 42 mls/ hr IV.CONT .[id number] [facility] Rx#: [id number] Tube Feeding 376 / 376 604 / 604 Tube Irrigant 90 / 90 Water Bolus Amount 400 / 400 460 / 460 Output: Urine Amount (Catheter) 900 / 900 1300 / 1300 Indwelling Temp Sensing 900 / 900 1300 / 1300 Catheter Other: Date of Last Bowel Movement 10/18/18 10/19/18 # Incontinent Bowel Movements 2 2 Narrative: GENERAL: Well-nourished, well-developed status post right patient. SKIN: Warm and dry. HEAD: Normocephalic. EYES: No scleral icterus. No injection or drainage. NECK: Supple, trachea midline. No JVD or lymphadenopathy. CARDIOVASCULAR: Regular rate and rhythm without murmurs, gallops, or rubs. RESPIRATORY: Breath sounds equal bilaterally. No accessory muscle use. GASTROINTESTINAL: Abdomen soft, non-tender, nondistended. EXTREMITIES: Dressed NEUROLOGICAL: Patient being weaned off ventilator - Urinary Catheter Management Indwelling Temp Sensing Catheter Cath placed during this visit: yes Reason for continuing: Hourly intake/output Insertion date: 10/05/18 Insertion time: 20:00 Assessment and Plan - Assessment (1) Acute kidney injury Code(s): N17.9 - Acute kidney failure, unspecified Status: Acute Plan: Acute kidney injury with admission creatinine of 3.49 and then had some improvement down to 2.82 but now has gradually increasing at 3.5. Baseline creatinine is not available. May have underlying chronic kidney disease. Worsening renal indices could be related to diuresis Maintain strict I+O, Has indwelling Mehta catheter Has generalized edema good urine output with water flushes IV fluid with sodium bicarbonate at 42 cc an hour Will follow urinary output and bmp. Creatinine increase slightly. Continue antibiotics. Creatinine stable at 3.5. Continue monitor follow Dr. Welsh to follow-up (2) Hypertension Code(s): I10 - Essential (primary) hypertension Status: Acute Plan: Well controlled will monitor.
[2018-10-20] MEDS: Metoprolol Inj 5 MG/5 ML Vial IV.PUSH SCH ×4 (01:39→20:34)
[2018-10-20] MEDS: Artificial Tears Opth Drops 15 ML Bottle EACH EYE SCH ×6 (01:39→21:37)
[2018-10-20] MEDS: hydrALAZINE HCl Inj 20 MG/ML Vial IV.PUSH PRN ×2 (01:43→21:35)
[2018-10-20 04:55] LABS: Calcium 7.8 mg/dL (8.5-10.1); Carbon Dioxide 16.4 meq/L (21.0-32.0); Potassium 4.6 meq/L (3.5-5.1)
[2018-10-20] MEDS: Oral Hygiene Kit OROPHARYNG SCH ×4 (05:21→23:30)
[2018-10-20 06:01] LABS: Hematocrit 25.7 % (39.0-51.0); Hemoglobin 8.6 gm/dL (13.0-17.0); Mean Corpuscular HGB Conc 33.6 % (32.0-36.0); Mean Corpuscular Hemoglobin 31.1 pg (27.0-34.0); Mean Corpuscular Volume 92.6 fL (80.0-100.0); Mean Platelet Volume 7.5 fL (7.0-11.0); Platelet Count 302 th/mm3 (150-450); Red Blood Count 2.77 mil/mm3 (4.50-5.90); Red Cell Distribution Width 17.1 % (11.6-17.2)
--- NOTE | 2018-10-20 06:56 | P.PNOP ---
Subjective Interval history: Patient is trached. Opens eyes but does not follow commands Physical Exam Vital signs: Vital Signs 10/19/18 07:00 10/19/18 07:01 10/19/18 07:31 Temperature 97.7 F 97.7 F 97.7 F Pulse Rate 77 77 78 Respiratory Rate 22 22 21 Blood Pressure 168/77 H 174/79 H Pulse Oximetry 99 99 100 10/19/18 08:00 10/19/18 08:01 10/19/18 08:27 Temperature 97.5 F L 97.5 F L 97.7 F Pulse Rate 79 78 80 Respiratory Rate 22 25 H 25 H Blood Pressure 197/87 H 177/83 H Pulse Oximetry 100 100 10/19/18 08:31 10/19/18 09:00 10/19/18 09:38 Temperature 97.7 F Pulse Rate 76 80 Respiratory Rate 21 28 H 24 Blood Pressure 172/83 H Pulse Oximetry 100 10/19/18 10:00 10/19/18 10:01 10/19/18 10:31 Temperature Pulse Rate 84 86 83 Respiratory Rate 30 H 30 H 31 H Blood Pressure 188/83 H 190/86 H Pulse Oximetry 98 98 99 10/19/18 11:00 10/19/18 11:01 10/19/18 11:31 Temperature Pulse Rate 75 76 79 Respiratory Rate 20 20 20 Blood Pressure 143/67 H 146/67 H Pulse Oximetry 98 98 98 10/19/18 12:00 10/19/18 12:01 10/19/18 12:31 Temperature Pulse Rate 80 79 73 Respiratory Rate 21 20 20 Blood Pressure 136/65 135/65 Pulse Oximetry 98 99 98 10/19/18 12:42 10/19/18 13:00 10/19/18 13:01 Temperature Pulse Rate 65 66 Respiratory Rate 22 18 19 Blood Pressure 136/64 Pulse Oximetry 99 99 99 10/19/18 13:31 10/19/18 14:00 10/19/18 14:01 Temperature Pulse Rate 65 64 65 Respiratory Rate 20 18 17 Blood Pressure 128/61 136/67 Pulse Oximetry 99 100 100 10/19/18 14:31 10/19/18 15:00 10/19/18 16:00 Temperature 98.9 F Pulse Rate 69 68 66 Respiratory Rate 19 18 16 Blood Pressure 125/66 Pulse Oximetry 98 97 98 10/19/18 17:00 10/19/18 18:00 10/19/18 19:00 Temperature Pulse Rate 79 88 90 Respiratory Rate 33 H 34 H 41 H Blood Pressure Pulse Oximetry 99 96 91 L 10/19/18 20:00 10/19/18 20:38 10/19/18 21:00 Temperature 98.7 F Pulse Rate 92 H 86 77 Respiratory Rate 28 H 30 H 22 Blood Pressure 172/81 H Pulse Oximetry 93 L 98 97 10/19/18 21:04 10/19/18 21:25 10/19/18 22:00 Temperature Pulse Rate 80 85 81 Respiratory Rate 23 Blood Pressure 152/75 H 153/73 H Pulse Oximetry 99 98 100 10/19/18 22:25 10/19/18 22:37 10/19/18 23:00 Temperature Pulse Rate 80 86 Respiratory Rate 20 Blood Pressure 163/74 H Pulse Oximetry 100 100 100 10/19/18 23:15 10/19/18 23:26 10/20/18 00:00 Temperature 98.7 F Pulse Rate 78 80 81 Respiratory Rate 16 22 Blood Pressure 161/77 H Pulse Oximetry 99 99 10/20/18 00:26 10/20/18 01:00 10/20/18 01:20 Temperature Pulse Rate 78 73 Respiratory Rate 35 H 45 H 19 Blood Pressure 161/81 H Pulse Oximetry 100 100 100 10/20/18 01:26 10/20/18 02:00 10/20/18 02:04 Temperature Pulse Rate 75 84 86 Respiratory Rate 49 H 30 H 26 H Blood Pressure 175/84 H 157/72 H Pulse Oximetry 100 100 100 10/20/18 02:25 10/20/18 03:00 10/20/18 03:25 Temperature Pulse Rate 87 92 H 86 Respiratory Rate 31 H 47 H 55 H Blood Pressure 154/71 H 147/70 H Pulse Oximetry 99 99 98 10/20/18 04:00 10/20/18 04:10 10/20/18 04:25 Temperature 100.3 F H Pulse Rate 85 86 Respiratory Rate 62 H 18 68 H Blood Pressure 147/70 H Pulse Oximetry 98 100 99 10/20/18 05:00 10/20/18 05:25 10/20/18 06:00 Temperature Pulse Rate 90 85 76 Respiratory Rate 24 88 H Blood Pressure 156/75 H Pulse Oximetry 99 100 98 10/20/18 06:25 Temperature Pulse Rate 71 Respiratory Rate 82 H Blood Pressure 133/65 Pulse Oximetry 99 Intake & Output 10/19/18 10/19/18 10/20/18 06:59 18:59 06:59 Intake Total 1164 / 1164 2064 / 2064 1214 / 1214 Output Total 1300 / 1300 1300 / 1300 1325 / 1325 Balance -136 / -136 764 / 764 -111 / -111 Weight 103.5 kg 100.9 kg Intake: IV 100 / 100 1000 / 1000 100 / 100 Sodium Bicarbonate 8.4% Inj 50 1000 / 1000 MEQ In NS Inj 950 ML @ 42 mls/ hr IV.CONT .[id number] [facility] Rx#: [id number] Maxipime Inj 2,000 MG In NS Inj 100 / 100 100 / 100 100 ML @ 200 mls/hr IV.SIG Q24H [facility] Rx#:[id number] Tube Feeding 604 / 604 604 / 604 534 / 534 Water Bolus Amount 460 / 460 460 / 460 580 / 580 Output: Urine Amount (Catheter) 1300 / 1300 1300 / 1300 1325 / 1325 Indwelling Temp Sensing 1300 / 1300 1300 / 1300 1325 / 1325 Catheter Other: Date of Last Bowel Movement 10/19/18 10/19/18 10/20/18 # Incontinent Bowel Movements 2 2 1 Narrative: Left lower extremity with clean dry dressings intact. Compartments semi-soft. Intact distal pulses with good capillary refills. Patient does not follow commands for sensation or for movement - Urinary Catheter Management Indwelling Temp Sensing Catheter Cath placed during this visit: yes Reason for continuing: Hourly intake/output Insertion date: 10/05/18 Insertion time: 20:00 Results - Labs CBC & Chem 7: 10/20/18 04:14 10/20/18 04:14 Laboratory Results - last 24 hr 10/20/18 10/20/18 04:14 04:14 WBC 8.0 RBC 2.77 L Hgb 8.6 L Hct 25.7 L MCV 92.6 MCH 31.1 MCHC 33.6 RDW 17.1 Plt Count 302 MPV 7.5 Sodium 145 Potassium 4.6 Chloride 119 H Carbon Dioxide 16.4 L Anion Gap 10 BUN 72 H Creatinine 3.22 H Estimated GFR 20 L Random Glucose 127 H Calcium 7.8 L Assessment and Plan - Assessment and Plan 1) Left Open Distal Femur and Proximal Tibia Fxs Surgery: S/p removal of exfix with ORIF - POD 6 PLAN: -NWB -knee brace except for PT -PROM 0-90deg -no active leg lifts or quad sets -daily dressing changes -ortho surgeries complete at this time -DVT prophylaxis, per trauma team -f/u with [facility] or [facility] in 2 weeks
--- NOTE | 2018-10-20 08:11 | P.PNNPSY ---
- Behavior Intact: Impulsive/agitated - Cognitive Severe: Cognitive, Attention/concentration, Confused/orientation, Insight/ awareness, Judgment/problem solving, Memory - Psychosocial Mild: Psychosocial, Family/other adjustment, Realistic expectation - Progress Notes/Response to Treatment Contents of Sessions: Adjustment, Level of consciousness Time with Patient: 30 minutes Premorbid Psychological Status: Premorbid Cognitive, Emotional and Behavioral Status: Stable. 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 The patient has no known prior psychiatric difficulties, as described above. Substance abuse history is unknown. Behavioral Reactions of Patient and Family/Support System: Stable. The patient s family is experiencing ongoing issues of adjustment given the nature of the injury, and this aspect of recovery will require ongoing monitoring. Emotional/Behavioral Status of Patient and Family/Support System: Stable. Pertinent issues, if appropriate to this patients clinical care, are described in detail above. Maximizing Acute Care Outcome: It is recommended that the patient be monitored for emergent behavioral impulsivity as the medical condition evolves. This patients neuropathological challenges may limit rehabilitation potential going forward, and these challenges will require specialized therapeutic skills to maximize outcome. Additionally, the patients family is experiencing ongoing issues of adjustment given the traumatic nature of the injury, and they may benefit from ongoing psychological assistance. At this point in the recovery process, the patient does not have cognitive capacity as the patient is unable to understand a situation and its likely consequences, nor is the patient able to manipulate information rationally. He was sedated and intubated, and as such capacity was unable to be determined. Cognitive capacity will be assessed throughout the recovery process. Anticipated Problems: Ongoing areas of concern will include behavioral impulsivity, lack of insight and judgment, which is expected to improve with time and treatment. Treatment Plan: This clinician will continue to follow with you throughout the course of this patients critical care treatment, and I will be available to meet with the patients family/support system to facilitate their understanding and the ongoing care of their family member. The goals of neuropsychological intervention shall be both educational and supportive to the family/support system as is deemed clinically appropriate. [place] COG Scale: Level III Disinhibition Score: 14.00 Aggression Score: 14.00 Lability Score: 14.00 Agitated Behavior Total Score: 14 Impression: 62 year old male s/p complicated mild TBI 2T [facility] [place]. Progress Note Narrative: PTD 15. The patient is off sedation and still only eyes open, intermittent following. ABS is 14 (14,14,14). No agitation/restlessness and remains around [place] III. Disposition is to transfer to LTAC. I will follow. - Diagnosis (1) Mild major neurocognitive disorder as late effect of traumatic brain injury without behavioral disturbance Status: Acute
[2018-10-20] MEDS: Gabapentin Liq 250 MG/5 ML UDC PO SCH ×3 (08:57→17:04)
[2018-10-20] MEDS: Senna/Docusate Sodium 8.6/50 MG Tablet PO SCH ×2 (08:58→20:35)
[2018-10-20] MEDS: Heparin - SQ 10,000 UNITS/ML Vial SQ SCH ×2 (08:59→17:04)
--- NOTE | 2018-10-20 08:59 | P.PNNS ---
Subjective Interval history: Pt awake and alert. Appears to have some cognitive deficits as he does not follow readily but does follow with delayed response. Not mouthing words. Trach in place. Physical Exam Vital signs: Vital Signs 10/19/18 09:00 10/19/18 09:38 10/19/18 10:00 Temperature Pulse Rate 80 84 Respiratory Rate 28 H 24 30 H Blood Pressure Pulse Oximetry 98 10/19/18 10:01 10/19/18 10:31 10/19/18 11:00 Temperature Pulse Rate 86 83 75 Respiratory Rate 30 H 31 H 20 Blood Pressure 188/83 H 190/86 H Pulse Oximetry 98 99 98 10/19/18 11:01 10/19/18 11:31 10/19/18 12:00 Temperature Pulse Rate 76 79 80 Respiratory Rate 20 20 21 Blood Pressure 143/67 H 146/67 H Pulse Oximetry 98 98 98 10/19/18 12:01 10/19/18 12:31 10/19/18 12:42 Temperature Pulse Rate 79 73 Respiratory Rate 20 20 22 Blood Pressure 136/65 135/65 Pulse Oximetry 99 98 99 10/19/18 13:00 10/19/18 13:01 10/19/18 13:31 Temperature Pulse Rate 65 66 65 Respiratory Rate 18 19 20 Blood Pressure 136/64 128/61 Pulse Oximetry 99 99 99 10/19/18 14:00 10/19/18 14:01 10/19/18 14:31 Temperature Pulse Rate 64 65 69 Respiratory Rate 18 17 19 Blood Pressure 136/67 125/66 Pulse Oximetry 100 100 98 10/19/18 15:00 10/19/18 16:00 10/19/18 17:00 Temperature 98.9 F Pulse Rate 68 66 79 Respiratory Rate 18 16 33 H Blood Pressure Pulse Oximetry 97 98 99 10/19/18 18:00 10/19/18 19:00 10/19/18 20:00 Temperature 98.7 F Pulse Rate 88 90 92 H Respiratory Rate 34 H 41 H 28 H Blood Pressure Pulse Oximetry 96 91 L 93 L 10/19/18 20:38 10/19/18 21:00 10/19/18 21:04 Temperature Pulse Rate 86 77 80 Respiratory Rate 30 H 22 23 Blood Pressure 172/81 H 152/75 H Pulse Oximetry 98 97 99 10/19/18 21:25 10/19/18 22:00 10/19/18 22:25 Temperature Pulse Rate 85 81 80 Respiratory Rate Blood Pressure 153/73 H 163/74 H Pulse Oximetry 98 100 100 10/19/18 22:37 10/19/18 23:00 10/19/18 23:15 Temperature Pulse Rate 86 78 Respiratory Rate 20 16 Blood Pressure Pulse Oximetry 100 100 10/19/18 23:26 10/20/18 00:00 10/20/18 00:26 Temperature 98.7 F Pulse Rate 80 81 78 Respiratory Rate 22 35 H Blood Pressure 161/77 H 161/81 H Pulse Oximetry 99 99 100 10/20/18 01:00 10/20/18 01:20 10/20/18 01:26 Temperature Pulse Rate 73 75 Respiratory Rate 45 H 19 49 H Blood Pressure 175/84 H Pulse Oximetry 100 100 100 10/20/18 02:00 10/20/18 02:04 10/20/18 02:25 Temperature Pulse Rate 84 86 87 Respiratory Rate 30 H 26 H 31 H Blood Pressure 157/72 H 154/71 H Pulse Oximetry 100 100 99 10/20/18 03:00 10/20/18 03:25 10/20/18 04:00 Temperature 100.3 F H Pulse Rate 92 H 86 85 Respiratory Rate 47 H 55 H 62 H Blood Pressure 147/70 H Pulse Oximetry 99 98 98 10/20/18 04:10 10/20/18 04:25 10/20/18 05:00 Temperature Pulse Rate 86 90 Respiratory Rate 18 68 H Blood Pressure 147/70 H Pulse Oximetry 100 99 99 10/20/18 05:25 10/20/18 06:00 10/20/18 06:25 Temperature Pulse Rate 85 76 71 Respiratory Rate 24 88 H 82 H Blood Pressure 156/75 H 133/65 Pulse Oximetry 100 98 99 10/20/18 07:41 Temperature Pulse Rate Respiratory Rate 21 Blood Pressure Pulse Oximetry 99 Intake & Output 10/19/18 10/20/18 10/20/18 18:59 06:59 18:59 Intake Total 2064 / 2064 1214 / 1214 Output Total 1300 / 1300 1325 / 1325 Balance 764 / 764 -111 / -111 Weight 100.9 kg Intake: IV 1000 / 1000 100 / 100 Sodium Bicarbonate 8.4% Inj 50 1000 / 1000 MEQ In NS Inj 950 ML @ 42 mls/ hr IV.CONT .[id number] [facility] Rx#: [id number] Maxipime Inj 2,000 MG In NS Inj 100 / 100 100 ML @ 200 mls/hr IV.SIG Q24H [facility] Rx#:[id number] Tube Feeding 604 / 604 534 / 534 Water Bolus Amount 460 / 460 580 / 580 Output: Urine Amount (Catheter) 1300 / 1300 1325 / 1325 Indwelling Temp Sensing 1300 / 1300 1325 / 1325 Catheter Other: Date of Last Bowel Movement 10/19/18 10/20/18 # Incontinent Bowel Movements 2 1 - Constitutional no acute distress, obese, cooperative - Routine HEENT Exam Head: Absent: atraumatic (Abrasions above right eyebrow and medical left eyebrow clean and dry.) Eye: Present: PERRL (Pupils 3mm bilaterally reactive bilaterally.) ENT: Present: oropharynx clear - Routine Neck Exam Present: trachea midline (Trach in place on CPAP.) - Routine Respiratory Exam Present: patient mechanically ventilated (On CPAP.), CTA bilaterally. Absent: respiratory distress, rhonchi, wheezes - Routine Cardiovascular Exam Present: RRR, S1, S2. Absent: murmur - Routine Abdominal Exam Present: soft, normoactive bowel sounds. Absent: distended, firm - Routine Skin Exam Absent: cyanosis, erythema - Routine Neurological Exam Present: alert, moving all extremities (LLE in orthopedic brace and some limitation with movement there.) Intermittently follows some commands. Delayed response. Not mouthing responses to questions. Pupils equal 3mm bilaterally reactive bilaterally. - Detailed Neurological Exam: Coma Scale Eye Opening: Spontaneous Verbal Response: Sounds Motor Response: Obey commands (Some intermittently.) Storm Coma Scale Total: 12 - Routine Psychiatric Exam Present: cooperative. Absent: normal thought process, good insight, good judgment, anxious, agitated - Urinary Catheter Management Indwelling Temp Sensing Catheter Cath placed during this visit: yes Reason for continuing: Hourly intake/output Insertion date: 10/05/18 Insertion time: 20:00 Assessment and Plan - Assessment (1) CHI (closed head injury) Code(s): S09.90XA - Unspecified injury of head, initial encounter Status: Acute Qualifiers: Encounter type: initial encounter Qualified Code(s): S09.90XA - Unspecified injury of head, initial encounter (2) Acute subdural hematoma Code(s): S06.5X9A - Traumatic subdural hemorrhage with loss of consciousness of unspecified duration, initial encounter Status: Acute (3) Open fracture Code(s): T14.8XXA - Other injury of unspecified body region, initial encounter Status: Acute (4) Respiratory failure after trauma Code(s): J96.90 - Respiratory failure, unspecified, unspecified whether with hypoxia or hypercapnia Status: Acute (5) Mild major neurocognitive disorder as late effect of traumatic brain injury without behavioral disturbance Code(s): S06.9X9S - Unspecified intracranial injury with loss of consciousness of unspecified duration, sequela; F02.80 - Dementia in other diseases classified elsewhere without behavioral disturbance Status: Acute - Plan Chest X-Ray 10/05/18 00:00 CONCLUSION: Endotracheal tube tip in right mainstem bronchus. This should be withdrawn about 4 cm Tibia/Fibula X-Ray 10/05/18 00:00 CONCLUSION: Comminuted fractures proximal tibia and fibula. Distal tibia and fibula. Intact. Chest X-Ray 10/05/18 18:34 CONCLUSION: Endotracheal tube and nasogastric tube in good position. Bilateral rib fractures without pneumothorax. Basilar atelectasis. There is some widening of the superior mediastinum. See chest CT report. Pelvis X-Ray 10/05/18 18:34 CONCLUSION: No acute fracture. Abdomen/Pelvis CT 10/05/18 18:42 CONCLUSION: 1. Avulsion endplate fractures of T10 and T11 as above with widening of the anterior interspace likely from disruption of the annulus fibrosis. Consider MRI for further evaluation of disc injury. 2. No solid visceral injury identified. 3. Left eighth and right seventh rib fractures laterally with several healing lower right anterior rib fractures. Cervical Spine CT 10/05/18 18:42 CONCLUSION: 1. Moderate degenerative disc disease. No acute fracture or spondylolisthesis. Chest CT 10/05/18 18:42 CONCLUSION: 1. Avulsion fracture superior endplates of T10 and T11 as above with disruption of the anterior annulus fibrosis and widening of the anterior disc space between T10 and T11. 2. Fractures of the lower left and right ribs as above without pneumothorax. Dependent atelectasis in both lungs. 3. No evidence for aortic transection or dissection. 4. Mild coronary calcifications. Face CT 10/05/18 18:42 CONCLUSION: 1. Nondisplaced fracture of the right superior orbital wall, left medial orbital wall and left maxillary sinus with hemorrhage in the left maxillary sinus and ethmoids. Globes intact. Also nasal bone fracture. Patient intubated. Head CT 10/05/18 18:42 CONCLUSION: 1. Small anterior interhemispheric subdural hematoma without mass effect or shift. Trace subarachnoid hemorrhage anteriorly. No calvarial fracture identified. Femur X-Ray 10/05/18 18:43 CONCLUSION: Comminuted distal femur fracture with displacement. Knee CT 10/05/18 21:26 CONCLUSION: 1. Comminuted fractures of the distal femur and proximal tibia. Fracture of the proximal fibular shaft also noted. 2. Prominent atherosclerotic disease disease of the distal femoral artery, popliteal artery, and proximal calf arteries. There is focal very high-grade stenosis of the popliteal artery at the level of the knee. This finding is age- indeterminate and could be related to chronic atherosclerotic disease or recent trauma. Age-indeterminate moderate grade stenosis of the distal superficial femoral artery and high-grade stenosis of the PT trunk at its bifurcation also noted. Chest X-Ray 10/05/18 23:31 CONCLUSION: 1. Endotracheal tube tip now 2 cm above the yael. 2. Patchy atelectasis at the left lung base is decreased. Knee CT 10/06/18 00:00 CONCLUSION: 1. Severely comminuted fracture about the knee as described above, Knee X-Ray 10/06/18 00:00 CONCLUSION: Reasonable alignment as above Thoracic Spine MRI 10/06/18 00:00 CONCLUSION: 1. Abnormal T11-T12 as described above. 2. Thoracic cord is intact. There is no evidence for hematoma or contusion. There is no evidence of posterior ligamentous disruption. Chest X-Ray 10/06/18 06:00 CONCLUSION: No significant interval change. Head CT 10/06/18 08:00 CONCLUSION: 1. Stable to slightly improved. Significant intravascular contrast remains from previous contrasted exam. 62 y/o M Head CT as above; small parafalcine SDH. Neurologically patient is unchanged he is intubated ventilated and sedated on fentanyl and Diprivan drip. Facial lacerations repaired by Dr. Allen Patient underwent left leg runoff to assess popliteal artery and distal flow considering the proximal comminuted tibial fracture which is essentially behaves like a knee dislocation. He underwent successful ex-fix placement to the left femur and tibia with reduction of the comminuted segments MRI of the thoracic spine shows distraction of the T10-11 level however no disruption of the ligaments. Dr. Arceo has recommended spinal log roll precautions and hob not higher than 15 degrees. He underwent Posterior T9, T10, T11, and T12 autograft fusion; T9-12 pedicle screw fixation; left iliac crest autograft harvest on 10/10/18. Continue with current care. Pain control. log roll with TLSO brace. Wean sedation and vent as tolerated.
[2018-10-20] MEDS: Sodium Chloride 0.9% 2 ML Flush BID IV.FLUSH SCH ×2 (09:00→20:35)
[2018-10-20] MEDS: Chlorhexidine 0.12% Oral Kit 15 ML UDC OROPHARYNG SCH ×2 (09:00→20:34)
[2018-10-20] MEDS: Carvedilol 12.5 MG Tablet PO SCH ×2 (09:00→20:35)
[2018-10-20] MEDS: Calcium/Vitamin D 250/125 MG Tablet PO SCH ×3 (09:01→17:05)
[2018-10-20] MEDS: Sodium Bicarbonate 8.4% Inj 50 MEQ in Sod Chloride 0.9% Inj 950 ML IV.CONT SCH ×2 (10:10→12:14)
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
--- NOTE | 2018-10-20 16:56 | P.PNNP ---
Subjective Interval history: Patient awake with at bedside. Creatinine improved at 3.22. No acute events overnight. <AnabellLima - Last Filed: 10/20/18 16:50> Physical Exam Vital signs: Vital Signs 10/19/18 17:00 10/19/18 18:00 10/19/18 19:00 Temperature Pulse Rate 79 88 90 Respiratory Rate 33 H 34 H 41 H Blood Pressure Pulse Oximetry 99 96 91 L 10/19/18 20:00 10/19/18 20:38 10/19/18 21:00 Temperature 98.7 F Pulse Rate 92 H 86 77 Respiratory Rate 28 H 30 H 22 Blood Pressure 172/81 H Pulse Oximetry 93 L 98 97 10/19/18 21:04 10/19/18 21:25 10/19/18 22:00 Temperature Pulse Rate 80 85 81 Respiratory Rate 23 Blood Pressure 152/75 H 153/73 H Pulse Oximetry 99 98 100 10/19/18 22:25 10/19/18 22:37 10/19/18 23:00 Temperature Pulse Rate 80 86 Respiratory Rate 20 Blood Pressure 163/74 H Pulse Oximetry 100 100 100 10/19/18 23:15 10/19/18 23:26 10/20/18 00:00 Temperature 98.7 F Pulse Rate 78 80 81 Respiratory Rate 16 22 Blood Pressure 161/77 H Pulse Oximetry 99 99 10/20/18 00:26 10/20/18 01:00 10/20/18 01:20 Temperature Pulse Rate 78 73 Respiratory Rate 35 H 45 H 19 Blood Pressure 161/81 H Pulse Oximetry 100 100 100 10/20/18 01:26 10/20/18 02:00 10/20/18 02:04 Temperature Pulse Rate 75 84 86 Respiratory Rate 49 H 30 H 26 H Blood Pressure 175/84 H 157/72 H Pulse Oximetry 100 100 100 10/20/18 02:25 10/20/18 03:00 10/20/18 03:25 Temperature Pulse Rate 87 92 H 86 Respiratory Rate 31 H 47 H 55 H Blood Pressure 154/71 H 147/70 H Pulse Oximetry 99 99 98 10/20/18 04:00 10/20/18 04:10 10/20/18 04:25 Temperature 100.3 F H Pulse Rate 85 86 Respiratory Rate 62 H 18 68 H Blood Pressure 147/70 H Pulse Oximetry 98 100 99 10/20/18 05:00 10/20/18 05:25 10/20/18 06:00 Temperature Pulse Rate 90 85 76 Respiratory Rate 24 88 H Blood Pressure 156/75 H Pulse Oximetry 99 100 98 10/20/18 06:25 10/20/18 07:00 10/20/18 07:26 Temperature Pulse Rate 71 70 82 Respiratory Rate 82 H 97 H 98 H Blood Pressure 133/65 149/74 H Pulse Oximetry 99 99 100 10/20/18 07:41 10/20/18 08:00 10/20/18 08:26 Temperature 98.4 F Pulse Rate 85 85 Respiratory Rate 21 112 H Blood Pressure 149/74 H 156/84 H Pulse Oximetry 99 99 100 10/20/18 09:00 10/20/18 09:26 10/20/18 10:00 Temperature Pulse Rate 81 80 81 Respiratory Rate 0 L 0 L 0 L Blood Pressure 136/65 Pulse Oximetry 100 98 99 10/20/18 10:26 10/20/18 11:00 10/20/18 11:16 Temperature Pulse Rate 85 82 Respiratory Rate 0 L 0 L 16 Blood Pressure 139/65 Pulse Oximetry 100 99 100 10/20/18 11:26 10/20/18 12:00 10/20/18 12:26 Temperature 99.4 F Pulse Rate 82 78 78 Respiratory Rate 0 L 0 L 0 L Blood Pressure 138/67 138/67 144/70 H Pulse Oximetry 100 99 97 10/20/18 13:00 10/20/18 13:26 10/20/18 14:00 Temperature Pulse Rate 77 77 88 Respiratory Rate 0 L 0 L 0 L Blood Pressure 137/64 Pulse Oximetry 97 97 98 10/20/18 14:25 10/20/18 14:26 10/20/18 15:00 Temperature Pulse Rate 92 H 91 H Respiratory Rate 0 L 0 L Blood Pressure 145/67 H Pulse Oximetry 96 95 92 L 10/20/18 15:26 Temperature Pulse Rate 82 Respiratory Rate 0 L Blood Pressure 143/68 H Pulse Oximetry 93 L Intake & Output 10/19/18 10/20/18 10/20/18 18:59 06:59 18:59 Intake Total 2064 / 2064 1214 / 1214 1000 / 1000 Output Total 1300 / 1300 1325 / 1325 Balance 764 / 764 -111 / -111 1000 / 1000 Weight 100.9 kg Intake: IV 1000 / 1000 100 / 100 1000 / 1000 Sodium Bicarbonate 8.4% Inj 50 1000 / 1000 1000 / 1000 MEQ In NS Inj 950 ML @ 42 mls/ hr IV.CONT .[id number] [facility] Rx#: [id number] Maxipime Inj 2,000 MG In NS Inj 100 / 100 100 ML @ 200 mls/hr IV.SIG Q24H [facility] Rx#:[id number] Tube Feeding 604 / 604 534 / 534 Water Bolus Amount 460 / 460 580 / 580 Output: Urine Amount (Catheter) 1300 / 1300 1325 / 1325 Indwelling Temp Sensing 1300 / 1300 1325 / 1325 Catheter Other: Date of Last Bowel Movement 10/19/18 10/20/18 # Incontinent Bowel Movements 2 1 Narrative: GENERAL: Awake and alert. Trach in place. NECK: Supple, trachea midline. No JVD CARDIOVASCULAR: Regular rate and rhythm without murmurs, gallops, or rubs. RESPIRATORY: Breath sounds equal bilaterally. No accessory muscle use. GASTROINTESTINAL: Abdomen soft, non-tender, +BS GENITOURINARY: Indwelling Mehta catheter, Generalized edema. MUSCULOSKELETAL: No cyanosis, left leg with splint and ivory on - Urinary Catheter Management Indwelling Temp Sensing Catheter Cath placed during this visit: yes Reason for continuing: Hourly intake/output Insertion date: 10/05/18 Insertion time: 20:00 <Lima Hung - Last Filed: 10/20/18 16:50> Vital signs: Vital Signs 10/21/18 21:00 10/21/18 21:26 10/21/18 22:00 Temperature Pulse Rate 80 82 93 H Respiratory Rate 110 H 118 H 109 H Blood Pressure 147/69 H Pulse Oximetry 97 97 97 10/21/18 22:26 10/21/18 23:00 10/21/18 23:30 Temperature Pulse Rate 79 80 Respiratory Rate 114 H 112 H Blood Pressure 147/63 H Pulse Oximetry 97 97 97 10/22/18 00:00 10/22/18 00:30 10/22/18 01:00 Temperature Pulse Rate 87 81 84 Respiratory Rate 107 H 115 H Blood Pressure 133/63 136/68 Pulse Oximetry 95 96 97 10/22/18 01:29 10/22/18 02:00 10/22/18 02:29 Temperature Pulse Rate 86 93 H 93 H Respiratory Rate 113 H 112 H 108 H Blood Pressure 159/73 H 138/66 Pulse Oximetry 96 97 97 10/22/18 03:00 10/22/18 03:29 10/22/18 04:00 Temperature Pulse Rate 91 H 89 92 H Respiratory Rate 101 H 118 H Blood Pressure 144/69 H Pulse Oximetry 97 97 95 10/22/18 04:29 10/22/18 05:00 10/22/18 05:29 Temperature Pulse Rate 93 H 98 H 98 H Respiratory Rate 93 H 103 H Blood Pressure 161/74 H 160/77 H Pulse Oximetry 97 96 95 10/22/18 06:00 10/22/18 06:29 10/22/18 07:00 Temperature 98.7 F Pulse Rate 98 H 98 H 100 H Respiratory Rate 115 H 116 H 97 H Blood Pressure 160/77 H 182/81 H Pulse Oximetry 96 96 95 10/22/18 07:29 10/22/18 08:00 10/22/18 08:29 Temperature 98.8 F Pulse Rate 102 H 105 H 106 H Respiratory Rate 121 H 25 H 119 H Blood Pressure 158/112 H 175/80 H Pulse Oximetry 94 L 95 95 10/22/18 09:00 10/22/18 09:29 10/22/18 10:00 Temperature Pulse Rate 101 H 95 H 95 H Respiratory Rate 20 20 20 Blood Pressure 125/62 Pulse Oximetry 91 L 92 L 96 10/22/18 10:29 10/22/18 11:00 10/22/18 11:29 Temperature Pulse Rate 97 H 97 H 99 H Respiratory Rate 22 28 H 25 H Blood Pressure 149/63 H 146/76 H Pulse Oximetry 87 L 96 97 10/22/18 12:00 10/22/18 14:00 10/22/18 15:29 Temperature Pulse Rate 98 H 96 H 89 Respiratory Rate 25 H 35 H Blood Pressure 125/60 Pulse Oximetry 96 98 96 10/22/18 16:00 10/22/18 18:00 10/22/18 19:29 Temperature Pulse Rate 95 H 88 86 Respiratory Rate 25 H Blood Pressure 119/71 Pulse Oximetry 94 L 95 95 10/22/18 20:00 10/22/18 20:11 Temperature 98.7 F Pulse Rate 94 H Respiratory Rate 25 H Blood Pressure 129/60 Pulse Oximetry 93 L 94 L Intake & Output 10/22/18 10/22/18 10/23/18 06:59 18:59 06:59 Intake Total 3831 / 3831 984 / 984 Output Total 2550 / 2550 1150 / 1150 Balance 1281 / 1281 -166 / -166 Weight 105.1 kg Intake: Oral 60 / 60 Tube Feeding 1281 / 1281 584 / 584 Tube Irrigant 90 / 90 Water Bolus Amount 800 / 800 400 / 400 Anesthesia Amount 800 / 800 Autotransfusion Amount 800 / 800 Output: Blood Draw 400 / 400 Urine 1950 / 1950 1150 / 1150 Stool 0 / 0 Estimated Blood Loss 200 / 200 Other: # Voids 2 Date of Last Bowel Movement 10/21/18 10/21/18 # Bowel Movements 1 1 # Incontinent Bowel Movements 2 - Urinary Catheter Management Indwelling Temp Sensing Catheter Cath placed during this visit: no <Allison Welsh - Last Filed: 10/22/18 20:47> Assessment and Plan - Assessment (1) Acute kidney injury Code(s): N17.9 - Acute kidney failure, unspecified Status: Acute Plan: Acute kidney injury with admission creatinine of 3.49 and then had some improvement down to 2.82 but now has gradually increasing at 3.5. Baseline creatinine is not available. May have underlying chronic kidney disease. Worsening renal indices could be related to diuresis Maintain strict I+O, Has indwelling Mehta catheter Continue IV fluid with sodium bicarbonate at 42 cc an hour, HCO3 at 16 Will follow urinary output and bmp. Continue monitor and follow, creatinine slightly improved at 3.22, non oliguric. (2) Hypertension Code(s): I10 - Essential (primary) hypertension Status: Acute Plan: Well controlled will monitor. <Lima Hung - Last Filed: 10/20/18 16:50> - Assessment (1) Acute kidney injury Code(s): N17.9 - Acute kidney failure, unspecified Status: Acute Plan: Patient seen and examined, agree with above. Creatinine is slightly better. (2) Hypertension Code(s): I10 - Essential (primary) hypertension Status: Acute <Allison Welsh - Last Filed: 10/22/18 20:47>
[2018-10-20] MEDS: levoFLOXacin 250 MG Tablet PO SCH (17:04)
[2018-10-20] MEDS: Pantoprazole Inj 40 MG Vial IV.PUSH SCH (23:18)
[2018-10-21] MEDS: Artificial Tears Opth Drops 15 ML Bottle EACH EYE SCH ×6 (01:29→23:03)
[2018-10-21] MEDS: Heparin - SQ 10,000 UNITS/ML Vial SQ SCH ×3 (01:29→17:54)
[2018-10-21] MEDS: Metoprolol Inj 5 MG/5 ML Vial IV.PUSH SCH (01:29)
[2018-10-21] MEDS: Oral Hygiene Kit OROPHARYNG SCH ×3 (04:15→15:42)
[2018-10-21] MEDS: hydrALAZINE HCl Inj 20 MG/ML Vial IV.PUSH PRN (04:15)
[2018-10-21 04:29] LABS: Hematocrit 27.1 % (39.0-51.0); Hemoglobin 9.2 gm/dL (13.0-17.0); Mean Corpuscular Hemoglobin 30.8 pg (27.0-34.0); Mean Corpuscular Volume 90.5 fL (80.0-100.0); Mean Platelet Volume 7.7 fL (7.0-11.0); Platelet Count 347 th/mm3 (150-450); Red Cell Distribution Width 16.9 % (11.6-17.2); White Blood Count 8.2 th/mm3 (4.0-11.0)
[2018-10-21 04:44] LABS: Calcium 8.5 mg/dL (8.5-10.1); Carbon Dioxide 20.1 meq/L (21.0-32.0); Potassium 4.3 meq/L (3.5-5.1)
--- NOTE | 2018-10-21 08:14 | P.PNNPSY ---
- Behavior Intact: Impulsive/agitated - Cognitive Severe: Cognitive, Attention/concentration, Confused/orientation, Insight/ awareness, Judgment/problem solving, Memory - Psychosocial Moderate: Psychosocial, Family/other adjustment, Realistic expectation - Progress Notes/Response to Treatment Contents of Sessions: Adjustment, Level of consciousness Time with Patient: 30 minutes Premorbid Psychological Status: Premorbid Cognitive, Emotional and Behavioral Status: Stable. 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 The patient has no known prior psychiatric difficulties, as described above. Substance abuse history is unknown. Behavioral Reactions of Patient and Family/Support System: Stable. The patient s family is experiencing ongoing issues of adjustment given the nature of the injury, and this aspect of recovery will require ongoing monitoring. Emotional/Behavioral Status of Patient and Family/Support System: Stable. Pertinent issues, if appropriate to this patients clinical care, are described in detail above. Maximizing Acute Care Outcome: It is recommended that the patient be monitored for emergent behavioral impulsivity as the medical condition evolves. This patients neuropathological challenges may limit rehabilitation potential going forward, and these challenges will require specialized therapeutic skills to maximize outcome. Additionally, the patients family is experiencing ongoing issues of adjustment given the traumatic nature of the injury, and they may benefit from ongoing psychological assistance. At this point in the recovery process, the patient does not have cognitive capacity as the patient is unable to understand a situation and its likely consequences, nor is the patient able to manipulate information rationally. He was sedated and intubated, and as such capacity was unable to be determined. Cognitive capacity will be assessed throughout the recovery process. Anticipated Problems: Ongoing areas of concern will include behavioral impulsivity, lack of insight and judgment, which is expected to improve with time and treatment. Treatment Plan: This clinician will continue to follow with you throughout the course of this patients critical care treatment, and I will be available to meet with the patients family/support system to facilitate their understanding and the ongoing care of their family member. The goals of neuropsychological intervention shall be both educational and supportive to the family/support system as is deemed clinically appropriate. [place] COG Scale: Level III Disinhibition Score: 14.00 Aggression Score: 14.00 Lability Score: 14.00 Agitated Behavior Total Score: 14 Impression: 62 year old male s/p complicated mild [place] 2[place] [facility] [place]. Progress Note Narrative: PTD 16. The patient is neurobehaviorally improved, now awake but not followiong. No issues of agitation/restlessness, with ABS = 14 (14,14,14). He is Rancho III. He is awaiting transfer to LT[facility]. Trauma team has started Amantadine 100 qD to facilitate awakening. I will follow. - Diagnosis (1) Mild major neurocognitive disorder as late effect of traumatic brain injury without behavioral disturbance Status: Acute
[2018-10-21] MEDS: Carvedilol 12.5 MG Tablet PO SCH ×2 (08:36→22:50)
[2018-10-21] MEDS: Calcium/Vitamin D 250/125 MG Tablet PO SCH ×3 (08:36→17:57)
[2018-10-21] MEDS: Metoprolol Tartrate 25 MG Tablet PO SCH ×2 (08:37→22:51)
[2018-10-21] MEDS: Gabapentin Liq 250 MG/5 ML UDC PO SCH ×3 (08:37→17:53)
[2018-10-21] MEDS: Sodium Chloride 0.9% 2 ML Flush BID IV.FLUSH SCH ×2 (08:38→22:52)
[2018-10-21] MEDS: Chlorhexidine 0.12% Oral Kit 15 ML UDC OROPHARYNG SCH ×2 (08:38→22:52)
[2018-10-21] MEDS: Senna/Docusate Sodium 8.6/50 MG Tablet PO SCH ×2 (08:39→21:26)
[2018-10-21] MEDS: Amantadine Liq 100 MG/10 ML UDC PO SCH (10:10)
--- NOTE | 2018-10-21 10:13 | P.PNNS ---
Subjective Interval history: Pt awake and alert. Follows commands intermittently. Trach in place on humidified O2. Physical Exam Vital signs: Vital Signs 10/20/18 10:26 10/20/18 11:00 10/20/18 11:16 Temperature Pulse Rate 85 82 Respiratory Rate 0 L 0 L 16 Blood Pressure 139/65 Pulse Oximetry 100 99 100 10/20/18 11:26 10/20/18 12:00 10/20/18 12:26 Temperature 99.4 F Pulse Rate 82 78 78 Respiratory Rate 0 L 0 L 0 L Blood Pressure 138/67 138/67 144/70 H Pulse Oximetry 100 99 97 10/20/18 13:00 10/20/18 13:26 10/20/18 14:00 Temperature Pulse Rate 77 77 88 Respiratory Rate 0 L 0 L 0 L Blood Pressure 137/64 Pulse Oximetry 97 97 98 10/20/18 14:25 10/20/18 14:26 10/20/18 15:00 Temperature Pulse Rate 92 H 91 H Respiratory Rate 0 L 0 L Blood Pressure 145/67 H Pulse Oximetry 96 95 92 L 10/20/18 15:26 10/20/18 16:00 10/20/18 16:26 Temperature 99.1 F Pulse Rate 82 84 92 H Respiratory Rate 0 L 0 L 16 Blood Pressure 143/68 H 161/78 H Pulse Oximetry 93 L 94 L 98 10/20/18 17:00 10/20/18 17:26 10/20/18 18:00 Temperature Pulse Rate 92 H 89 91 H Respiratory Rate 0 L 0 L 0 L Blood Pressure 161/78 H Pulse Oximetry 97 94 L 92 L 10/20/18 18:26 10/20/18 19:00 10/20/18 19:26 Temperature Pulse Rate 93 H 98 H 94 H Respiratory Rate 0 L 0 L 0 L Blood Pressure 155/73 H 164/78 H Pulse Oximetry 92 L 93 L 94 L 10/20/18 20:00 10/20/18 20:24 10/20/18 20:26 Temperature 98.9 F Pulse Rate 96 H 94 H Respiratory Rate Blood Pressure 168/80 H Pulse Oximetry 95 95 95 10/20/18 21:00 10/20/18 21:26 10/20/18 22:00 Temperature Pulse Rate 88 87 85 Respiratory Rate 16 0 L 26 H Blood Pressure 186/83 H 147/73 H Pulse Oximetry 95 95 95 10/20/18 22:05 10/20/18 22:26 10/20/18 23:00 Temperature Pulse Rate 91 H 95 H 96 H Respiratory Rate 0 L 0 L 0 L Blood Pressure 147/73 H 151/72 H Pulse Oximetry 95 95 93 L 10/20/18 23:26 10/21/18 00:00 10/21/18 00:14 Temperature 98.6 F Pulse Rate 93 H 85 Respiratory Rate 0 L 0 L Blood Pressure 176/75 H 146/68 H Pulse Oximetry 93 L 94 L 94 L 10/21/18 00:26 10/21/18 01:00 10/21/18 01:26 Temperature Pulse Rate 92 H 89 93 H Respiratory Rate 0 L 0 L 0 L Blood Pressure 163/71 H 158/70 H Pulse Oximetry 94 L 95 95 10/21/18 02:00 10/21/18 02:26 10/21/18 03:00 Temperature Pulse Rate 81 79 94 H Respiratory Rate 101 H 101 H 119 H Blood Pressure 147/71 H Pulse Oximetry 95 95 95 10/21/18 03:34 10/21/18 04:00 10/21/18 04:26 Temperature 98.8 F Pulse Rate 99 H 92 H 96 H Respiratory Rate 115 H 107 H 113 H Blood Pressure 169/75 H 203/89 H Pulse Oximetry 95 96 97 10/21/18 04:30 10/21/18 05:00 10/21/18 05:26 Temperature Pulse Rate 96 H 100 H 102 H Respiratory Rate 117 H 100 H 123 H Blood Pressure 182/84 H 174/79 H Pulse Oximetry 97 97 96 10/21/18 06:00 10/21/18 06:26 10/21/18 07:31 Temperature Pulse Rate 90 88 Respiratory Rate 122 H 107 H Blood Pressure 156/76 H Pulse Oximetry 96 96 97 Intake & Output 10/20/18 10/21/18 10/21/18 18:59 06:59 18:59 Intake Total 1988 / 1988 1148 / 1148 1000 / 1000 Output Total 450 / 450 975 / 975 Balance 1539 / 1539 173 / 173 1000 / 1000 Weight 100.1 kg Intake: IV 1000 / 1000 1000 / 1000 Sodium Bicarbonate 8.4% Inj 50 1000 / 1000 1000 / 1000 MEQ In NS Inj 950 ML @ 42 mls/ hr IV.CONT .[id number] [facility] Rx#: [id number] Tube Feeding 589 / 589 568 / 568 Water Bolus Amount 400 / 400 580 / 580 Output: Urine 975 / 975 Urine Amount (Catheter) 450 / 450 Indwelling Temp Sensing 450 / 450 Catheter Other: # Voids 2 Date of Last Bowel Movement 10/20/18 10/21/18 # Bowel Movements 1 # Incontinent Bowel Movements 2 - Constitutional no acute distress, obese - Routine HEENT Exam Head: Present: abrasion (Right superior eyebrow and left medial eyebrow.). Absent: atraumatic Eye: Present: PERRL (Pupils 3mm bilaterally reactive bilaterally.). Absent: conjunctival icterus - Routine Neck Exam Comments: trach in place on humidified O2. - Routine Respiratory Exam Present: CTA bilaterally. Absent: respiratory distress, rhonchi, wheezes Comments: Trach in place on humidified O2. - Routine Cardiovascular Exam Present: RRR, S1, S2. Absent: murmur - Routine Abdominal Exam Present: soft, normoactive bowel sounds, distended (mild.). Absent: firm - Routine Skin Exam Absent: cyanosis, erythema - Routine Neurological Exam Present: alert, moving all extremities (Left leg in orthopedic brace. Pharm Spec left hand to command. Follows other commands intermittently.) - Detailed Neurological Exam: Coma Scale Eye Opening: Spontaneous Verbal Response: None Motor Response: Obey commands (Intermittently.) Storm Coma Scale Total: 11 - Routine Psychiatric Exam Absent: anxious, agitated - Urinary Catheter Management Indwelling Temp Sensing Catheter Cath placed during this visit: yes, but has since been removed by the nurse Reason for continuing: Hourly intake/output Insertion date: 10/05/18 Insertion time: 20:00 Removal date: 10/20/18 Removal time: 12:00 Assessment and Plan - Assessment (1) CHI (closed head injury) Code(s): S09.90XA - Unspecified injury of head, initial encounter Status: Acute Qualifiers: Encounter type: initial encounter Qualified Code(s): S09.90XA - Unspecified injury of head, initial encounter (2) Acute subdural hematoma Code(s): S06.5X9A - Traumatic subdural hemorrhage with loss of consciousness of unspecified duration, initial encounter Status: Acute (3) Open fracture Code(s): T14.8XXA - Other injury of unspecified body region, initial encounter Status: Acute (4) Respiratory failure after trauma Code(s): J96.90 - Respiratory failure, unspecified, unspecified whether with hypoxia or hypercapnia Status: Acute (5) Mild major neurocognitive disorder as late effect of traumatic brain injury without behavioral disturbance Code(s): S06.9X9S - Unspecified intracranial injury with loss of consciousness of unspecified duration, sequela; F02.80 - Dementia in other diseases classified elsewhere without behavioral disturbance Status: Acute - Plan Chest X-Ray 10/05/18 00:00 CONCLUSION: Endotracheal tube tip in right mainstem bronchus. This should be withdrawn about 4 cm Tibia/Fibula X-Ray 10/05/18 00:00 CONCLUSION: Comminuted fractures proximal tibia and fibula. Distal tibia and fibula. Intact. Chest X-Ray 10/05/18 18:34 CONCLUSION: Endotracheal tube and nasogastric tube in good position. Bilateral rib fractures without pneumothorax. Basilar atelectasis. There is some widening of the superior mediastinum. See chest CT report. Pelvis X-Ray 10/05/18 18:34 CONCLUSION: No acute fracture. Abdomen/Pelvis CT 10/05/18 18:42 CONCLUSION: 1. Avulsion endplate fractures of T10 and T11 as above with widening of the anterior interspace likely from disruption of the annulus fibrosis. Consider MRI for further evaluation of disc injury. 2. No solid visceral injury identified. 3. Left eighth and right seventh rib fractures laterally with several healing lower right anterior rib fractures. Cervical Spine CT 10/05/18 18:42 CONCLUSION: 1. Moderate degenerative disc disease. No acute fracture or spondylolisthesis. Chest CT 10/05/18 18:42 CONCLUSION: 1. Avulsion fracture superior endplates of T10 and T11 as above with disruption of the anterior annulus fibrosis and widening of the anterior disc space between T10 and T11. 2. Fractures of the lower left and right ribs as above without pneumothorax. Dependent atelectasis in both lungs. 3. No evidence for aortic transection or dissection. 4. Mild coronary calcifications. Face CT 10/05/18 18:42 CONCLUSION: 1. Nondisplaced fracture of the right superior orbital wall, left medial orbital wall and left maxillary sinus with hemorrhage in the left maxillary sinus and ethmoids. Globes intact. Also nasal bone fracture. Patient intubated. Head CT 10/05/18 18:42 CONCLUSION: 1. Small anterior interhemispheric subdural hematoma without mass effect or shift. Trace subarachnoid hemorrhage anteriorly. No calvarial fracture identified. Femur X-Ray 10/05/18 18:43 CONCLUSION: Comminuted distal femur fracture with displacement. Knee CT 10/05/18 21:26 CONCLUSION: 1. Comminuted fractures of the distal femur and proximal tibia. Fracture of the proximal fibular shaft also noted. 2. Prominent atherosclerotic disease disease of the distal femoral artery, popliteal artery, and proximal calf arteries. There is focal very high-grade stenosis of the popliteal artery at the level of the knee. This finding is age- indeterminate and could be related to chronic atherosclerotic disease or recent trauma. Age-indeterminate moderate grade stenosis of the distal superficial femoral artery and high-grade stenosis of the PT trunk at its bifurcation also noted. Chest X-Ray 10/05/18 23:31 CONCLUSION: 1. Endotracheal tube tip now 2 cm above the yael. 2. Patchy atelectasis at the left lung base is decreased. Knee CT 10/06/18 00:00 CONCLUSION: 1. Severely comminuted fracture about the knee as described above, Knee X-Ray 10/06/18 00:00 CONCLUSION: Reasonable alignment as above Thoracic Spine MRI 10/06/18 00:00 CONCLUSION: 1. Abnormal T11-T12 as described above. 2. Thoracic cord is intact. There is no evidence for hematoma or contusion. There is no evidence of posterior ligamentous disruption. Chest X-Ray 10/06/18 06:00 CONCLUSION: No significant interval change. Head CT 10/06/18 08:00 CONCLUSION: 1. Stable to slightly improved. Significant intravascular contrast remains from previous contrasted exam. 62 y/o M Head CT as above; small parafalcine SDH. Neurologically patient is unchanged he is intubated ventilated and sedated on fentanyl and Diprivan drip. Facial lacerations repaired by Dr. Allen Patient underwent left leg runoff to assess popliteal artery and distal flow considering the proximal comminuted tibial fracture which is essentially behaves like a knee dislocation. He underwent successful ex-fix placement to the left femur and tibia with reduction of the comminuted segments MRI of the thoracic spine shows distraction of the T10-11 level however no disruption of the ligaments. Dr. Arceo has recommended spinal log roll precautions and hob not higher than 15 degrees. He underwent Posterior T9, T10, T11, and T12 autograft fusion; T9-12 pedicle screw fixation; left iliac crest autograft harvest on 10/10/18. Continue with current care. Pain control. log roll with TLSO brace. Rehab efforts. Continue to log roll in TLSO brace.
--- NOTE | 2018-10-21 16:14 | P.PNNP ---
Subjective Interval history: No acute events overnight. Opens eyes but does not follow commands. Creatinine improved at 3.17. <Lima Hung - Last Filed: 10/21/18 16:10> Physical Exam Vital signs: Vital Signs 10/20/18 16:26 10/20/18 17:00 10/20/18 17:26 Temperature 99.1 F Pulse Rate 92 H 92 H 89 Respiratory Rate 16 0 L 0 L Blood Pressure 161/78 H 161/78 H Pulse Oximetry 98 97 94 L 10/20/18 18:00 10/20/18 18:26 10/20/18 19:00 Temperature Pulse Rate 91 H 93 H 98 H Respiratory Rate 0 L 0 L 0 L Blood Pressure 155/73 H Pulse Oximetry 92 L 92 L 93 L 10/20/18 19:26 10/20/18 20:00 10/20/18 20:24 Temperature 98.9 F Pulse Rate 94 H 96 H Respiratory Rate 0 L Blood Pressure 164/78 H Pulse Oximetry 94 L 95 95 10/20/18 20:26 10/20/18 21:00 10/20/18 21:26 Temperature Pulse Rate 94 H 88 87 Respiratory Rate 16 0 L Blood Pressure 168/80 H 186/83 H Pulse Oximetry 95 95 95 10/20/18 22:00 10/20/18 22:05 10/20/18 22:26 Temperature Pulse Rate 85 91 H 95 H Respiratory Rate 26 H 0 L 0 L Blood Pressure 147/73 H 147/73 H 151/72 H Pulse Oximetry 95 95 95 10/20/18 23:00 10/20/18 23:26 10/21/18 00:00 Temperature 98.6 F Pulse Rate 96 H 93 H 85 Respiratory Rate 0 L 0 L 0 L Blood Pressure 176/75 H 146/68 H Pulse Oximetry 93 L 93 L 94 L 10/21/18 00:14 10/21/18 00:26 10/21/18 01:00 Temperature Pulse Rate 92 H 89 Respiratory Rate 0 L 0 L Blood Pressure 163/71 H Pulse Oximetry 94 L 94 L 95 10/21/18 01:26 10/21/18 02:00 10/21/18 02:26 Temperature Pulse Rate 93 H 81 79 Respiratory Rate 0 L 101 H 101 H Blood Pressure 158/70 H 147/71 H Pulse Oximetry 95 95 95 10/21/18 03:00 10/21/18 03:34 10/21/18 04:00 Temperature 98.8 F Pulse Rate 94 H 99 H 92 H Respiratory Rate 119 H 115 H 107 H Blood Pressure 169/75 H Pulse Oximetry 95 95 96 10/21/18 04:26 10/21/18 04:30 10/21/18 05:00 Temperature Pulse Rate 96 H 96 H 100 H Respiratory Rate 113 H 117 H 100 H Blood Pressure 203/89 H 182/84 H Pulse Oximetry 97 97 97 10/21/18 05:26 10/21/18 06:00 10/21/18 06:26 Temperature Pulse Rate 102 H 90 88 Respiratory Rate 123 H 122 H 107 H Blood Pressure 174/79 H 156/76 H Pulse Oximetry 96 96 96 10/21/18 07:00 10/21/18 07:26 10/21/18 07:31 Temperature 98.2 F Pulse Rate 90 97 H Respiratory Rate 103 H 112 H Blood Pressure 145/67 H Pulse Oximetry 96 96 97 10/21/18 08:00 10/21/18 08:26 10/21/18 09:00 Temperature 98.2 F Pulse Rate 98 H 100 H 97 H Respiratory Rate 113 H 118 H 103 H Blood Pressure 153/72 H 153/72 H Pulse Oximetry 97 97 94 L 10/21/18 09:26 10/21/18 10:00 10/21/18 10:26 Temperature Pulse Rate 93 H 86 90 Respiratory Rate 114 H 126 H 104 H Blood Pressure 134/63 131/64 Pulse Oximetry 94 L 95 96 10/21/18 11:00 10/21/18 11:26 10/21/18 12:00 Temperature 100.9 F H Pulse Rate 93 H 90 98 H Respiratory Rate 117 H 126 H 17 Blood Pressure 143/90 H 158/73 H Pulse Oximetry 96 97 96 10/21/18 12:03 10/21/18 12:26 10/21/18 13:00 Temperature Pulse Rate 97 H 98 H 97 H Respiratory Rate 117 H 106 H Blood Pressure 158/73 H 166/79 H Pulse Oximetry 96 96 97 10/21/18 13:26 10/21/18 14:00 10/21/18 14:26 Temperature Pulse Rate 96 H 90 Respiratory Rate 112 H 113 H Blood Pressure 166/77 H Pulse Oximetry 97 95 95 10/21/18 14:30 10/21/18 15:00 10/21/18 15:26 Temperature 99.3 F Pulse Rate 93 H 97 H Respiratory Rate 122 H 123 H Blood Pressure 149/69 H 159/72 H Pulse Oximetry 96 96 10/21/18 16:00 Temperature 99.3 F Pulse Rate 95 H Respiratory Rate 108 H Blood Pressure 159/72 H Pulse Oximetry 96 Intake & Output 10/20/18 10/21/18 10/21/18 18:59 06:59 18:59 Intake Total 1988 / 1988 1148 / 1148 1000 / 1000 Output Total 450 / 450 975 / 975 Balance 1539 / 1539 173 / 173 1000 / 1000 Weight 100.1 kg Intake: IV 1000 / 1000 1000 / 1000 Sodium Bicarbonate 8.4% Inj 50 1000 / 1000 1000 / 1000 MEQ In NS Inj 950 ML @ 42 mls/ hr IV.CONT .[id number] [facility] Rx#: [id number] Tube Feeding 589 / 589 568 / 568 Water Bolus Amount 400 / 400 580 / 580 Output: Urine 975 / 975 Urine Amount (Catheter) 450 / 450 Indwelling Temp Sensing 450 / 450 Catheter Other: # Voids 2 Date of Last Bowel Movement 10/20/18 10/21/18 # Bowel Movements 1 # Incontinent Bowel Movements 2 Narrative: GENERAL: Awake and alert. Trach in place. NECK: Supple, trachea midline. No JVD CARDIOVASCULAR: Regular rate and rhythm without murmurs, gallops, or rubs. RESPIRATORY: Breath sounds equal bilaterally. No accessory muscle use. GASTROINTESTINAL: Abdomen soft, non-tender, +BS GENITOURINARY: Indwelling Mehta catheter, Generalized edema. MUSCULOSKELETAL: No cyanosis, left leg with splint and ivory on - Urinary Catheter Management Indwelling Temp Sensing Catheter Cath placed during this visit: yes, but has since been removed by the nurse Reason for continuing: Hourly intake/output Insertion date: 10/05/18 Insertion time: 20:00 Removal date: 10/20/18 Removal time: 12:00 <Lima Hung - Last Filed: 10/21/18 16:10> Vital signs: Vital Signs 10/22/18 21:00 10/22/18 22:00 10/22/18 23:00 Temperature Pulse Rate 88 80 81 Respiratory Rate Blood Pressure 127/59 L 111/57 L 131/59 L Pulse Oximetry 95 95 97 10/23/18 00:00 10/23/18 01:00 10/23/18 02:00 Temperature 98.8 F Pulse Rate 82 82 83 Respiratory Rate 25 H Blood Pressure 120/60 112/58 L 117/59 L Pulse Oximetry 97 94 L 96 10/23/18 03:00 10/23/18 04:00 10/23/18 05:00 Temperature 98.7 F Pulse Rate 82 83 83 Respiratory Rate 22 Blood Pressure 128/60 122/59 L 124/61 Pulse Oximetry 95 97 96 10/23/18 08:00 10/23/18 11:03 10/23/18 12:00 Temperature 98.4 F 98.5 F Pulse Rate 79 92 H Respiratory Rate 15 19 Blood Pressure 137/80 114/72 Pulse Oximetry 97 98 96 10/23/18 16:00 10/23/18 20:06 Temperature 98.1 F Pulse Rate 87 Respiratory Rate 21 Blood Pressure 132/60 Pulse Oximetry 95 98 Intake & Output 10/23/18 10/23/18 10/24/18 06:59 18:59 06:59 Intake Total 855 / 855 Output Total 1000 / 1000 350 / 350 Balance -145 / -145 -350 / -350 Intake: Tube Feeding 455 / 455 Water Bolus Amount 400 / 400 Output: Urine 1000 / 1000 350 / 350 Other: Date of Last Bowel Movement 10/21/18 10/23/18 - Urinary Catheter Management Indwelling Temp Sensing Catheter Cath placed during this visit: no <Allison Welsh - Last Filed: 10/23/18 20:24> Assessment and Plan - Assessment (1) Acute kidney injury Code(s): N17.9 - Acute kidney failure, unspecified Status: Acute Plan: Acute kidney injury with admission creatinine of 3.49 and then had some improvement down to 2.82 but now has gradually increasing at 3.5. Baseline creatinine is not available. May have underlying chronic kidney disease. Worsening renal indices could have been related to diuresis Maintain strict I+O IVF discontinued. Will follow urinary output and bmp. Continue monitor and follow, creatinine slightly improved at 3.17, non oliguric. (2) Hypertension Code(s): I10 - Essential (primary) hypertension Status: Acute Plan: Well controlled will monitor. <Lima Hung - Last Filed: 10/21/18 16:10> - Assessment (1) Acute kidney injury Code(s): N17.9 - Acute kidney failure, unspecified Status: Acute Plan: Patient seen and examine, agree with above. Creatinine is slightly better, now 3.1, Most likely has ATN. Avoid Nephrotoxins, follow the urine out put and BMP. (2) Hypertension Code(s): I10 - Essential (primary) hypertension Status: Acute <Allison Welsh - Last Filed: 10/23/18 20:24>
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
[2018-10-21] MEDS: Pantoprazole Inj 40 MG Vial IV.PUSH SCH (23:03)
[2018-10-22 03:45] LABS: Hematocrit 24.3 % (39.0-51.0); Hemoglobin 8.5 gm/dL (13.0-17.0); Mean Corpuscular HGB Conc 34.8 % (32.0-36.0); Mean Corpuscular Hemoglobin 31.4 pg (27.0-34.0); Mean Corpuscular Volume 90.3 fL (80.0-100.0); Mean Platelet Volume 7.6 fL (7.0-11.0); Platelet Count 345 th/mm3 (150-450); Red Blood Count 2.69 mil/mm3 (4.50-5.90); White Blood Count 7.5 th/mm3 (4.0-11.0)
[2018-10-22] MEDS: Heparin - SQ 10,000 UNITS/ML Vial SQ SCH ×3 (03:59→17:57)
[2018-10-22] MEDS: Oral Hygiene Kit OROPHARYNG SCH ×4 (04:00→17:15)
[2018-10-22] MEDS: Artificial Tears Opth Drops 15 ML Bottle EACH EYE SCH ×6 (04:00→21:04)
[2018-10-22 04:15] LABS: Calcium 8.6 mg/dL (8.5-10.1); Carbon Dioxide 22.3 meq/L (21.0-32.0); Potassium 4.4 meq/L (3.5-5.1)
[2018-10-22] MEDS: Chlorhexidine 0.12% Oral Kit 15 ML UDC OROPHARYNG SCH ×2 (07:53→20:37)
[2018-10-22] MEDS: Gabapentin Liq 250 MG/5 ML UDC PO SCH ×3 (08:25→17:58)
[2018-10-22] MEDS: Metoprolol Tartrate 25 MG Tablet PO SCH ×2 (08:26→20:36)
[2018-10-22] MEDS: Carvedilol 12.5 MG Tablet PO SCH ×2 (08:26→20:36)
[2018-10-22] MEDS: Calcium/Vitamin D 250/125 MG Tablet PO SCH ×3 (08:26→17:58)
[2018-10-22] MEDS: Amantadine Liq 100 MG/10 ML UDC PO SCH (08:26)
[2018-10-22] MEDS: Sodium Chloride 0.9% 2 ML Flush BID IV.FLUSH SCH ×2 (08:27→20:37)
[2018-10-22] MEDS: Senna/Docusate Sodium 8.6/50 MG Tablet PO SCH ×2 (08:27→20:37)
--- NOTE | 2018-10-22 09:29 | P.PNNS ---
Subjective Interval history: Pt awake and alert sitting up in chair with TLSO brace in place. At times follows commands quickly and other times a delayed response. Trach in place on humidified O2 not mouthing words. Physical Exam Vital signs: Vital Signs 10/21/18 09:26 10/21/18 10:00 10/21/18 10:26 Temperature Pulse Rate 93 H 86 90 Respiratory Rate 114 H 126 H 104 H Blood Pressure 134/63 131/64 Pulse Oximetry 94 L 95 96 10/21/18 11:00 10/21/18 11:26 10/21/18 12:00 Temperature 100.9 F H Pulse Rate 93 H 90 98 H Respiratory Rate 117 H 126 H 17 Blood Pressure 143/90 H 158/73 H Pulse Oximetry 96 97 96 10/21/18 12:03 10/21/18 12:26 10/21/18 13:00 Temperature Pulse Rate 97 H 98 H 97 H Respiratory Rate 117 H 106 H Blood Pressure 158/73 H 166/79 H Pulse Oximetry 96 96 97 10/21/18 13:26 10/21/18 14:00 10/21/18 14:26 Temperature Pulse Rate 96 H 90 Respiratory Rate 112 H 113 H Blood Pressure 166/77 H Pulse Oximetry 97 95 95 10/21/18 14:30 10/21/18 15:00 10/21/18 15:26 Temperature 99.3 F Pulse Rate 93 H 97 H Respiratory Rate 122 H 123 H Blood Pressure 149/69 H 159/72 H Pulse Oximetry 96 96 10/21/18 16:00 10/21/18 16:26 10/21/18 17:00 Temperature 99.3 F Pulse Rate 95 H 96 H 99 H Respiratory Rate 108 H 94 H 116 H Blood Pressure 159/72 H 156/73 H Pulse Oximetry 96 97 97 10/21/18 17:26 10/21/18 18:00 10/21/18 18:12 Temperature Pulse Rate 100 H 95 H 98 H Respiratory Rate 105 H 109 H Blood Pressure 177/81 H 169/77 H Pulse Oximetry 95 96 96 10/21/18 18:26 10/21/18 19:00 10/21/18 19:26 Temperature Pulse Rate 96 H 98 H 88 Respiratory Rate 97 H Blood Pressure 158/76 H 134/97 H Pulse Oximetry 94 L 94 L 95 10/21/18 20:00 10/21/18 20:26 10/21/18 21:00 Temperature 98.9 F Pulse Rate 88 81 80 Respiratory Rate 110 H Blood Pressure 134/97 H 132/63 Pulse Oximetry 95 97 97 10/21/18 21:26 10/21/18 22:00 10/21/18 22:26 Temperature Pulse Rate 82 93 H 79 Respiratory Rate 118 H 109 H 114 H Blood Pressure 147/69 H 147/63 H Pulse Oximetry 97 97 97 10/21/18 23:00 10/21/18 23:30 10/22/18 00:00 Temperature Pulse Rate 80 87 Respiratory Rate 112 H Blood Pressure Pulse Oximetry 97 97 95 10/22/18 00:30 10/22/18 01:00 10/22/18 01:29 Temperature Pulse Rate 81 84 86 Respiratory Rate 107 H 115 H 113 H Blood Pressure 133/63 136/68 159/73 H Pulse Oximetry 96 97 96 10/22/18 02:00 10/22/18 02:29 10/22/18 03:00 Temperature Pulse Rate 93 H 93 H 91 H Respiratory Rate 112 H 108 H 101 H Blood Pressure 138/66 Pulse Oximetry 97 97 97 10/22/18 03:29 10/22/18 04:00 10/22/18 04:29 Temperature Pulse Rate 89 92 H 93 H Respiratory Rate 118 H 93 H Blood Pressure 144/69 H 161/74 H Pulse Oximetry 97 95 97 10/22/18 05:00 10/22/18 05:29 10/22/18 06:00 Temperature 98.7 F Pulse Rate 98 H 98 H 98 H Respiratory Rate 103 H 115 H Blood Pressure 160/77 H 160/77 H Pulse Oximetry 96 95 96 10/22/18 08:00 Temperature Pulse Rate Respiratory Rate Blood Pressure Pulse Oximetry 96 Intake & Output 10/21/18 10/22/18 10/22/18 18:59 06:59 18:59 Intake Total 2084 / 2084 3831 / 3831 Output Total 950 / 950 2550 / 2550 Balance 1134 / 1134 1281 / 1281 Weight 105.1 kg Intake: IV 1000 / 1000 Sodium Bicarbonate 8.4% Inj 50 1000 / 1000 MEQ In NS Inj 950 ML @ 42 mls/ hr IV.CONT .[id number] [facility] Rx#: [id number] Oral 60 / 60 Tube Feeding 684 / 684 1281 / 1281 Tube Irrigant 90 / 90 Water Bolus Amount 400 / 400 800 / 800 Anesthesia Amount 800 / 800 Autotransfusion Amount 800 / 800 Output: Blood Draw 400 / 400 Urine 950 / 950 1950 / 1950 Stool 0 / 0 Estimated Blood Loss 200 / 200 Other: # Voids 2 Date of Last Bowel Movement 10/21/18 10/21/18 # Bowel Movements 1 1 # Incontinent Bowel Movements 2 - Constitutional no acute distress, obese, cooperative - Routine HEENT Exam Head: Present: abrasion (Above right eyebrow and medial to left eyebrow.). Absent: atraumatic Eye: Present: PERRL (Pupils 3mm bilaterally reactive bilaterally.) - Routine Neck Exam Comments: Trach in place on humidified O2. - Routine Respiratory Exam Present: CTA bilaterally. Absent: respiratory distress, rhonchi, wheezes - Routine Cardiovascular Exam Present: RRR, S1, S2. Absent: murmur - Routine Abdominal Exam Present: soft, normoactive bowel sounds. Absent: distended, firm - Routine Skin Exam Absent: cyanosis, erythema - Routine Neurological Exam Present: alert, altered mental status (Follows commands intermittently at times quickly and other times takes a while.), moving all extremities (LLE in orthopedic brace and limited. Moves toes on right. Sql [employer] hand on left right hand with slight movement in hand but edematous.) - Routine Psychiatric Exam Present: normal affect, cooperative. Absent: anxious, agitated - Urinary Catheter Management Indwelling Temp Sensing Catheter Cath placed during this visit: yes, but has since been removed by the nurse Reason for continuing: Hourly intake/output Insertion date: 10/05/18 Insertion time: 20:00 Removal date: 10/20/18 Removal time: 12:00 Assessment and Plan - Assessment (1) CHI (closed head injury) Code(s): S09.90XA - Unspecified injury of head, initial encounter Status: Acute Qualifiers: Encounter type: initial encounter Qualified Code(s): S09.90XA - Unspecified injury of head, initial encounter (2) Acute subdural hematoma Code(s): S06.5X9A - Traumatic subdural hemorrhage with loss of consciousness of unspecified duration, initial encounter Status: Acute (3) Open fracture Code(s): T14.8XXA - Other injury of unspecified body region, initial encounter Status: Acute (4) Respiratory failure after trauma Code(s): J96.90 - Respiratory failure, unspecified, unspecified whether with hypoxia or hypercapnia Status: Acute (5) Mild major neurocognitive disorder as late effect of traumatic brain injury without behavioral disturbance Code(s): S06.9X9S - Unspecified intracranial injury with loss of consciousness of unspecified duration, sequela; F02.80 - Dementia in other diseases classified elsewhere without behavioral disturbance Status: Acute - Plan Chest X-Ray 10/05/18 00:00 CONCLUSION: Endotracheal tube tip in right mainstem bronchus. This should be withdrawn about 4 cm Tibia/Fibula X-Ray 10/05/18 00:00 CONCLUSION: Comminuted fractures proximal tibia and fibula. Distal tibia and fibula. Intact. Chest X-Ray 10/05/18 18:34 CONCLUSION: Endotracheal tube and nasogastric tube in good position. Bilateral rib fractures without pneumothorax. Basilar atelectasis. There is some widening of the superior mediastinum. See chest CT report. Pelvis X-Ray 10/05/18 18:34 CONCLUSION: No acute fracture. Abdomen/Pelvis CT 10/05/18 18:42 CONCLUSION: 1. Avulsion endplate fractures of T10 and T11 as above with widening of the anterior interspace likely from disruption of the annulus fibrosis. Consider MRI for further evaluation of disc injury. 2. No solid visceral injury identified. 3. Left eighth and right seventh rib fractures laterally with several healing lower right anterior rib fractures. Cervical Spine CT 10/05/18 18:42 CONCLUSION: 1. Moderate degenerative disc disease. No acute fracture or spondylolisthesis. Chest CT 10/05/18 18:42 CONCLUSION: 1. Avulsion fracture superior endplates of T10 and T11 as above with disruption of the anterior annulus fibrosis and widening of the anterior disc space between T10 and T11. 2. Fractures of the lower left and right ribs as above without pneumothorax. Dependent atelectasis in both lungs. 3. No evidence for aortic transection or dissection. 4. Mild coronary calcifications. Face CT 10/05/18 18:42 CONCLUSION: 1. Nondisplaced fracture of the right superior orbital wall, left medial orbital wall and left maxillary sinus with hemorrhage in the left maxillary sinus and ethmoids. Globes intact. Also nasal bone fracture. Patient intubated. Head CT 10/05/18 18:42 CONCLUSION: 1. Small anterior interhemispheric subdural hematoma without mass effect or shift. Trace subarachnoid hemorrhage anteriorly. No calvarial fracture identified. Femur X-Ray 10/05/18 18:43 CONCLUSION: Comminuted distal femur fracture with displacement. Knee CT 10/05/18 21:26 CONCLUSION: 1. Comminuted fractures of the distal femur and proximal tibia. Fracture of the proximal fibular shaft also noted. 2. Prominent atherosclerotic disease disease of the distal femoral artery, popliteal artery, and proximal calf arteries. There is focal very high-grade stenosis of the popliteal artery at the level of the knee. This finding is age- indeterminate and could be related to chronic atherosclerotic disease or recent trauma. Age-indeterminate moderate grade stenosis of the distal superficial femoral artery and high-grade stenosis of the PT trunk at its bifurcation also noted. Chest X-Ray 10/05/18 23:31 CONCLUSION: 1. Endotracheal tube tip now 2 cm above the yael. 2. Patchy atelectasis at the left lung base is decreased. Knee CT 10/06/18 00:00 CONCLUSION: 1. Severely comminuted fracture about the knee as described above, Knee X-Ray 10/06/18 00:00 CONCLUSION: Reasonable alignment as above Thoracic Spine MRI 10/06/18 00:00 CONCLUSION: 1. Abnormal T11-T12 as described above. 2. Thoracic cord is intact. There is no evidence for hematoma or contusion. There is no evidence of posterior ligamentous disruption. Chest X-Ray 10/06/18 06:00 CONCLUSION: No significant interval change. Head CT 10/06/18 08:00 CONCLUSION: 1. Stable to slightly improved. Significant intravascular contrast remains from previous contrasted exam. 62 y/o M Head CT as above; small parafalcine SDH. Neurologically patient is unchanged he is intubated ventilated and sedated on fentanyl and Diprivan drip. Facial lacerations repaired by Dr. Allen Patient underwent left leg runoff to assess popliteal artery and distal flow considering the proximal comminuted tibial fracture which is essentially behaves like a knee dislocation. He underwent successful ex-fix placement to the left femur and tibia with reduction of the comminuted segments MRI of the thoracic spine shows distraction of the T10-11 level however no disruption of the ligaments. Dr. Arceo has recommended spinal log roll precautions and hob not higher than 15 degrees. He underwent Posterior T9, T10, T11, and T12 autograft fusion; T9-12 pedicle screw fixation; left iliac crest autograft harvest on 10/10/18. Continue with current care. Pain control. log roll with TLSO brace. Rehab efforts. Continue to log roll in TLSO brace. Reportedly rehab placement today. Follow up Thoracic x-rays 11/21/18 to evaluate healing.
--- NOTE | 2018-10-22 10:57 | P.PNNP ---
Subjective Interval history: OOB in chair. Alert and followed some commands. Creatinine at 3.18 today. <Lima Hung - Last Filed: 10/22/18 11:16> Physical Exam Vital signs: Vital Signs 10/21/18 11:00 10/21/18 11:26 10/21/18 12:00 Temperature 100.9 F H Pulse Rate 93 H 90 98 H Respiratory Rate 117 H 126 H 17 Blood Pressure 143/90 H 158/73 H Pulse Oximetry 96 97 96 10/21/18 12:03 10/21/18 12:26 10/21/18 13:00 Temperature Pulse Rate 97 H 98 H 97 H Respiratory Rate 117 H 106 H Blood Pressure 158/73 H 166/79 H Pulse Oximetry 96 96 97 10/21/18 13:26 10/21/18 14:00 10/21/18 14:26 Temperature Pulse Rate 96 H 90 Respiratory Rate 112 H 113 H Blood Pressure 166/77 H Pulse Oximetry 97 95 95 10/21/18 14:30 10/21/18 15:00 10/21/18 15:26 Temperature 99.3 F Pulse Rate 93 H 97 H Respiratory Rate 122 H 123 H Blood Pressure 149/69 H 159/72 H Pulse Oximetry 96 96 10/21/18 16:00 10/21/18 16:26 10/21/18 17:00 Temperature 99.3 F Pulse Rate 95 H 96 H 99 H Respiratory Rate 108 H 94 H 116 H Blood Pressure 159/72 H 156/73 H Pulse Oximetry 96 97 97 10/21/18 17:26 10/21/18 18:00 10/21/18 18:12 Temperature Pulse Rate 100 H 95 H 98 H Respiratory Rate 105 H 109 H Blood Pressure 177/81 H 169/77 H Pulse Oximetry 95 96 96 10/21/18 18:26 10/21/18 19:00 10/21/18 19:26 Temperature Pulse Rate 96 H 98 H 88 Respiratory Rate 97 H Blood Pressure 158/76 H 134/97 H Pulse Oximetry 94 L 94 L 95 10/21/18 20:00 10/21/18 20:26 10/21/18 21:00 Temperature 98.9 F Pulse Rate 88 81 80 Respiratory Rate 110 H Blood Pressure 134/97 H 132/63 Pulse Oximetry 95 97 97 10/21/18 21:26 10/21/18 22:00 10/21/18 22:26 Temperature Pulse Rate 82 93 H 79 Respiratory Rate 118 H 109 H 114 H Blood Pressure 147/69 H 147/63 H Pulse Oximetry 97 97 97 10/21/18 23:00 10/21/18 23:30 10/22/18 00:00 Temperature Pulse Rate 80 87 Respiratory Rate 112 H Blood Pressure Pulse Oximetry 97 97 95 10/22/18 00:30 10/22/18 01:00 10/22/18 01:29 Temperature Pulse Rate 81 84 86 Respiratory Rate 107 H 115 H 113 H Blood Pressure 133/63 136/68 159/73 H Pulse Oximetry 96 97 96 10/22/18 02:00 10/22/18 02:29 10/22/18 03:00 Temperature Pulse Rate 93 H 93 H 91 H Respiratory Rate 112 H 108 H 101 H Blood Pressure 138/66 Pulse Oximetry 97 97 97 10/22/18 03:29 10/22/18 04:00 10/22/18 04:29 Temperature Pulse Rate 89 92 H 93 H Respiratory Rate 118 H 93 H Blood Pressure 144/69 H 161/74 H Pulse Oximetry 97 95 97 10/22/18 05:00 10/22/18 05:29 10/22/18 06:00 Temperature 98.7 F Pulse Rate 98 H 98 H 98 H Respiratory Rate 103 H 115 H Blood Pressure 160/77 H 160/77 H Pulse Oximetry 96 95 96 10/22/18 08:00 Temperature Pulse Rate Respiratory Rate Blood Pressure Pulse Oximetry 96 Intake & Output 10/21/18 10/22/18 10/22/18 18:59 06:59 18:59 Intake Total 2084 / 2084 3831 / 3831 Output Total 950 / 950 2550 / 2550 Balance 1134 / 1134 1281 / 1281 Weight 105.1 kg Intake: IV 1000 / 1000 Sodium Bicarbonate 8.4% Inj 50 1000 / 1000 MEQ In NS Inj 950 ML @ 42 mls/ hr IV.CONT .[id number] [facility] Rx#: [id number] Oral 60 / 60 Tube Feeding 684 / 684 1281 / 1281 Tube Irrigant 90 / 90 Water Bolus Amount 400 / 400 800 / 800 Anesthesia Amount 800 / 800 Autotransfusion Amount 800 / 800 Output: Blood Draw 400 / 400 Urine 950 / 950 1950 / 1950 Stool 0 / 0 Estimated Blood Loss 200 / 200 Other: # Voids 2 Date of Last Bowel Movement 10/21/18 10/21/18 # Bowel Movements 1 1 # Incontinent Bowel Movements 2 Narrative: GENERAL: Awake and alert. Trach in place. NECK: Supple, trachea midline. No JVD CARDIOVASCULAR: Regular rate and rhythm without murmurs, gallops, or rubs. RESPIRATORY: Breath sounds equal bilaterally. No accessory muscle use. GASTROINTESTINAL: Abdomen soft, non-tender, +BS MUSCULOSKELETAL: No cyanosis, left leg with splint and ivory on. Generalized edema. - Urinary Catheter Management Indwelling Temp Sensing Catheter Cath placed during this visit: yes, but has since been removed by the nurse Reason for continuing: Hourly intake/output Insertion date: 10/05/18 Insertion time: 20:00 Removal date: 10/20/18 Removal time: 12:00 <Lima Hung - Last Filed: 10/22/18 11:16> Vital signs: Vital Signs 10/25/18 22:51 10/26/18 00:00 10/26/18 04:00 Temperature 98.3 F 98.0 F Pulse Rate 92 H 89 97 H Respiratory Rate 16 16 18 Blood Pressure 130/63 129/62 134/63 Pulse Oximetry 98 97 95 10/26/18 07:51 10/26/18 07:58 10/26/18 08:44 Temperature 98.9 F Pulse Rate 88 91 H Respiratory Rate 18 Blood Pressure 153/71 H Pulse Oximetry 98 98 10/26/18 12:00 10/26/18 15:31 10/26/18 16:50 Temperature 98.9 F 97.9 F Pulse Rate 91 H 88 Respiratory Rate 20 20 20 Blood Pressure 157/76 H 130/66 Pulse Oximetry 95 98 10/26/18 20:00 Temperature 98.5 F Pulse Rate 91 H Respiratory Rate 18 Blood Pressure 129/61 Pulse Oximetry 96 Intake & Output 10/26/18 10/26/18 10/27/18 06:59 18:59 06:59 Intake Total 500 / 500 Output Total 1150 / 1150 1400 / 1400 Balance -1150 / -1150 -900 / -900 Weight 100.2 kg Intake: Oral 500 / 500 Output: Urine 1150 / 1150 1400 / 1400 Other: Date of Last Bowel Movement 10/25/18 10/25/18 - Urinary Catheter Management Indwelling Temp Sensing Catheter Cath placed during this visit: yes, but has since been removed by the nurse Reason for continuing: Hourly intake/output Insertion date: 10/05/18 Insertion time: 20:00 Removal date: 10/20/18 Removal time: 12:00 Indwelling Urethral Catheter Cath placed during this visit: yes Reason for continuing: Hourly intake/output Insertion date: 10/25/18 Insertion time: 17:00 <Allison Welsh - Last Filed: 10/26/18 21:27> Assessment and Plan - Assessment (1) Acute kidney injury Code(s): N17.9 - Acute kidney failure, unspecified Status: Acute Plan: Acute kidney injury with admission creatinine of 3.49 and then had some improvement down to 2.82 but now has gradually increasing at 3.5. Baseline creatinine is not available. May have underlying chronic kidney disease. Worsening renal indices could have been related to diuresis Maintain strict I+O Will follow urinary output and bmp. Continue monitor and follow, creatinine stable at 3.18, non oliguric. (2) Hypertension Code(s): I10 - Essential (primary) hypertension Status: Acute Plan: Elevated, metoprolol has been added, will monitor. <Lima Hung - Last Filed: 10/22/18 11:16> - Assessment (1) Acute kidney injury Code(s): N17.9 - Acute kidney failure, unspecified Status: Acute Plan: Patient seen and examined, agree with above. Creatinine is stable, Not much improvement in encephalopathy. (2) Hypertension Code(s): I10 - Essential (primary) hypertension Status: Acute Qualifiers: Hypertension type: unspecified Qualified Code(s): I10 - Essential (primary ) hypertension <Allison Welsh - Last Filed: 10/26/18 21:27>
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
[2018-10-22] MEDS: levoFLOXacin 250 MG Tablet PO SCH (17:58)
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
[2018-10-22] MEDS: Pantoprazole Inj 40 MG Vial IV.PUSH SCH (23:30)
[2018-10-23] MEDS: Heparin - SQ 10,000 UNITS/ML Vial SQ SCH ×3 (00:29→18:55)
[2018-10-23] MEDS: Oral Hygiene Kit OROPHARYNG SCH ×5 (02:06→23:05)
[2018-10-23] MEDS: Artificial Tears Opth Drops 15 ML Bottle EACH EYE SCH ×6 (02:16→22:33)
--- NOTE | 2018-10-23 08:09 | P.PNNPSY ---
- Progress Notes/Response to Treatment Contents of Sessions: Adjustment, Level of consciousness Time with Patient: 30 minutes Premorbid Psychological Status: Premorbid Cognitive, Emotional and Behavioral Status: Stable. 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 The patient has no known prior psychiatric difficulties, as described above. Substance abuse history is unknown. Behavioral Reactions of Patient and Family/Support System: Stable. The patient s family is experiencing ongoing issues of adjustment given the nature of the injury, and this aspect of recovery will require ongoing monitoring. Emotional/Behavioral Status of Patient and Family/Support System: Stable. Pertinent issues, if appropriate to this patients clinical care, are described in detail above. Maximizing Acute Care Outcome: It is recommended that the patient be monitored for emergent behavioral impulsivity as the medical condition evolves. This patients neuropathological challenges may limit rehabilitation potential going forward, and these challenges will require specialized therapeutic skills to maximize outcome. Additionally, the patients family is experiencing ongoing issues of adjustment given the traumatic nature of the injury, and they may benefit from ongoing psychological assistance. At this point in the recovery process, the patient does not have cognitive capacity as the patient is unable to understand a situation and its likely consequences, nor is the patient able to manipulate information rationally. He was sedated and intubated, and as such capacity was unable to be determined. Cognitive capacity will be assessed throughout the recovery process. Anticipated Problems: Ongoing areas of concern will include behavioral impulsivity, lack of insight and judgment, which is expected to improve with time and treatment. Treatment Plan: This clinician will continue to follow with you throughout the course of this patients critical care treatment, and I will be available to meet with the patients family/support system to facilitate their understanding and the ongoing care of their family member. The goals of neuropsychological intervention shall be both educational and supportive to the family/support system as is deemed clinically appropriate. Ranch[place] Amigos COG Scale: Level III Disinhibition Score: 15.75 Aggression Score: 14.00 Lability Score: 14.00 Agitated Behavior Total Score: 15 Impression: 62 year old male s/p complicated mild TBI 2T [facility] [place] on 10/05/2018. Progress Note Narrative: PTD 18. The patient in ICU as a boarder. Neurobehaviorally improving, some following of commands, but no agitation/restlessness. Amantadine 100 qD started on day 17. He is presently Rancho III. ABS is 15 (15.8,14,14). I will follow. - Diagnosis (1) Mild major neurocognitive disorder as late effect of traumatic brain injury without behavioral disturbance Status: Acute
--- NOTE | 2018-10-23 08:51 | P.PNNS ---
Subjective Interval history: Pt awake and alert. Smiled when I entered the room. Follows commands with a delayed response. Physical Exam Vital signs: Vital Signs 10/22/18 09:00 10/22/18 09:29 10/22/18 10:00 Temperature Pulse Rate 101 H 95 H 95 H Respiratory Rate 20 20 20 Blood Pressure 125/62 Pulse Oximetry 91 L 92 L 96 10/22/18 10:29 10/22/18 11:00 10/22/18 11:29 Temperature Pulse Rate 97 H 97 H 99 H Respiratory Rate 22 28 H 25 H Blood Pressure 149/63 H 146/76 H Pulse Oximetry 87 L 96 97 10/22/18 12:00 10/22/18 14:00 10/22/18 15:29 Temperature Pulse Rate 98 H 96 H 89 Respiratory Rate 25 H 35 H Blood Pressure 125/60 Pulse Oximetry 96 98 96 10/22/18 16:00 10/22/18 18:00 10/22/18 19:29 Temperature Pulse Rate 95 H 88 86 Respiratory Rate 25 H Blood Pressure 119/71 Pulse Oximetry 94 L 95 95 10/22/18 20:00 10/22/18 20:11 10/22/18 21:00 Temperature 98.7 F Pulse Rate 94 H 88 Respiratory Rate 25 H Blood Pressure 129/60 127/59 L Pulse Oximetry 93 L 94 L 95 10/22/18 22:00 10/22/18 23:00 10/23/18 00:00 Temperature 98.8 F Pulse Rate 80 81 82 Respiratory Rate 25 H Blood Pressure 111/57 L 131/59 L 120/60 Pulse Oximetry 95 97 97 10/23/18 01:00 10/23/18 02:00 10/23/18 03:00 Temperature Pulse Rate 82 83 82 Respiratory Rate Blood Pressure 112/58 L 117/59 L 128/60 Pulse Oximetry 94 L 96 95 10/23/18 04:00 10/23/18 05:00 Temperature 98.7 F Pulse Rate 83 83 Respiratory Rate 22 Blood Pressure 122/59 L 124/61 Pulse Oximetry 97 96 Intake & Output 10/22/18 10/23/18 10/23/18 18:59 06:59 18:59 Intake Total 984 / 984 855 / 855 Output Total 1150 / 1150 1000 / 1000 Balance -166 / -166 -145 / -145 Intake: Tube Feeding 584 / 584 455 / 455 Water Bolus Amount 400 / 400 400 / 400 Output: Urine 1150 / 1150 1000 / 1000 Other: Date of Last Bowel Movement 10/21/18 10/21/18 # Bowel Movements 1 - Constitutional no acute distress, obese, cooperative - Routine HEENT Exam Head: Present: abrasion (Above right eyebrow and medial left eyebrow.). Absent : atraumatic Eye: Present: PERRL. Absent: conjunctival icterus - Routine Neck Exam Comments: Trach in place. - Routine Respiratory Exam Present: CTA bilaterally. Absent: respiratory distress, rhonchi, wheezes Comments: On humidified O2. - Routine Cardiovascular Exam Present: RRR, S1, S2. Absent: murmur - Routine Abdominal Exam Present: soft, normoactive bowel sounds. Absent: distended, firm - Routine Skin Exam Absent: cyanosis, erythema - Routine Neurological Exam Present: alert, moving all extremities (Moves right hand less but some movement in fingers and left foot but less than LUE or right foot. LLE in orthopedic brace.) - Routine Psychiatric Exam Present: normal affect, cooperative. Absent: anxious, agitated - Urinary Catheter Management Indwelling Temp Sensing Catheter Cath placed during this visit: yes, but has since been removed by the nurse Reason for continuing: Hourly intake/output Insertion date: 10/05/18 Insertion time: 20:00 Removal date: 10/20/18 Removal time: 12:00 Assessment and Plan - Assessment (1) CHI (closed head injury) Code(s): S09.90XA - Unspecified injury of head, initial encounter Status: Acute Qualifiers: Encounter type: initial encounter Qualified Code(s): S09.90XA - Unspecified injury of head, initial encounter (2) Acute subdural hematoma Code(s): S06.5X9A - Traumatic subdural hemorrhage with loss of consciousness of unspecified duration, initial encounter Status: Acute (3) Open fracture Code(s): T14.8XXA - Other injury of unspecified body region, initial encounter Status: Acute (4) Respiratory failure after trauma Code(s): J96.90 - Respiratory failure, unspecified, unspecified whether with hypoxia or hypercapnia Status: Acute (5) Mild major neurocognitive disorder as late effect of traumatic brain injury without behavioral disturbance Code(s): S06.9X9S - Unspecified intracranial injury with loss of consciousness of unspecified duration, sequela; F02.80 - Dementia in other diseases classified elsewhere without behavioral disturbance Status: Acute - Plan Chest X-Ray 10/05/18 00:00 CONCLUSION: Endotracheal tube tip in right mainstem bronchus. This should be withdrawn about 4 cm Tibia/Fibula X-Ray 10/05/18 00:00 CONCLUSION: Comminuted fractures proximal tibia and fibula. Distal tibia and fibula. Intact. Chest X-Ray 10/05/18 18:34 CONCLUSION: Endotracheal tube and nasogastric tube in good position. Bilateral rib fractures without pneumothorax. Basilar atelectasis. There is some widening of the superior mediastinum. See chest CT report. Pelvis X-Ray 10/05/18 18:34 CONCLUSION: No acute fracture. Abdomen/Pelvis CT 10/05/18 18:42 CONCLUSION: 1. Avulsion endplate fractures of T10 and T11 as above with widening of the anterior interspace likely from disruption of the annulus fibrosis. Consider MRI for further evaluation of disc injury. 2. No solid visceral injury identified. 3. Left eighth and right seventh rib fractures laterally with several healing lower right anterior rib fractures. Cervical Spine CT 10/05/18 18:42 CONCLUSION: 1. Moderate degenerative disc disease. No acute fracture or spondylolisthesis. Chest CT 10/05/18 18:42 CONCLUSION: 1. Avulsion fracture superior endplates of T10 and T11 as above with disruption of the anterior annulus fibrosis and widening of the anterior disc space between T10 and T11. 2. Fractures of the lower left and right ribs as above without pneumothorax. Dependent atelectasis in both lungs. 3. No evidence for aortic transection or dissection. 4. Mild coronary calcifications. Face CT 10/05/18 18:42 CONCLUSION: 1. Nondisplaced fracture of the right superior orbital wall, left medial orbital wall and left maxillary sinus with hemorrhage in the left maxillary sinus and ethmoids. Globes intact. Also nasal bone fracture. Patient intubated. Head CT 10/05/18 18:42 CONCLUSION: 1. Small anterior interhemispheric subdural hematoma without mass effect or shift. Trace subarachnoid hemorrhage anteriorly. No calvarial fracture identified. Femur X-Ray 10/05/18 18:43 CONCLUSION: Comminuted distal femur fracture with displacement. Knee CT 10/05/18 21:26 CONCLUSION: 1. Comminuted fractures of the distal femur and proximal tibia. Fracture of the proximal fibular shaft also noted. 2. Prominent atherosclerotic disease disease of the distal femoral artery, popliteal artery, and proximal calf arteries. There is focal very high-grade stenosis of the popliteal artery at the level of the knee. This finding is age- indeterminate and could be related to chronic atherosclerotic disease or recent trauma. Age-indeterminate moderate grade stenosis of the distal superficial femoral artery and high-grade stenosis of the PT trunk at its bifurcation also noted. Chest X-Ray 10/05/18 23:31 CONCLUSION: 1. Endotracheal tube tip now 2 cm above the yael. 2. Patchy atelectasis at the left lung base is decreased. Knee CT 10/06/18 00:00 CONCLUSION: 1. Severely comminuted fracture about the knee as described above, Knee X-Ray 10/06/18 00:00 CONCLUSION: Reasonable alignment as above Thoracic Spine MRI 10/06/18 00:00 CONCLUSION: 1. Abnormal T11-T12 as described above. 2. Thoracic cord is intact. There is no evidence for hematoma or contusion. There is no evidence of posterior ligamentous disruption. Chest X-Ray 10/06/18 06:00 CONCLUSION: No significant interval change. Head CT 10/06/18 08:00 CONCLUSION: 1. Stable to slightly improved. Significant intravascular contrast remains from previous contrasted exam. A: 62 y/o M Head CT as above; small parafalcine SDH. Neurologically patient is improving slowly. Facial lacerations repaired by Dr. Allen Patient underwent left leg runoff to assess popliteal artery and distal flow considering the proximal comminuted tibial fracture which is essentially behaves like a knee dislocation. He underwent successful ex-fix placement to the left femur and tibia with reduction of the comminuted segments MRI of the thoracic spine shows distraction of the T10-11 level however no disruption of the ligaments. Dr. Arceo has recommended spinal log roll precautions and hob not higher than 15 degrees. He underwent Posterior T9, T10, T11, and T12 autograft fusion; T9-12 pedicle screw fixation; left iliac crest autograft harvest on 10/10/18. Continue with current care. Pain control. log roll with TLSO brace. Rehab efforts. Continue to log roll in TLSO brace. Reportedly rehab placement today. Follow up Thoracic x-rays 11/21/18 to evaluate healing. Discussed with RN will remove thoracic and iliac crest markus today.
--- NOTE | 2018-10-23 09:47 | P.PNNP ---
Subjective Interval history: Resting comfortably. Alert and following commands. <Lima Hung - Last Filed: 10/23/18 11:25> Physical Exam Vital signs: Vital Signs 10/22/18 10:00 10/22/18 10:29 10/22/18 11:00 Temperature Pulse Rate 95 H 97 H 97 H Respiratory Rate 20 22 28 H Blood Pressure 149/63 H Pulse Oximetry 96 87 L 96 10/22/18 11:29 10/22/18 12:00 10/22/18 14:00 Temperature Pulse Rate 99 H 98 H 96 H Respiratory Rate 25 H 25 H 35 H Blood Pressure 146/76 H Pulse Oximetry 97 96 98 10/22/18 15:29 10/22/18 16:00 10/22/18 18:00 Temperature Pulse Rate 89 95 H 88 Respiratory Rate 25 H Blood Pressure 125/60 Pulse Oximetry 96 94 L 95 10/22/18 19:29 10/22/18 20:00 10/22/18 20:11 Temperature 98.7 F Pulse Rate 86 94 H Respiratory Rate 25 H Blood Pressure 119/71 129/60 Pulse Oximetry 95 93 L 94 L 10/22/18 21:00 10/22/18 22:00 10/22/18 23:00 Temperature Pulse Rate 88 80 81 Respiratory Rate Blood Pressure 127/59 L 111/57 L 131/59 L Pulse Oximetry 95 95 97 10/23/18 00:00 10/23/18 01:00 10/23/18 02:00 Temperature 98.8 F Pulse Rate 82 82 83 Respiratory Rate 25 H Blood Pressure 120/60 112/58 L 117/59 L Pulse Oximetry 97 94 L 96 10/23/18 03:00 10/23/18 04:00 10/23/18 05:00 Temperature 98.7 F Pulse Rate 82 83 83 Respiratory Rate 22 Blood Pressure 128/60 122/59 L 124/61 Pulse Oximetry 95 97 96 Intake & Output 10/22/18 10/23/18 10/23/18 18:59 06:59 18:59 Intake Total 984 / 984 855 / 855 Output Total 1150 / 1150 1000 / 1000 Balance -166 / -166 -145 / -145 Intake: Tube Feeding 584 / 584 455 / 455 Water Bolus Amount 400 / 400 400 / 400 Output: Urine 1150 / 1150 1000 / 1000 Other: Date of Last Bowel Movement 10/21/18 10/21/18 # Bowel Movements 1 Narrative: GENERAL: Awake and alert. Trach in place. NECK: Supple, trachea midline. No JVD CARDIOVASCULAR: Regular rate and rhythm without murmurs, gallops, or rubs. RESPIRATORY: Breath sounds equal bilaterally. No accessory muscle use. GASTROINTESTINAL: Abdomen soft, non-tender, +BS MUSCULOSKELETAL: No cyanosis, left leg with splint and ivory on. Generalized edema , improving - Urinary Catheter Management Indwelling Temp Sensing Catheter Cath placed during this visit: yes, but has since been removed by the nurse Reason for continuing: Hourly intake/output Insertion date: 10/05/18 Insertion time: 20:00 Removal date: 10/20/18 Removal time: 12:00 <Lima Hung - Last Filed: 10/23/18 11:25> Vital signs: Vital Signs 10/25/18 22:51 10/26/18 00:00 10/26/18 04:00 Temperature 98.3 F 98.0 F Pulse Rate 92 H 89 97 H Respiratory Rate 16 16 18 Blood Pressure 130/63 129/62 134/63 Pulse Oximetry 98 97 95 10/26/18 07:51 10/26/18 07:58 10/26/18 08:44 Temperature 98.9 F Pulse Rate 88 91 H Respiratory Rate 18 Blood Pressure 153/71 H Pulse Oximetry 98 98 10/26/18 12:00 10/26/18 15:31 10/26/18 16:50 Temperature 98.9 F 97.9 F Pulse Rate 91 H 88 Respiratory Rate 20 20 20 Blood Pressure 157/76 H 130/66 Pulse Oximetry 95 98 10/26/18 20:00 Temperature 98.5 F Pulse Rate 91 H Respiratory Rate 18 Blood Pressure 129/61 Pulse Oximetry 96 Intake & Output 10/26/18 10/26/18 10/27/18 06:59 18:59 06:59 Intake Total 500 / 500 Output Total 1150 / 1150 1400 / 1400 Balance -1150 / -1150 -900 / -900 Weight 100.2 kg Intake: Oral 500 / 500 Output: Urine 1150 / 1150 1400 / 1400 Other: Date of Last Bowel Movement 10/25/18 10/25/18 - Urinary Catheter Management Indwelling Temp Sensing Catheter Cath placed during this visit: yes, but has since been removed by the nurse Reason for continuing: Hourly intake/output Insertion date: 10/05/18 Insertion time: 20:00 Removal date: 10/20/18 Removal time: 12:00 Indwelling Urethral Catheter Cath placed during this visit: yes Reason for continuing: Hourly intake/output Insertion date: 10/25/18 Insertion time: 17:00 <Allison Welsh - Last Filed: 10/26/18 21:58> Assessment and Plan - Assessment (1) Acute kidney injury Code(s): N17.9 - Acute kidney failure, unspecified Status: Acute Plan: Acute kidney injury with admission creatinine of 3.49 and then had some improvement down to 2.82 but now has gradually increasing at 3.5 on day of consult. Baseline creatinine is not available. Most likely has underlying chronic kidney disease. Creatinine has been stable, with good urinary output. Continue to Maintain I+ O. Avoid nephrotoxins as possible. Will continue follow urinary output and bmp. No labs today but labs in AM. (2) Hypertension Code(s): I10 - Essential (primary) hypertension Status: Acute Plan: Improved, will monitor. <Lima Hung - Last Filed: 10/23/18 11:25> - Assessment (1) Acute kidney injury Code(s): N17.9 - Acute kidney failure, unspecified Status: Acute Plan: Patient seen and examined, agree with above. Creatinine increase slightly, on GT feeding, if Creatinine continue to increase will consider IVF. (2) Hypertension Code(s): I10 - Essential (primary) hypertension Status: Acute Qualifiers: Hypertension type: unspecified Qualified Code(s): I10 - Essential (primary ) hypertension <Allison Welsh - Last Filed: 10/26/18 21:58>
[2018-10-23] MEDS: Carvedilol 12.5 MG Tablet PO SCH ×2 (10:41→22:33)
[2018-10-23] MEDS: Calcium/Vitamin D 250/125 MG Tablet PO SCH ×3 (10:42→19:02)
[2018-10-23] MEDS: Metoprolol Tartrate 25 MG Tablet PO SCH ×2 (10:42→22:32)
[2018-10-23] MEDS: Gabapentin Liq 250 MG/5 ML UDC PO SCH ×3 (10:42→18:56)
[2018-10-23] MEDS: Amantadine Liq 100 MG/10 ML UDC PO SCH (10:43)
[2018-10-23] MEDS: Sodium Chloride 0.9% 2 ML Flush BID IV.FLUSH SCH ×2 (10:43→22:33)
[2018-10-23] MEDS: Senna/Docusate Sodium 8.6/50 MG Tablet PO SCH ×2 (10:43→22:32)
[2018-10-23] MEDS: Chlorhexidine 0.12% Oral Kit 15 ML UDC OROPHARYNG SCH ×2 (10:44→22:33)
--- NOTE | 2018-10-23 11:34 | P.DIET ---
Nutritional Evaluation Type of nutrition evaluation: follow-up Nutrition consult regarding: Tube Feeding Objective - Diagnosis trauma alert - Objective % IBW: 139 (IBW = 154 lbs) Body Weight Used for Calculations: IBW (70 kg) Energy Needs - Lower Range (kCal/kg): 25 Energy Needs - Upper Range (kCal/kg): 30 Lower Limit kCal/kg (kCals): 1,750 Upper Limit kCal/kg (kCals): 2,100 Lower Limit Protein Factor (Grams per Kg): 1.2 Upper Limit Protein Factor (Grams per Kg): 1.5 Lower Protein Needs (Protein): 84 Upper Protein Needs (Protein): 105 Dietitian Reviewed in Medical Record: Current diet, Curent medications, Intake & Output, Labs, Medical history, Tube feeding Diet Order: Mechanical Soft Objective Comments: Labs: BUN/creat 79/3.18, Est GFR 20, glu 120 PEG 10/17 Assessment Assessment: Pt's diet now advanced to mechanical soft and he continues on TFing of Nepro @ 55 mls/hr which provides 2376 kcals, 107 gms of protein and 960 mls of free water. Please note that Nepro TF is formulated for pts on dialysis. Specialty formula is probably not needed. Recommend Jevity 1.5 @ 55 mls/hr to provide 1980 kcals, 84 gms protein and 1003 mls of free water. RD will monitor po intake and adjust TF recommendations accordingly. Labs, wts and clinical course reviewed. W changes noted. Recommendations: 1. Jevity 1.5 @ 55 mls/hr 2. Diet per ST Dietitian to Monitor: Lab values, Intake & Output, Diet tolerance, Tube feeding tolerance, Weight change, PO Intake, Swallow recommendations, Medical course
[2018-10-23] MEDS: Pantoprazole Inj 40 MG Vial IV.PUSH SCH (23:05)
[2018-10-24] MEDS: Heparin - SQ 10,000 UNITS/ML Vial SQ SCH ×3 (02:40→18:11)
[2018-10-24] MEDS: Artificial Tears Opth Drops 15 ML Bottle EACH EYE SCH ×6 (03:48→22:34)
[2018-10-24] MEDS: Oral Hygiene Kit OROPHARYNG SCH ×3 (06:07→18:16)
--- NOTE | 2018-10-24 08:08 | P.PNNPSY ---
- Behavior Intact: Impulsive/agitated - Cognitive Severe: Cognitive, Attention/concentration, Confused/orientation, Insight/ awareness, Judgment/problem solving, Memory - Psychosocial Moderate: Psychosocial, Family/other adjustment, Realistic expectation - Progress Notes/Response to Treatment Contents of Sessions: Adjustment, Level of consciousness Time with Patient: 15 minutes Premorbid Psychological Status: Premorbid Cognitive, Emotional and Behavioral Status: Stable. 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 The patient has no known prior psychiatric difficulties, as described above. Substance abuse history is unknown. Behavioral Reactions of Patient and Family/Support System: Stable. The patient s family is experiencing ongoing issues of adjustment given the nature of the injury, and this aspect of recovery will require ongoing monitoring. Emotional/Behavioral Status of Patient and Family/Support System: Stable. Pertinent issues, if appropriate to this patients clinical care, are described in detail above. Maximizing Acute Care Outcome: It is recommended that the patient be monitored for emergent behavioral impulsivity as the medical condition evolves. This patients neuropathological challenges may limit rehabilitation potential going forward, and these challenges will require specialized therapeutic skills to maximize outcome. Additionally, the patients family is experiencing ongoing issues of adjustment given the traumatic nature of the injury, and they may benefit from ongoing psychological assistance. At this point in the recovery process, the patient does not have cognitive capacity as the patient is unable to understand a situation and its likely consequences, nor is the patient able to manipulate information rationally. He was sedated and intubated, and as such capacity was unable to be determined. Cognitive capacity will be assessed throughout the recovery process. Anticipated Problems: Ongoing areas of concern will include behavioral impulsivity, lack of insight and judgment, which is expected to improve with time and treatment. Treatment Plan: This clinician will continue to follow with you throughout the course of this patients critical care treatment, and I will be available to meet with the patients family/support system to facilitate their understanding and the ongoing care of their family member. The goals of neuropsychological intervention shall be both educational and supportive to the family/support system as is deemed clinically appropriate. [place] Amigos COG Scale: Level III Disinhibition Score: 15.75 Aggression Score: 14.00 Lability Score: 14.00 Agitated Behavior Total Score: 15 Impression: 62 year [place] s/p complicated [place] [facility] [place] Progress Note Narrative: PTD 19. Patient transferred to the floor. No agitation/restlessness, with ABS = 15 (15.7,14,14). He remains Rancho III, some following to commands. Currently on Amantadine 100 qD, suggest increasing to BID, unless medically contraindicated. I will follow. - Diagnosis (1) Mild major neurocognitive disorder as late effect of traumatic brain injury without behavioral disturbance Status: Acute
[2018-10-24] MEDS: Chlorhexidine 0.12% Oral Kit 15 ML UDC OROPHARYNG SCH ×2 (08:41→22:24)
[2018-10-24] MEDS: Calcium/Vitamin D 250/125 MG Tablet PO SCH ×3 (09:39→18:12)
[2018-10-24] MEDS: Carvedilol 12.5 MG Tablet PO SCH ×2 (09:39→22:22)
[2018-10-24] MEDS: Gabapentin Liq 250 MG/5 ML UDC PO SCH ×3 (09:39→18:12)
[2018-10-24] MEDS: Amantadine Liq 100 MG/10 ML UDC PO SCH (09:39)
[2018-10-24] MEDS: Metoprolol Tartrate 25 MG Tablet PO SCH ×2 (09:40→22:22)
[2018-10-24] MEDS: Senna/Docusate Sodium 8.6/50 MG Tablet PO SCH ×2 (09:41→22:24)
[2018-10-24] MEDS: Sodium Chloride 0.9% 2 ML Flush BID IV.FLUSH SCH ×2 (09:41→22:24)
[2018-10-24 12:37] LABS: Phosphorus 4.5 mg/dL (2.5-4.9)
[2018-10-24 12:40] LABS: Albumin 1.7 g/dL (3.4-5.0); Calcium 8.4 mg/dL (8.5-10.1); Carbon Dioxide 23.5 meq/L (21.0-32.0); Potassium 4.4 meq/L (3.5-5.1)
[2018-10-24] MEDS: levoFLOXacin 250 MG Tablet PO SCH (18:13)
--- NOTE | 2018-10-24 21:44 | P.PNNP ---
Subjective Interval history: Patient seen in the afternoon, clinically same, alert, and remain confused. Physical Exam Vital signs: Vital Signs 10/24/18 00:00 10/24/18 04:00 10/24/18 05:01 Temperature 98.8 F 98.9 F Pulse Rate 92 H 95 H Respiratory Rate 18 18 Blood Pressure 138/63 156/72 H Pulse Oximetry 95 97 99 10/24/18 07:55 10/24/18 09:00 10/24/18 10:55 Temperature 99.4 F Pulse Rate 93 H 95 H Respiratory Rate 20 Blood Pressure 162/72 H Pulse Oximetry 98 94 L 10/24/18 12:00 10/24/18 15:59 10/24/18 20:00 Temperature 99.4 F 99.1 F 98.9 F Pulse Rate 94 H 93 H 94 H Respiratory Rate 20 20 17 Blood Pressure 149/67 H 157/72 H 117/55 L Pulse Oximetry 97 98 97 Intake & Output 10/24/18 10/24/18 10/25/18 06:59 18:59 06:59 Intake Total 50 / 50 Output Total 1500 / 1500 900 / 900 Balance -1500 / -1500 -850 / -850 Intake: Oral 50 / 50 Output: Urine 1500 / 1500 900 / 900 Other: # Voids 3 Date of Last Bowel Movement 10/23/18 10/24/18 Narrative: GENERAL: Awake and alert. Trach in place. NECK: Supple, trachea midline. No JVD CARDIOVASCULAR: Regular rate and rhythm without murmurs, gallops, or rubs. RESPIRATORY: Breath sounds equal bilaterally. No accessory muscle use. GASTROINTESTINAL: Abdomen soft, non-tender, +BS MUSCULOSKELETAL: No cyanosis, left leg with splint and ivory on. Generalized edema , improving - Urinary Catheter Management Indwelling Temp Sensing Catheter Cath placed during this visit: yes, but has since been removed by the nurse Reason for continuing: Hourly intake/output Insertion date: 10/05/18 Insertion time: 20:00 Removal date: 10/20/18 Removal time: 12:00 Assessment and Plan - Assessment (1) Acute kidney injury Code(s): N17.9 - Acute kidney failure, unspecified Status: Acute Plan: Patient develop MARKO, remain non oliguric. Creatinine increase slightly , now 3.5. Most likely has ATN. Avoid Nephrotoxins, follow the urine out put and BMP. (2) Hypertension Code(s): I10 - Essential (primary) hypertension Status: Acute Plan: Improved, will monitor.
[2018-10-25] MEDS: Pantoprazole Inj 40 MG Vial IV.PUSH SCH ×2 (00:07→22:56)
[2018-10-25] MEDS: Oral Hygiene Kit OROPHARYNG SCH ×3 (00:17→18:10)
[2018-10-25] MEDS: Heparin - SQ 10,000 UNITS/ML Vial SQ SCH ×3 (01:30→18:05)
[2018-10-25] MEDS: Artificial Tears Opth Drops 15 ML Bottle EACH EYE SCH ×6 (02:06→21:26)
[2018-10-25] MEDS: Carvedilol 12.5 MG Tablet PO SCH ×2 (09:34→21:26)
[2018-10-25] MEDS: Amantadine Liq 100 MG/10 ML UDC PO SCH (09:34)
[2018-10-25] MEDS: Metoprolol Tartrate 25 MG Tablet PO SCH ×2 (09:35→21:26)
[2018-10-25] MEDS: Calcium/Vitamin D 250/125 MG Tablet PO SCH ×3 (09:35→18:07)
[2018-10-25] MEDS: Senna/Docusate Sodium 8.6/50 MG Tablet PO SCH ×2 (09:35→21:26)
[2018-10-25] MEDS: Gabapentin Liq 250 MG/5 ML UDC PO SCH ×3 (09:36→18:06)
[2018-10-25] MEDS: Sodium Chloride 0.9% 2 ML Flush BID IV.FLUSH SCH ×2 (09:37→21:26)
[2018-10-25] MEDS: Chlorhexidine 0.12% Oral Kit 15 ML UDC OROPHARYNG SCH ×2 (10:59→21:25)
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
--- NOTE | 2018-10-25 12:54 | P.PNNP ---
Subjective Interval history: No acute events overnight. Creatinine slightly increased at 3.55 yesterday. <Lima Hung - Last Filed: 10/25/18 12:47> Physical Exam Vital signs: Vital Signs 10/24/18 15:59 10/24/18 20:00 10/25/18 00:00 Temperature 99.1 F 98.9 F 98.9 F Pulse Rate 93 H 94 H 90 Respiratory Rate 20 17 16 Blood Pressure 157/72 H 117/55 L 120/58 L Pulse Oximetry 98 97 97 10/25/18 03:31 10/25/18 04:00 10/25/18 07:57 Temperature 98.8 F 99.2 F Pulse Rate 92 H 93 H Respiratory Rate 16 20 Blood Pressure 121/57 L 145/70 H Pulse Oximetry 97 97 96 10/25/18 08:00 10/25/18 12:00 Temperature 99.5 F Pulse Rate 92 H 94 H Respiratory Rate 18 Blood Pressure 160/74 H Pulse Oximetry 96 Intake & Output 10/24/18 10/25/18 10/25/18 18:59 06:59 18:59 Intake Total 50 / 50 Output Total 900 / 900 Balance -850 / -850 Weight 104.1 kg Intake: Oral 50 / 50 Output: Urine 900 / 900 Other: # Voids 3 Date of Last Bowel Movement 10/24/18 10/24/18 11/23/18 Narrative: GENERAL: No distress noted. SKIN: Warm and dry. Scattered abrasion/scabbing noted to right forehead - above eyebrow ENT: No nasal bleeding or discharge. Mucous membranes pink and moist. NECK: Trachea midline. No JVD. CARDIOVASCULAR: Regular rate and rhythm. RESPIRATORY: No accessory muscle use. Lungs are clear to auscultation. Breath sounds equal bilaterally. No distress or dyspnea. GASTROINTESTINAL: BS + x 4 quads. Abdomen soft, non-tender, nondistended. PEG tube in place with tube feedings. MUSCULOSKELETAL: Extremities without cyanosis, or edema. + peripheral pulses x 4 extremities. Warm with good capillary refill and sensation. - Urinary Catheter Management Indwelling Temp Sensing Catheter Cath placed during this visit: yes, but has since been removed by the nurse Reason for continuing: Hourly intake/output Insertion date: 10/05/18 Insertion time: 20:00 Removal date: 10/20/18 Removal time: 12:00 <Lima Hung - Last Filed: 10/25/18 12:47> Vital signs: Vital Signs 10/27/18 00:00 10/27/18 04:00 10/27/18 08:00 Temperature 98.6 F 97.9 F 98.2 F Pulse Rate 89 83 84 Respiratory Rate 16 18 20 Blood Pressure 138/72 135/64 128/67 Pulse Oximetry 100 98 98 10/27/18 11:52 10/27/18 12:46 10/27/18 15:41 Temperature 98.0 F 99.4 F Pulse Rate 86 87 Respiratory Rate 20 20 Blood Pressure 151/75 H 123/66 Pulse Oximetry 98 98 96 10/27/18 17:40 Temperature Pulse Rate Respiratory Rate Blood Pressure Pulse Oximetry 96 Intake & Output 10/27/18 10/27/18 10/28/18 06:59 18:59 06:59 Intake Total 1000 / 1000 Output Total 950 / 950 1100 / 1100 Balance -950 / -950 -100 / -100 Weight 100.9 kg Intake: IV 1000 / 1000 NS Inj 1,000 ML @ 84 mls/hr IV. 1000 / 1000 CONT .[id number] [facility] Rx#:[id number] Output: Urine 950 / 950 Urine Amount (Catheter) 1100 / 1100 Indwelling Urethral Catheter 1100 / 1100 Other: Date of Last Bowel Movement 10/27/18 10/21/18 # Bowel Movements 1 # Incontinent Bowel Movements 3 3 - Urinary Catheter Management Indwelling Temp Sensing Catheter Cath placed during this visit: yes, but has since been removed by the nurse Reason for continuing: Hourly intake/output Insertion date: 10/05/18 Insertion time: 20:00 Removal date: 10/20/18 Removal time: 12:00 Indwelling Urethral Catheter Cath placed during this visit: yes Reason for continuing: Hourly intake/output Insertion date: 10/25/18 Insertion time: 17:00 <Allison Welsh - Last Filed: 10/27/18 21:39> Assessment and Plan - Assessment (1) Acute kidney injury Code(s): N17.9 - Acute kidney failure, unspecified Status: Acute Plan: Baseline creatinine is not available. Most likely ATN Creatinine slightly elevated yesterday, has good urinary output. Continue to Maintain I+O. Avoid nephrotoxins as possible. Will continue follow urinary output and bmp. With increase in creatinine will order UA. Labs ordered for AM (2) Hypertension Code(s): I10 - Essential (primary) hypertension Status: Acute Qualifiers: Hypertension type: unspecified Qualified Code(s): I10 - Essential (primary ) hypertension Plan: Improved, will monitor. <Lima Hung - Last Filed: 10/25/18 12:47> - Assessment (1) Acute kidney injury Code(s): N17.9 - Acute kidney failure, unspecified Status: Acute Plan: Patient seen and examined, agree with above. Creatinine increase slightly, possibly pre renal, getting GT feeding. If Creatinine continue to increase, will consider IVF. (2) Hypertension Code(s): I10 - Essential (primary) hypertension Status: Acute Qualifiers: Hypertension type: unspecified Qualified Code(s): I10 - Essential (primary ) hypertension <Allison Welsh - Last Filed: 10/27/18 21:39>
[2018-10-25] MEDS ORDERED: Morphine Inj 4 MG/ML Vial IV.PUSH PRN (13:39)
[2018-10-25 13:54] LABS: Calcium 8.3 mg/dL (8.5-10.1); Carbon Dioxide 22.3 meq/L (21.0-32.0)
[2018-10-25 13:56] LABS: Potassium 4.8 meq/L (3.5-5.1)
[2018-10-25 16:35] LABS: Amorphous Sediment,Urine Rare /hpf; Bacteria,Urine Rare /hpf; Bilirubin,Urine Negative (Negative); Clarity,Urine Cloudy (Clear); Color,Urine Yellow (Yellw/Straw); Glucose,Urine (UA) Negative (Negative); Leukocyte Esterase,Urine Negative (Negative); Mucus,Urine Few /lpf (Occasional); Nitrite,Urine Negative (Negative); Specific Gravity,Urine 1.012 (1.002-1.035); Squamous Epithelial Cell,Urine <1 /hpf (0-5)
[2018-10-26] MEDS: Oral Hygiene Kit OROPHARYNG SCH ×4 (00:44→16:52)
[2018-10-26] MEDS: Heparin - SQ 10,000 UNITS/ML Vial SQ SCH ×3 (01:59→18:05)
[2018-10-26] MEDS: Artificial Tears Opth Drops 15 ML Bottle EACH EYE SCH ×6 (02:00→22:26)
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
[2018-10-26] MEDS: Chlorhexidine 0.12% Oral Kit 15 ML UDC OROPHARYNG SCH ×2 (08:47→22:05)
[2018-10-26] MEDS: Calcium/Vitamin D 250/125 MG Tablet PO SCH ×3 (08:50→18:06)
[2018-10-26] MEDS: Carvedilol 12.5 MG Tablet PO SCH ×2 (08:50→22:03)
[2018-10-26] MEDS: Senna/Docusate Sodium 8.6/50 MG Tablet PO SCH ×2 (08:50→22:04)
[2018-10-26] MEDS: Amantadine Liq 100 MG/10 ML UDC PO SCH (08:50)
[2018-10-26] MEDS: Metoprolol Tartrate 25 MG Tablet PO SCH ×2 (08:50→22:04)
[2018-10-26] MEDS: Gabapentin Liq 250 MG/5 ML UDC PO SCH ×3 (08:56→18:05)
[2018-10-26] MEDS ORDERED: Morphine Inj 4 MG/ML Vial IV.PUSH PRN (09:13)
[2018-10-26] MEDS ORDERED: Amantadine Liq 100 MG/10 ML UDC PO SCH (09:13)
[2018-10-26 09:32] LABS: Alanine Aminotransferase 15 U/L (12-78); Albumin 1.8 g/dL (3.4-5.0); Anion Gap 8 meq/L (5-15); Aspartate Aminotransferase 26 U/L (15-37); Blood Urea Nitrogen 96 mg/dL (7-18); Calcium 8.4 mg/dL (8.5-10.1); Carbon Dioxide 22.4 meq/L (21.0-32.0); Chloride 113 meq/L (98-107); Glomerular Filtration Rate 17 mL/min (>89); Glucose,Random 101 mg/dL (74-106); Sodium 143 meq/L (136-145)
[2018-10-26 09:33] LABS: Alkaline Phosphatase 95 U/L (45-117); Total Protein 6.6 g/dL (6.4-8.2)
[2018-10-26 09:36] LABS: Potassium 5.2 meq/L (3.5-5.1)
--- NOTE | 2018-10-26 12:04 | P.PNNP ---
Subjective Interval history: Trach has been downsized today. Patient is awake and alert. Creatinine has increased at 3.69 today. <Lima Hung - Last Filed: 10/26/18 12:00> Physical Exam Vital signs: Vital Signs 10/25/18 16:00 10/25/18 20:00 10/25/18 21:14 Temperature 99.8 F H 99.3 F Pulse Rate 93 H 97 H 97 H Respiratory Rate 18 16 16 Blood Pressure 142/65 H 99/55 L 115/56 L Pulse Oximetry 95 95 95 10/25/18 22:51 10/26/18 00:00 10/26/18 04:00 Temperature 98.3 F 98.0 F Pulse Rate 92 H 89 97 H Respiratory Rate 16 16 18 Blood Pressure 130/63 129/62 134/63 Pulse Oximetry 98 97 95 10/26/18 07:51 10/26/18 08:44 10/26/18 12:00 Temperature 98.9 F 98.9 F Pulse Rate 88 91 H Respiratory Rate 18 20 Blood Pressure 153/71 H 157/76 H Pulse Oximetry 98 98 95 Intake & Output 10/25/18 10/26/18 10/26/18 18:59 06:59 18:59 Intake Total 240 / 240 Output Total 600 / 600 1150 / 1150 Balance -360 / -360 -1150 / -1150 Weight 100.2 kg Intake: Oral 240 / 240 Output: Urine 600 / 600 1150 / 1150 Other: Date of Last Bowel Movement 11/23/18 10/25/18 Narrative: GENERAL: Awake and alert. No distress noted. SKIN: Warm and dry. Scattered abrasion/scabbing noted to right forehead NECK: Trachea midline. No JVD. Trach site CARDIOVASCULAR: Regular rate and rhythm. RESPIRATORY: No accessory muscle use. Lungs are rhonchi to auscultation. Breath sounds equal bilaterally. No distress or dyspnea. GASTROINTESTINAL: BS + x 4 quads. Abdomen soft, non-tender, nondistended. PEG tube in place with tube feedings. MUSCULOSKELETAL: Extremities without cyanosis, or edema. + peripheral pulses x 4 extremities. Left leg with iovry and brace in place NEUROLOGICAL: Awake and alert. Nonverbal - Urinary Catheter Management Indwelling Temp Sensing Catheter Cath placed during this visit: yes, but has since been removed by the nurse Reason for continuing: Hourly intake/output Insertion date: 10/05/18 Insertion time: 20:00 Removal date: 10/20/18 Removal time: 12:00 Indwelling Urethral Catheter Cath placed during this visit: yes Reason for continuing: Hourly intake/output Insertion date: 10/25/18 Insertion time: 17:00 <Lima Hung - Last Filed: 10/26/18 12:00> - Urinary Catheter Management Indwelling Temp Sensing Catheter Cath placed during this visit: no Indwelling Urethral Catheter Cath placed during this visit: no <Allison Welsh - Last Filed: 10/28/18 20:31> Assessment and Plan - Assessment (1) Acute kidney injury Code(s): N17.9 - Acute kidney failure, unspecified Status: Acute Plan: Baseline creatinine is not available. Most likely ATN Creatinine increased at 3.69, has good urinary output. With increase in creatinine will order IVF's. Continue to Maintain I+O. Avoid nephrotoxins as possible. Will continue follow urinary output and bmp. Labs ordered for AM (2) Hypertension Code(s): I10 - Essential (primary) hypertension Status: Acute Qualifiers: Hypertension type: unspecified Qualified Code(s): I10 - Essential (primary ) hypertension Plan: Improved, will monitor. <Lima Hung - Last Filed: 10/26/18 12:00> - Assessment (1) Acute kidney injury Code(s): N17.9 - Acute kidney failure, unspecified Status: Acute Plan: Patient seen and examined, agree with above. Creatinine increase slightly, non oliguric. Most likely has ATN. Avoid Nephrotoxins and follow the BMP. (2) Hypertension Code(s): I10 - Essential (primary) hypertension Status: Acute Qualifiers: Hypertension type: unspecified Qualified Code(s): I10 - Essential (primary ) hypertension <Allison Welsh - Last Filed: 10/28/18 20:31>
[2018-10-26] MEDS: Sodium Chloride 0.9% 2 ML Flush BID IV.FLUSH SCH ×2 (12:39→22:04)
[2018-10-26] MEDS: Sod Chloride 0.9% Inj 1,000 ML IV.CONT SCH (22:24)
[2018-10-26] MEDS: Pantoprazole Inj 40 MG Vial IV.PUSH SCH (23:05)
[2018-10-27] MEDS: Oral Hygiene Kit OROPHARYNG SCH ×4 (01:03→15:26)
[2018-10-27] MEDS: Heparin - SQ 10,000 UNITS/ML Vial SQ SCH ×3 (02:26→17:43)
[2018-10-27] MEDS: Artificial Tears Opth Drops 15 ML Bottle EACH EYE SCH ×5 (02:27→17:45)
[2018-10-27] MEDS: Sod Chloride 0.9% Inj 1,000 ML IV.CONT SCH ×3 (02:42→12:52)
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
[2018-10-27] MEDS: Metoprolol Tartrate 25 MG Tablet PO SCH (08:48)
[2018-10-27] MEDS: Senna/Docusate Sodium 8.6/50 MG Tablet PO SCH (08:48)
[2018-10-27] MEDS: Carvedilol 12.5 MG Tablet PO SCH (08:48)
[2018-10-27] MEDS: Gabapentin Liq 250 MG/5 ML UDC PO SCH ×3 (08:48→17:45)
[2018-10-27] MEDS: Calcium/Vitamin D 250/125 MG Tablet PO SCH ×3 (08:48→17:45)
[2018-10-27] MEDS: Sodium Chloride 0.9% 2 ML Flush BID IV.FLUSH SCH (08:49)
[2018-10-27] MEDS: Chlorhexidine 0.12% Oral Kit 15 ML UDC OROPHARYNG SCH (08:49)
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
--- NOTE | 2018-10-27 16:25 | P.PNNP ---
Subjective Interval history: Resting comfortable. VSS and afebrile. Physical Exam Vital signs: Vital Signs 10/26/18 16:50 10/26/18 20:00 10/27/18 00:00 Temperature 98.5 F 98.6 F Pulse Rate 91 H 89 Respiratory Rate 20 16 16 Blood Pressure 129/61 138/72 Pulse Oximetry 96 100 10/27/18 04:00 10/27/18 08:00 10/27/18 11:52 Temperature 97.9 F 98.2 F 98.0 F Pulse Rate 83 84 86 Respiratory Rate 18 20 20 Blood Pressure 135/64 128/67 151/75 H Pulse Oximetry 98 98 98 10/27/18 12:46 10/27/18 15:41 Temperature 99.4 F Pulse Rate 87 Respiratory Rate 20 Blood Pressure 123/66 Pulse Oximetry 98 96 Intake & Output 10/26/18 10/27/18 10/27/18 18:59 06:59 18:59 Intake Total 500 / 500 1000 / 1000 Output Total 1400 / 1400 950 / 950 600 / 600 Balance -900 / -900 -950 / -950 400 / 400 Weight 100.9 kg Intake: IV 1000 / 1000 NS Inj 1,000 ML @ 84 mls/hr IV. 1000 / 1000 CONT .[id number] [facility] Rx#:[id number] Oral 500 / 500 Output: Urine 1400 / 1400 950 / 950 Urine Amount (Catheter) 600 / 600 Indwelling Urethral Catheter 600 / 600 Other: Date of Last Bowel Movement 10/25/18 10/27/18 10/21/18 # Bowel Movements 1 # Incontinent Bowel Movements 3 Narrative: GENERAL: No distress noted. SKIN: Warm and dry. Scattered abrasion/scabbing noted to right forehead - above eyebrow NECK:Trachea midline. No JVD. CARDIOVASCULAR: Regular rate and rhythm. RESPIRATORY: No accessory muscle use. Lungs are clear to auscultation. Breath sounds equal bilaterally. GASTROINTESTINAL: BS + x 4 quads. Abdomen soft, non-tender, nondistended. PEG tube in place -clamped present. GENITOURINARY: Indwelling Mehta catheter MUSCULOSKELETAL: Extremities without cyanosis, or edema. + peripheral pulses x 4 extremities. NEUROLOGICAL: Awake and alert. Smiles. Attempts to mouth words. - Urinary Catheter Management Indwelling Temp Sensing Catheter Cath placed during this visit: yes, but has since been removed by the nurse Reason for continuing: Hourly intake/output Insertion date: 10/05/18 Insertion time: 20:00 Removal date: 10/20/18 Removal time: 12:00 Indwelling Urethral Catheter Cath placed during this visit: yes Reason for continuing: Hourly intake/output Insertion date: 10/25/18 Insertion time: 17:00 Assessment and Plan - Assessment (1) Acute kidney injury Code(s): N17.9 - Acute kidney failure, unspecified Status: Acute Plan: Patient seen and examined, agree with above. Creatinine increase slightly, on GT feeding, if Creatinine continue to increase will consider IVF. (2) Hypertension Code(s): I10 - Essential (primary) hypertension Status: Acute Qualifiers: Hypertension type: unspecified Qualified Code(s): I10 - Essential (primary ) hypertension Plan: Improved, will monitor.
== END 2018-10-27 20:18 ==
LOC: NEPI 18:33 → NEDA 19:19 → EDBD 19:19 → N03 19:29 → N05 10-23 14:16
PROVIDERS: ADMIT Surgery; ATTEND Surgery
PROC: PANENDO (2018-10-17 17:45)